=== PATIENT | male | born 1950 | race Caucasian/White ===

== ENCOUNTER → 2016-08-15 | Outpatient (CLI) | payer MEDICARE ==
[~2016-08-15] MED LIST: ALLO300T2 PO; ASPI-730 PO; CITA-49 PO; CLOP75TA19 PO; COLC0.6T69 PO; INSU100C11 SQ; INSU100I6 SQ; LATA2.5D7 BOTH EYES; LISI-1 PO; LOVA40TA70 PO; MAGN500C4 PO; METF-200 PO; METO25TA6 PO; OMEG500C7 PO; OMEP40CA11 PO; ONDA4TAB4 PO; OXYC1TAB8 PO
== END ==
LOC: NSC 08:00 → EDSTATUS 09:45
PROVIDERS: ATTEND Orthopaedic Surgery
DX: Z53.9 Procedure and treatment not carried out, unspecified reason (principal)

== ENCOUNTER 2016-09-10 06:22 | Day surgery (SDC) | payer MEDICARE ==
--- NOTE | 2016-09-07 14:00 | HPF ---
CHIEF COMPLAINT Right shoulder pain - rotator cuff tear. HISTORY OF PRESENT ILLNESS This is a 66-year-old male who was seen by Dr. Bill Andujar for right shoulder pain, rotator cuff tear. This stems from an injury in September of 2015 when he twisted awkwardly on a tractor and caught his arm in a steering wheel. He had sudden onset of pain and it has progressively worsened over time. His pain is described as moderate, it is aching at rest, sharp, moves rapidly with overhead activity. It is also aggravated by throwing, movement, pushing. He notes pain radiates to the upper arm and deltoid. Complains of a sensation of giving way, pain at night and awakening from sleep as well as weakness. He has had an injection which only helped temporarily. He has tried Tylenol, rest, ice, heat , home exercises and activity modification, all without improvement. He has had an MRI which is available for review that shows full-thickness supraspinatus tear in the anterior margin with minimal retraction. No evidence of labral tear. Biceps appears intact. Subscapularis shows some tendinopathy. There is hypertrophy of the AC joint. This patient had been scheduled roughly a month ago. It was canceled due to a family tragedy. Since that time he has his preoperative testing repeated. It is noted that he does have a mild elevation in his white blood cell count. We have made efforts to try and get ahold of the patient to see if he has had a recent URI or anything that could explain these symptoms. We have been unable to get ahold of him. His phone numbers have changed secondary to his family situation. Therefore when he arrives I have ordered a repeat CBC to reevaluate. Will also need to be diligent to see if he is febrile, etc. REVIEW OF SYSTEMS Review of Systems was obtained and reviewed through patient questionnaire completed today. Constitutional: The patient does not have any chills, fever, fatigue, malaise, or weight loss. HEENT: The patient does not have any headache or dizziness. Respiratory: The patient does not have any cough, shortness of air, recent respiratory infection, or wheezing. Cardiovascular: The patient does not have any chest pain, palpitation, leg swelling, or syncope. Gastrointestinal: The patient does not have any abdominal pain, constipation, diarrhea, vomiting, heartburn, or nausea. Skin: The patient does not have any skin infection, rash, or numbness of the extremity. Musculoskeletal: The patient denies other joint pain as well. Neurological: The patient does not have any seizure. Psychiatric: The patient does not have any anxiety or depression. Hematologic/Lymphatic: The patient does not have easy bruising or easy bleeding. PAST MEDICAL HISTORY 1. COPD. 2. Type 2 diabetes. 3. Obstructive sleep apnea. 4. Gout. 5. Depression. MEDICATIONS 1. Levemir. 2. Humalog. 3. Metformin. 4. Plavix. 5. Metoprolol. 6. Citalopram. 7. Allopurinol. ALLERGIES No known drug allergies. SURGICAL HISTORY 1. Appendectomy. 2. Cholecystectomy. SOCIAL HISTORY He is . Semi-retired [employer]. Denies tobacco, alcohol or illicit drug use. FAMILY HISTORY Significant for father with colon cancer, diabetes and AZ. Mother with diabetes and COPD. Sister with breast cancer, thyroid cancer, melanoma. PHYSICAL EXAM 5 ft. 8 in. 228 lbs. Blood pressure is 110/58. General: Well developed. Well nourished. Alert and oriented x 3. No acute distress. Normal mood and affect. Skin: Shows no rash or lesions in the affected extremities. Vascular: 2+ palpable distal pulses and brisk capillary refill in all digits. Neuro: Normal sensation to light touch in bilateral affected extremities. Gait: Normal-appearing gait without antalgia. No assistive device is used. Extremity Exam: Right upper extremity is focused on. It shows no swelling, deformity or mass. There is tenderness present over the anterolateral border of the acromion. Tender over the greater tuberosity. No AC joint tenderness. Bicipital groove is nontender. Posterior joint line and neck are nontender. Normal cervical range. Shoulder range of motion essentially full but painful throughout impingement arc of abduction. He also has pain at the end range of forward flexion. He has weakness with abduction. Normal internal and external rotational strength. Distal strength is normal. Positive impingement signs. Negative Speed's, Yergason's and Ventura's. No instability. Contralateral extremity shows skin is intact. No swelling. No tenderness to palpation. Normal range of motion. Normal strength and stability. X-RAYS Five views of the shoulder were completed at [facility] in July of 2016. They show no evidence of fracture or dislocation, maintained glenohumeral joint space save for mild narrowing. AC joint shows degenerative change with inferior spurring in lateral clavicle and type 2 acromion. No abnormal soft tissue calcification. Moderate primary AC joint arthritis. ASSESSMENT Right shoulder rotator cuff tear. PLAN Dr. Lindsey has recommended a diagnostic arthroscopy, rotator cuff repair, subacromial decompression and treatment as needed. Risks and benefits have been reviewed. They include but are not limited to infection, nerve damage, artery damage, stroke, AZ, pulmonary embolus, deep vein thrombosis, ileus, . There are also medical risks of the anesthesia. There is risk that he may not regain full strength and range of motion. Will plan proceeding in the near future. CHUCKY
[~2016-09-10] VITALS: Ht 179.1 cm; Wt 105.3 kg
[2016-09-10] VITALS (17 sets, daily range): BP systolic 104–163; BP diastolic 56–94; PULSE 68–113; RESP 14–16; TEMP 96.9–97.8; O2SAT 90–98; Ht 179.1 cm; Wt 105.3 kg
[~2016-09-10 06:22] MED LIST changes: -ALLO300T2 PO; -COLC0.6T69 PO; -LATA2.5D7 BOTH EYES; -LISI-1 PO; -LOVA40TA70 PO; -MAGN500C4 PO; -METO25TA6 PO; -OMEG500C7 PO; -OMEP40CA11 PO; -ONDA4TAB4 PO; -OXYC1TAB8 PO
--- OUTSIDE RECORDS SUMMARY | 2016-09-10 06:26 | XMS REPORT | CCD ---
Author Author URSULA MARIN Organization Unknown Address [address], [place] [id number] Phone 0 Care Team Providers Care Food Science Professor Name Role Phone Jose Enrique COELLO Attending Physician 0 Vital Signs Unknown or Not Available. Allergies Unknown or Not Available. Procedures Unknown or Not Available. History of Immunizations Unknown or Not Available. Problems Unknown or Not Available. Results COMP METABOLIC - Collect Date/Time: 08/03/2015 14:04 Test Name Code Test Result Test Units Test Ref Range GLUCOSE 86 mg/dL L=70 H=110 BUN 17 mg/dL L=7 H=18 CREATININE 1.17 mg/ dL L=0.60 H=1.30 AGE 65 YEARS GFR 62.2 SODIUM 141 mmol/L L=136 H=145 POTASSIUM 4.1 mmol/ L L=3.5 H=5.1 CHLORIDE 105 mmol/L L=98 H=107 CO2 27 mmol/L L=21 H=32 CALCIUM 9.1 mg/dL L=8.5 H=10.1 AST 18 U/L L=15 H=37 ALT 76 U/L L=12 H=78 ALKALINE PHOS 79 U/ L L=46 H=116 TOTAL PROTEIN 7.7 g/ dL L=6.4 H=8.2 ALBUMIN 3.8 g/dL L=3.4 H=5.0 TOTAL BILI 0.30 mg/ dL L=0.00 H=1.00 HGB A1C - Collect Date/Time: 08/03/2015 14:04 Test Name Code Test Result Test Units Test Ref Range HGB A1C 10.8 % L=4.5 H=6.2 eAG 263 mg/dL LDL CHOLESTEROL, DIRECT - Collect Date/Time: 08/03/2015 14:04 Test Name Code Test Result Test Units Test Ref Range LDL, DIRECT 170 mg/ dL L=0 H=100 LIPID PANEL - Collect Date/Time: 08/03/2015 14:04 Test Name Code Test Result Test Units Test Ref Range CHOLESTEROL 292 mg/ dL L=0 H=200 TRIGLYCERIDES 545 mg /dL L=30 H=150 HDL 34 mg/dL L=40 H=60 VLDL 109 mg/dL L=0 H=40 CHOL/HDL RISK 8.6 RATIO L=0.0 H=5.0 PT FASTING: ? N/A TRIG >400 NO LDL CALC N/A LDL, CALC N/A N/A URIC ACID - Collect Date/Time: 08/03/2015 14:04 Test Name Code Test Result Test Units Test Ref Range URIC ACID 9.8 mg/dL L=2.6 H=7.2 MICROALBUMIN/CREATININE RATIO - Collect Date/Time: 08/03/2015 14:30 Test Name Code Test Result Test Units Test Ref Range MICROALBUMIN 104.2 mg/dL L=0.1 H=2.0 CREAT, URINE 140.2 mg/dL MICROALB/CREAT 743.2 ug/mg L=0.0 H=29.9 CORRECT BAR N/A UA AUTO W/ MICRO - Collect Date/Time: 08/04/2015 11:00 Test Name Code Test Result Test Units Test Ref Range COLOR Yellow N/A NORMAL: Yellow APPEARANCE Clear N/ A NORMAL: Clear GLUCOSE 250 N/A NORMAL: Negative BILIRUBIN Negative N /A NORMAL: Negative KETONE Negative N/A NORMAL: Negative SPEC GRAVITY >=1.030 N/A NORMAL: 1.005-1.030 BLOOD Negative N/A NORMAL: Negative PROTEIN 100 N/A NORMAL: Negative PH 5.0 N/A NORMAL: 5.0-8.0 UROBILINOGEN 0.2 N/ A NORMAL: Negative NITRITE Negative N/ A NORMAL: Negative LEUKOCYTES Negative N/A NORMAL: Negative MICRO RBC None Seen N/A NORMAL: 0-2 MICRO WBC None Seen N/A NORMAL: 0-2 BACTERIA Trace N/A NORMAL: None-Trace EPI CELLS None Seen N/A NORMAL: 0-15 MUCUS Trace N/A NORMAL: None-Small AMORPHOUS None Seen N/A NORMAL: None Seen YEAST None Seen N/A NORMAL: None Seen CRYSTALS None Seen N /A NORMAL: None Seen CAST Hyaline C N/A NORMAL: None Seen URINE CULTURE? NO N/ A Active Medications Unknown or Not Available. Medications Administered During Visit Unknown or Not Available. 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 Discharge Instructions You were admitted to [facility] on 08/03/2015 13:58 with a principal diagnosis of Type 2 diabetes mellitus with diabetic nephropathy You had the following tests done: COMP METABOLIC HGB A1C LDL CHOLESTEROL, DIRECT LIPID PANEL MICROALBUMIN/ CREATININE RATIO UA AUTO W/ MICRO URIC ACID You were discharged from [facility] Should you have any questions prior to discharge, please contact a member of your healthcare team. If you have left the hospital and have any questions, please contact your primary care physician. Chief Complaint and Reason For Visit Chief Complaint Date of Onset LAB Function Status Unknown or Not Available. Plan of Care Unknown or Not Available. Referral/Transition of Care Unknown or Not Available.
--- OUTSIDE RECORDS SUMMARY | 2016-09-10 06:27 | XMS REPORT | CCD ---
Author Author URSULA MARIN Organization Unknown Address [address], [place] [id number] Phone 0 Care Team Providers Care Learning Coach Name Role Phone Jose Enrique COELLO Attending Physician 0 Vital Signs Unknown or Not Available. Allergies Unknown or Not Available. Procedures Unknown or Not Available. History of Immunizations Unknown or Not Available. Problems Unknown or Not Available. Results BASIC METABOLIC - Collect Date/Time: 10/05/2015 11:25 Test Name Code Test Result Test Units Test Ref Range GLUCOSE 259 mg/dL L=70 H=110 BUN 21 mg/dL L=7 H=18 CREATININE 1.21 mg/ dL L=0.60 H=1.30 AGE 65 YEARS GFR 59.8 SODIUM 135 mmol/L L=136 H=145 POTASSIUM 4.5 mmol/ L L=3.5 H=5.1 CHLORIDE 102 mmol/L L=98 H=107 CO2 22 mmol/L L=21 H=32 CALCIUM 10.3 mg/dL L=8.5 H=10.1 URIC ACID - Collect Date/Time: 10/05/2015 11:25 Test Name Code Test Result Test Units Test Ref Range URIC ACID 11.0 mg/ dL L=2.6 H=7.2 CBC W/ DIFF - Collect Date/Time: 10/05/2015 11:25 Test Name Code Test Result Test Units Test Ref Range WBC 11.8 x10^3 L=4.8 H=10.8 RBC 5.28 x10^6 L=4.70 H=6.10 HEMOGLOBIN 16.1 g/ dL L=14.0 H=18.0 HEMATOCRIT 47.3 % L=42.0 H=52.0 MCV 90 fL L=80 H=100 MCH 30.4 pg L=27.0 H=33.0 MCHC 34.0 g/dL L=33.0 H=37.0 RDW 12.3 % L=11.5 H=14.5 PLATELETS 210 x10^3 L=150 H=450 MPV 9.0 fL L=7.8 H=11.0 NEUTROPHILS 78.9 % L=40.0 H=80.0 LYMPHOCYTES 12.3 % L=20.0 H=45.0 MONOCYTES 7.7 % L=0.0 H=10.0 EOSINOPHILS 1.0 % L=0.0 H=5.0 BASOPHILS 0.1 % L=0.0 H=2.0 REFLEX MAN DIFF NO N /A Active Medications Unknown or Not Available. Medications Administered During Visit Unknown or Not Available. Encounters Encounter Diagnosis Diagnosis Code Start Date Chronic kidney disease, unspecified N189 10/05/2015 Social History Smoking Status Code Start Date End Date Never smoker [id number] Patient Decision Aids Unknown or Not Available. Discharge Instructions You were admitted to [facility] on 10/05/2015 11:17 with a principal diagnosis of Chronic kidney disease, unspecified You had the following tests done: BASIC METABOLIC CBC W/ DIFF URIC ACID You were discharged from [facility] on 10/05/2015 11:17 Should you have any questions prior to [...]
--- OUTSIDE RECORDS SUMMARY | 2016-09-10 06:27 | XMS REPORT | CCD ---
Author Author ELVA VILCHIS Organization Unknown Address [address], [place] [phone] Phone 0 Care Team Providers Care Elevated Work Platform Operator Name Role Phone Jose Enrique COELLO Attending Physician 0 Vital Signs Unknown or Not Available. Allergies Unknown or Not Available. Procedures Unknown or Not Available. History of Immunizations Unknown or Not Available. Problems Unknown or Not Available. Results Unknown or Not Available. Active Medications Unknown or Not Available. Medications Administered During Visit Unknown or Not Available. Encounters Encounter Diagnosis Diagnosis Code Start Date LUMBAGO 7242 05/05/2014 Social History Smoking Status Code Start Date End Date Never smoker [id number] Patient Decision Aids Unknown or Not Available. Discharge Instructions You were admitted to [facility] on 05/05/2014 with a principal diagnosis of LUMBAGO. You were discharged from [facility] on 05/05/2014. Should you have any questions prior to discharge, please contact a member of your healthcare team. If you have left the hospital and have any questions, please contact your primary care physician. Chief Complaint and Reason For Visit Chief Complaint Date of Onset LUMBAR SPINE Function Status Unknown or Not Available. Plan of Care Unknown or Not Available. Referral/Transition of Care Unknown or Not Available.
--- OUTSIDE RECORDS SUMMARY | 2016-09-10 06:27 | XMS REPORT | CCD ---
Author Author DANNY CONWAY Organization Unknown Address [address], [place] [phone] Phone 0 Care Team Providers Care Poultry Husbandry Worker Name Role Phone MATT ARREDONDO W Attending Physician [phone] Vital Signs Unknown. Allergies Unknown. Procedures Unknown. History of Immunizations Unknown. Problems Unknown. Results COMP METABOLIC Test Name Code Test Result Test Units Test Date/Time GLUCOSE 214.0000 mg/ dL 04/17/2013 07:58 BUN 17.0000 mg/dL 04/17/2013 07:58 CREATININE 1.2000 mg /dL 04/17/2013 07:58 [age] YE[age] 04/17/2013 07:58 GFR 64.6000 04/17/2013 07:58 SODIUM 137.0000 mmol /L 04/17/2013 07:58 POTASSIUM 4.0000 mmol/L 04/17/2013 07:58 CHLORIDE 100.0000 mmol/L 04/17/2013 07:58 CO2 27.0000 mmol/L 04/17/2013 07:58 CALCIUM 9.4000 mg/ dL 04/17/2013 07:58 AST 17.0000 U/L 04/17/2013 07:58 ALT 44.0000 U/L 04/17/2013 07:58 ALKALINE PHOS 122.0000 U/L 04/17/2013 07:58 TOTAL PROTEIN 7.7000 g/dL 04/17/2013 07:58 ALBUMIN 3.9000 g/dL 04/17/2013 07:58 TOTAL BILI 0.4000 mg /dL 04/17/2013 07:58 Medications Unknown. Medications Administered Unknown. Encounters Unknown. Social History Smoking Status Code Start Date End Date Never smoker [id number] Patient Decision Aids Unknown. Instructions You were admitted to [facility] on 04/17/2013. You had the following tests done: GLUCOSE BUN CREATININE AGE GFR SODIUM POTASSIUM CHLORIDE CO2 CALCIUM AST ALT ALKALINE PHOS TOTAL PROTEIN ALBUMIN TOTAL BILI You were discharged from [facility] on 04/17/2013. Should you have any questions prior to discharge, please contact a member of your healthcare team. If you have left the hospital and have any questions, please contact your primary care physician. Chief Complaint and Reason For Visit Chief Complaint Date of Onset LAB Function Status Unknown. Plan of Care Unknown.
--- OUTSIDE RECORDS SUMMARY | 2016-09-10 06:27 | XMS REPORT | CCD ---
Author Author URSULA MARIN Organization Unknown Address [address], [place] [id number] Phone 0 Care Team Providers Care Band Edger Name Role Phone DIANA JENNIFER Attending Physician [phone] Vital Signs Unknown or Not Available. Allergies Allergy Code Allergy Type Reaction Status NKDA - NO KNOWN DRUG ALLERGIES 0 Drug allergy Active Procedures Unknown or Not Available. History of Immunizations Unknown or Not Available. Problems Unknown or Not Available. Results Unknown or Not Available. Active Medications Medication Code Dose Units Frequency Route Modification Start Date/Time Allopurinol 300MG Oral Tablet [id number] 300 MILLIGRAMS DAILY ORAL 12/31/2015 09:55 Prescription Detail 300 MILLIGRAMS ORAL DAILY Aspirin 325MG Oral Tablet, Enteric Coated [id number] 325 MILLIGRAMS DAILY ORAL 12/31/2015 09:55 Prescription Detail 325 MILLIGRAMS ORAL DAILY Bactrim DS 800MG-160MG Oral Tablet [id number] 1 EACH TWICE A DAY ORAL 12/31/2015 09:55 Prescription Detail 1 EACH ORAL TWICE A DAY Levemir 100U/1ML Subcutaneous Solution [id number] 60 EACH TWICE A DAY SUBCUTANEOUS 12/31/2015 09:55 Prescription Detail 60 EACH SUBCUTANEOUS TWICE A DAY Levemir 100U/1ML Subcutaneous Solution [id number] 60 UNITS TWICE A DAY SQ 12/31/2015 09:55 Prescription Detail 60 UNITS SQ TWICE A DAY Lisinopril 10MG Oral Tablet [id number] 10 MILLIGRAMS DAILY ORAL 12/31/2015 09:55 Prescription Detail 10 MILLIGRAMS ORAL DAILY metFORMIN HCl 500MG Oral Tablet [id number] 500 MILLIGRAMS DAILY ORAL 12/31/2015 09:55 Prescription Detail 500 MILLIGRAMS ORAL DAILY NovoLOG 100U/1ML Subcutaneous Solution 900404 30 UNIT THREE TIMES DAILY SUBCUTANEOUS 12/31/2015 09:55 Prescription Detail 30 UNIT SUBCUTANEOUS THREE TIMES DAILY Plavix 75MG Oral Tablet [id number] 75 MILLIGRAMS DAILY ORAL 12/31/2015 09:55 Prescription Detail 75 MILLIGRAMS ORAL DAILY traMADol HCl 50MG Oral Tablet [id number] 50 MILLIGRAMS NEEDED ORAL 12/31/2015 09:55 Prescription Detail 50 MILLIGRAMS ORAL NEEDED Xalatan 0.005% Ophthalmic Solution [id number] 1 EACH DAILY OPTHALMIC 12/31/2015 09:55 Prescription Detail 1 EACH OPTHALMIC DAILY Medications Administered During Visit Unknown or Not Available. Encounters Unknown or Not Available. Social History Smoking Status Code Start Date End Date Never smoker [id number] Patient Decision Aids Unknown or Not Available. Discharge Instructions You were admitted to [facility] on 07/10/2016 08:07 You were discharged from [facility] on 07/10/2016 08:08 Should you have any questions prior to discharge, please contact a member of your healthcare team. If you have left the hospital and have any questions, please contact your primary care physician. Chief Complaint and Reason For Visit Chief Complaint Date of Onset MRI UPPER EXT JNT WO CONTR RT 07/06/2016 Function Status Unknown or Not Available. Plan of Care Unknown or Not Available. Referral/Transition of Care Unknown or Not Available.
--- OUTSIDE RECORDS SUMMARY | 2016-09-10 06:27 | XMS REPORT | CCD ---
Author Author URSULA MARIN Organization Unknown Address [address], [place] [phone] Phone 0 Care Team Providers Care Home Health Rn Name Role Phone Duke DAVIS Attending Physician 0 Vital Signs Unknown or Not Available. Allergies Allergy Code Allergy Type Reaction Status NKDA - NO KNOWN DRUG ALLERGIES 0 Drug allergy Active Procedures Unknown or Not Available. History of Immunizations Unknown or Not Available. Problems Unknown or Not Available. Results Unknown or Not Available. Active Medications Medication Code Dose Units Frequency Route Modification Start Date/Time Allopurinol 300MG Oral Tablet [id number] 300 MILLIGRAMS DAILY ORAL 12/31/2015 09:55 Prescription Detail 300 MILLIGRAMS ORAL DAILY Aspirin 325MG Oral Tablet, Enteric Coated [id number] 325 MILLIGRAMS DAILY ORAL 12/31/2015 09:55 Prescription Detail 325 MILLIGRAMS ORAL DAILY Bactrim DS 800MG-160MG Oral Tablet [id number] 1 EACH TWICE A DAY ORAL 12/31/2015 09:55 Prescription Detail 1 EACH ORAL TWICE A DAY Levemir 100U/1ML Subcutaneous Solution [id number] 60 EACH TWICE A DAY SUBCUTANEOUS 12/31/2015 09:55 Prescription Detail 60 EACH SUBCUTANEOUS TWICE A DAY Levemir 100U/1ML Subcutaneous Solution [id number] 60 UNITS TWICE A DAY SQ 12/31/2015 09:55 Prescription Detail 60 UNITS SQ TWICE A DAY Lisinopril 10MG Oral Tablet [id number] 10 MILLIGRAMS DAILY ORAL 12/31/2015 09:55 Prescription Detail 10 MILLIGRAMS ORAL DAILY metFORMIN HCl 500MG Oral Tablet [id number] 500 MILLIGRAMS DAILY ORAL 12/31/2015 09:55 Prescription Detail 500 MILLIGRAMS ORAL DAILY NovoLOG 100U/1ML Subcutaneous Solution [id number] 30 UNIT THREE TIMES DAILY SUBCUTANEOUS 12/31/2015 09:55 Prescription Detail 30 UNIT SUBCUTANEOUS THREE TIMES DAILY Plavix 75MG Oral Tablet [id number] 75 MILLIGRAMS DAILY ORAL 12/31/2015 09:55 Prescription Detail 75 MILLIGRAMS ORAL DAILY traMADol HCl 50MG Oral Tablet [id number] 50 MILLIGRAMS NEEDED ORAL 12/31/2015 09:55 Prescription Detail 50 MILLIGRAMS ORAL NEEDED Xalatan 0.005% Ophthalmic Solution [id number] 1 EACH DAILY OPTHALMIC 12/31/2015 09:55 Prescription Detail 1 EACH OPTHALMIC DAILY Medications Administered During Visit Unknown or Not Available. Encounters Encounter Diagnosis Diagnosis Code Start Date Pain in left foot [id number] 04/04/2016 Social History Smoking Status Code Start Date End Date Never smoker [id number] Patient Decision Aids Unknown or Not Available. Discharge Instructions You were admitted to [facility] on 04/04/2016 16:28 with a principal diagnosis of Pain in left foot You were discharged from [facility] on 04/04/2016 16:28 Should you have any questions prior to discharge, please contact a member of your healthcare team. If you have left the hospital and have any questions, please contact your primary care physician. Chief Complaint and Reason For Visit Chief Complaint Date of Onset XRAY LT FOOT Function Status Unknown or Not Available. Plan of Care Unknown or Not Available. Referral/Transition of Care Unknown or Not Available.
--- OUTSIDE RECORDS SUMMARY | 2016-09-10 06:27 | XMS REPORT | CCD ---
Author Author URSULA MARIN Organization Unknown Address [address], [place] [id number] Phone 0 Care Team Providers Care Proc Tech Name Role Phone PEREZ MCMAHAN Attending Physician 0 Vital Signs Unknown or Not Available. Allergies Unknown or Not Available. Procedures Unknown or Not Available. History of Immunizations Unknown or Not Available. Problems Unknown or Not Available. Results Unknown or Not Available. Active Medications Unknown or Not Available. Medications Administered During Visit Unknown or Not Available. Encounters Encounter Diagnosis Diagnosis Code Start Date Sleep apnea, unspecified G4730 2015 Social History Smoking Status Code Start Date End Date Never smoker [id number] Patient Decision Aids Unknown or Not Available. Discharge Instructions You were admitted to [facility] on 06/05/2015 with a principal diagnosis of Sleep apnea, unspecified. You were discharged from [facility] on 06/06/2015. Should you have any questions prior to discharge, please contact a member of your healthcare team. If you have left the hospital and have any questions, please contact your primary care physician. Chief Complaint and Reason For Visit Unknown or Not Available. Function Status Unknown or Not Available. Plan of Care Unknown or Not Available. Referral/Transition of Care Unknown or Not Available.
--- OUTSIDE RECORDS SUMMARY | 2016-09-10 06:27 | XMS REPORT | CCD ---
Author Author URSULA MARIN Organization Unknown Address [address], [place] [id number] Phone 0 Care Team Providers Care Entry Level Software Engineer Name Role Phone JENNIFER ORTIZ Attending Physician [phone] Vital Signs Unknown or Not Available. Allergies Unknown or Not Available. Procedures Procedure Code Procedure Type Date CHEST [id number] 12/27/2015 History of Immunizations Unknown or Not Available. Problems Unknown or Not Available. Results BASIC METABOLIC - Collect Date/Time: 12/27/2015 10:08 Test Name Code Test Result Test Units Test Ref Range GLUCOSE 255 mg/dL L=70 H=110 BUN 16 mg/dL L=7 H=18 CREATININE 1.06 mg/ dL L=0.60 H=1.30 AGE 65 YEARS GFR 69.7 SODIUM 136 mmol/L L=136 H=145 POTASSIUM 4.2 mmol/ L L=3.5 H=5.1 CHLORIDE 101 mmol/L L=98 H=107 CO2 24 mmol/L L=21 H=32 CALCIUM 9.2 mg/dL L=8.5 H=10.1 CARDIAC PANEL - Collect Date/Time: 12/27/2015 10:08 Test Name Code Test Result Test Units Test Ref Range CKMB 1.0 ng/mL L=0.0 H=3.6 CPK 74 U/L L=26 H=308 CKMB% 1.4 % L=0.0 H=4.0 TROPONIN I <0.02 ng/ mL L=0.00 H=0.05 HGB A1C - Collect Date/Time: 12/27/2015 10:08 Test Name Code Test Result Test Units Test Ref Range HGB A1C 8.4 % L=4.5 H=6.2 eAG 194 mg/dL CBC W/ DIFF - Collect Date/Time: 12/27/2015 10:08 Test Name Code Test Result Test Units Test Ref Range WBC 16.8 x10^3 L=4.8 H=10.8 RBC 5.10 x10^6 L=4.70 H=6.10 HEMOGLOBIN 15.8 g/ dL L=14.0 H=18.0 HEMATOCRIT 46.1 % L=42.0 H=52.0 MCV 90 fL L=80 H=100 MCH 31.0 pg L=27.0 H=33.0 MCHC 34.3 g/dL L=33.0 H=37.0 RDW 13.0 % L=11.5 H=14.5 PLATELETS 236 x10^3 L=150 H=450 MPV 8.6 fL L=7.8 H=11.0 NEUTROPHILS 83.8 % L=40.0 H=80.0 LYMPHOCYTES 9.2 % L=20.0 H=45.0 MONOCYTES 5.6 % L=0.0 H=10.0 EOSINOPHILS 0.8 % L=0.0 H=5.0 BASOPHILS 0.6 % L=0.0 H=2.0 SEG 72 %% L=40 H=80 BAND 10 %% L=0 H=5 LYMPH 12 %% L=20 H=45 MONO 6 %% L=0 H=10 EOS 0 %% L=0 H=5 BASO 0 %% L=0 H=2 ATYP LYMPH 0 %% L=0 H=10 META 0 %% L=0 H=1 REFLEX MAN DIFF YES N/A RBC MORPHOLOGY NORMAL N/A SED RATE AUTO - Collect Date/Time: 12/27/2015 10:08 Test Name Code Test Result Test Units Test Ref Range SED RATE 11 mm/HR L=0 H=10 D-DIMER, QUANTITATIVE - Collect Date/Time: 12/27/2015 10:08 Test Name Code Test Result Test Units Test Ref Range D-DIMER, QUANT 174 ng/mL L=0 H=400 UA AUTO W/ MICRO - Collect Date/Time: 12/27/2015 11:30 Test Name Code Test Result Test Units Test Ref Range COLOR Yellow N/A NORMAL: Yellow APPEARANCE Clear N/ A NORMAL: Clear GLUCOSE 500 N/A NORMAL: Negative BILIRUBIN Negative N /A NORMAL: Negative KETONE Negative N/A NORMAL: Negative SPEC GRAVITY >=1.030 N/A NORMAL: 1.005-1.030 BLOOD Trace-ly N/A NORMAL: Negative PROTEIN 100 N/A NORMAL: Negative PH 5.0 N/A NORMAL: 5.0-8.0 UROBILINOGEN 0.2 N/ A NORMAL: Negative NITRITE Negative N/ A NORMAL: Negative LEUKOCYTES Negative N/A NORMAL: Negative MICRO RBC 2-5 N/A NORMAL: 0-2 MICRO WBC 0-2 N/A NORMAL: 0-2 BACTERIA 1+ N/A NORMAL: None-Trace EPI CELLS None Seen N/A NORMAL: 0-15 MUCUS Small N/A NORMAL: None-Small AMORPHOUS None Seen N/A NORMAL: None Seen YEAST None Seen N/A NORMAL: None Seen CRYSTALS None Seen N /A NORMAL: None Seen CAST Hyaline C N/A NORMAL: None Seen URINE CULTURE? NO N/ A Active Medications Medication Code Dose Units Frequency Route Modification Start Date/Time Allopurinol 300MG Oral Tablet [id number] 300 MILLIGRAMS DAILY ORAL 12/31/2015 09:55 Prescription Detail 300 MILLIGRAMS ORAL DAILY Aspirin 325MG Oral Tablet, Enteric Coated [id number] 325 MILLIGRAMS DAILY ORAL 12/31/2015 09:55 Prescription Detail 325 MILLIGRAMS ORAL DAILY Bactrim DS 800MG-160MG Oral Tablet [id number] 1 EACH TWICE A DAY ORAL 12/31/2015 09:55 Prescription Detail 1 EACH ORAL TWICE A DAY Levemir 100U/1ML Subcutaneous Solution [id number] 60 EACH TWICE A DAY SUBCUTANEOUS 12/31/2015 09:55 Prescription Detail 60 EACH SUBCUTANEOUS TWICE A DAY Levemir 100U/1ML Subcutaneous Solution [id number] 60 UNITS TWICE A DAY SQ 12/31/2015 09:55 Prescription Detail 60 UNITS SQ TWICE A DAY Lisinopril 10MG Oral Tablet [id number] 10 MILLIGRAMS DAILY ORAL 12/31/2015 09:55 Prescription Detail 10 MILLIGRAMS ORAL DAILY metFORMIN HCl 500MG Oral Tablet [id number] 500 MILLIGRAMS DAILY ORAL 12/31/2015 09:55 Prescription Detail 500 MILLIGRAMS ORAL DAILY NovoLOG 100U/1ML Subcutaneous Solution [id number] 30 UNIT THREE TIMES DAILY SUBCUTANEOUS 12/31/2015 09:55 Prescription Detail 30 UNIT SUBCUTANEOUS THREE TIMES DAILY Plavix 75MG Oral Tablet [id number] 75 MILLIGRAMS DAILY ORAL 12/31/2015 09:55 Prescription Detail 75 MILLIGRAMS ORAL DAILY traMADol HCl 50MG Oral Tablet [id number] 50 MILLIGRAMS NEEDED ORAL 12/31/2015 09:55 Prescription Detail 50 MILLIGRAMS ORAL NEEDED Xalatan 0.005% Ophthalmic Solution [id number] 1 EACH DAILY OPTHALMIC 12/31/2015 09:55 Prescription Detail 1 EACH OPTHALMIC DAILY Medications Administered During Visit Unknown or Not Available. Encounters Encounter Diagnosis Diagnosis Code Start Date Type 2 diabetes mellitus without complications E119 12/27/2015 Social History Smoking Status Code Start Date End Date Never smoker [id number] Patient Decision Aids Unknown or Not Available. Discharge Instructions You were admitted to [facility] on 12/27/2015 10:00 with a principal diagnosis of Type 2 diabetes mellitus without complications You had the following tests done: BASIC METABOLIC CARDIAC PANEL CBC W/ DIFF D-DIMER, QUANTITATIVE HGB A1C SED RATE AUTO UA AUTO W/ MICRO You were discharged from [facility] on 12/27/2015 10:01 Should you have any questions prior to discharge, please contact a member of your healthcare team. If you have left the hospital and have any questions, please contact your primary care physician. Chief Complaint and Reason For Visit Chief Complaint Date of Onset LAB XR CHEST Function Status Unknown or Not Available. Plan of Care Unknown or Not Available. Referral/Transition of Care Unknown or Not Available.
--- OUTSIDE RECORDS SUMMARY | 2016-09-10 06:27 | XMS REPORT | CCD ---
Author Author URSULA MARIN Organization Unknown Address [address] [place], [place] [address] Phone 0 Care Team Providers Care Mainspring Reverse Winder Name Role Phone JENNIFER ORTIZ Attending Physician [phone] C., N Nurse Assisstant 0 H., A Nurse Assisstant 0 W., S Nurse Assisstant 0 J., JOHNNY Nurse Assisstant 0 Vital Signs Vital Sign Value Unit Date/Time Recent/Initial? BP Systolic 140 mmHg 12/29/2015 15:15 Initial VS BP Diastolic 92 mmHg 12/29/2015 15:15 Initial VS Respiratory Rate 16 bpm 12/29/2015 15:15 Initial VS Heart Rate 124 bpm 15:15 Initial VS O2 % BldC Oximetry 97 % 12/29/2015 15:15 Initial VS Body Temperature 98 degrees 12/29/2015 15:15 Initial VS Weight Measured 226 lbs 12/29/2015 15:46 Initial VS Height 70 in 2015 15:46 Initial VS BMI (Body Mass Index) 32.43 kg/m^2 12/29/2015 15:46 Initial VS BSA (Body Surface Area) 2.25 m^2 12/29/2015 15:46 Initial VS Body Temperature 98.1 degrees 12/31/2015 08:16 Most Recent VS BP Systolic 173 mmHg 12/31/2015 09:18 Most Recent VS BP Diastolic 81 mmHg 12/31/2015 09:18 Most Recent VS Respiratory Rate 16 bpm 12/31/2015 09:18 Most Recent VS Heart Rate 75 bpm 09:18 Most Recent VS O2 % BldC Oximetry 99 % 12/31/2015 09:18 Most Recent VS Allergies Allergy Code Allergy Type Reaction Status NKDA - NO KNOWN DRUG ALLERGIES 0 Drug allergy Active Procedures Unknown or Not Available. History of Immunizations Unknown or Not Available. Problems Unknown or Not Available. Results COMP METABOLIC - Collect Date/Time: 12/29/2015 16:00 Test Name Code Test Result Test Units Test Ref Range GLUCOSE 280 mg/dL L=70 H=110 BUN 39 mg/dL L=7 H=18 CREATININE 1.66 mg/ dL L=0.60 H=1.30 AGE 65 YEARS GFR 41.5 SODIUM 133 mmol/L L=136 H=145 POTASSIUM 4.3 mmol/ L L=3.5 H=5.1 CHLORIDE 100 mmol/L L=98 H=107 CO2 22 mmol/L L=21 H=32 CALCIUM 9.2 mg/dL L=8.5 H=10.1 AST 21 U/L L=15 H=37 ALT 40 U/L L=12 H=78 ALKALINE PHOS 88 U/ L L=46 H=116 TOTAL PROTEIN 7.1 g/ dL L=6.4 H=8.2 ALBUMIN 3.4 g/dL L=3.4 H=5.0 TOTAL BILI 0.30 mg/ dL L=0.00 H=1.00 VANCOMYCIN, TROUGH - Collect Date/Time: 12/30/2015 15:45 Test Name Code Test Result Test Units Test Ref Range VANC TROUGH 7 ug/mL L=5 H=20 CBC W/ DIFF - Collect Date/Time: 12/30/2015 15:45 Test Name Code Test Result Test Units Test Ref Range WBC 9.6 x10^3 L=4.8 H=10.8 RBC 4.58 x10^6 L=4.70 H=6.10 HEMOGLOBIN 13.8 g/ dL L=14.0 H=18.0 HEMATOCRIT 41.1 % L=42.0 H=52.0 MCV 90 fL L=80 H=100 MCH 30.2 pg L=27.0 H=33.0 MCHC 33.7 g/dL L=33.0 H=37.0 RDW 12.6 % L=11.5 H=14.5 PLATELETS 215 x10^3 L=150 H=450 MPV 8.4 fL L=7.8 H=11.0 NEUTROPHILS 78.7 % L=40.0 H=80.0 LYMPHOCYTES 13.2 % L=20.0 H=45.0 MONOCYTES 7.2 % L=0.0 H=10.0 EOSINOPHILS 0.8 % L=0.0 H=5.0 BASOPHILS 0.1 % L=0.0 H=2.0 REFLEX MAN DIFF NO N /A CBC W/ DIFF - Collect Date/Time: 12/29/2015 16:00 Test Name Code Test Result Test Units Test Ref Range WBC 11.4 x10^3 L=4.8 H=10.8 RBC 4.42 x10^6 L=4.70 H=6.10 HEMOGLOBIN 13.7 g/ dL L=14.0 H=18.0 HEMATOCRIT 40.0 % L=42.0 H=52.0 MCV 91 fL L=80 H=100 MCH 31.0 pg L=27.0 H=33.0 MCHC 34.2 g/dL L=33.0 H=37.0 RDW 13.1 % L=11.5 H=14.5 PLATELETS 172 x10^3 L=150 H=450 MPV 8.6 fL L=7.8 H=11.0 NEUTROPHILS 79.6 % L=40.0 H=80.0 LYMPHOCYTES 10.1 % L=20.0 H=45.0 MONOCYTES 8.6 % L=0.0 H=10.0 EOSINOPHILS 0.7 % L=0.0 H=5.0 BASOPHILS 1.0 % L=0.0 H=2.0 REFLEX MAN DIFF NO N /A CULTURE BLOOD - Collect Date/Time: 12/29/2015 16:56 Test Name Code Test Result Test Units Test Ref Range SOURCE: BLOOD N/A Blood Culture, Routine 600-7 Final report N/A CULTURE BLOOD - Collect Date/Time: 12/29/2015 16:46 Test Name Code Test Result Test Units Test Ref Range SOURCE: BLOOD N/A Blood Culture, Routine 600-7 Final report N/A Active Medications Medication Code Dose Units Frequency Route Modification Start Date/Time Allopurinol 300MG Oral Tablet [id number] 300 MILLIGRAMS DAILY ORAL 12/31/2015 09:55 Prescription Detail 300 MILLIGRAMS ORAL DAILY Aspirin 325MG Oral Tablet, Enteric Coated [id number] 325 MILLIGRAMS DAILY ORAL 12/31/2015 09:55 Prescription Detail 325 MILLIGRAMS ORAL DAILY Bactrim DS 800MG-160MG Oral Tablet [id number] 1 EACH TWICE A DAY ORAL 12/31/2015 09:55 Prescription Detail 1 EACH ORAL TWICE A DAY Levemir 100U/1ML Subcutaneous Solution [id number] 60 EACH TWICE A DAY SUBCUTANEOUS 12/31/2015 09:55 Prescription Detail 60 EACH SUBCUTANEOUS TWICE A DAY Levemir 100U/1ML Subcutaneous Solution [id number] 60 UNITS TWICE A DAY SQ 12/31/2015 09:55 Prescription Detail 60 UNITS SQ TWICE A DAY Lisinopril 10MG Oral Tablet [id number] 10 MILLIGRAMS DAILY ORAL 12/31/2015 09:55 Prescription Detail 10 MILLIGRAMS ORAL DAILY metFORMIN HCl 500MG Oral Tablet [id number] 500 MILLIGRAMS DAILY ORAL 12/31/2015 09:55 Prescription Detail 500 MILLIGRAMS ORAL DAILY NovoLOG 100U/1ML Subcutaneous Solution [id number] 30 UNIT THREE TIMES DAILY SUBCUTANEOUS 12/31/2015 09:55 Prescription Detail 30 UNIT SUBCUTANEOUS THREE TIMES DAILY Plavix 75MG Oral Tablet [id number] 75 MILLIGRAMS DAILY ORAL 12/31/2015 09:55 Prescription Detail 75 MILLIGRAMS ORAL DAILY traMADol HCl 50MG Oral Tablet [id number] 50 MILLIGRAMS NEEDED ORAL 12/31/2015 09:55 Prescription Detail 50 MILLIGRAMS ORAL NEEDED Xalatan 0.005% Ophthalmic Solution [id number] 1 EACH DAILY OPTHALMIC 12/31/2015 09:55 Prescription Detail 1 EACH OPTHALMIC DAILY Medications Administered During Visit Medication Dose Units Frequency Route Date/Time of Last Dose VANCOMYCIN/NS IVPB: 1GM/250ML 1 GM Q12H IVPB 12/31/2015 04:05 NS 0.9% 1000 ML 1000 ML X1 IV 12/29/2015 16:30 CLOPIDOGREL (PLAVIX) TAB : 75MG 75 MG QD PO 12/31/2015 08:00 ASPIRIN TAB : 325MG 325 MG QD PO 12/31/2015 08:00 LISINOPRIL (PRINIVIL) TAB : 10MG 10 MG QD PO 12/31/2015 08:00 XALATAN .005% 2.5 MLS :OPTH KENYATTA 1 GTT DAILY/HS TOPICAL 2015 19:56 ALLOPURINOL (ZYLOPRIM) TAB : 100MG 300 MG DAILY PO 12/31/2015 08:00 METFORMIN (GLUCOPHAGE) TAB : 500MG 500 MG DAILY PO 12/31/2015 08:00 LEVEMIR INSULIN: SQ 1-50 UNITS 60 UNITS BID SUBCUTANEOUS 2015 18:06 INSULIN HUMALOG INJ ;1-50 UNITS 30 Unit(s ) TID SUBCUTANEOUS 08:02 ENOXAPARIN (LOVENOX) INJ : 10MG/.1 ML 40 MG QD SQ 12/30/2015 19: 56 LEVEMIR INSULIN: SQ 1-50 UNITS 60 UNITS BID SQ 12/31/2015 08: 00 SALINE FLUSH 10ML SYRINGE 10 ML PRN IV PUSH 12/31/2015 06:44 Encounters Encounter Diagnosis Diagnosis Code Start Date Cellulitis of left upper limb [id number] Social History Smoking Status Code Start Date End Date Never smoker [id number] Patient Decision Aids Patient Decision Aid Patient Portal Access Discharge Instructions You were admitted to [facility] on 12/29/2015 15:15 with a principal diagnosis of Cellulitis of left upper limb You had the following tests done: CBC W / DIFF CBC W/ DIFF COMP METABOLIC CULTURE BLOOD CULTURE BLOOD VANCOMYCIN, TROUGH You were discharged from [facility] on 12/31/2015 11:10 Should you have any questions prior to discharge, please contact a member of your healthcare team. If you have left the hospital and have any questions, please contact your primary care physician. DIET: DIABETIC DIET Discharge To: HOME Medication Instruction:Pt/Family Member: CONTINUE WITH BACTRIM-DS PREVIOUSLY PRESCRIBED, TAKE UNTIL GONE Activities: RESUME REGULAR ACTIVITY LEVEL ABLE Follow up Appointment: FOLLOW UP WITH DR. ORTIZ THE MIDDLE OF NEXT WEEK, YOU WILL NEED TO MAKE AN APPOINTMENT WITH HIM AT [phone] Chief Complaint and Reason For Visit Chief Complaint Date of Onset LT HAND ARM CELLULITIS DM2 Function Status Unknown or Not Available. Plan of Care Unknown or Not Available. Referral/Transition of Care Unknown or Not Available.
--- OUTSIDE RECORDS SUMMARY | 2016-09-10 06:27 | XMS REPORT | Continuity of Care Document ---
Demographics Preferred Language Unknown Marital Status Unknown Rastafari Affiliation Unknown Race Unknown Ethnic Group Unknown Author Author [facility] Organization [facility] Address Unknown Phone Unavailable Allergies Medications Problems Procedures Results Encounters ACCT No. Visit Date/Time Discharge Status Pt. Type Provider Facility Loc./Unit Complaint [id number] 07/20/2016 10:45:00 ACT Unknown [id number] 07/06/2016 07:43:00 ACT Unknown [id number] 05/11/2016 12:28:00 ACT Unknown [id number] 03/19/2016 14:16:00 ACT Unknown [id number] 03/19/2016 13:54:00 ACT Unknown [id number] 03/19/2016 13:54:00 ACT Unknown [id number] 11/07/2015 12:53:00 ACT Unknown [id number] 10/19/2015 08:35:00 ACT Unknown [id number] 08/17/2015 11:35:00 ACT Unknown [id number] 07/01/2015 09:49:00 ACT Unknown [id number] 06/03/2015 12:39:00 ACT Unknown [id number] 06/08/2014 08:24:00 ACT Unknown [id number] 06/08/2014 07:56:00 ACT Unknown [id number] 01/15/2014 12:58:00 ACT Unknown [id number] 05/29/2013 09:26:00 ACT Unknown [id number] 04/20/2013 10:08:00 ACT Unknown
--- OUTSIDE RECORDS SUMMARY | 2016-09-10 06:27 | XMS REPORT | CCD ---
Author Author ELVA VILCHIS Organization Unknown Address [address] [place], [place] [address] Phone 0 Care Team Providers Care Developer Programmer Name Role Phone Jose Enrique COELLO Attending [...] Code Start Date End Date Never smoker [id number] Patient Decision Aids Unknown or Not Available. Discharge Instructions You were admitted to [facility] on 05/25/2014. Should you have any questions prior to discharge, please contact a member of your healthcare team. If you have left the hospital and have any questions, please contact your primary care physician. Chief Complaint and Reason For Visit Chief Complaint Date of Onset PTH RECURRING Function Status Unknown or Not Available. Plan of Care Unknown or Not Available. Referral/Transition of Care Unknown or Not Available.
--- OUTSIDE RECORDS SUMMARY | 2016-09-10 06:27 | XMS REPORT | CCD ---
Author Author URSULA MARIN Organization Unknown Address [address] [place], [place] [address] Phone 0 Care Team Providers Care Bus Driver Supervisor Name Role Phone PEREZ MCMAHAN Attending Physician 0 Vital Signs Unknown or Not Available. Allergies Unknown or Not Available. Procedures Unknown or Not Available. History of Immunizations Unknown or Not Available. Problems Unknown or Not Available. Results UA AUTO W/ MICRO - Collect Date/Time: 05/04/2015 15:15 Test Name Code Test Result Test Units Test Ref Range COLOR Yellow N/A NORMAL: Yellow APPEARANCE Clear N/ A NORMAL: Clear GLUCOSE 500 N/A NORMAL: Negative BILIRUBIN Negative N /A NORMAL: Negative KETONE Negative N/A NORMAL: Negative SPEC GRAVITY 1.020 N /A NORMAL: 1.005-1.030 BLOOD Negative N/A NORMAL: Negative PROTEIN 100 N/A NORMAL: Negative PH 5.0 N/A NORMAL: 5.0-8.0 UROBILINOGEN 0.2 N/ A NORMAL: Negative NITRITE Negative N/ A NORMAL: Negative LEUKOCYTES Negative N/A NORMAL: Negative MICRO RBC None Seen N/A NORMAL: 0-2 MICRO WBC 0-2 N/A NORMAL: 0-2 BACTERIA None Seen N /A NORMAL: None-Trace EPI CELLS 0-5 N/A NORMAL: 0-15 MUCUS None Seen N/A NORMAL: None-Small AMORPHOUS None Seen N/A NORMAL: None Seen YEAST None Seen N/A NORMAL: None Seen CRYSTALS None Seen N /A NORMAL: None Seen CAST Hyaline C N/A NORMAL: None Seen URINE CULTURE? NO N/ A Active Medications Unknown or Not Available. Medications Administered During Visit Unknown or Not Available. Encounters Encounter Diagnosis Diagnosis Code Start Date Urge incontinence N3941 05/04/2015 Social History Smoking Status Code Start Date End Date Never smoker [id number] Patient Decision Aids Unknown or Not Available. Discharge Instructions You were admitted to [facility] on 05/04/2015 with a principal diagnosis of Urge incontinence. You were discharged from [facility] on 05/04/2015. Should you have any questions prior to [...]
--- OUTSIDE RECORDS SUMMARY | 2016-09-10 06:27 | XMS REPORT | CCD ---
Author Author DANNY CONWAY NORMA Organization Unknown Address [address] [place], [place] [address] Phone 0 Care Team Providers Care Drafting Technician Name Role Phone MATT ARREDONDO, W Attending Physician [phone] Vital Signs Unknown. Allergies Unknown. Procedures Unknown. History of Immunizations Unknown. Problems Unknown. Results MICROALBUMIN/CREATININE RATIO Test Name Code Test Result Test Units Test Date/Time MICROALBUMIN 9.6000 mg/dL 05/25/2013 14:00 CREAT, URINE 169.8000 mg/dL 05/25/2013 14:00 MICROALB/CREAT 56.5000 ug/mg 05/25/2013 14:00 Medications Unknown. Medications Administered Unknown. Encounters Unknown. Social History Smoking Status Code Start Date End Date Never smoker [id number] Patient Decision Aids Unknown. Instructions You were admitted to [facility] on 05/25/2013. You had the following tests done: MICROALBUMIN CREAT, URINE MICROALB/ CREAT You were discharged from [facility] on 05/25/2013. Should you have any questions prior to discharge, please contact a member of your healthcare team. If you have left the hospital and have any questions, please contact your primary care physician. Chief Complaint and Reason For Visit Chief Complaint Date of Onset LAB Function Status Unknown. Plan of Care Unknown. Referral/Transition of Care Unknown.
--- OUTSIDE RECORDS SUMMARY | 2016-09-10 06:27 | XMS REPORT | CCD ---
Author Author URSULA MARIN Organization Unknown Address [address] [place], [place] [address] Phone 0 Care Team Providers Care Training And Development Manager Name Role Phone JENNIFER ORTIZ Attending Physician [phone] Vital Signs Unknown or Not Available. Allergies Allergy Code Allergy Type Reaction Status NKDA - NO KNOWN DRUG ALLERGIES 0 Drug allergy Active Procedures Unknown or Not Available. History of Immunizations Unknown or Not Available. Problems Unknown or Not Available. Results COMP METABOLIC - Collect Date/Time: 06/28/2016 09:15 Test Name Code Test Result Test Units Test Ref Range GLUCOSE 214 mg/dL L=70 H=110 BUN 14 mg/dL L=7 H=18 CREATININE 0.94 mg/ dL L=0.60 H=1.30 AGE 66 YEARS GFR 79.8 L=60.0 H=120 SODIUM 140 mmol/L L=136 H=145 POTASSIUM 4.3 mmol/ L L=3.5 H=5.1 CHLORIDE 103 mmol/L L=98 H=107 CO2 27 mmol/L L=21 H=32 CALCIUM 9.5 mg/dL L=8.5 H=10.1 AST 22 U/L L=15 H=37 ALT 39 U/L L=12 H=78 ALKALINE PHOS 89 U/ L L=46 H=116 TOTAL PROTEIN 7.9 g/ dL L=6.4 H=8.2 ALBUMIN 3.8 g/dL L=3.4 H=5.0 TOTAL BILI 0.50 mg/ dL L=0.00 H=1.00 HGB A1C - Collect Date/Time: 06/28/2016 09:15 Test Name Code Test Result Test Units Test Ref Range HGB A1C 8.9 % L=4.5 H=6.2 eAG 209 mg/dL LIPID PANEL - Collect Date/Time: 06/28/2016 09:15 Test Name Code Test Result Test Units Test Ref Range CHOLESTEROL 251 mg/ dL L=0 H=200 TRIGLYCERIDES 329 mg /dL L=30 H=150 HDL 43 mg/dL L=40 H=60 LDL, CALC 142 mg/dL L=0 H=100 VLDL 66 mg/dL L=0 H=40 CHOL/HDL RISK 5.8 RATIO L=0.0 H=5.0 PT FASTING: YES N/A URIC ACID - Collect Date/Time: 06/28/2016 09:15 Test Name Code Test Result Test Units Test Ref Range URIC ACID 5.4 mg/dL L=2.6 H=7.2 MICROALBUMIN/CREATININE RATIO - Collect Date/Time: 06/28/2016 09:20 Test Name Code Test Result Test Units Test Ref Range MICROALBUMIN 50.0 mg /dL L=0.1 H=2.0 CREAT, URINE 51.1 mg /dL MICROALB/CREAT 978.5 ug/mg L=0.0 H=29.9 CBC W/ DIFF - Collect Date/Time: 06/28/2016 09:15 Test Name Code Test Result Test Units Test Ref Range WBC 7.4 x10^3 L=4.8 H=10.8 RBC 5.06 x10^6 L=4.70 H=6.10 HEMOGLOBIN 15.5 g/ dL L=14.0 H=18.0 HEMATOCRIT 46.7 % L=42.0 H=52.0 MCV 92 fL L=80 H=100 MCH 30.5 pg L=27.0 H=33.0 MCHC 33.1 g/dL L=33.0 H=37.0 RDW 13.2 % L=11.5 H=14.5 PLATELETS 212 x10^3 L=150 H=450 MPV 7.8 fL L=7.8 H=11.0 NEUTROPHILS 71.4 % L=40.0 H=80.0 LYMPHOCYTES 17.3 % L=20.0 H=45.0 MONOCYTES 8.5 % L=0.0 H=10.0 EOSINOPHILS 2.3 % L=0.0 H=5.0 BASOPHILS 0.5 % L=0.0 H=2.0 REFLEX MAN DIFF NO N /A Active Medications Medication Code Dose Units Frequency Route Modification Start Date/Time Allopurinol 300MG Oral Tablet 300 MILLIGRAMS DAILY ORAL 12/31/2015 09:55 Prescription Detail 300 MILLIGRAMS ORAL DAILY Aspirin 325MG Oral Tablet, Enteric Coated [id number] 325 MILLIGRAMS DAILY ORAL 12/31/2015 09:55 Prescription Detail 325 MILLIGRAMS ORAL DAILY Bactrim DS 800MG-160MG Oral Tablet [id number] 1 EACH TWICE A DAY ORAL 12/31/2015 09:55 Prescription Detail 1 EACH ORAL TWICE A DAY Levemir 100U/1ML Subcutaneous Solution [id number] 60 EACH TWICE A DAY SUBCUTANEOUS 12/31/2015 09:55 Prescription Detail 60 EACH SUBCUTANEOUS TWICE A DAY Levemir 100U/1ML Subcutaneous Solution [id number] 60 UNITS TWICE A DAY SQ 12/31/2015 09:55 Prescription Detail 60 UNITS SQ TWICE A DAY Lisinopril 10MG Oral Tablet [id number] 10 MILLIGRAMS DAILY ORAL 12/31/2015 09:55 Prescription Detail 10 MILLIGRAMS ORAL DAILY metFORMIN HCl 500MG Oral Tablet [id number] 500 MILLIGRAMS DAILY ORAL 12/31/2015 09:55 Prescription Detail 500 MILLIGRAMS ORAL DAILY NovoLOG 100U/1ML Subcutaneous Solution [id number] 30 UNIT THREE TIMES DAILY SUBCUTANEOUS 12/31/2015 09:55 Prescription Detail 30 UNIT SUBCUTANEOUS THREE TIMES DAILY Plavix 75MG Oral Tablet [id number] 75 MILLIGRAMS DAILY ORAL 12/31/2015 09:55 Prescription Detail 75 MILLIGRAMS ORAL DAILY traMADol HCl 50MG Oral Tablet [id number] 50 MILLIGRAMS NEEDED ORAL 12/31/2015 09:55 Prescription Detail 50 MILLIGRAMS ORAL NEEDED Xalatan 0.005% Ophthalmic Solution [id number] 1 EACH DAILY OPTHALMIC 12/31/2015 09:55 Prescription Detail 1 EACH OPTHALMIC DAILY Medications Administered During Visit Unknown or Not Available. Encounters Unknown or Not Available. Social History Smoking Status Code Start Date End Date Never smoker [id number] Patient Decision Aids Unknown or Not Available. Discharge Instructions You were admitted to [facility] on 06/28/2016 09:08 You had the following tests done: CBC W / DIFF COMP METABOLIC HGB A1C LIPID PANEL MICROALBUMIN/CREATININE RATIO URIC ACID You were discharged from [facility] on 06/28/2016 09:09 Should you have any questions prior to [...]
--- OUTSIDE RECORDS SUMMARY | 2016-09-10 06:27 | XMS REPORT | CCD ---
Author Author URSULA MARIN Organization Unknown Address [address], [place] [id number] Phone 0 Care Team Providers Care Storage Facility Rental Clerk Name Role Phone JENNIFER ORTIZ Attending Physician [phone] Vital Signs Unknown or Not Available. Allergies Allergy Code Allergy Type Reaction Status NKDA - NO KNOWN DRUG ALLERGIES 0 Drug allergy Active Procedures Unknown or Not Available. History of Immunizations Unknown or Not Available. Problems Unknown or Not Available. Results BASIC METABOLIC - Collect Date/Time: 01/17/2016 11:45 Test Name Code Test Result Test Units Test Ref Range GLUCOSE 57 mg/dL L=70 H=110 BUN 18 mg/dL L=7 H=18 CREATININE 1.03 mg/ dL L=0.60 H=1.30 AGE 65 YEARS GFR 72.0 SODIUM 139 mmol/L L=136 H=145 POTASSIUM 4.1 mmol/ L L=3.5 H=5.1 CHLORIDE 101 mmol/L L=98 H=107 CO2 27 mmol/L L=21 H=32 CALCIUM 9.5 mg/dL L=8.5 H=10.1 URIC ACID - Collect Date/Time: 01/17/2016 11:45 Test Name Code Test Result Test Units Test Ref Range URIC ACID 6.3 mg/dL L=2.6 H=7.2 Active Medications Medication Code Dose Units Frequency Route Modification Start Date/Time Allopurinol 300MG Oral Tablet [id number] 300 MILLIGRAMS DAILY ORAL 12/31/2015 09:55 Prescription Detail 300 MILLIGRAMS ORAL DAILY Aspirin 325MG Oral Tablet, Enteric Coated [id number] 325 MILLIGRAMS DAILY ORAL 12/31/2015 09:55 Prescription Detail 325 MILLIGRAMS ORAL DAILY Bactrim DS 800MG-160MG Oral Tablet [id number] 1 EACH TWICE A DAY ORAL 12/31/2015 09:55 Prescription Detail 1 EACH ORAL TWICE A DAY Levemir 100U/1ML Subcutaneous Solution [id number] 60 EACH TWICE A DAY SUBCUTANEOUS 12/31/2015 09:55 Prescription Detail 60 EACH SUBCUTANEOUS TWICE A DAY Levemir 100U/1ML Subcutaneous Solution [id number] 60 UNITS TWICE A DAY SQ 12/31/2015 09:55 Prescription Detail 60 UNITS SQ TWICE A DAY Lisinopril 10MG Oral Tablet [id number] 10 MILLIGRAMS DAILY ORAL 12/31/2015 09:55 Prescription Detail 10 MILLIGRAMS ORAL DAILY metFORMIN HCl 500MG Oral Tablet [id number] 500 MILLIGRAMS DAILY ORAL 12/31/2015 09:55 Prescription Detail 500 MILLIGRAMS ORAL DAILY NovoLOG 100U/1ML Subcutaneous Solution [id number] 30 UNIT THREE TIMES DAILY SUBCUTANEOUS 12/31/2015 09:55 Prescription Detail 30 UNIT SUBCUTANEOUS THREE TIMES DAILY Plavix 75MG Oral Tablet [id number] 75 MILLIGRAMS DAILY ORAL 12/31/2015 09:55 Prescription Detail 75 MILLIGRAMS ORAL DAILY traMADol HCl 50MG Oral Tablet [id number] 50 MILLIGRAMS NEEDED ORAL 12/31/2015 09:55 Prescription Detail 50 MILLIGRAMS ORAL NEEDED Xalatan 0.005% Ophthalmic Solution [id number] 1 EACH DAILY OPTHALMIC 12/31/2015 09:55 Prescription Detail 1 EACH OPTHALMIC DAILY Medications Administered During Visit Unknown or Not Available. Encounters Encounter Diagnosis Diagnosis Code Start Date Gout, unspecified M109 01/17/2016 Social History Smoking Status Code Start Date End Date Never smoker [id number] Patient Decision Aids Unknown or Not Available. Discharge Instructions You were admitted to [facility] on 01/17/2016 11:54 with a principal diagnosis of Gout, unspecified You had the following tests done: BASIC METABOLIC URIC ACID You were discharged from [facility] on 01/17/2016 11:54 Should you have any questions prior to [...]
--- OUTSIDE RECORDS SUMMARY | 2016-09-10 06:27 | XMS REPORT | CCD ---
Author Author URSULA MARIN Organization Unknown Address [address], [place] [id number] Phone 0 Care Team Providers Care Enamel Sprayer Name Role Phone KVNG VALE Attending Physician 0 Vital Signs Unknown or [...] Code Start Date End Date Never smoker [id number] Patient Decision Aids Unknown or Not Available. Discharge Instructions You were admitted to [facility] on 10/20/2015 16:37 You were discharged from [facility] on 10/20/2015 16:37 Should you have any questions prior to discharge, please contact a member of your healthcare team. If you have left the hospital and have any questions, please contact your primary care physician. Chief Complaint and Reason For Visit Chief Complaint Date of Onset XRAY RT SHOULDER Function Status Unknown or Not Available. Plan of Care Unknown or Not Available. Referral/Transition of Care Unknown or Not Available.
[2016-09-10 06:59] LABS: ANION GAP 13 MEQ/L (5-15); BUN/CREATININE RATIO 19 RATIO (6-26); CALCIUM 10.2 MG/DL (8.4-10.2); CHLORIDE 105 MEQ/L (98-107); CO2 - CARBON DIOXIDE 27 MEQ/L (22-30); GLOMERULAR FILTRATION RATE 74; GLUCOSE 90 MG/DL (75-110); POTASSIUM 4.6 MEQ/L (3.6-5); SODIUM 145 MEQ/L (134-144)
[2016-09-10] MEDS ORDERED: LR 1,000 ML IV SCH (07:00)
[2016-09-10] MEDS ORDERED: LIDOCAINE 1% (10mg/ml) 2ml SDV INJ ONE (07:00)
[2016-09-10] MEDS ORDERED: LATA2.5D7 BOTH EYES (07:05)
[2016-09-10] MEDS ORDERED: COLC0.6T69 PO (07:05)
[2016-09-10] MEDS ORDERED: ALLO300T2 PO (07:05)
[2016-09-10] MEDS ORDERED: METO25TA6 PO (07:05)
[2016-09-10] MEDS ORDERED: PROPOFOL 200mg 20 ML IV ONE ×2 (07:55→10:10)
[2016-09-10] MEDS ORDERED: LIDOCAINE 2% (20mg/ml) 5ml PF SDV ONE (07:55)
[2016-09-10] MEDS ORDERED: ROCURONIUM 50mg/5ml INJECTION IV ONE (07:55)
[2016-09-10] MEDS ORDERED: ROPIVACAINE 0.5% (5mg/ml) 30ml INJ ONE (08:06)
[2016-09-10] MEDS ORDERED: DEXAMETHASONE 4mg/ml - 1ml INJECTION ONE (08:06)
[2016-09-10] MEDS ORDERED: GLYCOPYRROLATE 0.4mg/2ml INJECTION ONE (08:08)
[2016-09-10] MEDS ORDERED: NEOSTIGMINE 10mg/10ml INJECTION ONE (08:08)
[2016-09-10] MEDS ORDERED: MIDAZOLAM 2mg/2ml INJECTION IV ONE (08:45)
[2016-09-10] MEDS ORDERED: METOPROLOL 5mg/5ml INJECTION IV ONE (09:09)
[2016-09-10] MEDS ORDERED: PHENYLEPHRINE 10mg/ml INJECTION ONE (09:17)
[2016-09-10] MEDS ORDERED: ONDANSETRON 4mg/2ml INJECTION ONE (09:19)
--- NOTE | 2016-09-10 09:29 | ANESPREOP ---
Anesthesia Record Date and Time DATE: 09/10/16 TIME: 07:49 Pre-Op Diagnosis Right shoulder rotator cuff tear Proposed Surgical Procedure RT SHOULDER SCOPE NPO since: Midnight Allergies: Coded Allergies: No Known Allergies (Unverified , 09/10/16) Ht/Wt/BMI Height: 5 ' 10.50 " Weight: 105.300 kg BMI: 32.8 kg/m2 Vital Signs Date Time Temp Pulse Resp B/P Pulse Ox O2 Delivery O2 Flow Rate FiO2 09/10/16 06:40 97.6 113 16 153/94 98 Room Air Medications Inpatient Medications Current Medications Medications (Trade) Dose Ordered Sig/Mingo Start Time Stop Time Status Last Admin Dose Admin Lactated Ringer's (Lactated Ringers) 1,000 ml @ 50 mls/hr Q20H 09/10/16 07:00 09/10/16 07:34 50 MLS/HR Allopurinol (Allopurinol) 300 Mg Tablet, 1 TAB PO DAILY, (Reported) Last Taken: on 09/03/16 Aspirin (Aspirin) 325 Mg Tablet, 325 MG PO DAILY, ( Reported) Last Taken: on 09/02/16 Citalopram (Celexa) 20 Mg Tablet, 20 MG PO DAILY, ( Reported) Last Taken: on 09/03/16 Clopidogrel Bisulfate (Plavix) 75 Mg Tablet, 75 MG PO DAILY, (Reported) Last Taken: on 09/02/16 Colchicine (Colcrys) 0.6 Mg Tablet, 2 TAB PO O, ( Reported) TAKE TWO TABLETS AT THE FIRST SIGN OF FLARE FOLLOWED BY 1 TABLET ONE HOURS LATER. MAX 1.8 MG OVER 1 HOUR. Last Taken: on Unknown Date & Time Insulin Glargine (Lantus) 100 U/Ml Cartridge, 60 U SQ BID, (Reported) Last Taken: on 09/09/161829 Insulin Lispro (Humalog) 100 U/Ml Insuln.pen, 30 U SQ TID, (Reported) Last Taken: on 09/09/161829 Latanoprost (Latanoprost) 2.5 Ml Drops, 1 DROP BOTH EYES HS, (Reported) Last Taken: on 09/06/16 Metformin Hcl (Metformin Hcl) 500 Mg Tablet, 500 MG PO DAILY, (Reported) Last Taken: on 09/09/16 07 Metoprolol Tartrate (Metoprolol Tartrate) 25 Mg Tablet, 12.5 MG PO DAILY, (Reported) Take 1 tab, by mouth, two time a day with meals. Last Taken: on 09/03/16 Currently on Beta Husam: Yes Beta Husam Last Taken: stopped one week prior to surgery/ Betablocker will be given intra op Medical/Surgical History Anesthesia PMH: Reports: *Diabetes, *Dyspnea, *Hypertension, Arthritis (GOUT), Asthma (CHILDHOOD), COPD, CVA/Stroke/TIA (UNKNOWN DATE 2015), Clotting Problems (ON PLAVIX), Glaucoma (TAKES EYE DROPS), Reflux, Sleep Apnea ( CPAP), Denies: * Angina, *AZ, Anesthesia Reactions (NO AIRWAY ISSUES), CHF, Cancer, Deep Vein Thrombosis, Hepatitis, Hiatal Hernia, Malignant Hyperthermia, Pneumonia, Renal Disease, Rheumatic Fever, Seizures, Thyroid Disease, Tuberculosis Smoking Status: Never smoker Has pt. smoked today?: No Use Chewing Tobacco?: No Second Hand Exposure: No Substance Use Type: does not use Alcohol Intake: none Past Surgical History Orthopedic Surgeries: Abdominal Surgeries: Yes - APPY,LORENA Genitourinary Surgeries: Yes - appendix Cardiac Surgeries: Endocrine Surgeries: Reproductive Surgeries: Neurological Surgeries: Ear Surgeries: Nose Surgeries: Throat Surgeries: Other Surgeries: Yes - COLONOSCOPY Anesthesia Adverse Reactions: FOUND none Family Hx of Anesthesia Advers: none Hx of Motion Sickness: No Pertinent Findings Laboratory Tests 09/10/16 06:43 EKG Rhythm: Sinus Rhythm (Tachy) Physical Exam Respiratory: Decreased breath sounds L, Decreased breath sounds R, Lungs clear Cardiovascular: FOUND Regular rate, rhythm Airway Assessment Mallampati Score: II TMD: 3 Fingerbreadths Neck Extension: Fair Overall Assessment: May Be Diff Intubation ASA: 3 Plan Anesthesia Plan: GETA Discussion Discussed risks/options/alternatives of anesthesia and questions answered. Patient consents. Nursing pain assessment noted. Present: Family Member Attestation Statement Prior to the delivery of any anesthetic medication, I examined the patient, developed the plan, obtained the patient's consent and discussed the risk and benefits of the procedure with the patient/guardian. LUCÍA WILSON CRNA September 10, 2016 07:52
--- NOTE | 2016-09-10 09:32 | ANESPD ---
Peripheral Nerve Blockade Physician: Payam Lindsey MD Date: 09/10/16 Surgical Procedure: Right Shoulder scope Discussion Discussed risks/options/alternatives of anesthesia and questions answered. Patient consents. Nursing pain assessment noted. Block Start: 08:40 Block Stop: 08:45 Block Employed: Intrascalene, Single Injection Approach: right side confirmed Position: semi-calabrese Patient: Consent, risks/benefits discussed, Informed, post block act. discussed Monitors: EKG, SpO2, NIBP IV Sedation: Yes Sedation: sedate w/meaningful contact Midazolam (mg): 2 Initial Vital Signs First Documented Vital Signs Date Time Temp Pulse Resp B/P Pulse Ox O2 Delivery O2 Flow Rate FiO2 09/10/16 06:40 97.6 113 16 153/94 98 Room Air Post Vital Signs Vital Signs Date Time Temp Pulse Resp B/P Pulse Ox O2 Delivery O2 Flow Rate FiO2 09/10/16 08:55 103 14 142/72 91 Room Air 09/10/16 06:40 97.6 Initial Pain Score: 0 Post Block Score: 0 Ultrasound Used?: Yes (see ultrasound image in EMR) Nerve Simulator Twitch at: 2 Hz Needle Depth: 1 Muscle Response Bicep Muscle Response: Yes Injectate Ropivacaine (%): 0.5 Ropivacaine (mL): 20 Was Epi 1:200,000 Used?: No Injection Injection made incrementally with constant monitoring and aspiration every 5ml. Decadron 4mg given with block LUCÍA WILSON CRNA September 10, 2016 09:32
[2016-09-10] MEDS ORDERED: CEFAZOLIN 1 GRAM INJECTION IV ONE (10:00)
--- NOTE | 2016-09-10 10:34 | PDPROCED ---
Immediate Operative Note DATE: 09/10/16 TIME: 10:31 Preop Diagnosis: RIGHT SHOULDER TRAUMATIC RCT Postop Diagnosis: Right shoulder traumatic rotator cuff tear, impingement, loose body, degenerative long head biceps. Surgical Procedures: R Arthroscopic RCR (SAD, biceps tenotomy, loose body removal) Surgeon: [employer] Servicer: ZENY Cramer Anesthesia: General (plus regional block) Complications: none Estimated Blood Loss see anesthesia ANTONIO KERR September 10, 2016 10:34
[2016-09-10] MEDS ORDERED: OXYC1TAB8 PO (10:35)
[2016-09-10] MEDS ORDERED: ONDA4TAB4 PO (10:35)
--- NOTE | 2016-09-10 12:53 | ANESPO ---
Post-Op Note Date 09/10/16 Time: 11:50 Status Pt Participated in Evaluation: Pt participated in person Vital Signs Date Time Temp Pulse Resp B/P Pulse Ox O2 Delivery O2 Flow Rate FiO2 09/10/16 11:50 68 16 120/59 92 Room Air 09/10/16 11:35 2.00 09/10/16 11:05 97.8 Respiratory Function: Airway patent Cardiovascular Function: Regular pulse Telemetry Pattern: SR Mental Status: Alert/oriented Pain Level Intensity: 0 Hydration: Taking po fluids Complications during Recovery None apparent Follow-Up Instructions Instructions Per Surgeon LUCÍA WILSON CRNA September 10, 2016 12:53
--- NOTE | 2016-09-10 13:05 | OPNOTEF ---
DATE OF PROCEDURE 09/10/2016 PREOPERATIVE DIAGNOSES 1. Right shoulder rotator cuff tear. 2. Right shoulder long head biceps tendon tear. 3. Right shoulder rotator cuff impingement. POSTOPERATIVE DIAGNOSES 1. Right shoulder full-thickness supraspinatus rotator cuff tear. 2. Right shoulder high-grade partial-thickness long head biceps tearing with tendinopathy. 3. Right shoulder degenerative posterior-inferior labral tear. 4. Right shoulder subacromial bursitis with impingement. PROCEDURE 1. Right shoulder arthroscopic rotator cuff repair. 2. Right shoulder arthroscopic limited debridement, posterior labrum. 3. Right shoulder arthroscopic long head biceps tenotomy. 4. Right shoulder arthroscopic subacromial decompression. SURGEON Payam Lindsey MD [employer] [employer] Hima Gusman PA-C ANESTHESIA General with regional block. FLUIDS Please refer to Anesthesia chart. EBL Minimal. TOURNIQUET None used. COMPLICATIONS None. CONDITION Stable to Recovery Room. IMPLANTS [employer] 5.0 TWINFIX anchor x 2 as well as 5.5 mm MULTIFIX S anchor x 2. DESCRIPTION OF PROCEDURE The patient was identified in the preoperative holding area. The operative extremity was identified and appropriately marked. Risks, benefits, alternatives and potential complications were discussed and informed consent was obtained. Regional block was placed by Anesthesia in preop holding. The patient was then taken to the operating theatre, placed in the supine position. Appropriate cardiorespiratory monitors were applied and general anesthesia was induced. The patient was positioned in a seated beach chair position with all bony prominences well padded. The head and neck were secured in a safe position. Right upper extremity was sterilely prepped and draped in the usual fashion. Surgical time-out was performed, confirmed with myself, the web operations lead and circulating nurse. Preoperative antibiotics were given. Examination under anesthesia revealed full passive range of motion of the right shoulder. No evidence of instability. A standard posterior arthroscopic portal was established, the arthroscope was inserted and the glenohumeral joint was insufflated with saline. Needle localization was utilized to establish an anterior portal in the rotator interval and diagnostic examination ensued. Glenohumeral articular joint showed some mild degenerative change, primarily in the central portion of the glenoid. Anterior and anterior-inferior labrum were intact. There was fraying of the posterior-inferior labrum. This area was debrided with a shaver. Probing of this revealed no full labral tear. Posterior-superior and superior labrum were found to be intact. The long head biceps tendon was markedly flattened and with high-grade tearing through the intraarticular portion. Pulling this small segment back into the joint revealed diffuse tearing throughout the extraarticular portion as well. It was elected to release this. This was released with a radiofrequency ablation device. The biceps stump was then debrided with a shaver and electrocautery. The subscapularis tendon was found to be intact. Inferior axillary recess was free of loose bodies or debris. Posterior aspect of the rotator cuff was found to be intact. There was full-thickness tear of the supraspinatus. The medial border of the footprint was debrided with a suction shaver via the anterior portal. The arthroscope was then withdrawn and placed into the subacromial space. Moderate bursitis was encountered. A lateral portal was established and a thorough bursectomy was performed to include the anterolateral and posterior gutters. There was marked fraying of the CA ligament which was released with the radiofrequency ablation device. A bur was then inserted and an acromioplasty was performed, converting this to a type 1 flat acromion. The rotator cuff tear was then identified. This was a crescentic-type tear of the supraspinatus. The edge of the tendon was debrided as was the undersurface with a shaver. The footprint was debrided to a bleeding cortical surface. Cannulas were placed anteriorly and laterally. A percutaneous portal was created and two anchors were placed along the medial margin of the footprint just lateral to the articular cartilage margin. Sutures were then passed from anterior to posterior in a horizontal mattress configuration for both sutures and both anchors. Sutures were then tied arthroscopically. A single limb from each suture knot was then pulled laterally and placed through a MULTIFIX S anchor. Soft tissue was cleared from the lateral margin of the greater tuberosity. Sutures were tensioned and the first anchor was then employed at the anterior margin of the tear on the lateral aspect of the greater tuberosity while tensioning the sutures. Suture tails were then cut. This was then repeated for a second posterior anchor with the remaining sutures. This provided good compression of the lateral margin of the tendon in this transosseous-equivalent type repair. Probing of the repair noted a stable repair. Visualizing arthroscopically while taking the shoulder through range of motion noted no gapping in the repair. The shoulder was then copiously lavaged, irrigated and drained. All arthroscopic instruments were removed and the portals were closed with nylon sutures. Sterile dressings were applied followed by an abduction sling. The patient was awakened from anesthesia and taken to the recovery room in stable and satisfactory condition. CHUCKY
== END 2016-09-10 11:58 ==
LOC: NSC 06:22
PROVIDERS: ATTEND Orthopaedic Surgery
DX: S46.011A Strain of muscle(s) and tendon(s) of the rotator cuff of right shoulder, initial encounter (principal); S46.111A Strain of muscle, fascia and tendon of long head of biceps, right arm, initial encounter; M75.51 Bursitis of right shoulder; M75.41 Impingement syndrome of right shoulder; S43.401A Unspecified sprain of right shoulder joint, initial encounter; W23.0XXA Caught, crushed, jammed, or pinched between moving objects, initial encounter; I10 Essential (primary) hypertension; E11.319 Type 2 diabetes mellitus with unspecified diabetic retinopathy without macular edema; F32.9 Major depressive disorder, single episode, unspecified; E78.2 Mixed hyperlipidemia; M10.9 Gout, unspecified; K21.9 Gastro-esophageal reflux disease without esophagitis; R00.0 Tachycardia, unspecified; G47.30 Sleep apnea, unspecified; Z79.02 Long term (current) use of antithrombotics/antiplatelets; Z79.4 Long term (current) use of insulin; Z79.84 Long term (current) use of oral hypoglycemic drugs; Z79.899 Other long term (current) drug therapy; Z79.82 Long term (current) use of aspirin; Z88.8 Allergy status to other drugs, medicaments and biological substances; Z90.49 Acquired absence of other specified parts of digestive tract
CPT/HCPCS: 29826; 29827; 36415; 80048; C1713; J1100; J2250; J2370; J2405; J2704; J2710; J2795; J7120

== ENCOUNTER 2017-07-24 11:49 | Inpatient (IN) ==
[2017-07-24 12:15] VITALS: BMI 35.1
[2017-07-24] MEDS ORDERED: ONDANSETRON 4 MG/2 ML INJECTION IVP PRN (12:29)
[2017-07-24] MEDS ORDERED: ACETAMINOPHEN 325 MG TABLET PO PRN (12:30)
[2017-07-24] MEDS ORDERED: BISACODYL 10 MG SUPPOSITORY RECTALLY PRN (12:30)
--- NOTE | 2017-07-24 12:50 | Orthopedic Consult Note ---
Orthopedic Consultation HPI - Consultation Info Consult Date: 07/24/17 Attending Physician: Barrington Hernandez MD - History of Present Illness Patient seen in wound clinic today for s/p left fourth and james toe amputation with wound dehiscence. Wound bed has increased slough tissue and widening wound bed margins. Patient does have home health who has been performing dressing changes q3days. Has been on Levaquin per wound culture and sensitivity. Admitted for wound debridement and planned wound vac placement tomorrow. Patient is concerned about follow up appt today in [place] with Dr. Stubbs concerning his life vest, under the impression it was to be removed today. 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 Review of Systems - Constitutional Constitutional: Absent: chills, fever(s) - Cardiovascular Cardiovascular: Absent: chest pain - Respiratory Respiratory: Absent: cough - Gastrointestinal Gastrointestinal: Absent: vomiting - Musculoskeletal Musculoskeletal: Present: as per HPI - Integumentary/Breasts Integumentary: Present: as per HPI PFS Patient Stated Medical History Transient Ischemic Attacks ( Yes TIA) Cataracts Yes: start of cataracts Glaucoma Yes Hearing Loss Yes Cardiac Arrhythmia Yes Congestive Heart Failure No Coronary Artery Disease Yes Hypertension Yes Other Cardiology Yes: External defibrillator, never been shocked , EF 20% echo 3 months ago Asthma Yes Sleep Apnea Yes Diabetes Mellitus Type 2 Yes Gastroesophageal Reflux Yes: infrequent, none recently Disease Hx Renal Disease Yes: chronic per h&p Osteoarthritis Yes Cellulitis Yes: L foot Other Infectious Yes: HEALING INFECTION LEFT 4TH AND 5TH TOE Anesthesia Reactions No Depression Yes Clinic Medical History (Last Reviewed 07/05/17 @ 08:05 by Nuno Slade MD) Obstructive sleep apnea (Chronic Medical) COPD (chronic obstructive pulmonary disease) (Chronic Medical) Kidney disease (Chronic Medical) Depression (Acute Medical) Glaucoma (Acute Medical) Diabetes (Chronic Medical) Myocardial infarction (Acute Medical) High blood cholesterol (Acute Medical) High blood pressure (Acute Medical) Cataracts, bilateral (Chronic Medical) Surgical History: APPENDIX. GALLBLADDER. RT SHOULDER 5--17 RCR, SAD, biceps tenotomy, loose body removal Family History: Family History (Last Reviewed 07/05/17 @ 08:05 by Nuno Slade MD) Mother Diabetes COPD (chronic obstructive pulmonary disease) Father Heart attack Colon cancer Diabetes Sister Cancer - Social History Smoking status: Never smoker Substance use type: does not use Alcohol intake: never Alcohol intake frequency: does not drink Current occupational status: employed Medications Home Medications Medication Instructions Recorded Confirmed Type Citalopram Hydrobromide 20 mg PO DAILY #0 01/05/11 07/24/17 History [Citalopram HBr] Metformin HCl 500 mg PO DAILY #0 01/08/11 07/24/17 History Colchicine [Colcrys] 1 tab PO PRN PRN #0 tab 09/10/16 07/24/17 History Latanoprost 1 drop BOTH EYES HS #0 bottle 09/10/16 07/24/17 History Allopurinol [Zyloprim] 100 mg PO DAILY 03/15/17 07/24/17 History Aspirin Chewable [ASA] 81 mg PO DAILY 03/15/17 07/24/17 History Nitroglycerin [Nitrostat] 0.4 mg SL Q5MIN3 PRN #25 tab 03/16/17 07/24/17 Rx Ticagrelor [Brilinta] 90 mg PO BID #60 tab 03/16/17 07/24/17 Rx Allopurinol [Zyloprim] 300 mg PO DAILY 07/12/17 07/24/17 History Ascorbic Acid [Vitamin C] 1,000 mg PO DAILY 07/12/17 07/24/17 History Carvedilol 6.25 mg PO BIDWM 07/12/17 07/24/17 History Hydrocodone/APAP 5/325 [[place] 1 - 2 tab PO Q6H PRN 07/12/17 07/24/17 History 5/325] Insulin Aspart [NovoLOG] 20 units SQ TIDWM 07/12/17 07/24/17 History Insulin Detemir [Levemir] 40 units SQ BID 07/12/17 07/24/17 History Lactobacillus Acidophilus 1 each PO DAILY 07/12/17 07/24/17 History [Probiotic] SACUBITRIL/VALSARTAN 49/51mg 1 tab PO BID 07/12/17 07/24/17 History [ENTRESTO 49/51mg] Levofloxacin [Levaquin] 500 mg PO DAILY 07/16/17 07/24/17 History Magnesium Oxide [Magnesium] 400 mg PO DAILY 07/24/17 07/24/17 History Multivitamin [One Daily] 1 tab PO DAILY 07/24/17 07/24/17 History Allergies Allergy/AdvReac Type Severity Reaction Status Date / Time Bvmpupj-Iub-Hmk Reductase AdvReac Severe Muscle Pain Verified 07/24/17 12:28 Inhibitor Exam - Constitutional Vital Signs: Temperature 96.6 F L 07/24/17 12:27 Pulse Rate 91 07/24/17 12:27 Blood Pressure 111/65 07/24/17 12:27 Pulse Oximetry 95 07/24/17 12:27 General: cooperative, no acute distress, well developed Nutritional Appearance: well nourished Orientation: oriented x3, alert - LLE Skin: amputation site (s/p 4th and 5th toe amputation, wound dehiscence with moderate yellow slough. See wound clinic note for measurements. ) Vascular: dorsalis pedis pulse within normal limits, capillary refill <2 seconds - Respiratory Respiratory Exam: non-labored - Cardiac Cardiovascular exam: pedal pulses intact Impression and Recommendation (1) Surgical wound dehiscence Current visit: Yes Status: Acute NPO after midnight, with wound debridement and wound vac placement tomorrow. Will hold antibiotics till after wound cultures are obtained in OR. Hospitalist to manage medically. Dr. Stubbs consulted for patient's concerns of his lifevest. Hospital Course Summary Disclaimer: The visit summary below is not to be considered part of the above Progress Note.
--- NOTE | 2017-07-24 13:16 | History & Physical Report ---
History of Present Illness Date: 07/24/17 Chief complaint: Left lower foot wound HPI: Patient is a pleasant 67-year-old male who has been undergoing outpatient wound care following amputation of left 4th and 5th toes on June [address] Slade. Since that time he has had difficulty with wound healing since June. He does have known coronary artery disease and did have 2 stents placed in left lower extremity in July by Dr. Stubbs. He feels that since that time, his wound has been healing better. Today he was seen in the outpatient setting by Dr. Slade, He recommended admission for further debridement and potentially placement of a wound VAC. The hospitalist services accepted patient for direct admission under the care of Dr. Hernandez for further workup and management of his medical comorbidities. Patient has been wearing a LifeVest due to his significant cardiomyopathy. He did have an echocardiogram last week on 07/18 in [place], however, no Radiology report has been received. Patient is eager and hopeful to be able to remove the LifeVest. He is under the cardiac care of Dr. Stubbs. He has been receiving outpatient IV Levaquin for treatment of Left toe culture and sensitivity from 07/03 reveling Stenotrophomonas Maltophilia. Review of Systems All systems PM: 10-point ROS was reviewed, no additional remarkable complaints except - Constitutional Comments: Hard of hearing - EENMT Ears: Present: other ([place]) - Integumentary/Breasts Integumentary: Present: as per HPI Past Medical History Patient Stated Medical History Type 2 diabetes Coronary artery disease Congestive heart failure- Last reported EF in the 20s HTN Asthma. Sleep apnea. GERD Hypercholesterolemia Reported chronic kidney disease History of TIA Glaucoma Depression Osteoarthritis Surgical History: Left lower extremity stenting- 07/16/17- Dr Stubbs. Left 4th, 5th toe partial amputation-06/20/17-Dr. Slade. Cardiac catheterization with RCA stent placed- 03/15/17-Dr. Stubbs. Appendectomy. Cholecystectomy-2013. RT Shoulder- 09-10-16 RCR. Biceps tenotomy Family History Updates: Mother- [place], COPD. Father- [place], [place]. Sister- Breast cancer - Social History Smoking status: Never smoker Substance use type: does not use Alcohol intake frequency: does not drink Housing: house Household members: children Current occupation: [employer] Current residence: Apartment/Private Home Social history: Patient is active and continues to farm part-time. Lost his 1 year ago secondary to a brain mass Primary care provider Luis E Martinez in [place] [facility] [address]. Stubbs Medications Home Medications Medication Instructions Recorded Confirmed Type Citalopram Hydrobromide 20 mg PO DAILY #0 01/05/11 07/24/17 History [Citalopram HBr] Metformin HCl 500 mg PO DAILY #0 01/08/11 07/24/17 History Colchicine [Colcrys] 1 tab PO PRN PRN #0 tab 09/10/16 07/24/17 History Latanoprost 1 drop BOTH EYES HS #0 bottle 09/10/16 07/24/17 History Allopurinol [Zyloprim] 100 mg PO DAILY 03/15/17 07/24/17 History Aspirin Chewable [ASA] 81 mg PO DAILY 03/15/17 07/24/17 History Nitroglycerin [Nitrostat] 0.4 mg SL Q5MIN3 PRN #25 tab 03/16/17 07/24/17 Rx Ticagrelor [Brilinta] 90 mg PO BID #60 tab 03/16/17 07/24/17 Rx Allopurinol [Zyloprim] 300 mg PO DAILY 07/12/17 07/24/17 History Ascorbic Acid [Vitamin C] 1,000 mg PO DAILY 07/12/17 07/24/17 History Carvedilol 6.25 mg PO BIDWM 07/12/17 07/24/17 History Hydrocodone/APAP 5/325 [Sears 1 - 2 tab PO Q6H PRN 07/12/17 07/24/17 History 5/325] Insulin Aspart [NovoLOG] 20 units SQ TIDWM 07/12/17 07/24/17 History Insulin Detemir [Levemir] 40 units SQ BID 07/12/17 07/24/17 History Lactobacillus Acidophilus 1 each PO DAILY 07/12/17 07/24/17 History [Probiotic] SACUBITRIL/VALSARTAN 49/51mg 1 tab PO BID 07/12/17 07/24/17 History [ENTRESTO 49/51mg] Levofloxacin [Levaquin] 500 mg PO DAILY 07/16/17 07/24/17 History Magnesium Oxide [Magnesium] 400 mg PO DAILY 07/24/17 07/24/17 History Multivitamin [One Daily] 1 tab PO DAILY 07/24/17 07/24/17 History Allergies Allergy/AdvReac Type Severity Reaction Status Date / Time [id number] Reductase AdvReac Severe Muscle Pain Verified 07/24/17 12:28 Inhibitor Exam Vital Signs: Temperature 96.6 F L 07/24/17 12:27 Pulse Rate 91 07/24/17 12:27 Blood Pressure 111/65 07/24/17 12:27 Pulse Oximetry 95 07/24/17 12:27 Height/Weight/BMI: Height 1.73 m Weight 104.8 kg Body Mass Index 35.1 - Constitutional Present: no acute distress, well nourished, well developed - Routine HEENT Exam Eye: Present: EOMI ENT: Present: mucous membranes moist, dentition normal - Routine Respiratory Exam Present: CTA bilaterally. Absent: wheezes - Routine Cardiovascular Exam Present: RRR, S1, S2. Absent: murmur - Routine Abdominal Exam Present: soft, normoactive bowel sounds, non distended. Absent: tenderness - Routine Extremities Exam Present: pulses intact Comments: LLE foot wound dehiscence - Routine Skin Exam Present: intact, dry, warm - Routine Neurological Exam Present: alert, oriented X3, CN II-XII intact - Routine Psychiatric Exam Present: normal affect, cooperative Results - Labs CBC & Chem 7: 07/24/17 12:48 07/24/17 12:48 Microbiology Results: Microbiology 07/24/17 12:48 Peripheral/Iv Start Blood Culture - Preliminary Culture Initiated - Results Pending 07/24/17 12:55 Peripheral/Iv Start Blood Culture - Preliminary Culture Initiated - Results Pending Assessment and Plan Assessment and Plan: Impression Left surgical wound dehiscence Cardiomyopathy-currently wearing LifeVest Type II diabetes - Insulin requiring Coronary artery disease Peripheral vascular disease Hypertension Chronic Kidney Disease Stage II Depression Hearing deficit Obesity with BMI 35.i Plan Admit patient to inpatient status under the care of Dr. Hernandez Consult with Dr. Slade for further wound management. Planning for debridement and possible placement of wound VAC tomorrow. PICC line study reveals that line placement is within the Azygos vein. Spoke with PICC line team. We will replace PICC line for better placement Obtain the following laboratory studies on admission. CBC, CMP, blood culture, venous lactate, magnesium, urinalysis analysis, uric acid & CRP. Monitor Accu-Cheks Given patient's history of diabetes. Will continue on home regimen of Levemir 40 units twice a day and NovoLog 20 units with meals. Patient to be nothing by mouth after midnight for scheduled procedure. Consult with Dr. Stubbs for further cardiac evaluation and recommendations. We are awaiting the echocardiogram report that was done outpatient last week as this will direct ongoing guidance regarding LifeVest. SCDs to bilateral lower extremity for DVT prophylaxis. We did discuss advanced directives and at this time. Patient does wish to be a do not resuscitate Will discuss further orders and plan of care with attending, Dr. Hernandez At time of discharge medical care will return to primary care provider, Dr Luis E Martinez in [place], [place] David Will start vancomycin for antimicrobial coverage of his wound, and continue levofloxacin-changing to 750mg IV daily. DVT Prophylaxis: SCD's Resuscitation Status: Do Not Resuscitate - Time spent with patient Time with patient PN: 50 minutes - Physician Narrative Physician: Barrington Hernandez MD Narrative: Date: 07/24/17 Time: 1620 Have independently interviewed and examined pt. Chart reviewed. Case discussed with Dr Slade and my [employer]IOR [employer]GER. Care plan developed with my supervision; agree with above. See in wound clinic today by Dr Slade, wound with dehisence. Dr Slade recommending debridement and wound vac placement. Has neuropathy-no increasing pain to leg. No swelling or red ness to foot or leg. No f/c. Breathing stable- not having increased SOA, cough, or congestion. No chest pressure or pain. Appetite stable. Lungs: clear bilaterally. No crackles or wheezes. CV: regular AB: soft nt/nd EXT: wound covered and dry MSE: awake alert appropriate Plan: Inpatient admission. Vanco for wound coverage, continue levofloxacin increasing to 750mg daily. Consult Dr Slade for wound evaluation. Continue home medications, holding Brilenta preop. Overall, lab not horrible. Monitor blood sugars-continue home insulin. Monitor lab. SCD for DVT prevention. Hospital Course Summary Disclaimer: The visit summary below is not to be considered part of the above Progress Note. Hospital Course: 07/24/17 Admission Admit patient to inpatient status under the care of Dr. Hernandez. Consult with Dr. Slade for further wound management. Planning for debridement and possible placement of wound VAC tomorrow. Start Vancomycin per protocol for wound coverage. Continue levofloxacin, changing to 750mg IV daily. PICC line study reveals that line placement is within the Azygos vein. Spoke with PICC line team. We will replace PICC line for better placement. Obtain CBC, CMP, blood culture, venous lactate, magnesium, urinalysis analysis, uric acid & CRP on admit. Monitor Accu-Cheks Given patient's history of diabetes. Will continue on home regimen of Levemir 40 units twice a day and NovoLog 20 units with meals. Patient to be nothing by mouth after midnight for scheduled procedure. Consult with Dr. Stubbs for further cardiac evaluation and recommendations. We are awaiting the echocardiogram report that was done outpatient last week as this will direct ongoing guidance regarding LifeVest. SCDs to bilateral lower extremity for DVT prophylaxis. We did discuss advanced directives and at this time. Patient does wish to be a do not resuscitate. Will discuss further orders and plan of care with attending, Dr. Hernandez. At time of discharge medical care will return to primary care provider, Dr Luis E Martinez in [place], [place].
--- NOTE | 2017-07-24 13:28 | XRay Report ---
Indication: CAD PROCEDURE: XR chest 1V: Encounter: Initial Comparison: None Findings: The left PICC line tip now projects over the azygos vein. The lungs are clear. No pleural effusion or pneumothorax. Cardiac silhouette is at the upper limits of normal in size to mildly enlarged. Mediastinal contours and pulmonary vascularity appear normal. Suture anchors in the right humeral head. Impression: 1. The left PICC line tip appears to be within the azygos vein. Recommend repositioning. This finding was called to the ordering physician at 1320 on July 24, 2017. 2. No acute cardiopulmonary disease. .
--- NOTE | 2017-07-24 13:31 | Cardiology Consult Note ---
<Maria Del Carmen De Guzman - Last Filed: 07/25/17 12:51> History of Present Illness Consult date: 07/24/17 Requesting physician: Barrington Hernandez Consult reason: pre-op evaluation History of present illness: Americo is a 67-year-old male who is known to Dr. Stubbs with a history of CAD , ischemic cardiomyopathy, atherosclerosis of arteries of bilateral legs, HTN, HLD, DM II and LEEANNA who has been undergoing outpatient wound care following amputation of left 4th and 5th toes on June [address] Slade. He has had difficulty with wound healing since June. He and did have successful distal left anterior tibial artery CHAR CONVEYOR TENDER CELLAR and successful recanalization and CHAR CONVEYOR TENDER CELLAR and stent of the proximal and mid left anterior tibial artery using 3.0 x 38, 3.0 by 38, 3.5 x 38, and 3.5 x 22 drug-eluting Resolute [place] stents on 07/16/[address] Stubbs. He feels that since that time, his wound has been healing better. Today he was seen in the outpatient setting by Dr. Slade, He recommended admission for further debridement and potentially placement of a wound VAC. The hospitalist services accepted patient for direct admission under the care of Dr. Hernandez for further workup and management of his medical comorbidities. He has been wearing a LifeVest due to his significant cardiomyopathy. He had an echocardiogram last week on 07/18 in [place], however, no Radiology report has been received. He is eager and hopeful to be able to remove the LifeVest. Dr. Stubbs is consulted and we appreciate the consult. Last [facility] 03/15/17: Severe global hypokinesia with ejection fraction no more than 20%. Coronary artery disease as described above with high-grade RCA stenosis and also diffuse small vessel disease. Successful primary stent of RCA using 3.0 by 34 and 3.0 by 22 drug-eluting Resolute [place] stents. Review of Systems - Constitutional Constitutional: Absent: chills, fatigue, fever(s) - EENMT Eyes: Absent: change in vision Balance: Absent: vertigo Mouth/Throat: Absent: sore throat - Cardiovascular Cardiovascular: Absent: chest pain, palpitations, syncope, dyspnea on exertion Vascular: Present: pedal edema - Respiratory Respiratory: Absent: cough, dyspnea on exertion - Gastrointestinal Gastrointestinal: Absent: abdominal pain, diarrhea, nausea, vomiting - Genitourinary Genitourinary: Absent: dysuria - Integumentary/Breasts Integumentary: Absent: rash - Neurological Neurological: Absent: dizziness - Endocrine Endocrine: Absent: palpitations PFSH Patient Stated Medical History Transient Ischemic Attacks ( Yes TIA) Cataracts Yes: start of cataracts Glaucoma Yes Hearing Loss Yes Cardiac Arrhythmia Yes Congestive Heart Failure No Coronary Artery Disease Yes Hypertension Yes Other Cardiology Yes: External defibrillator, never been shocked , EF 20% echo 3 months ago Asthma Yes Sleep Apnea Yes Diabetes Mellitus Type 2 Yes Gastroesophageal Reflux Yes: infrequent, none recently Disease Hx Renal Disease Yes: chronic per h&p Osteoarthritis Yes Cellulitis Yes: L foot Other Infectious Yes: HEALING INFECTION LEFT 4TH AND 5TH TOE Anesthesia Reactions No Depression Yes Clinic Medical History (Last Reviewed 07/05/17 @ 08:05 by Nuno Slade MD) Obstructive sleep apnea (Chronic Medical) COPD (chronic obstructive pulmonary disease) (Chronic Medical) Kidney disease (Chronic Medical) Depression (Acute Medical) Glaucoma (Acute Medical) Diabetes (Chronic Medical) Myocardial infarction (Acute Medical) High blood cholesterol (Acute Medical) High blood pressure (Acute Medical) Cataracts, bilateral (Chronic Medical) Surgical History: Appendectomy. Cholecystectomy-2013. RT Shoulder- 5-05-29 RCR. Biceps tenotomy Family History: Family History (Last Reviewed 07/05/17 @ 08:05 by Nuno Slade MD) Mother Diabetes COPD (chronic obstructive pulmonary disease) Father Heart attack Colon cancer Diabetes Sister Cancer - Social History Smoking status: Never smoker Substance use type: does not use Alcohol intake: never Alcohol intake frequency: does not drink Current occupational status: employed Medications Home Medications Medication Instructions Recorded Confirmed Type Citalopram Hydrobromide 20 mg PO DAILY #0 01/05/11 07/24/17 History [Citalopram HBr] Metformin HCl 500 mg PO DAILY #0 01/08/11 07/24/17 History Colchicine [Colcrys] 1 tab PO PRN PRN #0 tab 09/10/16 07/24/17 History Latanoprost 1 drop BOTH EYES HS #0 bottle 09/10/16 07/24/17 History Allopurinol [Zyloprim] 100 mg PO DAILY 03/15/17 07/24/17 History Aspirin Chewable [ASA] 81 mg PO DAILY 03/15/17 07/24/17 History Nitroglycerin [Nitrostat] 0.4 mg SL Q5MIN3 PRN #25 tab 03/16/17 07/24/17 Rx Ticagrelor [Brilinta] 90 mg PO BID #60 tab 03/16/17 07/24/17 Rx Allopurinol [Zyloprim] 300 mg PO DAILY 07/12/17 07/24/17 History Ascorbic Acid [Vitamin C] 1,000 mg PO DAILY 07/12/17 07/24/17 History Carvedilol 6.25 mg PO BIDWM 07/12/17 07/24/17 History Hydrocodone/APAP 5/325 [[place] 1 - 2 tab PO Q6H PRN 07/12/17 07/24/17 History 5/325] Insulin Aspart [NovoLOG] 20 units SQ TIDWM 07/12/17 07/24/17 History Insulin Detemir [Levemir] 40 units SQ BID 07/12/17 07/24/17 History Lactobacillus Acidophilus 1 each PO DAILY 07/12/17 07/24/17 History [Probiotic] SACUBITRIL/VALSARTAN 49/51mg 1 tab PO BID 07/12/17 07/24/17 History [ENTRESTO 49/51mg] Levofloxacin [Levaquin] 500 mg PO DAILY 07/16/17 07/24/17 History Magnesium Oxide [Magnesium] 400 mg PO DAILY 07/24/17 07/24/17 History Multivitamin [One Daily] 1 tab PO DAILY 07/24/17 07/24/17 History Allergies Allergy/AdvReac Type Severity Reaction Status Date / Time Ntrvzau-Rxs-Dtl Reductase AdvReac Severe Muscle Pain Verified 07/24/17 12:28 Inhibitor Exam Vital signs: Temperature 96.6 F L 07/24/17 12:27 Pulse Rate 91 07/24/17 12:27 Blood Pressure 111/65 07/24/17 12:27 Pulse Oximetry 95 07/24/17 12:27 - Constitutional no acute distress, well nourished, cooperative - Routine HEENT Exam Head: Present: normocephalic ENT: Present: mucous membranes moist - Routine Neck Exam Absent: JVD, carotid bruit - Routine Chest/Breast/Axilla Exam Chest wall: Present: tenderness - Routine Respiratory Exam Present: CTA bilaterally. Absent: rales, wheezes - Routine Cardiovascular Exam Present: RRR, no murmur - Routine Abdominal Exam Present: soft, normoactive bowel sounds - Routine Extremities Exam Present: no edema - Routine Skin Exam Present: intact, dry, warm - Routine Neurological Exam Present: alert, oriented X3 - Routine Psychiatric Exam Present: normal affect, normal thought process Results 07/25/17 04:15 07/25/17 04:15 Cardiac Enzymes 07/24/17 Range/Units 12:48 AST 18 (17-59) U/L Comprehensive Metabolic Panel 07/24/17 Range/Units 12:48 Sodium 143 (134-144) MEQ/L Potassium 4.8 (3.6-5) MEQ/L Chloride 105 (98-107) MEQ/L Carbon Dioxide 26 (22-30) MEQ/L BUN 29.0 H (9-20) MG/DL Creatinine 1.1 (0.8-1.5) mg/dL Glucose 134 H (75-110) MG/DL Calcium 9.9 (8.4-10.2) MG/DL AST 18 (17-59) U/L ALT 26 (21-72) U/L Alkaline Phosphatase 65 (38-126) U/L Total Protein 7.2 (6.3-8.2) g/dL Albumin 3.9 (3.5-5.0) g/dL Intake and Output 07/23/17 07/24/17 07/24/17 22:59 06:59 14:59 Intake Total 0 / 0 Balance 0 / 0 Intake: Oral 0 / 0 Other: Weight 231 lb 0.711 oz Patient Weight 07/25/17 06:59 Weight 231 lb 0.711 oz - Imaging and Cardiology Echo: pending Imaging & Cardiology Narrative: Date of Exam: 07/16/17 Type of Exam(s): CA cardiovascular procedures DATE OF PROCEDURE July 16, 2017 The patient is a pleasant 67-year-old gentleman with amputation of the left toes and nonhealing ulcer post amputation. Recent angiography showed total occlusion of the left posterior tibial, anterior tibial and peroneal arteries with reconstitution of the blood flow in the [id number] left anterior tibial artery. He was referred for percutaneous intervention for limb salvage. Informed consent was obtained after explaining the procedure and the potential risks to the patient who agreed to proceed with the procedure. PROCEDURE 1. Left anterior tibial artery distal CHAR CONVEYOR TENDER CELLAR and mid and proximal CHAR CONVEYOR TENDER CELLAR and stent using a 3.0 by 38, 3.0 by 38, a 3.5 x 38, and a 3.5 x 22 drug-eluting Resolute Huy stents. 2. Left femoral angiography to visualize the vessel for closure device. 3. Successful Mynx deployment for hemostasis. TECHNIQUE He was prepped and draped in the usual sterile techniques. Conscious sedation was performed using Versed and fentanyl. 1% lidocaine was used for local anesthesia. Using modified Seldinger technique, arterial access was obtained into the left femoral artery with placement of a 6-Turkish arterial sheath. 7500 units of heparin were administered for anticoagulation. A short sheath was exchanged for a 6-Turkish 45-cm Destination sheath which was delivered to the left popliteal artery. The lesion was recanalized using a Whisper wire and a backup 2.0 x 120 balloon. The Whisper wire was advanced into the distal anterior tibial artery. The balloon was delivered to the lesion site and inflation was performed up to 10 atmospheres. The next angiogram showed excellent results. However, there were some residual dissections and therefore we decided to proceed with stent deployment. A 3.0 by 38 drug-eluting Resolute [place] stent was delivered to the most distal part of the lesion and deployed by inflating the balloon to 16 atmospheres. Next, we used another 3.0 by 38 Resolute [place] drug-eluting stent which was delivered proximal to the previous stent and deployed by inflating the balloon to 16 atmospheres. Next, we used a 3.5 x 38 drug-eluting Resolute [place] stent which was delivered proximal to the previous stent with minimal overlap and deployed by inflating the balloon to 16 atmospheres. Finally, we used a 3.5 x 22 drug- eluting Resolute [place] stent which was elevated to the most proximal part of the lesion and deployed by inflating the balloon to 16 atmospheres. The next angiogram showed excellent results with no residual stenosis at the site. Very distal anterior tibial artery dorsalis pedis site was subtotally occluded and therefore we advanced a new Whisper wire distal to the lesion and a 2.0 x 80 balloon was delivered to the lesion site and inflated up to 10 atmospheres. The next angiogram showed excellent results with less than or equal to 10% residual stenosis. The patient tolerated the procedure well with no complications. Left femoral angiography showed patent common femoral, proximal SFA and profunda and therefore Mynx was used for hemostasis. IMPRESSION 1. Successful distal left anterior tibial artery CHAR CONVEYOR TENDER CELLAR. 2. Successful recanalization and CHAR CONVEYOR TENDER CELLAR and stent of the proximal and mid left anterior tibial artery using 3.0 x 38, 3.0 by 38, 3.5 x 38, and 3.5 x 22 drug- eluting Resolute [place] stents. 3. Successful Mynx deployment for hemostasis. PLAN Will keep him on dual antiplatelet therapy at least for one year and continue risk modification. 07/24/17 13:31 Assessment and Plan - Assessment and Plan (1) Surgical wound dehiscence Current visit: Yes Status: Acute Wound debridement carries low cardiac risk. - Patient has been stable from cardiac standpoint. PAD recently improved due to LE stents placed 07/16/17. Continue Aspirin and Brilinta. - Echo report from [email or web address] pending - Continue LifeVest for unknown EF. - Continue Liorsto Coreg (2) Atherosclerosis of [place] artery of both lower extremities Current visit: Yes Status: Acute (3) CAD (coronary artery disease) Current visit: No Status: Chronic (4) Ischemic cardiomyopathy Current visit: No Status: Chronic (5) Obstructive sleep apnea Current visit: No Status: Chronic (6) Diabetes Current visit: No Status: Chronic (7) Mixed hyperlipidemia Current visit: Yes Status: Acute - Assessment and Plan Wound debridement carries low cardiac risk. Okay to proceed with plan per ortho. - Patient has been stable from cardiac standpoint. PAD recently improved due to LE stents placed 07/16/17. Continue Aspirin and Brilinta. - Echo report from [facility] echo pending - Continue LifeVest for unknown EF. - Continue Entresto, Coreg Thank you for allowing us to participate in the care of this patient. Hospital Course Summary Disclaimer: The visit summary below is not to be considered part of the above Progress Note. <Caden Stubbs - Last Filed: 07/31/17 12:38> [facility] Patient Stated Medical History Cerebrovascular Accident Yes: possible small stroke in past Transient Ischemic Attacks ( Yes TIA) Cataracts Yes: start of cataracts Glaucoma Yes Hearing Loss Yes Cardiac Arrhythmia Yes Congestive Heart Failure No Coronary Artery Disease Yes Hypertension Yes Other Cardiology Yes: External defibrillator, never been shocked , EF 20% echo 3 months ago Asthma Yes: as child Sleep Apnea Yes Diabetes Mellitus Type 2 Yes Gastroesophageal Reflux Yes: infrequent, none recently Disease Hx Renal Disease Yes: chronic per h&p Osteoarthritis Yes Cellulitis Yes: L foot Other Infectious Yes: HEALING INFECTION LEFT 4TH AND 5TH TOE Anesthesia Reactions No Depression Yes Clinic Medical History (Last Reviewed 07/05/17 @ 08:05 by Nuno Slade MD) Obstructive sleep apnea (Chronic Medical) COPD (chronic obstructive pulmonary disease) (Chronic Medical) Kidney disease (Chronic Medical) Depression (Acute Medical) Glaucoma (Acute Medical) Diabetes (Chronic Medical) Myocardial infarction (Acute Medical) High blood cholesterol (Acute Medical) High blood pressure (Acute Medical) Cataracts, bilateral (Chronic Medical) Family History: Family History (Last Reviewed 07/05/17 @ 08:05 by Nuno Slade MD) Mother Diabetes COPD (chronic obstructive pulmonary disease) Father Heart attack Colon cancer Diabetes Sister Cancer Exam Vital signs: Temperature 97.8 F 07/31/17 08:39 Pulse Rate 101 H 07/31/17 09:00 Respiratory Rate 16 07/31/17 08:39 Blood Pressure 133/69 07/31/17 08:39 Pulse Oximetry 95 07/31/17 08:39 Results 07/31/17 05:27 07/31/17 05:27 CBC 07/31/17 Range/Units 05:27 WBC 13.1 H (4.5-11.0) T/MM3 RBC 2.82 L (4.50-5.90) M/MM3 Hgb 9.2 L (13.5-17.5) GM/DL Hct 28.2 L (41-53) % Plt Count 193 (130-400) T/MM3 Neut # (Auto) 11.1 H (1.8-7.7) T/MM3 Lymph # (Auto) 1.0 (1-4.8) T/MM3 [place] # (Auto) 0.7 (0-0.8) T/MM3 Eos # (Auto) 0.3 (0-0.5) T/MM3 Baso # (Auto) 0.0 (0-0.2) T/MM3 Comprehensive Metabolic Panel 07/30/17 07/31/17 Range/Units 19:34 05:27 Sodium 139 141 (134-144) MEQ/L Potassium 4.4 4.2 (3.6-5) MEQ/L Chloride 106 108 H (98-107) MEQ/L Carbon Dioxide 22 23 (22-30) MEQ/L BUN 38.0 H 37.0 H (9-20) MG/DL Creatinine 2.0 H 2.1 H (0.8-1.5) mg/dL Glucose 204 H 57 L (75-110) MG/DL Calcium 8.5 8.5 (8.4-10.2) MG/DL Albumin 3.0 L (3.5-5.0) g/dL Intake and Output 07/30/17 07/31/17 07/31/17 22:59 06:59 14:59 Intake Total 1100 / 1100 1750 / 1750 170 / 170 Output Total 200 / 200 600 / 600 Balance 900 / 900 1150 / 1150 170 / 170 Intake: IV 1000 / 1000 830 / 830 170 / 170 Ns 1,000 ml @ 100 mls/hr IV . 1000 / 1000 830 / 830 170 / 170 Q10H AREL[facility] Rx#:[id number] Oral 100 / 100 920 / 920 Output: Urine 200 / 200 600 / 600 Other: Urine Appearance Clear Clear Urine Color Dark Yellow Yellow Stool Color Brown Brown Stool Consistency Soft Soft Size of Bowel Movement Small Large # Voids 2 # Incontinent Voids 1 # Bowel Movements 1 Weight 107.9 kg Patient Weight 08/01/17 06:59 Weight 107.9 kg Assessment and Plan - Attestation Attestation Narrative: 07/31/17 12:38 Recommendation After examining the patient I agree with the above assessment. I am involved in the formulation of the patient's plan of care. - Assessment and Plan (1) Diabetes Current visit: No Status: Chronic (2) Obstructive sleep apnea Current visit: No Status: Chronic (3) CAD (coronary artery disease) Current visit: No Status: Chronic (4) Ischemic cardiomyopathy Current visit: No Status: Chronic (5) Surgical wound dehiscence Current visit: Yes Status: Acute (6) Atherosclerosis of [place] artery of both lower extremities Current visit: Yes Status: Acute (7) Mixed hyperlipidemia Current visit: Yes Status: Acute Hospital Course Summary Disclaimer: The visit summary below is not to be considered part of the above Progress Note.
[2017-07-24] MEDS ORDERED: VANCOMYCIN - PHARMACY CONSULT MC ONE (14:44)
[2017-07-24] MEDS ORDERED: NITROGLYCERIN 0.4 MG SUBLINGUAL TABLET SL PRN (14:45)
[2017-07-24] MEDS ORDERED: IOHEXOL 300mg/ml 50ml INJECTION ONE (15:06)
[2017-07-24] MEDS ORDERED: SALINE FLUSH 10ml SYRINGE ONE (15:13)
--- NOTE | 2017-07-24 15:28 | Pharmacy Consult-Antibiotics ---
Pharmacy Consult-Vancomycin - Laboratory Information WBC 11.1 T/MM3 (4.5-11.0) H 07/24/17 12:48 BUN 29.0 MG/DL (9-20) H 07/24/17 12:48 Creatinine 1.1 mg/dL (0.8-1.5) 07/24/17 12:48 Procalcitonin < 0.05 NG/ML 07/24/17 12:48 - Consult Information Vancomycin consult ordered by Dr Hernandez for Mr Dobson, who is 67 years old and has an infected wound. Will give a vancomycin loading dose of 2000mg followed by vancomycin 1500mg IV q12h. Will continue to monitor and adjust doses accordingly. Thank you.
--- NOTE | 2017-07-24 15:42 | Fluoroscopy Report ---
Indication:current PICC in azygos vein. Procedure:FL central line chk w con PICC LINE POSITIONING CHECK: Technique: The patient arrived with a left-sided PICC line in place. Auto Wrecker imaging of the patient's PICC line were obtained. Approximately 6 cc of Omnipaque 300 were administered through the catheter while fluoroscopic imaging was obtained. Findings: The examination is negative. A chest x-ray that was performed earlier today showing that the tip of the PICC line had retracted into the azygos vein, however, the tip of the catheter is now located near the cavoatrial junction. Contrast flows freely through the catheter. I was able to aspirate blood. The catheter was then flushed with normal saline. Impression: The PICC line is in proper position and acceptable for use. Fluoroscopy dose: 4.98 mGy (Cumulative air kerma) Payam Adan RPA/SERJIO performed this under my personal supervision. .
[2017-07-24] MEDS: LEVOFLOXACIN PB 750 MG/150 ML BAG IV SCH (16:22)
[2017-07-24] MEDS: NS FLUSH BAG 500ml IV PRN (16:31)
[2017-07-24] MEDS: INSULIN ASPART 100unit/ml INJECTION SQ SCH (17:50)
[2017-07-24] MEDS: CARVEDILOL 6.25 MG TABLET PO SCH (17:50)
[2017-07-24] MEDS: INSULIN DETEMIR 100unit/ml INJECTION SQ SCH (20:45)
[2017-07-24] MEDS: LATANOPROST 0.005% EYE DROPS 2.5ml RIGHT EYE SCH (20:45)
[2017-07-24] MEDS: SACUBITRIL/VALSARTAN 49/51mg TABLET PO SCH (20:45)
[2017-07-25] MEDS: INSULIN ASPART 100unit/ml INJECTION SQ SCH ×3 (08:16→18:52)
[2017-07-25] MEDS: ASCORBIC ACID 500 MG TABLET PO SCH (08:16)
[2017-07-25] MEDS: METFORMIN 500 MG TABLET PO SCH (08:16)
[2017-07-25] MEDS: MAGNESIUM OXIDE 400 MG TABLET PO SCH (08:17)
[2017-07-25] MEDS: CITALOPRAM 20 MG TABLET PO SCH (08:17)
[2017-07-25] MEDS: MULTI-VITAMIN + MINERAL TABLET PO SCH (08:17)
[2017-07-25] MEDS: LACTOBACILLUS (15B cfu) CAPSULE PO SCH (08:17)
[2017-07-25] MEDS: INSULIN DETEMIR 100unit/ml INJECTION SQ SCH ×2 (08:22→21:03)
[2017-07-25] MEDS: SACUBITRIL/VALSARTAN 49/51mg TABLET PO SCH ×2 (08:30→21:03)
[2017-07-25] MEDS: CARVEDILOL 6.25 MG TABLET PO SCH ×2 (08:30→18:52)
[2017-07-25] MEDS: TICAGRELOR 90 MG TABLET PO SCH ×2 (08:38→21:04)
[2017-07-25] MEDS: ASPIRIN 81 MG CHEWABLE TABLET PO SCH (08:38)
--- NOTE | 2017-07-25 09:21 | Progress Note ---
- Date 07/25/17 Subjective: Ethan is seen today in follow up. He is up in the chair and reports he had a rough night with little sleep. Overall he is feeling fine today and is without complaints of pain or shortness of breath. States that he is hungry and wishes he could eat. Used home C-pap at night however on room air as normal. Objective Vital signs: Temperature 96.5 F L 07/25/17 07:52 Pulse Rate 103 H 07/25/17 07:52 Respiratory Rate 18 07/25/17 07:52 Blood Pressure 126/69 07/25/17 07:52 Pulse Oximetry 95 07/25/17 07:52 Height/Weight/BMI: Height 1.73 m Weight 103.873 kg Body Mass Index 35.1 - Constitutional Present: no acute distress, well nourished, well developed - Routine HEENT Exam Eye: Present: EOMI ENT: Present: mucous membranes moist, dentition normal - Routine Respiratory Exam Present: CTA bilaterally. Absent: wheezes - Routine Cardiovascular Exam Present: RRR, S1, S2. Absent: murmur - Routine Abdominal Exam Present: soft, normoactive bowel sounds, non distended. Absent: tenderness - Routine Extremities Exam Present: normal capillary refill - Routine Skin Exam Present: intact, dry, warm - Routine Neurological Exam Present: alert, oriented X3, CN II-XII intact - Routine Lymphatic Exam Lymphatic: Absent: adenopathy - Routine Psychiatric Exam Present: normal affect, cooperative Results - Labs CBC & Chem 7: 07/25/17 04:15 07/25/17 04:15 Microbiology Results: Microbiology 07/24/17 12:48 Peripheral/Iv Start Blood Culture - Preliminary Culture Initiated - Results Pending 07/24/17 12:55 Peripheral/Iv Start Blood Culture - Preliminary Culture Initiated - Results Pending Assessment and Plan Assessment and Plan: Impression Left surgical wound dehiscence Cardiomyopathy-currently wearing LifeVest Type II diabetes - Insulin requiring Coronary artery disease Peripheral vascular disease Hypertension Chronic Kidney Disease Stage II Depression Hearing deficit Obesity with BMI 35.1 Plan Planning for surgical debridement of Left foot wound today by Dr Slade Patient did receive Entresto today given recent vascular stenting of the left leg on 07/16 On vancomycin and IV Levaquin for antimicrobial coverage Will continue to monitor Accu-Cheks Will continue on home regimen of Levemir 40 units twice a day and NovoLog 20 units with meals. Spoke with [facility] radiology dept. They received report last night and will fax it today to [facility] as requested. Patient currently wearing left vest. SCDs to bilateral lower extremity for DVT prophylaxis. Case discussed with attending, Dr David Hernandez Cardiology reports EF 61%. Able to remove life vest DVT Prophylaxis: SCD's Resuscitation Status: Do Not Resuscitate - Physician Narrative Physician: Barrington Hernandez MD Narrative: Date: 07/25/17 Time: 1400 Have independently interviewed and examined pt. Chart reviewed. Case discussed with my [employer]. Care plan developed with my supervision; agree with above. Doing well today. No f/c. Not having pain in foot or leg. Breathing well. No ab pain or nausea. Hungry-NPO for surgery this afternoon. Lungs: Decrease, no distress CV: regular AB: soft nt MSE: awake alert Plan: Continue with antibiotics. Anticipate surgical debridement this afternoon- likely wound vac. ECHO result showing EF improved to 61%; cardiology able to remove life vest--pt very happy about this. Continue with supportive care. Hospital Course Summary Disclaimer: The visit summary below is not to be considered part of the above Progress Note. Hospital Course: 07/24/17 Admission Admit patient to inpatient status under the care of Dr. Hernandez. Consult with Dr. Slade for further wound management. Planning for debridement and possible placement of wound VAC tomorrow. Start Vancomycin per protocol for wound coverage. Continue levofloxacin, changing to 750mg IV daily. PICC line study reveals that line placement is within the Azygos vein. Spoke with PICC line team. We will replace PICC line for better placement. Obtain CBC, CMP, blood culture, venous lactate, magnesium, urinalysis analysis, uric acid & CRP on admit. Monitor Accu-Cheks Given patient's history of diabetes. Will continue on home regimen of Levemir 40 units twice a day and NovoLog 20 units with meals. Patient to be nothing by mouth after midnight for scheduled procedure. Consult with Dr. Stubbs for further cardiac evaluation and recommendations. We are awaiting the echocardiogram report that was done outpatient last week as this will direct ongoing guidance regarding LifeVest. SCDs to bilateral lower extremity for DVT prophylaxis. We did discuss advanced directives and at this time. Patient does wish to be a do not resuscitate. Will discuss further orders and plan of care with attending, Dr. Hernandez. At time of discharge medical care will return to primary care provider, Dr Luis E Martinez in [place], [place]. 07/25 Planning for surgical debridement of Left foot wound today by Dr Slade Patient did receive Entresto today given recent vascular stenting of the left leg onn 07/16 On vancomycin and IV Levaquin for antimicrobial coverage Will continue to monitor Accu-Cheks Will continue on home regimen of Levemir 40 units twice a day and NovoLog 20 units with meals. Spoke with [facility] radiology dept. They received report last night and will fax it today to [facility] as requested. Patient currently wearing left vest. SCDs to bilateral lower extremity for DVT prophylaxis. Case discussed with attending, Dr Hernandez
--- NOTE | 2017-07-25 12:55 | Cardiology Progress Note ---
<Maria Del Carmen De Guzman - Last Filed: 07/26/17 16:00> Subjective Principal diagnosis: ischemic CM, CAD Interval history: Ethan is seen in follow up for ischemic CM. Echo report received from Doreen shows EF is now 61%. Results shared with patient and assisted him to remove LifeVest. Treva with Life Vest notified, He denies any cardiac complaints. Exam Vital signs: Temperature 96.5 F L 07/25/17 07:52 Pulse Rate 103 H 07/25/17 07:52 Respiratory Rate 18 07/25/17 07:52 Blood Pressure 126/69 07/25/17 07:52 Pulse Oximetry 95 07/25/17 07:52 Inpatient Medications: Generic Name Dose Route Start Last Admin Trade Name Freq PRN Reason Stop Dose Admin Acetaminophen 650 mg 07/24/17 12:30 Tylenol PO Q5H PRN Discomfort Hydrocodone Bitart/Acetaminophen 1 - 2 tab 07/24/17 14:45 [place] 5/325 PO Q6H PRN Pain Ascorbic Acid 1,000 mg 07/25/17 09:00 07/25/17 08:16 Vitamin C PO Not Given DAILY [facility] Aspirin 81 mg 07/25/17 09:00 07/25/17 08:38 Asa PO 81 mg DAILY [facility] Administration Bisacodyl 10 mg 07/24/17 12:30 Dulcolax RECTALLY DAILY PRN Constipation Carvedilol 6.25 mg 07/24/17 17:30 07/25/17 08:30 Coreg PO Not Given BIDWM [facility] Citalopram Hydrobromide 20 mg 07/25/17 09:00 07/25/17 08:17 Celexa PO Not Given DAILY [facility] Levofloxacin/Dextrose 750 mg in 150 mls @ 100 mls/hr 07/24/17 14:45 07/24/17 18:53 Levaquin Premix IV Infused Q24H [facility] Infusion Vancomycin HCl 1,500 mg/ 500 mls @ 250 mls/hr 07/25/17 06:00 07/25/17 07:40 Sodium Chloride IV Infused Q12H [facility] Infusion Insulin Aspart 20 unit 07/24/17 17:30 07/25/17 08:16 Novolog SQ Not Given TIDWM [facility] Insulin Detemir 40 unit 07/24/17 21:00 07/25/17 08:22 Levemir SQ Not Given BID [facility] Lactobacillus Acidophilus 1 cap 07/25/17 09:00 07/25/17 08:17 Culturelle PO Not Given DAILY [facility] Latanoprost 1 drops 07/24/17 21:00 07/24/17 20:45 Xalatan RIGHT EYE 1 drops HS [facility] Administration Magnesium Hydroxide 30 ml 07/24/17 12:30 Mom PO DAILY PRN Constipation Magnesium Oxide 400 mg 07/25/17 09:00 07/25/17 08:17 Magox PO Not Given DAILY [facility] Metformin HCl 500 mg 07/25/17 08:00 07/25/17 08:16 Glucophage PO Not Given WB [facility] Multivitamins/Minerals 1 tab 07/25/17 09:00 07/25/17 08:17 Therapeutic - M PO Not Given DAILY [facility] Nitroglycerin 0.4 mg 07/24/17 14:45 Nitrostat SL Q5MIN3 PRN Angina Ondansetron HCl 4 mg 07/24/17 12:29 Zofran IVP Q6H PRN Nausea Sacubitril/Valsartan 1 tab 07/24/17 21:00 07/25/17 08:30 Entresto 49/51mg PO Not Given BID [facility] Sodium Chloride 500 ml 07/24/17 16:30 07/24/17 16:31 Normal Saline IV 500 ml PRN PRN Administration Ticagrelor 90 mg 07/25/17 09:00 07/25/17 08:38 Brilinta PO 90 mg BID [facility] Administration Discontinued Medications Generic Name Dose Route Start Last Admin Trade Name Freq PRN Reason Stop Dose Admin Vancomycin HCl 2,000 mg/ 500 mls @ 250 mls/hr 07/24/17 18:00 07/24/17 21:00 Sodium Chloride IV 07/24/17 19:59 Infused O ONE Infusion Vancomycin HCl 1 each 07/24/17 14:44 07/24/17 16:15 Pharmacy Consult - Vancomycin MC 07/24/17 14:45 Not Given O ONE - Constitutional no acute distress, well nourished, cooperative - Routine HEENT Exam Head: Present: normocephalic ENT: Present: mucous membranes moist - Routine Neck Exam Absent: JVD, carotid bruit - Routine Chest/Breast/Axilla Exam Chest wall: Absent: tenderness - Routine Respiratory Exam Present: CTA bilaterally. Absent: rales, wheezes - Routine Cardiovascular Exam Present: RRR, no murmur - Routine Abdominal Exam Present: soft, normoactive bowel sounds - Routine Extremities Exam Present: no edema - Routine Skin Exam Present: intact, dry, warm - Routine Neurological Exam Present: alert, oriented X3 - Routine Psychiatric Exam Present: normal affect, normal thought process - Additional findings Additional findings: Acetaminophen (Tylenol) 650 mg PO Q5H PRN PRN Reason: Discomfort Hydrocodone Bitart/Acetaminophen ([place] 5/325) 1 - 2 tab PO Q6H PRN PRN Reason: Pain Ascorbic Acid (Vitamin C) 1,000 mg PO DAILY [facility] Last Admin: 07/25/17 08:16 Dose: Not Given Aspirin (Asa) 81 mg PO DAILY [facility] Last Admin: 07/25/17 08:38 Dose: 81 mg Bisacodyl (Dulcolax) 10 mg RECTALLY DAILY PRN PRN Reason: Constipation Carvedilol (Coreg) 6.25 mg PO BIDWM [facility] Last Admin: 07/25/17 08:30 Dose: Not Given Citalopram Hydrobromide (Celexa) 20 mg PO DAILY [facility] Last Admin: 07/25/17 08:17 Dose: Not Given Levofloxacin/Dextrose (Levaquin Premix) 750 mg in 150 mls @ 100 mls/hr IV Q24H [facility] Last Infusion: 07/24/17 18:53 Dose: Infused Vancomycin HCl 1,500 mg/ (Sodium Chloride) 500 mls @ 250 mls/hr IV Q12H [facility] Last Infusion: 07/25/17 07:40 Dose: Infused Insulin Aspart (Novolog) 20 unit SQ TIDWM [facility] Last Admin: 07/25/17 08:16 Dose: Not Given Insulin Detemir (Levemir) 40 unit SQ BID [facility] Last Admin: 07/25/17 08:22 Dose: Not Given Lactobacillus Acidophilus (Culturelle) 1 cap PO DAILY [facility] Last Admin: 07/25/17 08:17 Dose: Not Given Latanoprost (Xalatan) 1 drops RIGHT EYE [facility] Last Admin: 07/24/17 20:45 Dose: 1 drops Magnesium Hydroxide (Mom) 30 ml PO DAILY PRN PRN Reason: Constipation Magnesium Oxide (Magox) 400 mg PO DAILY [facility] Last Admin: 07/25/17 08:17 Dose: Not Given Metformin HCl (Glucophage) 500 mg PO WB [facility] Last Admin: 07/25/17 08:16 Dose: Not Given Multivitamins/Minerals (Therapeutic - M) 1 tab PO DAILY [facility] Last Admin: 07/25/17 08:17 Dose: Not Given Nitroglycerin (Nitrostat) 0.4 mg SL Q5MIN3 PRN PRN Reason: Angina Ondansetron HCl (Zofran) 4 mg IVP Q6H PRN PRN Reason: Nausea Sacubitril/Valsartan (Entresto 49/51mg) 1 tab PO BID [facility] Last Admin: 07/25/17 08:30 Dose: Not Given Sodium Chloride (Normal Saline) 500 ml IV PRN PRN Last Admin: 07/24/17 16:31 Dose: 500 ml Ticagrelor (Brilinta) 90 mg PO BID [facility] Last Admin: 07/25/17 08:38 Dose: 90 mg Results 07/25/17 04:15 07/25/17 04:15 Cardiac Enzymes 07/24/17 Range/Units 12:48 AST 18 (17-59) U/L CBC 07/24/17 07/25/17 Range/Units 12:48 04:15 WBC 11.1 H 11.0 (4.5-11.0) T/MM3 RBC 3.44 L 3.40 L (4.50-5.90) M/MM3 Hgb 11.0 L 11.0 L (13.5-17.5) GM/DL Hct 34.3 L 33.8 L (41-53) % Plt Count 253 235 (130-400) T/MM3 Neut # (Auto) 8.6 H 8.4 H (1.8-7.7) T/MM3 Lymph # (Auto) 1.4 1.5 (1-4.8) T/MM3 [place] # (Auto) 0.7 0.7 (0-0.8) T/MM3 Eos # (Auto) 0.3 0.4 (0-0.5) T/MM3 Baso # (Auto) 0.0 0.0 (0-0.2) T/MM3 Comprehensive Metabolic Panel 07/24/17 07/25/17 Range/Units 12:48 04:15 Sodium 143 142 (134-144) MEQ/L Potassium 4.8 4.5 (3.6-5) MEQ/L Chloride 105 105 (98-107) MEQ/L Carbon Dioxide 26 26 (22-30) MEQ/L BUN 29.0 H 25.0 H (9-20) MG/DL Creatinine 1.1 1.0 (0.8-1.5) mg/dL Glucose 134 H 104 (75-110) MG/DL Calcium 9.9 9.7 (8.4-10.2) MG/DL AST 18 (17-59) U/L ALT 26 (21-72) U/L Alkaline Phosphatase 65 (38-126) U/L Total Protein 7.2 (6.3-8.2) g/dL Albumin 3.9 (3.5-5.0) g/dL Intake and Output 07/24/17 07/25/17 07/25/17 22:59 06:59 14:59 Intake Total 1300 / 1300 500 / 500 Output Total 500 / 500 525 / 525 600 / 600 Balance 800 / 800 -525 / -525 -100 / -100 Intake: IV 650 / 650 500 / 500 Levofloxacin Pb 750 mg In 150 150 / 150 ml @ 100 mls/hr IV Q24H [facility] Rx# :[id number] Vancomycin 1,500 mg In NS 500ml 500 / 500 500 / 500 500 ml @ 250 mls/hr IV Q12H [facility] Rx#:[id number] Oral 650 / 650 Output: Urine 500 / 500 525 / 525 600 / 600 Other: Urine Appearance Clear Clear Clear Urine Color Bright Yellow Yellow Pale Yellow Urine Odor Normal Normal Normal # Voids 1 Weight 229 lb Patient Weight 07/26/17 06:59 Weight 229 lb - Imaging and Cardiology Echo: report reviewed EKG results: image reviewed Assessment and Plan - Assessment and Plan (1) Surgical wound dehiscence Current visit: Yes Status: Acute (2) Atherosclerosis of [place] artery of both lower extremities Current visit: Yes Status: Acute (3) CAD (coronary artery disease) Current visit: No Status: Chronic (4) Ischemic cardiomyopathy Current visit: No Status: Chronic (5) Obstructive sleep apnea Current visit: No Status: Chronic (6) Diabetes Current visit: No Status: Chronic (7) Mixed hyperlipidemia Current visit: Yes Status: Acute - Assessment and Plan 07/24/17 Surgical wound dehiscence Atherosclerosis of [place] artery of both lower extremities CAD (coronary artery disease) Ischemic cardiomyopathy Obstructive sleep apnea Diabetes Mixed hyperlipidemia Assessment and Plan Wound debridement carries low cardiac risk. Okay to proceed with plan per ortho. - Patient has been stable from cardiac standpoint. PAD recently improved due to LE stents placed 07/16/17. Continue Aspirin and Brilinta. - Echo report from [facility] lemus pending - Continue LifeVest for unknown EF. - Continue Entresto, Coreg Thank you for allowing us to participate in the care of this patient. 07/25/17 Echo report shows EF 61%, Life Vest removed - NPO for surgical debridement today - Patient assessed independent of Dr. Stubbs, findings discussed with him and together we agreed upon plan of care Hospital Course Summary Disclaimer: The visit summary below is not to be considered part of the above Progress Note. Hospital Course: 07/24/17 Admission Admit patient to inpatient status under the care of Dr. Hernandez. Consult with Dr. Slade for further wound management. Planning for debridement and possible placement of wound VAC tomorrow. Start Vancomycin per protocol for wound coverage. Continue levofloxacin, changing to 750mg IV daily. PICC line study reveals that line placement is within the [place] vein. Spoke with PICC line team. We will replace PICC line for better placement. Obtain CBC, CMP, blood culture, venous lactate, magnesium, urinalysis analysis, uric acid & CRP on admit. Monitor Accu-Cheks Given patient's history of diabetes. Will continue on home regimen of Levemir 40 units twice a day and NovoLog 20 units with meals. Patient to be nothing by mouth after midnight for scheduled procedure. Consult with Dr. Stubbs for further cardiac evaluation and recommendations. We are awaiting the echocardiogram report that was done outpatient last week as this will direct ongoing guidance regarding LifeVest. SCDs to bilateral lower extremity for DVT prophylaxis. We did discuss advanced directives and at this time. Patient does wish to be a do not resuscitate. Will discuss further orders and plan of care with attending, Dr. Hernandez. At time of discharge medical care will return to primary care provider, Dr Luis E Martinez in [place], [place]. 07/25 Planning for surgical debridement of Left foot wound today by Dr Slade Patient did receive Entresto today given recent vascular stenting of the left leg onn 07/16 On vancomycin and IV Levaquin for antimicrobial coverage Will continue to monitor Accu-Cheks Will continue on home regimen of Levemir 40 units twice a day and NovoLog 20 units with meals. Spoke with [facility] radiology dept. They received report last night and will [place] today [place] [facility] [place] Patient currently wearing left vest. SCDs to bilateral lower extremity for DVT prophylaxis. Case discussed with attending, Dr Hernandez <Caden Stubbs - Last Filed: 07/31/17 12:43> Exam Vital signs: Temperature 97.8 F 07/31/17 08:39 Pulse Rate 101 H 07/31/17 09:00 Respiratory Rate 16 07/31/17 08:39 Blood Pressure 133/69 07/31/17 08:39 Pulse Oximetry 95 07/31/17 08:39 Inpatient Medications: Generic Name Dose Route Start Last Admin Trade Name Freq PRN Reason Stop Dose Admin Acetaminophen 650 mg 07/24/17 12:30 Tylenol PO Q5H PRN Discomfort Hydrocodone Bitart/Acetaminophen 1 - 2 tab 07/24/17 14:45 07/30/17 11:17 [place] 5/325 PO 1 tab Q6H PRN Administration Pain Ascorbic Acid 1,000 mg 07/25/17 09:00 07/31/17 09:24 Vitamin C PO 1,000 mg DAILY [facility] Administration Aspirin 81 mg 07/25/17 09:00 07/31/17 09:24 Asa PO 81 mg DAILY [facility] Administration Bisacodyl 10 mg 07/24/17 12:30 Dulcolax RECTALLY DAILY PRN Constipation Carvedilol 12.5 mg 07/28/17 17:30 07/31/17 09:23 Coreg PO 12.5 mg BIDWM [facility] Administration Citalopram Hydrobromide 20 mg 07/25/17 09:00 07/31/17 09:23 Celexa PO 20 mg DAILY [facility] Administration Clindamycin HCl 300 mg 07/30/17 13:00 07/31/17 09:23 Cleocin PO 300 mg QID [facility] Administration Colchicine 0.6 mg 07/30/17 11:15 07/31/17 09:23 Colcrys PO 0.6 mg BID [facility] Administration Enoxaparin Sodium 30 mg 07/31/17 09:00 07/31/17 09:35 Lovenox SQ 30 mg DAILY [facility] Administration Sodium Chloride 1,000 mls @ 100 mls/hr 07/30/17 20:45 07/31/17 08:50 Normal Saline IV 100 mls/hr .Q10H [facility] Administration Vancomycin HCl 1,250 mg/ 250 mls @ 250 mls/hr 07/31/17 21:00 Sodium Chloride IV Q24H [facility] Insulin Aspart 16 unit 07/27/17 17:30 07/31/17 09:29 Novolog SQ Not Given TIDWM [facility] Insulin Aspart 1 - 5 unit 07/30/17 15:08 07/30/17 20:53 Novolog SQ 2 unit SS PRN Administration Hyperglycemia Protocol Insulin Detemir 36 unit 07/27/17 21:00 07/31/17 09:29 Levemir SQ 36 unit BID [facility] Administration Lactobacillus Acidophilus 1 cap 07/25/17 09:00 07/31/17 09:23 Culturelle PO 1 cap DAILY [facility] Administration Latanoprost 1 drops 07/24/17 21:00 07/30/17 20:56 Xalatan RIGHT EYE 1 drops HS [facility] Administration Magnesium Hydroxide 30 ml 07/24/17 12:30 Mom PO DAILY PRN Constipation Magnesium Oxide 400 mg 07/25/17 09:00 07/31/17 09:23 Magox PO 400 mg DAILY [facility] Administration Multivitamins/Minerals 1 tab 07/25/17 09:00 07/31/17 09:34 Therapeutic - M PO 1 tab DAILY [facility] Administration Nitroglycerin 0.4 mg 07/24/17 14:45 Nitrostat SL Q5MIN3 PRN Angina Nystatin 1 applic 07/30/17 15:00 07/31/17 09:35 Mycostatin TP 1 applic TID [facility] Administration Ondansetron HCl 4 mg 07/24/17 12:29 07/26/17 08:19 Zofran IVP 4 mg Q6H PRN Administration Nausea Sodium Chloride 500 ml 07/24/17 16:30 07/30/17 06:24 Normal Saline IV 500 ml PRN PRN Administration Sodium Chloride 10 ml 07/30/17 13:31 07/30/17 12:39 Iv Flush IV 10 ml PRN PRN Administration Flushing Tamsulosin HCl 0.4 mg 07/27/17 21:00 07/30/17 20:46 Flomax PO 0.4 mg HS [facility] Administration Ticagrelor 90 mg 07/25/17 09:00 07/31/17 09:24 Brilinta PO 90 mg BID [facility] Administration Discontinued Medications Generic Name Dose Route Start Last Admin Trade Name Madeleine FORTE Reason Stop Dose Admin Alteplase, Recombinant 2 mg 07/29/17 13:05 07/29/17 13:26 Cathflo Activase IV 07/29/17 13:06 2 mg O ONE Administration Carvedilol 6.25 mg 07/24/17 17:30 07/28/17 09:16 Coreg PO 6.25 mg BIDWM [facility] Administration Carvedilol 6.25 mg 07/28/17 11:11 07/28/17 12:46 Coreg PO 07/28/17 11:12 6.25 mg NOW ONE Administration Carvedilol 12.5 mg 07/28/17 11:11 Coreg PO BIDWM [facility] Enoxaparin Sodium 40 mg 07/26/17 12:30 07/30/17 08:52 Lovenox SQ 40 mg DAILY [facility] Administration Levofloxacin/Dextrose 750 mg in 150 mls @ 100 mls/hr 07/24/17 14:45 07/28/17 17:36 Levaquin Premix IV Infused Q24H [facility] Infusion Vancomycin HCl 2,000 mg/ 500 mls @ 250 mls/hr 07/24/17 18:00 07/24/17 21:00 Sodium Chloride IV 07/24/17 19:59 Infused O ONE Infusion Vancomycin HCl 1,500 mg/ 500 mls @ 250 mls/hr 07/25/17 06:00 07/29/17 10:27 Sodium Chloride IV Infused Q12H [facility] Infusion Lactated Ringer's 1,000 mls @ 50 mls/hr 07/25/17 14:15 07/26/17 11:05 Lactated Ringers IV Infused .Q20H [facility] Infusion Vancomycin HCl 2,000 mg/ 500 mls @ 250 mls/hr 07/30/17 06:00 07/31/17 06:30 Sodium Chloride IV Not Given Q24H [facility] Levofloxacin/Dextrose 750 mg in 150 mls @ 100 mls/hr 07/30/17 14:00 Levaquin Premix IV Q48H [facility] Sodium Chloride 1,000 mls @ 150 mls/hr 07/30/17 11:30 07/30/17 20:45 Normal Saline IV 07/30/17 18:09 Infused .Q6H40M [facility] Infusion Insulin Aspart 20 unit 07/24/17 17:30 07/27/17 12:33 Novolog SQ 20 unit TIDWM [facility] Administration Insulin Aspart 8 unit 07/31/17 09:22 07/31/17 09:29 Novolog SQ 07/31/17 09:23 8 unit O ONE Administration Insulin Detemir 40 unit 07/24/17 21:00 07/27/17 09:15 Levemir SQ 40 unit BID [facility] Administration Insulin Detemir 10 unit 07/27/17 21:00 Levemir SQ 07/27/17 21:01 HS ONE Insulin Detemir 10 unit 07/26/17 21:00 07/26/17 22:07 Levemir SQ 07/26/17 21:01 10 unit HS ONE Administration Insulin Detemir 20 unit 07/28/17 20:21 07/28/17 20:54 Levemir SQ 07/28/17 20:22 20 unit ONE TIME ONE Administration Metformin HCl 500 mg 07/25/17 08:00 07/29/17 08:18 Glucophage PO 500 mg WB [facility] Administration Miscellaneous Medication 6 ml 07/25/17 16:00 07/25/17 16:00 Bupiv 0.25% 30ml/Lido 1% 30ml Mix ID 07/25/17 16:01 6 ml O ONE Administration Morphine Sulfate 0 mg 07/25/17 16:19 07/25/17 16:22 Morphine Sulfate Vial IVP 5 mg Q10M PRN Administration Sacubitril/Valsartan 1 tab 07/24/17 21:00 07/29/17 20:56 Entresto 49/51mg PO 1 tab BID [facility] Administration Vancomycin HCl 1 each 07/24/17 14:44 07/24/17 16:15 Pharmacy Consult - Vancomycin 07/24/17 14:45 Not Given O ONE Results 07/31/17 05:27 07/31/17 05:27 CBC 07/31/17 Range/Units 05:27 WBC 13.1 H (4.5-11.0) T/MM3 RBC 2.82 L (4.50-5.90) M/MM3 Hgb 9.2 L (13.5-17.5) GM/DL Hct 28.2 L (41-53) % Plt Count 193 (130-400) T/MM3 Neut # (Auto) 11.1 H (1.8-7.7) T/MM3 Lymph # (Auto) 1.0 (1-4.8) T/MM3 [place] # (Auto) 0.7 (0-0.8) T/MM3 Eos # (Auto) 0.3 (0-0.5) T/MM3 Baso # (Auto) 0.0 (0-0.2) T/MM3 Comprehensive Metabolic Panel 07/30/17 07/31/17 Range/Units 19:34 05:27 Sodium 139 141 (134-144) MEQ/L Potassium 4.4 4.2 (3.6-5) MEQ/L Chloride 106 108 H (98-107) MEQ/L Carbon Dioxide 22 23 (22-30) MEQ/L BUN 38.0 H 37.0 H (9-20) MG/DL Creatinine 2.0 H 2.1 H (0.8-1.5) mg/dL Glucose 204 H 57 L (75-110) MG/DL Calcium 8.5 8.5 (8.4-10.2) MG/DL Albumin 3.0 L (3.5-5.0) g/dL Intake and Output 07/30/17 07/31/17 07/31/17 22:59 06:59 14:59 Intake Total 1100 / 1100 1750 / 1750 170 / 170 Output Total 200 / 200 600 / 600 Balance 900 / 900 1150 / 1150 170 / 170 Intake: IV 1000 / 1000 830 / 830 170 / 170 Ns 1,000 ml @ 100 mls/hr IV . 1000 / 1000 830 / 830 170 / 170 Q10H [facility] Rx#:[id number] Oral 100 / 100 920 / 920 Output: Urine 200 / 200 600 / 600 Other: Urine Appearance Clear Clear Urine Color Dark Yellow Yellow Stool Color Brown Brown Stool Consistency Soft Soft Size of Bowel Movement Small Large # Voids 2 # Incontinent Voids 1 # Bowel Movements 1 Weight 107.9 kg Patient Weight 08/01/17 06:59 Weight 107.9 kg Assessment and Plan - Assessment and Plan (1) Diabetes Current visit: No Status: Chronic (2) Obstructive sleep apnea Current visit: No Status: Chronic (3) CAD (coronary artery disease) Current visit: No Status: Chronic (4) Ischemic cardiomyopathy Current visit: No Status: Chronic (5) Surgical wound dehiscence Current visit: Yes Status: Acute (6) Atherosclerosis of [place] artery of both lower extremities Current visit: Yes Status: Acute (7) Mixed hyperlipidemia Current visit: Yes Status: Acute - Attestation Attestation Narrative: 07/31/17 12:43 Recommendation After examining the patient I agree with the above assessment. I am involved in the formulation of the patient's plan of care. Hospital Course Summary Disclaimer: The visit summary below is not to be considered part of the above Progress Note.
[2017-07-25] MEDS ORDERED: LR 1,000 ML IV SCH (14:15)
--- NOTE | 2017-07-25 15:19 | Anesthesia Preoperative Report ---
Anesthesia Preoperative Record - Date and Time Date: 07/25/17 Preoperative Diagnosis: L foot Surgical Wound Proposed Procedure: left foot wound debridement with wound vac placement NPO Since Date: 07/24/17 NPO Since Time: 23:00 Allergies/Adverse Reactions: Allergies Allergy/AdvReac Type Severity Reaction Status Date / Time Wvurbna-Fur-Hjn Reductase AdvReac Severe Muscle Pain Verified 07/24/17 12:28 Inhibitor - Vital Signs Vital Signs: Temperature 97.6 F 07/25/17 14:14 Pulse Rate 106 H 07/25/17 14:14 Respiratory Rate 18 07/25/17 14:14 Blood Pressure 119/65 07/25/17 14:14 Pulse Oximetry 98 07/25/17 14:14 Height and Weight: Height 1.73 m Weight 103.873 kg Body Mass Index 35.1 - Medications Inpatient Medications: Current Medications Acetaminophen (Tylenol) 650 mg PO Q5H PRN PRN Reason: Discomfort Hydrocodone Bitart/Acetaminophen (Glouster 5/325) 1 - 2 tab PO Q6H PRN PRN Reason: Pain Ascorbic Acid (Vitamin C) 1,000 mg PO DAILY [facility] Last Admin: 07/25/17 08:16 Dose: Not Given Aspirin (Asa) 81 mg PO DAILY [facility] Last Admin: 07/25/17 08:38 Dose: 81 mg Bisacodyl (Dulcolax) 10 mg RECTALLY DAILY PRN PRN Reason: Constipation Carvedilol (Coreg) 6.25 mg PO BIDWM [facility] Last Admin: 07/25/17 08:30 Dose: Not Given Citalopram Hydrobromide (Celexa) 20 mg PO DAILY [facility] Last Admin: 07/25/17 08:17 Dose: Not Given Levofloxacin/Dextrose (Levaquin Premix) 750 mg in 150 mls @ 100 mls/hr IV Q24H [facility] Last Infusion: 07/24/17 18:53 Dose: Infused Vancomycin HCl 1,500 mg/ (Sodium Chloride) 500 mls @ 250 mls/hr IV Q12H [facility] Last Infusion: 07/25/17 07:40 Dose: Infused Lactated Ringer's (Lactated Ringers) 1,000 mls @ 50 mls/hr IV .Q20H [facility] Last Admin: 07/25/17 14:28 Dose: 50 mls/hr Insulin Aspart (Novolog) 20 unit SQ TIDWM [facility] Last Admin: 07/25/17 08:16 Dose: Not Given Insulin Detemir (Levemir) 40 unit SQ BID [facility] Last Admin: 07/25/17 08:22 Dose: Not Given Lactobacillus Acidophilus (Culturelle) 1 cap PO DAILY [facility] Last Admin: 07/25/17 08:17 Dose: Not Given Latanoprost (Xalatan) 1 drops RIGHT EYE HS [facility] Last Admin: 07/24/17 20:45 Dose: 1 drops Magnesium Hydroxide (Mom) 30 ml PO DAILY PRN PRN Reason: Constipation Magnesium Oxide (Magox) 400 mg PO DAILY [facility] Last Admin: 07/25/17 08:17 Dose: Not Given Metformin HCl (Glucophage) 500 mg PO WB [facility] Last Admin: 07/25/17 08:16 Dose: Not Given Multivitamins/Minerals (Therapeutic - M) 1 tab PO DAILY [facility] Last Admin: 07/25/17 08:17 Dose: Not Given Nitroglycerin (Nitrostat) 0.4 mg SL Q5MIN3 PRN PRN Reason: Angina Ondansetron HCl (Zofran) 4 mg IVP Q6H PRN PRN Reason: Nausea Sacubitril/Valsartan (Entresto 49/51mg) 1 tab PO BID [facility] Last Admin: 07/25/17 08:30 Dose: Not Given Sodium Chloride (Normal Saline) 500 ml IV PRN PRN Last Admin: 07/24/17 16:31 Dose: 500 ml Ticagrelor (Brilinta) 90 mg PO BID [facility] Last Admin: 07/25/17 08:38 Dose: 90 mg Home Medications: Home Medications Medication Instructions Recorded Confirmed Type Citalopram Hydrobromide 20 mg PO DAILY #0 01/05/11 07/24/17 History [Citalopram HBr] Metformin HCl 500 mg PO DAILY #0 01/08/11 07/24/17 History Colchicine [Colcrys] 1 tab PO PRN PRN #0 tab 09/10/16 07/24/17 History Latanoprost 1 drop BOTH EYES HS #0 bottle 09/10/16 07/24/17 History Allopurinol [Zyloprim] 100 mg PO DAILY 03/15/17 07/24/17 History Aspirin Chewable [ASA] 81 mg PO DAILY 03/15/17 07/24/17 History Nitroglycerin [Nitrostat] 0.4 mg SL Q5MIN3 PRN #25 tab 03/16/17 07/24/17 Rx Ticagrelor [Brilinta] 90 mg PO BID #60 tab 03/16/17 07/24/17 Rx Allopurinol [Zyloprim] 300 mg PO DAILY 07/12/17 07/24/17 History Ascorbic Acid [Vitamin C] 1,000 mg PO DAILY 07/12/17 07/24/17 History Carvedilol 6.25 mg PO BIDWM 07/12/17 07/24/17 History Hydrocodone/APAP 5/325 [Glouster 1 - 2 tab PO Q6H PRN 07/12/17 07/24/17 History 5/325] Insulin Aspart [NovoLOG] 20 units SQ TIDWM 07/12/17 07/24/17 History Insulin Detemir [Levemir] 40 units SQ BID 07/12/17 07/24/17 History Lactobacillus Acidophilus 1 each PO DAILY 07/12/17 07/24/17 History [Probiotic] SACUBITRIL/VALSARTAN 49/51mg 1 tab PO BID 07/12/17 07/24/17 History [ENTRESTO 49/51mg] Levofloxacin [Levaquin] 500 mg PO DAILY 07/16/17 07/24/17 History Magnesium Oxide [Magnesium] 400 mg PO DAILY 07/24/17 07/24/17 History Multivitamin [One Daily] 1 tab PO DAILY 07/24/17 07/24/17 History - Medical History Respiratory: Reports: Asthma (as child ), Sleep Apnea Cardiovascular: Reports: Abnormal EKG, Arrhythmia, Coronary Artery Disease, Hypertension, High Cholesterol, Other (External defibrillator, never been shocked, EF 20% echo 3 months ago) DENIES: Congestive Heart Failure Gastrointestional: Reports: Gastroesophageal Reflux Disease (infrequent, none recently) Neuro/Musculoskeletal: Reports: Cerebrovascular Accident (possible small stroke in past ), Depression, Muscle Weakness Renal/Endocrine: Reports: Diabetes Mellitus Type 2 Other History: DENIES: Anesthesia Reactions - Surgical History Cardiac Surgeries/Treatments: Reports: Angiogram (left leg), Cardiac Catheterization (2 STENTS MAR 2017, ) DENIES: Pacemaker Respiratory Surgery/Treatments: Reports: CPAP Use GI Surgery/Treatments: Reports: Appendectomy, Cholecystectomy Musculoskeletal Surgery/Tx: Reports: Orthopedic Surgery (right rotator cuff) Reproductive Surgery/Treatment: DENIES: Mastectomy Anesthesia Reactions: None Hx Family Anesthesia Reaction: No - Social History Smoking Status: Never smoker Substance Use Type: does not use Alcohol Intake: never Alcohol Intake Frequency: does not drink - Pertinent Findings Laboratory: CBC and BMP 07/25/17 04:15 07/25/17 04:15 BMP 07/25/17 04:15 Sodium 142 Potassium 4.5 Chloride 105 Carbon Dioxide 26 BUN 25.0 H Creatinine 1.0 Glucose 104 Calcium 9.7 EKG: Sinus Tachycardia - Physical Exam Respiratory Exam: Present: wheezing Cardiovascular Exam: Present: regular rate and rhythm, no murmur - Airway Assessment Mallampati Score: III TMD: 2 Fingerbreadths Neck Extension: poor Teeth: other (full mejia ) - ASA ASA Score: 3 - Plan Anesthesia: General TIVA, MAC - Discussion Discussion: Discussed risks/options/alternatives of anesthesia and questions answered. Patient consents. Nursing pain assessment noted. Attestation Statement: Prior to the delivery of any anesthetic medication, I examined the patient, developed the plan, obtained the patient's consent and discussed the risk and benefits of the procedure with the patient/guardian. - Additional Information Seen by Anesthesia: Yes
[2017-07-25] MEDS ORDERED: BUPIVACAINE 0.25% (2.5mg/ml) PF 30ml INJECTION ONE (15:35)
[2017-07-25] MEDS ORDERED: LIDOCAINE 1% (10mg/ml) 30ml SDV INJ ONE (15:35)
[2017-07-25] MEDS ORDERED: KETAMINE 500 MG/10 ML INJECTION ONE (15:36)
[2017-07-25] MEDS ORDERED: MIDAZOLAM 2mg/2ml INJECTION ONE (15:36)
[2017-07-25] MEDS ORDERED: BUPIV 0.25% 30ml/LIDO 1% 30ml MIXTURE ID ONE (16:00)
[2017-07-25] MEDS ORDERED: MORPHINE SULFATE 10 MG/ML VIAL IVP PRN (16:19)
--- NOTE | 2017-07-25 16:39 | Anesthesia Postoperative Note ---
- Date and Time Date: 07/25/17 Time: 16:39 - Status Patient Participated in Evaluation: Patient Participated in Person Vital Signs: Temperature 97.5 F 07/25/17 16:10 Pulse Rate 103 H 07/25/17 16:30 Respiratory Rate 14 07/25/17 16:30 Blood Pressure 120/69 07/25/17 16:30 Pulse Oximetry 96 07/25/17 16:30 Respiratory Function: Airway Patent Cardiovascular Function: Regular Pulse EKG: Sinus Rhythm, Sinus Tachycardia Mental Status: Alert and Oriented Pain Intensity: 4 Hydration: IV Infusing Complications During Recover: None Apparent - Follow-Up Instructions Instructions: Per Surgeon
[2017-07-25] MEDS: LEVOFLOXACIN PB 750 MG/150 ML BAG IV SCH (18:10)
[2017-07-25] MEDS: HYDROCODONE/APAP 5mg/325mg TABLET PO PRN ×2 (19:19→23:32)
[2017-07-25] MEDS: LATANOPROST 0.005% EYE DROPS 2.5ml RIGHT EYE SCH (21:03)
--- NOTE | 2017-07-26 08:26 | Operative Note ---
DATE OF PROCEDURE 07/25/2017 PREOPERATIVE DIAGNOSIS 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 POSTOPERATIVE DIAGNOSIS 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 PROCEDURE Surgical debridement with bone biopsy, left foot surgical wound. SURGEON Nuno Slade MD ASSIST Anuel Zazueta PA-C COMPLICATIONS None. ANESTHESIA Monitored anesthesia care with local anesthetic. FLUIDS AND EBL Please see Anesthetic Record. DESCRIPTION OF PROCEDURE Mr. Dobson and his left foot were identified and marked in the preoperative holding area. He was brought back to the operating suite and placed supine on the operating table. Ketamine was provided by the nurse boat hop. His left lower extremity was prepped and draped in my normal sterile fashion and Betadine scrub was used. I then injected local anesthetic around the base of the fourth and fifth toes. His wound from his previous amputation had opened measuring 22 mm x 20 mm. There was necrotic subcutaneous tissue exposed as well as the fourth and fifth metatarsal heads. I began with surgical debridement using a sharp curette to remove all necrotic tissue down to healthy- appearing subcutaneous tissue. There was good bleeding present. I then removed the fourth and fifth metatarsal heads with a bone cutter and sent these for pathology and culture. The wound was then thoroughly irrigated with normal saline. I then placed a wound vac over the wound to 125 mm of continuous suction and had a good seal. The drapes were then removed and he was taken to Recovery Room under the care of Anesthesia. He tolerated the procedure well. There were no complications. CHUCKY
--- NOTE | 2017-07-26 08:40 | Progress Note ---
- Date 07/26/17 Subjective: Follow-up: 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 Amputation left fourth and fifth toes 06/20/[address] Slade. Surgical debridement of necrotic tissue and removal of fourth and fifth metatarsal heads 07/25/[address] Slade. Culture and sensitivity from 07/03 revealing Stenotrophomonas Maltophilia. Currently on Levaquin and vancomycin. Patient seen this morning in bed. He's had some nausea this morning and is currently receiving Zofran. His last pain medicine was at 11:30 last night. States he had some chicken noodle soup last night for supper and did well with that. He reports he has no pain at this time, but if he gets up and walks his pain is significant. He complains of "being hooked up to so much stuff, I can't move." It's been a couple of days since his last bowel movement. Objective Vital signs: Temperature 96.2 F L 07/26/17 07:57 Pulse Rate 99 07/26/17 07:57 Respiratory Rate 17 07/26/17 07:57 Blood Pressure 134/82 07/26/17 07:57 Pulse Oximetry 97 07/26/17 07:57 Height/Weight/BMI: Height 1.73 m Weight 102.4 kg Body Mass Index 35.1 - Constitutional Present: no acute distress, well nourished, well developed - Routine HEENT Exam Head: Present: normocephalic, atraumatic - Routine Respiratory Exam Present: CTA bilaterally. Absent: wheezes - Routine Cardiovascular Exam Present: RRR, no murmur - Routine Abdominal Exam Present: soft, normoactive bowel sounds, non distended, non tender - Routine Extremities Exam Present: no edema, normal capillary refill Comments: Wound VAC intact to left foot. OpSite looks good. - Routine Skin Exam Present: dry, warm - Routine Neurological Exam Present: alert, oriented X3 - Routine Lymphatic Exam Lymphatic: Absent: adenopathy - Routine Psychiatric Exam Present: normal affect, cooperative Results - Labs CBC & Chem 7: 07/26/17 05:35 07/26/17 05:35 Microbiology Results: Microbiology 07/25/17 15:57 Foot, Left Surgical Culture - Preliminary Culture Initiated - Results Pending 07/24/17 12:48 Peripheral/Iv Start Blood Culture - Preliminary No Growth After 1 Day 07/24/17 12:55 Peripheral/Iv Start Blood Culture - Preliminary No Growth After 1 Day Assessment and Plan Assessment and Plan: Impression Left surgical wound dehiscence -- 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 Cardiomyopathy - improved, no longer requiring LifeVest Type II diabetes - Insulin requiring Coronary artery disease Peripheral vascular disease Hypertension Chronic Kidney Disease Stage II Depression Hearing deficit Obesity with BMI 35.1 Plan Continue vancomycin and IV Levaquin for antimicrobial coverage. Status post surgical debridement of necrotic tissue and removal of fourth and fifth metatarsal heads yesterday by Dr. Slade. Awaiting path. Vitals and labs, including blood sugars, are stable. DC IVF's which were started in surgery. Pain is controlled. David Will consult PT/OT to help functional status. Add Lovenox 40mg daily for DVT prevention. DVT Prophylaxis: SCD's Resuscitation Status: Do Not Resuscitate - Time spent with patient Time with patient PN: 25 minutes - Physician Narrative Physician: Barrington Hernandez MD Narrative: Date: 07/26/17 Time: 1204 Have independently interviewed and examined pt. Chart reviewed. Case discussed with my PA. Care plan developed with my supervision; agree with above. Doing well today, but had nausea yesterday evening and some overnight. Passing flatus, but not had stool. Minor discomfort to foot. Breathing well. No chest pain. No f/c. Lungs: clear bilaterally CV: regular AB: soft nt/nd MSE: awake alert appropriate Plan: Continue antibiotics and wound vac-check on pending cultures (possible ab to stop Vancomycin). Consult PT/OT to help functional status. Work on bowel function. Add Lovenox for DVT prevention. Possible discharge on Saturday if wound vac arrangements can be made and pt continues to do well. Hospital Course Summary Disclaimer: The visit summary below is not to be considered part of the above Progress Note. Hospital Course: 07/24/17 Admission Admit patient to inpatient status under the care of Dr. Hernandez. Consult with Dr. Slade for further wound management. Planning for debridement and possible placement of wound VAC tomorrow. Start Vancomycin per protocol for wound coverage. Continue levofloxacin, changing to 750mg IV daily. PICC line study reveals that line placement is within the Azygos vein. Spoke with PICC line team. We will replace PICC line for better placement. Obtain CBC, CMP, blood culture, venous lactate, magnesium, urinalysis analysis, uric acid & CRP on admit. Monitor Accu-Cheks Given patient's history of diabetes. Will continue on home regimen of Levemir 40 units twice a day and NovoLog 20 units with meals. Patient to be nothing by mouth after midnight for scheduled procedure. Consult with Dr. Stubbs for further cardiac evaluation and recommendations. We are awaiting the echocardiogram report that was done outpatient last week as this will direct ongoing guidance regarding LifeVest. SCDs to bilateral lower extremity for DVT prophylaxis. We did discuss advanced directives and at this time. Patient does wish to be a do not resuscitate. Will discuss further orders and plan of care with attending, Dr. Hernandez. At time of discharge medical care will return to primary care provider, Dr Luis E Martinez in [place], [place]. 07/25 OP DAY: Surgical debridement with bone biopsy, left foot surgical wound. Planning for surgical debridement of Left foot wound today by Dr Slade. Patient did receive Entresto today given recent vascular stenting of the left leg onn 07/16. On vancomycin and IV Levaquin for antimicrobial coverage. Will continue to monitor Accu-Cheks Will continue on home regimen of Levemir 40 units twice a day and NovoLog 20 units with meals. Spoke with [facility] radiology dept. They received report last night and will fax it today to [facility] as requested. Patient currently wearing left vest. EF improved to 61% - Cardiology discontinued life vest. SCDs to bilateral lower extremity for DVT prophylaxis. 07/26 Status post surgical debridement of necrotic tissue and removal of fourth and fifth metatarsal heads yesterday by Dr. Slade. Awaiting path and culture. Wound vac placed yesterday. CM making arrangements for outpatient wound vac. Continue vancomycin and IV Levaquin for antimicrobial coverage. DC IVF's which were started in surgery. Pain is controlled. Will consult PT/OT to help functional status. Add Lovenox 40mg daily for DVT prevention.
[2017-07-26] MEDS: INSULIN ASPART 100unit/ml INJECTION SQ SCH ×3 (10:37→18:40)
[2017-07-26] MEDS: LACTOBACILLUS (15B cfu) CAPSULE PO SCH (10:49)
[2017-07-26] MEDS: METFORMIN 500 MG TABLET PO SCH (10:49)
[2017-07-26] MEDS: MULTI-VITAMIN + MINERAL TABLET PO SCH (10:50)
[2017-07-26] MEDS: ASPIRIN 81 MG CHEWABLE TABLET PO SCH (10:50)
[2017-07-26] MEDS: CITALOPRAM 20 MG TABLET PO SCH (10:50)
[2017-07-26] MEDS: CARVEDILOL 6.25 MG TABLET PO SCH ×2 (10:50→16:49)
[2017-07-26] MEDS: MAGNESIUM OXIDE 400 MG TABLET PO SCH (10:50)
[2017-07-26] MEDS: ASCORBIC ACID 500 MG TABLET PO SCH (10:50)
[2017-07-26] MEDS: TICAGRELOR 90 MG TABLET PO SCH ×2 (10:51→22:05)
[2017-07-26] MEDS: SACUBITRIL/VALSARTAN 49/51mg TABLET PO SCH ×2 (11:04→22:04)
[2017-07-26] MEDS: INSULIN DETEMIR 100unit/ml INJECTION SQ SCH ×2 (11:04→22:03)
--- NOTE | 2017-07-26 13:29 | Pharmacy Consult-Antibiotics ---
Pharmacy Consult-Vancomycin - Laboratory Information WBC 11.8 T/MM3 (4.5-11.0) H 07/26/17 05:35 BUN 20.0 MG/DL (9-20) 07/26/17 05:35 Creatinine 1.0 mg/dL (0.8-1.5) 07/26/17 05:35 Procalcitonin < 0.05 NG/ML 07/24/17 12:48 Vancomycin Trough 17.69 ug/mL (15-20) 07/26/17 05:35 - Consult Information VANCOMYCIN CONSULT: MCis a pleasant 67-year-old male who has been undergoing outpatient wound care following amputation of left 4th and 5th toes on June [address] Slade. Since that time he has had difficulty with wound healing since June. Renal Function: S Cr = 1.0 mg/dl. Cr Cl = 81 mL/min. WBC's = 11.8 T/mm3 Vancomycin trough = 17.69 (07/26 @ 0530) [place] = 0.0236 I continued the Vancomycin at 1,500 mg IV q12hrs. The pharmacy will continue to monitor and adjust regimen to maintain therapeutic levels. Thank you for the Vancomycin Protocol, Rodger Urrutia, Pharmacist.
[2017-07-26] MEDS: ENOXAPARIN 40 MG/0.4 ML INJECTION SQ SCH (13:43)
--- NOTE | 2017-07-26 14:29 | Wound Care Progress Note ---
Wound Center Progress Note: Pt seen for wound consultation r/t NPWT. Pt was last seen at [facility] 07/24/17 and was directly admitted to [facility] per Dr. Slade. Pt has had L 4th and 5th toe partial ray amputation. Pt is sleeping in bed, FLACC-0. Wound vac dressing collapsed without leaks, bridged to L dorsal foot, pressure set at 125mm Hg continuous pressure. Vac canister has around 50 mL serosanguineous drainage. Wound not visualized at this time.
--- NOTE | 2017-07-26 16:03 | Cardiology Progress Note ---
<Maria Del Carmen De Guzman M - Last Filed: 07/26/17 18:51> Subjective Principal diagnosis: ischemic CM, CAD Interval history: Ethan is seen in follow up for ischemic CM. Still is pleased to be free of Life Vest. He denies any cardiac complaints. Exam Vital signs: Temperature 97.2 F 07/26/17 12:00 Pulse Rate 70 07/26/17 15:30 Respiratory Rate 14 07/26/17 15:30 Blood Pressure 111/61 07/26/17 15:30 Pulse Oximetry 95 07/26/17 15:30 Inpatient Medications: Generic Name Dose Route Start Last Admin Trade Name Freq PRN Reason Stop Dose Admin Acetaminophen 650 mg 07/24/17 12:30 Tylenol PO Q5H PRN Discomfort Hydrocodone Bitart/Acetaminophen 1 - 2 tab 07/24/17 14:45 07/25/17 23:32 Nebo 5/325 PO 1 tab Q6H PRN Administration Pain Ascorbic Acid 1,000 mg 07/25/17 09:00 07/26/17 10:50 Vitamin C PO 1,000 mg DAILY [facility] Administration Aspirin 81 mg 07/25/17 09:00 07/26/17 10:50 Asa PO 81 mg DAILY [facility] Administration Bisacodyl 10 mg 07/24/17 12:30 Dulcolax RECTALLY DAILY PRN Constipation Carvedilol 6.25 mg 07/24/17 17:30 07/26/17 10:50 Coreg PO 6.25 mg BIDWM [facility] Administration Citalopram Hydrobromide 20 mg 07/25/17 09:00 07/26/17 10:50 Celexa PO 20 mg DAILY [facility] Administration Enoxaparin Sodium 40 mg 07/26/17 12:30 07/26/17 13:43 Lovenox SQ 40 mg DAILY [facility] Administration Levofloxacin/Dextrose 750 mg in 150 mls @ 100 mls/hr 07/24/17 14:45 07/25/17 19:40 Levaquin Premix IV Infused Q24H [facility] Infusion Vancomycin HCl 1,500 mg/ 500 mls @ 250 mls/hr 07/25/17 06:00 07/26/17 09:40 Sodium Chloride IV Infused Q12H [facility] Infusion Insulin Aspart 20 unit 07/24/17 17:30 07/26/17 13:42 Novolog SQ 20 unit TIDWM [facility] Administration Insulin Detemir 40 unit 07/24/17 21:00 07/26/17 11:04 Levemir SQ 40 unit BID [facility] Administration Lactobacillus Acidophilus 1 cap 07/25/17 09:00 07/26/17 10:49 Culturelle PO 1 cap DAILY [facility] Administration Latanoprost 1 drops 07/24/17 21:00 07/25/17 21:03 Xalatan RIGHT EYE 1 drops HS [facility] Administration Magnesium Hydroxide 30 ml 07/24/17 12:30 Mom PO DAILY PRN Constipation Magnesium Oxide 400 mg 07/25/17 09:00 07/26/17 10:50 Magox PO 400 mg DAILY [facility] Administration Metformin HCl 500 mg 07/25/17 08:00 07/26/17 10:49 Glucophage PO 500 mg WB [facility] Administration Morphine Sulfate 0 mg 07/25/17 16:19 07/25/17 16:22 Morphine Sulfate Vial IVP 5 mg Q10M PRN Administration Multivitamins/Minerals 1 tab 07/25/17 09:00 07/26/17 10:50 Therapeutic - M PO 1 tab DAILY [facility] Administration Nitroglycerin 0.4 mg 07/24/17 14:45 Nitrostat SL Q5MIN3 PRN Angina Ondansetron HCl 4 mg 07/24/17 12:29 07/26/17 08:19 Zofran IVP 4 mg Q6H PRN Administration Nausea Sacubitril/Valsartan 1 tab 07/24/17 21:00 07/26/17 11:04 Entresto 49/51mg PO 1 tab BID [facility] Administration Sodium Chloride 500 ml 07/24/17 16:30 07/24/17 16:31 Normal Saline IV 500 ml PRN PRN Administration Ticagrelor 90 mg 07/25/17 09:00 07/26/17 10:51 Brilinta PO 90 mg BID [facility] Administration Discontinued Medications Generic Name Dose Route Start Last Admin Trade Name Freq PRN Reason Stop Dose Admin Vancomycin HCl 2,000 mg/ 500 mls @ 250 mls/hr 07/24/17 18:00 07/24/17 21:00 Sodium Chloride IV 07/24/17 19:59 Infused O ONE Infusion Lactated Ringer's 1,000 mls @ 50 mls/hr 07/25/17 14:15 07/26/17 11:05 Lactated Ringers IV Infused .Q20H [facility] Infusion Miscellaneous Medication 6 ml 07/25/17 16:00 07/25/17 16:00 Bupiv 0.25% 30ml/Lido 1% 30ml Mix ID 07/25/17 16:01 6 ml O ONE Administration Vancomycin HCl 1 each 07/24/17 14:44 07/24/17 16:15 Pharmacy Consult - Vancomycin 07/24/17 14:45 Not Given O ONE - Constitutional no acute distress, well nourished, cooperative - Routine HEENT Exam Head: Present: normocephalic ENT: Present: mucous membranes moist - Routine Neck Exam Absent: JVD, carotid bruit - Routine Chest/Breast/Axilla Exam Chest wall: Absent: tenderness - Routine Respiratory Exam Present: CTA bilaterally. Absent: dyspnea, rales, wheezes - Routine Cardiovascular Exam Present: RRR, no murmur - Routine Abdominal Exam Present: soft, normoactive bowel sounds - Routine Extremities Exam Present: edema - Routine Skin Exam Present: intact, dry, warm - Routine Neurological Exam Present: alert, oriented X3 - Routine Psychiatric Exam Present: normal affect, normal thought process - Additional findings Additional findings: Acetaminophen (Tylenol) 650 mg PO Q5H PRN PRN Reason: Discomfort Hydrocodone Bitart/Acetaminophen (Nebo 5/325) 1 - 2 tab PO Q6H PRN PRN Reason: Pain Last Admin: 07/25/17 23:32 Dose: 1 tab Ascorbic Acid (Vitamin C) 1,000 mg PO DAILY [facility] Last Admin: 07/26/17 10:50 Dose: 1,000 mg Aspirin (Asa) 81 mg PO DAILY [facility] Last Admin: 07/26/17 10:50 Dose: 81 mg Bisacodyl (Dulcolax) 10 mg RECTALLY DAILY PRN PRN Reason: Constipation Carvedilol (Coreg) 6.25 mg PO BIDWM [facility] Last Admin: 07/26/17 10:50 Dose: 6.25 mg Citalopram Hydrobromide (Celexa) 20 mg PO DAILY [facility] Last Admin: 07/26/17 10:50 Dose: 20 mg Enoxaparin Sodium (Lovenox) 40 mg SQ DAILY [facility] Last Admin: 07/26/17 13:43 Dose: 40 mg Levofloxacin/Dextrose (Levaquin Premix) 750 mg in 150 mls @ 100 mls/hr IV Q24H [facility] Last Infusion: 07/25/17 19:40 Dose: Infused Vancomycin HCl 1,500 mg/ (Sodium Chloride) 500 mls @ 250 mls/hr IV Q12H [facility] Last Infusion: 07/26/17 09:40 Dose: Infused Insulin Aspart (Novolog) 20 unit SQ TIDWM [facility] Last Admin: 07/26/17 13:42 Dose: 20 unit Insulin Detemir (Levemir) 40 unit SQ BID [facility] Last Admin: 07/26/17 11:04 Dose: 40 unit Lactobacillus Acidophilus (Culturelle) 1 cap PO DAILY [facility] Last Admin: 07/26/17 10:49 Dose: 1 cap Latanoprost (Xalatan) 1 drops RIGHT EYE HS [facility] Last Admin: 07/25/17 21:03 Dose: 1 drops Magnesium Hydroxide (Mom) 30 ml PO DAILY PRN PRN Reason: Constipation Magnesium Oxide (Magox) 400 mg PO DAILY [facility] Last Admin: 07/26/17 10:50 Dose: 400 mg Metformin HCl (Glucophage) 500 mg PO WB [facility] Last Admin: 07/26/17 10:49 Dose: 500 mg Morphine Sulfate (Morphine Sulfate Vial) 0 mg IVP Q10M PRN Last Admin: 07/25/17 16:22 Dose: 5 mg Multivitamins/Minerals (Therapeutic - M) 1 tab PO DAILY [facility] Last Admin: 07/26/17 10:50 Dose: 1 tab Nitroglycerin (Nitrostat) 0.4 mg SL Q5MIN3 PRN PRN Reason: Angina Ondansetron HCl (Zofran) 4 mg IVP Q6H PRN PRN Reason: Nausea Last Admin: 07/26/17 08:19 Dose: 4 mg Sacubitril/Valsartan (Entresto 49/51mg) 1 tab PO BID [facility] Last Admin: 07/26/17 11:04 Dose: 1 tab Sodium Chloride (Normal Saline) 500 ml IV PRN PRN Last Admin: 07/24/17 16:31 Dose: 500 ml Ticagrelor (Brilinta) 90 mg PO BID [facility] Last Admin: 07/26/17 10:51 Dose: 90 mg Results 07/26/17 05:35 07/26/17 05:35 CBC 07/26/17 Range/Units 05:35 WBC 11.8 H (4.5-11.0) T/MM3 RBC 3.55 L (4.50-5.90) M/MM3 Hgb 11.3 L (13.5-17.5) GM/DL Hct 35.3 L (41-53) % Plt Count 259 (130-400) T/MM3 Neut # (Auto) 9.3 H (1.8-7.7) T/MM3 Lymph # (Auto) 1.4 (1-4.8) T/MM3 [place] # (Auto) 0.7 (0-0.8) T/MM3 Eos # (Auto) 0.3 (0-0.5) T/MM3 Baso # (Auto) 0.0 (0-0.2) T/MM3 Comprehensive Metabolic Panel 07/26/17 Range/Units 05:35 Sodium 141 (134-144) MEQ/L Potassium 4.2 (3.6-5) MEQ/L Chloride 105 (98-107) MEQ/L Carbon Dioxide 26 (22-30) MEQ/L BUN 20.0 (9-20) MG/DL Creatinine 1.0 (0.8-1.5) mg/dL Glucose 98 (75-110) MG/DL Calcium 9.6 (8.4-10.2) MG/DL Intake and Output 07/26/17 07/26/17 07/26/17 06:59 14:59 22:59 Intake Total 525 / 525 1066.333 / 1066.333 Output Total 700 / 700 Balance -175 / -175 1066.333 / 1066.333 Intake: IV 325 / 325 708.333 / 708.333 Lr 1,000 ml @ 50 mls/hr IV . 325 / 325 208.333 / 208.333 Q20H [facility] Rx#:[id number] Vancomycin 1,500 mg In NS 500ml 500 / 500 500 ml @ 250 mls/hr IV Q12H [facility] Rx#:[id number] Oral 200 / 200 358 / 358 Output: Urine 600 / 600 Emesis 100 / 100 Other: Urine Appearance Clear Urine Color Yellow Yellow Emesis Description Undigested Food # Voids 1 Weight 225 lb 12.054 oz Patient Weight 07/27/17 06:59 Weight 225 lb 12.054 oz Assessment and Plan - Assessment and Plan (1) Surgical wound dehiscence Current visit: Yes Status: Acute (2) Atherosclerosis of [place] artery of both lower extremities Current visit: Yes Status: Acute (3) CAD (coronary artery disease) Current visit: No Status: Chronic (4) Ischemic cardiomyopathy Current visit: No Status: Chronic (5) Obstructive sleep apnea Current visit: No Status: Chronic (6) Diabetes Current visit: No Status: Chronic (7) Mixed hyperlipidemia Current visit: Yes Status: Acute - Assessment and Plan 07/24/17 Surgical wound dehiscence Atherosclerosis of [place] artery of both lower extremities CAD (coronary artery disease) Ischemic cardiomyopathy Obstructive sleep apnea Diabetes Mixed hyperlipidemia Assessment and Plan Wound debridement carries low cardiac risk. Okay to proceed with plan per ortho. - Patient has been stable from cardiac standpoint. PAD recently improved due to LE stents placed 07/16/17. Continue Aspirin and Brilinta. - Echo report from Doreen lemus pending - Continue LifeVest for unknown EF. - Continue Entresto, Coreg Thank you for allowing us to participate in the care of this patient. 07/25/17 Echo report shows EF 61%, Life Vest removed - NPO for surgical debridement today - Patient assessed independent of Dr. Stubbs, findings discussed with him and together we agreed upon plan of care 07/26/17 EKG: SR with 1st degree AV block Hospital Course Summary Disclaimer: The visit summary below is not to be considered part of the above Progress Note. Hospital Course: 07/24/17 Admission Admit patient to inpatient status under the care of Dr. Hernandez. Consult with Dr. Slade for further wound management. Planning for debridement and possible placement of wound VAC tomorrow. Start Vancomycin per protocol for wound coverage. Continue levofloxacin, changing to 750mg IV daily. PICC line study reveals that line placement is within the Azygos vein. Spoke with PICC line team. We will replace PICC line for better placement. Obtain CBC, CMP, blood culture, venous lactate, magnesium, urinalysis analysis, uric acid & CRP on admit. Monitor Accu-Cheks Given patient's history of diabetes. Will continue on home regimen of Levemir 40 units twice a day and NovoLog 20 units with meals. Patient to be nothing by mouth after midnight for scheduled procedure. Consult with Dr. Stubbs for further cardiac evaluation and recommendations. We are awaiting the echocardiogram report that was done outpatient last week as this will direct ongoing guidance regarding LifeVest. SCDs to bilateral lower extremity for DVT prophylaxis. We did discuss advanced directives and at this time. Patient does wish to be a do not resuscitate. Will discuss further orders and plan of care with attending, Dr. Hernandez. At time of discharge medical care will return to primary care provider, Dr Luis E Martinez in [place], [place]. 07/25 Planning for surgical debridement of Left foot wound today by Dr Slade Patient did receive Entresto today given recent vascular stenting of the left leg onn 07/16 On vancomycin and IV Levaquin for antimicrobial coverage Will continue to monitor Accu-Cheks Will continue on home regimen of Levemir 40 units twice a day and NovoLog 20 units with meals. Spoke with [facility] radiology dept. They received report last night and will fax it today to [facility] as requested. Patient currently wearing left vest. SCDs to bilateral lower extremity for DVT prophylaxis. Case discussed with attending, Dr Hernandez <Caden Stubbs - Last Filed: 07/31/17 12:58> Exam Vital signs: Temperature 97.3 F 07/31/17 12:55 Pulse Rate 99 07/31/17 12:55 Respiratory Rate 16 07/31/17 12:55 Blood Pressure 94/57 07/31/17 12:55 Pulse Oximetry 97 07/31/17 12:55 Inpatient Medications: Generic Name Dose Route Start Last Admin Trade Name Freq PRN Reason Stop Dose Admin Acetaminophen 650 mg 07/24/17 12:30 Tylenol PO Q5H PRN Discomfort Hydrocodone Bitart/Acetaminophen 1 - 2 tab 07/24/17 14:45 07/30/17 11:17 Nebo 5/325 PO 1 tab Q6H PRN Administration Pain Ascorbic Acid 1,000 mg 07/25/17 09:00 07/31/17 09:24 Vitamin C PO 1,000 mg DAILY [facility] Administration Aspirin 81 mg 07/25/17 09:00 07/31/17 09:24 Asa PO 81 mg DAILY [facility] Administration Bisacodyl 10 mg 07/24/17 12:30 Dulcolax RECTALLY DAILY PRN Constipation Carvedilol 12.5 mg 07/28/17 17:30 07/31/17 09:23 Coreg PO 12.5 mg BIDWM [facility] Administration Citalopram Hydrobromide 20 mg 07/25/17 09:00 07/31/17 09:23 Celexa PO 20 mg DAILY [facility] Administration Clindamycin HCl 300 mg 07/30/17 13:00 07/31/17 12:53 Cleocin PO 300 mg QID [facility] Administration Colchicine 0.6 mg 07/30/17 11:15 07/31/17 09:23 Colcrys PO 0.6 mg BID [facility] Administration Enoxaparin Sodium 30 mg 07/31/17 09:00 07/31/17 09:35 Lovenox SQ 30 mg DAILY [facility] Administration Sodium Chloride 1,000 mls @ 100 mls/hr 07/30/17 20:45 07/31/17 08:50 Normal Saline IV 100 mls/hr .Q10H [facility] Administration Vancomycin HCl 1,250 mg/ 250 mls @ 250 mls/hr 07/31/17 21:00 Sodium Chloride IV Q24H [facility] Insulin Aspart 16 unit 07/27/17 17:30 07/31/17 12:48 Novolog SQ Not Given TIDWM [facility] Insulin Aspart 1 - 5 unit 07/30/17 15:08 07/30/17 20:53 Novolog SQ 2 unit SS PRN Administration Hyperglycemia Protocol Insulin Aspart 8 unit 07/31/17 12:47 07/31/17 12:51 Novolog SQ 07/31/17 12:48 8 unit O ONE Administration Insulin Detemir 36 unit 07/27/17 21:00 07/31/17 09:29 Levemir SQ 36 unit BID [facility] Administration Lactobacillus Acidophilus 1 cap 07/25/17 09:00 07/31/17 09:23 Culturelle PO 1 cap DAILY [facility] Administration Latanoprost 1 drops 07/24/17 21:00 07/30/17 20:56 Xalatan RIGHT EYE 1 drops HS [facility] Administration Magnesium Hydroxide 30 ml 07/24/17 12:30 Mom PO DAILY PRN Constipation Magnesium Oxide 400 mg 07/25/17 09:00 07/31/17 09:23 Magox PO 400 mg DAILY [facility] Administration Multivitamins/Minerals 1 tab 07/25/17 09:00 07/31/17 09:34 Therapeutic - M PO 1 tab DAILY [facility] Administration Nitroglycerin 0.4 mg 07/24/17 14:45 Nitrostat SL Q5MIN3 PRN Angina Nystatin 1 applic 07/30/17 15:00 07/31/17 09:35 Mycostatin TP 1 applic TID [facility] Administration Ondansetron HCl 4 mg 07/24/17 12:29 07/26/17 08:19 Zofran IVP 4 mg Q6H PRN Administration Nausea Sodium Chloride 500 ml 07/24/17 16:30 07/30/17 06:24 Normal Saline IV 500 ml PRN PRN Administration Sodium Chloride 10 ml 07/30/17 13:31 07/30/17 12:39 Iv Flush IV 10 ml PRN PRN Administration Flushing Tamsulosin HCl 0.4 mg 07/27/17 21:00 07/30/17 20:46 Flomax PO 0.4 mg HS [facility] Administration Ticagrelor 90 mg 07/25/17 09:00 07/31/17 09:24 Brilinta PO 90 mg BID [facility] Administration Discontinued Medications Generic Name Dose Route Start Last Admin Trade Name Freq PRN Reason Stop Dose Admin Alteplase, Recombinant 2 mg 07/29/17 13:05 07/29/17 13:26 Cathflo Activase IV 07/29/17 13:06 2 mg O ONE Administration Carvedilol 6.25 mg 07/24/17 17:30 07/28/17 09:16 Coreg PO 6.25 mg BIDWM [facility] Administration Carvedilol 6.25 mg 07/28/17 11:11 07/28/17 12:46 Coreg PO 07/28/17 11:12 6.25 mg NOW ONE Administration Carvedilol 12.5 mg 07/28/17 11:11 Coreg PO BIDWM [facility] Enoxaparin Sodium 40 mg 07/26/17 12:30 07/30/17 08:52 Lovenox SQ 40 mg DAILY [facility] Administration Levofloxacin/Dextrose 750 mg in 150 mls @ 100 mls/hr 07/24/17 14:45 07/28/17 17:36 Levaquin Premix IV Infused Q24H [facility] Infusion Vancomycin HCl 2,000 mg/ 500 mls @ 250 mls/hr 07/24/17 18:00 07/24/17 21:00 Sodium Chloride IV 07/24/17 19:59 Infused O ONE Infusion Vancomycin HCl 1,500 mg/ 500 mls @ 250 mls/hr 07/25/17 06:00 07/29/17 10:27 Sodium Chloride IV Infused Q12H [facility] Infusion Lactated Ringer's 1,000 mls @ 50 mls/hr 07/25/17 14:15 07/26/17 11:05 Lactated Ringers IV Infused .Q20H [facility] Infusion Vancomycin HCl 2,000 mg/ 500 mls @ 250 mls/hr 07/30/17 06:00 07/31/17 06:30 Sodium Chloride IV Not Given Q24H [facility] Levofloxacin/Dextrose 750 mg in 150 mls @ 100 mls/hr 07/30/17 14:00 Levaquin Premix IV Q48H [facility] Sodium Chloride 1,000 mls @ 150 mls/hr 07/30/17 11:30 07/30/17 20:45 Normal Saline IV 07/30/17 18:09 Infused .Q6H40M [facility] Infusion Insulin Aspart 20 unit 07/24/17 17:30 07/27/17 12:33 Novolog SQ 20 unit TIDWM [facility] Administration Insulin Aspart 8 unit 07/31/17 09:22 07/31/17 09:29 Novolog SQ 07/31/17 09:23 8 unit O ONE Administration Insulin Detemir 40 unit 07/24/17 21:00 07/27/17 09:15 Levemir SQ 40 unit BID [facility] Administration Insulin Detemir 10 unit 07/27/17 21:00 Levemir SQ 07/27/17 21:01 HS ONE Insulin Detemir 10 unit 07/26/17 21:00 07/26/17 22:07 Levemir SQ 07/26/17 21:01 10 unit HS ONE Administration Insulin Detemir 20 unit 07/28/17 20:21 07/28/17 20:54 Levemir SQ 07/28/17 20:22 20 unit ONE TIME ONE Administration Metformin HCl 500 mg 07/25/17 08:00 07/29/17 08:18 Glucophage PO 500 mg WB [facility] Administration Miscellaneous Medication 6 ml 07/25/17 16:00 07/25/17 16:00 Bupiv 0.25% 30ml/Lido 1% 30ml Mix ID 07/25/17 16:01 6 ml O ONE Administration Morphine Sulfate 0 mg 07/25/17 16:19 07/25/17 16:22 Morphine Sulfate Vial IVP 5 mg Q10M PRN Administration Sacubitril/Valsartan 1 tab 07/24/17 21:00 07/29/17 20:56 Entresto 49/51mg PO 1 tab BID [facility] Administration Vancomycin HCl 1 each 07/24/17 14:44 07/24/17 16:15 Pharmacy Consult - Vancomycin 07/24/17 14:45 Not Given O ONE Results 07/31/17 05:27 07/31/17 05:27 CBC 07/31/17 Range/Units 05:27 WBC 13.1 H (4.5-11.0) T/MM3 RBC 2.82 L (4.50-5.90) M/MM3 Hgb 9.2 L (13.5-17.5) GM/DL Hct 28.2 L (41-53) % Plt Count 193 (130-400) T/MM3 Neut # (Auto) 11.1 H (1.8-7.7) T/MM3 Lymph # (Auto) 1.0 (1-4.8) T/MM3 [place]ancock # (Auto) 0.7 (0-0.8) T/MM3 Eos # (Auto) 0.3 (0-0.5) T/MM3 Baso # (Auto) 0.0 (0-0.2) T/MM3 Comprehensive Metabolic Panel 07/30/17 07/31/17 Range/Units 19:34 05:27 Sodium 139 141 (134-144) MEQ/L Potassium 4.4 4.2 (3.6-5) MEQ/L Chloride 106 108 H (98-107) MEQ/L Carbon Dioxide 22 23 (22-30) MEQ/L BUN 38.0 H 37.0 H (9-20) MG/DL Creatinine 2.0 H 2.1 H (0.8-1.5) mg/dL Glucose 204 H 57 L (75-110) MG/DL Calcium 8.5 8.5 (8.4-10.2) MG/DL Albumin 3.0 L (3.5-5.0) g/dL Intake and Output 07/30/17 07/31/17 07/31/17 22:59 06:59 14:59 Intake Total 1100 / 1100 1750 / 1750 830 / 830 Output Total 200 / 200 600 / 600 125 / 125 Balance 900 / 900 1150 / 1150 705 / 705 Intake: IV 1000 / 1000 830 / 830 170 / 170 Ns 1,000 ml @ 100 mls/hr IV . 1000 / 1000 830 / 830 170 / 170 Q10H [facility] Rx#:[id number] Oral 100 / 100 920 / 920 660 / 660 Output: Urine 200 / 200 600 / 600 125 / 125 Other: Urine Appearance Clear Clear Clear Urine Color Dark Yellow Yellow Dark Yellow Urine Odor Normal Stool Color Brown Brown Stool Consistency Soft Soft Size of Bowel Movement Small Large # Voids 2 1 # Incontinent Voids 1 # Bowel Movements 1 Weight 107.9 kg Patient Weight 08/01/17 06:59 Weight 107.9 kg Assessment and Plan - Assessment and Plan (1) Diabetes Current visit: No Status: Chronic (2) Obstructive sleep apnea Current visit: No Status: Chronic (3) CAD (coronary artery disease) Current visit: No Status: Chronic (4) Ischemic cardiomyopathy Current visit: No Status: Chronic (5) Surgical wound dehiscence Current visit: Yes Status: Acute (6) Atherosclerosis of [place] artery of both lower extremities Current visit: Yes Status: Acute (7) Mixed hyperlipidemia Current visit: Yes Status: Acute - Attestation Attestation Narrative: 07/31/17 12:58 Recommendation After examining the patient I agree with the above assessment. I am involved in the formulation of the patient's plan of care. Hospital Course Summary Disclaimer: The visit summary below is not to be considered part of the above Progress Note.
[2017-07-26] MEDS: LEVOFLOXACIN PB 750 MG/150 ML BAG IV SCH (16:50)
[2017-07-26] MEDS: NS FLUSH BAG 500ml IV PRN (16:50)
[2017-07-26] MEDS ORDERED: INSULIN DETEMIR 100unit/ml INJECTION SQ ONE (21:00)
[2017-07-26] MEDS: LATANOPROST 0.005% EYE DROPS 2.5ml RIGHT EYE SCH (22:04)
[2017-07-27] MEDS: INSULIN ASPART 100unit/ml INJECTION SQ SCH ×3 (09:14→17:43)
[2017-07-27] MEDS: INSULIN DETEMIR 100unit/ml INJECTION SQ SCH ×2 (09:15→22:03)
[2017-07-27] MEDS: ENOXAPARIN 40 MG/0.4 ML INJECTION SQ SCH (09:16)
[2017-07-27] MEDS: TICAGRELOR 90 MG TABLET PO SCH ×2 (09:17→21:06)
[2017-07-27] MEDS: CITALOPRAM 20 MG TABLET PO SCH (09:17)
[2017-07-27] MEDS: LACTOBACILLUS (15B cfu) CAPSULE PO SCH (09:18)
[2017-07-27] MEDS: MULTI-VITAMIN + MINERAL TABLET PO SCH (09:18)
[2017-07-27] MEDS: ASCORBIC ACID 500 MG TABLET PO SCH (09:18)
[2017-07-27] MEDS: SACUBITRIL/VALSARTAN 49/51mg TABLET PO SCH ×2 (09:18→21:06)
[2017-07-27] MEDS: MAGNESIUM OXIDE 400 MG TABLET PO SCH (09:18)
[2017-07-27] MEDS: METFORMIN 500 MG TABLET PO SCH (09:19)
[2017-07-27] MEDS: ASPIRIN 81 MG CHEWABLE TABLET PO SCH (09:19)
--- NOTE | 2017-07-27 09:49 | Orthopedic Progress Note ---
Date: Date: 07/27/17 Time: 945 Subjective/Severity of Illness: Postop day 2 left foot debridement. No new concerns or complaints. He denies any pain. He had nausea the first night but this is resolved. Wound VAC is working well. Exam - Constitutional Vital Signs: Temperature 96.5 F L 07/27/17 07:29 Pulse Rate 102 H 07/27/17 07:29 Respiratory Rate 16 07/27/17 07:29 Blood Pressure 132/69 07/27/17 07:29 Pulse Oximetry 97 07/27/17 07:29 General: cooperative, no acute distress, well developed Nutritional Appearance: well nourished Orientation: oriented x3, alert - Psych Mood: normal - Respiratory Respiratory Exam: non-labored - Cardiac Cardiovascular exam: pedal pulses intact - Wound Left Foot Type of Wound/Ulcer: Amputation Wound Dressing: Negative Pressure Dressing Wound Drainage Amount: Small Wound Drainage Description: Sanguineous Wound Drainage Odor: No Odor Wound Size: > than 1 squre cm Wound Bed Appearance: [place] Periwound area: Macerated Wound Comments: No necrotic material - Labs Result Diagrams: 07/27/17 04:39 07/27/17 04:39 Abnormal lab results 07/27/17 07/27/17 Range/Units 04:39 04:39 RBC 3.42 L (4.50-5.90) M/MM3 Hgb 10.9 L (13.5-17.5) GM/DL Hct 33.8 L (41-53) % Neut % (Auto) 79.2 H (33-66) % Lymph % (Auto) 11.3 L (23-45) % Neut # (Auto) 8.6 H (1.8-7.7) T/MM3 Abs Immat Gran (auto) 0.04 H (0.00-0.03) T/MM3 BUN 23.0 H (9-20) MG/DL Glucose 139 H (75-110) MG/DL C-Reactive Protein 16.3 H (0-9) MG/L H & H 07/24/17 07/25/17 07/26/17 Range/Units 12:48 04:15 05:35 Hgb 11.0 L 11.0 L 11.3 L (13.5-17.5) GM/DL Hct 34.3 L 33.8 L 35.3 L (41-53) % 07/27/17 Range/Units 04:39 Hgb 10.9 L (13.5-17.5) GM/DL Hct 33.8 L (41-53) % Orthopedic Assessment and Plan (1) Surgical wound dehiscence Status: Acute Assessment and Plan: Continue wound VAC and IV antibiotics. Await pathology report before determining final antibiotic. Wound VAC change today. Hospital Course Summary Disclaimer: The visit summary below is not to be considered part of the above Progress Note. Hospital Course: 07/24/17 Admission Admit patient to inpatient status under the care of Dr. Hernandez. Consult with Dr. Slade for further wound management. Planning for debridement and possible placement of wound VAC tomorrow. Start Vancomycin per protocol for wound coverage. Continue levofloxacin, changing to 750mg IV daily. PICC line study reveals that line placement is within the Azygos vein. Spoke with PICC line team. We will replace PICC line for better placement. Obtain CBC, CMP, blood culture, venous lactate, magnesium, urinalysis analysis, uric acid & CRP on admit. Monitor Accu-Cheks Given patient's history of diabetes. Will continue on home regimen of Levemir 40 units twice a day and NovoLog 20 units with meals. Patient to be nothing by mouth after midnight for scheduled procedure. Consult with Dr. Stubbs for further cardiac evaluation and recommendations. We are awaiting the echocardiogram report that was done outpatient last week as this will direct ongoing guidance regarding LifeVest. SCDs to bilateral lower extremity for DVT prophylaxis. We did discuss advanced directives and at this time. Patient does wish to be a do not resuscitate. Will discuss further orders and plan of care with attending, Dr. Hernandez. At time of discharge medical care will return to primary care provider, Dr Luis E Martinez in [place], [place]. 07/25 Planning for surgical debridement of Left foot wound today by Dr Slade Patient did receive Entresto today given recent vascular stenting of the left leg onn 07/16 On vancomycin and IV Levaquin for antimicrobial coverage Will continue to monitor Accu-Cheks Will continue on home regimen of Levemir 40 units twice a day and NovoLog 20 units with meals. Spoke with [facility] radiology dept. They received report last night and will fax it today to [facility] as requested. Patient currently wearing left vest. SCDs to bilateral lower extremity for DVT prophylaxis. Case discussed with attending, Dr Hernandez
[2017-07-27] MEDS: CARVEDILOL 6.25 MG TABLET PO SCH ×2 (11:28→16:45)
--- NOTE | 2017-07-27 12:26 | Progress Note ---
- Date 07/27/17 Subjective: Mr. Dobson reports that he feels fine with good pain control, no dyspnea, and his appetite is excellent. He denied chest pain, palpitations, or nausea. He has had slowly progressive urinary frequency over the past year such that he is now urinating about every 30 minutes and has frequent nocturia. He asked if he might be a candidate for some of the medications they advertised on television to help with urinary frequency. Otherwise he hopes to be able to go home soon. Objective Vital signs: Temperature 96.5 F L 07/27/17 07:29 Pulse Rate 94 07/27/17 10:04 Respiratory Rate 16 07/27/17 07:29 Blood Pressure 129/65 07/27/17 10:04 Pulse Oximetry 97 07/27/17 07:29 NAD, alert EOMI, conjunctiva clear, sclera anicteric, oropharynx clear-no evidence of thrush Respirations nonlabored, good airflow, breath sounds clear Regular rhythm, S1-S2 Abdomen soft, nontender, bowel sounds present; bladder does not palpably distended Extremities without edema; wound VAC present lateral aspect of the left forefoot , surrounding tissues pain PICC line left upper extremity, insertion site clean and dry Calm, cooperative, euthymic Rhythm: Normal Sinus Rhythm Height/Weight/BMI: Height 1.73 m Weight 104.9 kg Body Mass Index 35.1 Results - Labs CBC & Chem 7: 07/27/17 04:39 07/27/17 04:39 Labs: CRP 16.3 Accu-Chek 48 at 0031 this morning; fasting 152. 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 Cardiomyopathy - improved, no longer requiring LifeVest Type II diabetes - Insulin requiring, A1C 7.3 Coronary artery disease Peripheral vascular disease Hypertension Chronic Kidney Disease Stage II Depression Hearing deficit Obesity with BMI 35.1 Probable BPH - Plan Continue vancomycin and IV Levaquin for antimicrobial coverage. Status post surgical debridement of necrotic tissue and removal of fourth and fifth metatarsal heads 07/[address] Slade. Awaiting path. Surgical culture positive for group B strep. Nocturnal hypoglycemia-decrease Levemir dose while hospitalized, continue current NovoLog and metformin dosages. Patient describes urinary frequency without dysuria, probable BPH-post void residual obese checked by bladder scan. If unremarkable we will initiate Flomax on trial basis. Systolic pressure borderline low this morning-asymptomatic; continue carvedilol. Adequate pain control. DVT Prophylaxis: Lovenox Resuscitation Status: Do Not Resuscitate - Physician Narrative Narrative: Date: 07/27/17 Time: 1221 Hospital Course Summary Disclaimer: The visit summary below is not to be considered part of the above Progress Note. Hospital Course: 07/24/17 Admission Admit patient to inpatient status under the care of Dr. Hernandez. Consult with Dr. Slade for further wound management. Planning for debridement and possible placement of wound VAC tomorrow. Start Vancomycin per protocol for wound coverage. Continue levofloxacin, changing to 750mg IV daily. PICC line study reveals that line placement is within the Azygos vein. Spoke with PICC line team. We will replace PICC line for better placement. Obtain CBC, CMP, blood culture, venous lactate, magnesium, urinalysis analysis, uric acid & CRP on admit. Monitor Accu-Cheks Given patient's history of diabetes. Will continue on home regimen of Levemir 40 units twice a day and NovoLog 20 units with meals. Patient to be nothing by mouth after midnight for scheduled procedure. Consult with Dr. Stubbs for further cardiac evaluation and recommendations. We are awaiting the echocardiogram report that was done outpatient last week as this will direct ongoing guidance regarding LifeVest. SCDs to bilateral lower extremity for DVT prophylaxis. We did discuss advanced directives and at this time. Patient does wish to be a do not resuscitate. Will discuss further orders and plan of care with attending, Dr. Hernandez. At time of discharge medical care will return to primary care provider, Dr Luis E Martinez in [place], [place]. 07/25 Planning for surgical debridement of Left foot wound today by Dr Slade Patient did receive Entresto today given recent vascular stenting of the left leg on 07/16 On vancomycin and IV Levaquin for antimicrobial coverage Will continue to monitor Accu-Cheks Will continue on home regimen of Levemir 40 units twice a day and NovoLog 20 units with meals. Spoke with [facility] radiology dept. They received report last night and will fax it today to [facility] as requested. Patient currently wearing left vest. SCDs to bilateral lower extremity for DVT prophylaxis. 07/26/17 Status post surgical debridement of necrotic tissue and removal of fourth and fifth metatarsal heads yesterday by Dr. Slade. Awaiting path and culture. Wound vac placed yesterday. CM making arrangements for outpatient wound vac. Continue vancomycin and IV Levaquin for antimicrobial coverage. DC IVF's which were started in surgery. Pain is controlled. Will consult PT/OT to help functional status. 07/27/[address] Surgical culture positive for group B strep. Nocturnal hypoglycemia-decrease Levemir dose while hospitalized, continue current NovoLog and metformin dosages. Patient describes urinary frequency without dysuria, probable BPH-post void residual obese checked by bladder scan. If unremarkable we will initiate Flomax on trial basis. Adequate pain control.
[2017-07-27] MEDS: LEVOFLOXACIN PB 750 MG/150 ML BAG IV SCH (16:44)
[2017-07-27] MEDS ORDERED: INSULIN DETEMIR 100unit/ml INJECTION SQ ONE (21:00)
[2017-07-27] MEDS: TAMSULOSIN 0.4 MG CAPSULE PO SCH (21:05)
[2017-07-27] MEDS: LATANOPROST 0.005% EYE DROPS 2.5ml RIGHT EYE SCH (21:05)
[2017-07-28] MEDS: INSULIN DETEMIR 100unit/ml INJECTION SQ SCH ×3 (09:05→20:21)
[2017-07-28] MEDS: ENOXAPARIN 40 MG/0.4 ML INJECTION SQ SCH (09:15)
[2017-07-28] MEDS: INSULIN ASPART 100unit/ml INJECTION SQ SCH ×3 (09:15→17:40)
[2017-07-28] MEDS: METFORMIN 500 MG TABLET PO SCH (09:16)
[2017-07-28] MEDS: CARVEDILOL 6.25 MG TABLET PO SCH (09:16)
[2017-07-28] MEDS: SACUBITRIL/VALSARTAN 49/51mg TABLET PO SCH ×2 (09:17→20:56)
[2017-07-28] MEDS: TICAGRELOR 90 MG TABLET PO SCH ×2 (09:17→20:57)
[2017-07-28] MEDS: MAGNESIUM OXIDE 400 MG TABLET PO SCH (09:17)
[2017-07-28] MEDS: CITALOPRAM 20 MG TABLET PO SCH (09:17)
[2017-07-28] MEDS: MULTI-VITAMIN + MINERAL TABLET PO SCH (09:17)
[2017-07-28] MEDS: LACTOBACILLUS (15B cfu) CAPSULE PO SCH (09:17)
[2017-07-28] MEDS: ASCORBIC ACID 500 MG TABLET PO SCH (09:17)
[2017-07-28] MEDS: ASPIRIN 81 MG CHEWABLE TABLET PO SCH (09:17)
--- NOTE | 2017-07-28 11:03 | Progress Note ---
- Date 07/28/17 Subjective: Americo is seen today in follow up. Reports that he has not been sleeping well- no pain or other concerns, just difficulty sleeping. Reports that he continues to have difficulty voiding. Voiding frequent, small amounts. Wants to be sure medication was started for that. His BG has been variable- he reports it has been more difficult to manage lately- we discussed role of infection in regards to BG. Objective Vital signs: Temperature 96.8 F 07/28/17 08:00 Pulse Rate 109 H 07/28/17 08:00 Respiratory Rate 18 07/28/17 08:00 Blood Pressure 150/76 H 07/28/17 08:00 Pulse Oximetry 94 07/28/17 08:00 Rhythm: Normal Sinus Rhythm, Sinus Tachycardia Height/Weight/BMI: Height 1.73 m Weight 104.5 kg Body Mass Index 35.1 - Constitutional Present: mild distress, obese, cooperative - Routine HEENT Exam Head: Present: normocephalic, atraumatic Eye: Present: EOMI, PERRL ENT: Present: mucous membranes moist - Routine Respiratory Exam Present: CTA bilaterally. Absent: dyspnea, rales, rhonchi, wheezes, crackles - Routine Cardiovascular Exam Present: RRR, S1, S2, tachycardia - Routine Abdominal Exam Present: soft, normoactive bowel sounds, non tender, distended - Routine Exam Comments: + bladder distended. - Routine Extremities Exam Present: edema (Left pedal edema. ), pulses intact, normal capillary refill. Absent: extremity cold to touch - Routine Musculoskeletal Exam Musculoskeletal: Present: no clubbing or cyanosis - Routine Skin Exam Present: intact, dry, warm, wounds (Left foot with intact wound vac. ) - Routine Neurological Exam Present: alert, oriented X3, moving all extremities - Routine Psychiatric Exam Present: normal affect, normal thought process, cooperative Results - Labs CBC & Chem 7: 07/27/17 04:39 07/28/17 04:51 Microbiology Results: Microbiology 07/25/17 15:57 Foot, Left Gram Stain - Final 07/25/17 15:57 Foot, Left Surgical Culture - Preliminary Strep agalactiae - (Group B) Staphylococcus aureus 07/24/17 12:55 Peripheral/Iv Start Blood Culture - Preliminary No Growth After 3 Days 07/24/17 12:48 Peripheral/Iv Start Blood Culture - Preliminary No Growth After 3 Days Assessment and Plan (1) Surgical wound dehiscence Current visit: Yes Status: Acute Assessment and Plan: Impression Left surgical wound dehiscence -- 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 Cardiomyopathy - improved, no longer requiring LifeVest (HFrEF, 20%) Type II diabetes - Insulin requiring, A1C 7.3 Coronary artery disease Peripheral vascular disease Hypertension Chronic Kidney Disease Stage II Depression Hearing deficit Obesity with BMI 35.1 Probable BPH -07/27/17 Plan 07/28/17 Continue vancomycin and IV Levaquin for antimicrobial coverage. Status post surgical debridement of necrotic tissue and removal of fourth and fifth metatarsal heads 07/[address] Slade. Wound vac. Awaiting path. Surgical culture positive for group B strep/Staph aureus. Will continue current abx until cx are final given hx of past culture results. Needs to reassess CXR given malposition of PICC on prior films. Recurrent hypoglycemia- both long and short-acting insulin adjusted yesterday. Suspect lowering due to infection more controlled. Patient describes urinary frequency without dysuria, probable BPH. Order additional bladder scan, straight cath. We may need to place delgado. Flomax started yesterday. D/W pt that it will take a few days for effect. HF- pt has been consistently tachycardic. BP is has been adequate. Will up Coreg dosing to help control HR. Continue Entresto, Brilinta. Cardiology following. May need to add diuretics, but hesitant to do so until he is voiding better. Adequate pain control. Continue frequent labs for monitoring. DVT Prophylaxis: Lovenox Resuscitation Status: Do Not Resuscitate - Physician Narrative Physician: Renee Real MD Narrative: Date: 07/28/17 Time: 1650 I have independently evaluated and examined this patient. I reviewed the chart, the patient's history, and the [employer]PL[employer]ATOR/PA's documented findings as above. We discussed and formulated the assessment and plan as above with additions as below: Mr. Dobson reported his appetite was better at lunch when I saw midafternoon. He denied pain and again asked about starting a "urine pill". Flomax was started yesterday for urinary frequency/small volumes. NAD, alert Respirations nonlabored, good airflow, breath sounds clear; regular cardiac rhythm Left foot with wound VAC as yesterday, no surrounding inflammation Low-grade tachycardia noted-beta ron increased as above. Scant staph being reported in wound culture today, previously only group B strep described. Unclear that Levaquin will be needed on an ongoing basis as no gram-negative's reported-we'll defer further changes in antibiotics pending pathology. Blood sugars elevated after nursing/patient did not utilize insulin yesterday evening. Hospital Course Summary Disclaimer: The visit summary below is not to be considered part of the above Progress Note. Hospital Course: 07/24/17 Admission Admit patient to inpatient status under the care of Dr. Hernandez. Consult with Dr. Slade for further wound management. Planning for debridement and possible placement of wound VAC tomorrow. Start Vancomycin per protocol for wound coverage. Continue levofloxacin, changing to 750mg IV daily. PICC line study reveals that line placement is within the Azygos vein. Spoke with PICC line team. We will replace PICC line for better placement. Obtain CBC, CMP, blood culture, venous lactate, magnesium, urinalysis analysis, uric acid & CRP on admit. Monitor Accu-Cheks Given patient's history of diabetes. Will continue on home regimen of Levemir 40 units twice a day and NovoLog 20 units with meals. Patient to be nothing by mouth after midnight for scheduled procedure. Consult with Dr. Stubbs for further cardiac evaluation and recommendations. We are awaiting the echocardiogram report that was done outpatient last week as this will direct ongoing guidance regarding LifeVest. SCDs to bilateral lower extremity for DVT prophylaxis. We did discuss advanced directives and at this time. Patient does wish to be a do not resuscitate. Will discuss further orders and plan of care with attending, Dr. Hernandez. At time of discharge medical care will return to primary care provider, Dr Luis E Martinez in [place], [place]. 07/25 Planning for surgical debridement of Left foot wound today by Dr Slade Patient did receive Entresto today given recent vascular stenting of the left leg on 07/16 On vancomycin and IV Levaquin for antimicrobial coverage Will continue to monitor Accu-Cheks Will continue on home regimen of Levemir 40 units twice a day and NovoLog 20 units with meals. Spoke with [facility] radiology dept. They received report last night and will fax it today to [facility] as requested. Patient currently wearing left vest. SCDs to bilateral lower extremity for DVT prophylaxis. 07/26/17 Status post surgical debridement of necrotic tissue and removal of fourth and fifth metatarsal heads yesterday by Dr. Slade. Awaiting path and culture. Wound vac placed yesterday. CM making arrangements for outpatient wound vac. Continue vancomycin and IV Levaquin for antimicrobial coverage. DC IVF's which were started in surgery. Pain is controlled. Will consult PT/OT to help functional status. 07/27/[address] Surgical culture positive for group B strep. Nocturnal hypoglycemia-decrease Levemir dose while hospitalized, continue current NovoLog and metformin dosages. Patient describes urinary frequency without dysuria, probable BPH-post void residual obese checked by bladder scan. If unremarkable we will initiate Flomax on trial basis. Adequate pain control. Plan 07/28/17 Continue vancomycin and IV Levaquin for antimicrobial coverage. Status post surgical debridement of necrotic tissue and removal of fourth and fifth metatarsal heads 07/[address] Slade. Wound vac. Awaiting path. Surgical culture positive for group B strep/Staph aureus. Will continue current abx until cx are final given hx of past culture results. Needs to reassess CXR given malposition of PICC on prior films. Recurrent hypoglycemia- both long and short-acting insulin adjusted yesterday. Suspect lowering due to infection more controlled. Patient describes urinary frequency without dysuria, probable BPH. Order additional bladder scan, straight cath. We may need to place delgado. Flomax started yesterday. D/W pt that it will take a few days for effect. HF- pt has been consistently tachycardic. BP is has been adequate. Will up Coreg dosing to help control HR. Continue Entresto Brilinta. Cardiology following. May need to add diuretics, but hesitant to do so until he is voiding better. Adequate pain control. Continue frequent labs for monitoring.
[2017-07-28] MEDS ORDERED: CARVEDILOL 6.25 MG TABLET PO SCH (11:11)
[2017-07-28] MEDS ORDERED: CARVEDILOL 6.25 MG TABLET PO ONE (11:11)
--- NOTE | 2017-07-28 13:00 | XRay Report ---
Indication: PICC positioning PROCEDURE: XR chest 1V: Encounter: Initial Comparison: July 24, 2017 Findings: Left PICC line in place with the tip projecting over the lower SVC at the cavoatrial junction. Lung martinez are clear. No pleural effusion or pneumothorax. Heart size and mediastinal contours are within normal limits. Impression: Left PICC line appears appropriately positioned. .
[2017-07-28] MEDS: NS FLUSH BAG 500ml IV PRN (15:40)
[2017-07-28] MEDS: LEVOFLOXACIN PB 750 MG/150 ML BAG IV SCH (15:40)
[2017-07-28] MEDS: CARVEDILOL 12.5 MG TABLET PO SCH (17:40)
[2017-07-28] MEDS ORDERED: INSULIN DETEMIR 100unit/ml INJECTION SQ ONE (20:21)
[2017-07-28] MEDS: LATANOPROST 0.005% EYE DROPS 2.5ml RIGHT EYE SCH (20:55)
[2017-07-28] MEDS: TAMSULOSIN 0.4 MG CAPSULE PO SCH (20:56)
[2017-07-29] MEDS: NS FLUSH BAG 500ml IV PRN (06:08)
--- NOTE | 2017-07-29 08:00 | Orthopedic Progress Note ---
Date: Date: 07/29/17 Time: 755 Subjective/Severity of Illness: Americo is lying in bed when I visit. States his pain has been well controlled. Nauseated this morning without vomiting. Has been up ambulating. Tolerating wound vac. Has left PICC line, continues to be on IV Vanco and Levaquin. Denies any chest pain, shortness or breathe, body aches, fevers, chills. Orthopedic Exam Vital signs: Temperature 96.5 F L 07/29/17 07:36 Pulse Rate 108 H 07/29/17 07:36 Respiratory Rate 16 07/29/17 07:36 Blood Pressure 170/78 H 07/29/17 07:36 Pulse Oximetry 93 07/29/17 07:36 - Constitutional General Appearance: Present: alert, orientated x3, cooperative - Respiratory Exam Present: non-labored - Cardiovascular Exam Present: pedal pulses intact - Extremities Exam Present: edema (+1 left pedal edema), pulses intact, normal capillary refill - Integumentary Exam Present: pink, warm, dry Comments: wound vac over left 4th and 5th amputation sites, no leaks noted. - Lymphatic Lymphatic: Present: adenopathy - Neurological Exam Present: intact to light touch, no deficits - Labs Result Diagrams: 07/29/17 04:18 07/29/17 04:18 Abnormal lab results 07/29/17 07/29/17 Range/Units 04:18 04:18 WBC 12.1 H (4.5-11.0) T/MM3 RBC 3.15 L (4.50-5.90) M/MM3 Hgb 10.2 L (13.5-17.5) GM/DL Hct 31.2 L (41-53) % Neut % (Auto) 81.2 H (33-66) % Lymph % (Auto) 9.9 L (23-45) % Neut # (Auto) 9.8 H (1.8-7.7) T/MM3 BUN 29.0 H (9-20) MG/DL Creatinine 1.7 H D (0.8-1.5) mg/dL H & H 07/24/17 07/25/17 07/26/17 Range/Units 12:48 04:15 05:35 Hgb 11.0 L 11.0 L 11.3 L (13.5-17.5) GM/DL Hct 34.3 L 33.8 L 35.3 L (41-53) % 07/27/17 07/29/17 Range/Units 04:39 04:18 Hgb 10.9 L 10.2 L (13.5-17.5) GM/DL Hct 33.8 L 31.2 L (41-53) % Orthopedic Assessment and Plan (1) Surgical wound dehiscence Status: Acute Assessment and Plan: Continue wound VAC and IV antibiotics. Awaiting pathology results. Wound VAC change today. Hospital Course Summary Disclaimer: The visit summary below is not to be considered part of the above Progress Note. Hospital Course: 07/24/17 Admission Admit patient to inpatient status under the care of Dr. Hernandez. Consult with Dr. Slade for further wound management. Planning for debridement and possible placement of wound VAC tomorrow. Start Vancomycin per protocol for wound coverage. Continue levofloxacin, changing to 750mg IV daily. PICC line study reveals that line placement is within the Azygos vein. Spoke with PICC line team. We will replace PICC line for better placement. Obtain CBC, CMP, blood culture, venous lactate, magnesium, urinalysis analysis, uric acid & CRP on admit. Monitor Accu-Cheks Given patient's history of diabetes. Will continue on home regimen of Levemir 40 units twice a day and NovoLog 20 units with meals. Patient to be nothing by mouth after midnight for scheduled procedure. Consult with Dr. Stubbs for further cardiac evaluation and recommendations. We are awaiting the echocardiogram report that was done outpatient last week as this will direct ongoing guidance regarding LifeVest. SCDs to bilateral lower extremity for DVT prophylaxis. We did discuss advanced directives and at this time. Patient does wish to be a do not resuscitate. Will discuss further orders and plan of care with attending, Dr. Hernandez. At time of discharge medical care will return to primary care provider, Dr Luis E Martinez in [place], [place]. 07/25 Planning for surgical debridement of Left foot wound today by Dr Slade Patient did receive Entresto today given recent vascular stenting of the left leg on 07/16 On vancomycin and IV Levaquin for antimicrobial coverage Will continue to monitor Accu-Cheks Will continue on home regimen of Levemir 40 units twice a day and NovoLog 20 units with meals. Spoke with [facility] radiology dept. They received report last night and will fax it today to [facility] as requested. Patient currently wearing left vest. SCDs to bilateral lower extremity for DVT prophylaxis. 07/26/17 Status post surgical debridement of necrotic tissue and removal of fourth and fifth metatarsal heads yesterday by Dr. Slade. Awaiting path and culture. Wound vac placed yesterday. CM making arrangements for outpatient wound vac. Continue vancomycin and IV Levaquin for antimicrobial coverage. DC IVF's which were started in surgery. Pain is controlled. Will consult PT/OT to help functional status. 07/27/[address] Surgical culture positive for group B strep. Nocturnal hypoglycemia-decrease Levemir dose while hospitalized, continue current NovoLog and metformin dosages. Patient describes urinary frequency without dysuria, probable BPH-post void residual obese checked by bladder scan. If unremarkable we will initiate Flomax on trial basis. Adequate pain control. Plan 07/28/17 Continue vancomycin and IV Levaquin for antimicrobial coverage. Status post surgical debridement of necrotic tissue and removal of fourth and fifth metatarsal heads 07/[address] Slade. Wound vac. Awaiting path. Surgical culture positive for group B strep/Staph aureus. Will continue current abx until cx are final given hx of past culture results. Needs to reassess CXR given malposition of PICC on prior films. Recurrent hypoglycemia- both long and short-acting insulin adjusted yesterday. Suspect lowering due to infection more controlled. Patient describes urinary frequency without dysuria, probable BPH. Order additional bladder scan, straight cath. We may need to place delgado. Flomax started yesterday. D/W pt that it will take a few days for effect. HF- pt has been consistently tachycardic. BP is has been adequate. Will up Coreg dosing to help control HR. Continue Entresto, Brilinta. Cardiology following. May need to add diuretics, but hesitant to do so until he is voiding better. Adequate pain control. Continue frequent labs for monitoring.
[2017-07-29] MEDS: METFORMIN 500 MG TABLET PO SCH (08:18)
[2017-07-29] MEDS: MULTI-VITAMIN + MINERAL TABLET PO SCH (08:18)
[2017-07-29] MEDS: LACTOBACILLUS (15B cfu) CAPSULE PO SCH (08:18)
[2017-07-29] MEDS: TICAGRELOR 90 MG TABLET PO SCH ×2 (08:18→20:59)
[2017-07-29] MEDS: ASPIRIN 81 MG CHEWABLE TABLET PO SCH (08:18)
[2017-07-29] MEDS: SACUBITRIL/VALSARTAN 49/51mg TABLET PO SCH ×2 (08:18→20:56)
[2017-07-29] MEDS: CITALOPRAM 20 MG TABLET PO SCH (08:18)
[2017-07-29] MEDS: ASCORBIC ACID 500 MG TABLET PO SCH (08:18)
[2017-07-29] MEDS: CARVEDILOL 12.5 MG TABLET PO SCH ×2 (08:18→17:46)
[2017-07-29] MEDS: MAGNESIUM OXIDE 400 MG TABLET PO SCH (08:18)
[2017-07-29] MEDS: INSULIN ASPART 100unit/ml INJECTION SQ SCH ×3 (08:19→17:46)
[2017-07-29] MEDS: ENOXAPARIN 40 MG/0.4 ML INJECTION SQ SCH (08:19)
[2017-07-29] MEDS: INSULIN DETEMIR 100unit/ml INJECTION SQ SCH ×2 (08:21→20:55)
--- NOTE | 2017-07-29 11:02 | Progress Note ---
- Date 07/29/17 Subjective: Patient seen lying in bed this morning. Has no complaints. Pain is controlled. Appetite is good. Bowels are moving. Has trouble getting to sleep at night, but thinks it is b/c he dozes during the day. Objective Vital signs: Temperature 96.5 F L 07/29/17 07:36 Pulse Rate 105 H 07/29/17 08:00 Respiratory Rate 16 07/29/17 07:36 Blood Pressure 170/78 H 07/29/17 07:36 Pulse Oximetry 93 07/29/17 07:36 Rhythm: Normal Sinus Rhythm, Sinus Tachycardia Height/Weight/BMI: Height 1.73 m Weight 104 kg Body Mass Index 35.1 - Constitutional Present: no acute distress, well nourished, well developed - Routine HEENT Exam Head: Present: normocephalic, atraumatic - Routine Respiratory Exam Present: CTA bilaterally. Absent: wheezes - Routine Cardiovascular Exam Present: RRR, no murmur - Routine Abdominal Exam Present: soft, non distended, non tender - Routine Extremities Exam Present: edema (1+ L - wound vac intact.), no edema (R LE), normal capillary refill - Routine Skin Exam Present: dry, warm - Routine Neurological Exam Present: alert, oriented X3 - Routine Lymphatic Exam Lymphatic: Absent: adenopathy - Routine Psychiatric Exam Present: normal affect, cooperative Results - Labs CBC & Chem 7: 07/29/17 04:18 07/29/17 04:18 Microbiology Results: Microbiology 07/25/17 15:57 Foot, Left Gram Stain - Final 07/25/17 15:57 Foot, Left Surgical Culture - Final Strep agalactiae - (Group B) Staphylococcus aureus, MRSA Coag negative Staphylococcus 07/24/17 12:48 Peripheral/Iv Start Blood Culture - Preliminary No Growth After 4 Days 07/24/17 12:55 Peripheral/Iv Start Blood Culture - Preliminary No Growth After 4 Days Assessment and Plan (1) Surgical wound dehiscence Current visit: Yes Status: Acute Assessment and Plan: Impression Left surgical wound dehiscence -- 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 Osteomyelitis - L foot Cardiomyopathy - improved, no longer requiring LifeVest (HFrEF, 20%) Type II diabetes - Insulin requiring, A1C 7.3 Coronary artery disease Peripheral vascular disease Hypertension Chronic Kidney Disease Stage II Depression Hearing deficit Obesity with BMI 35.1 Probable BPH -07/27/17 Plan Currently on vancomycin and IV Levaquin for antimicrobial coverage. Wound vac change today. Path shows osteomyelitis. Surgical culture positive for group B strep/Staph aureus. Dr Real (or ID) to determine ongoing antibiotic tx plan. Coreg was increased yesterday d/t tachycardia. Pulse still lower 100's. Cardiology following. White count (12.1) and creatinine (1.7) both up today Resuscitation Status: Do Not Resuscitate - Physician Narrative Physician: Renee Real MD Narrative: Date: 07/29/17 Time: 1814 I have independently evaluated and examined this patient. I reviewed the chart, the patient's history, and the [facility]/PA's documented findings as above. We discussed and formulated the assessment and plan as above with additions as below: Mr. Dobson reports feeling good today. He continues to have urinary frequency but denied pain or dyspnea. There is minor erythema at the distal aspect of the surgical margin on the left foot, wound VAC remains in place. Respirations nonlabored, patient alert Creatinine up to 1.7-vancomycin dose adjusted to daily Surgical pathology reviewed, final culture with MRSA and group B strep. Levaquin discontinued, metformin on hold. Blood sugar stable with modified doses. EKG reviewed by myself-sinus tachycardia with rate 101, probable old posterior [place], first-degree AV block. Chest x-ray yesterday NAD. Plans reviewed with Dr. Slade, multiple conversations with case management regarding coordination of IV outpatient antibiotics and outpatient wound VAC ( later delivered this afternoon) Anticipate discharge tomorrow with home health for IV outpatient antibiotics per patient/family request. Hospital Course Summary Disclaimer: The visit summary below is not to be considered part of the above Progress Note. Hospital Course: 07/24/17 Admission Admit patient to inpatient status under the care of Dr. Hernandez. Consult with Dr. Slade for further wound management. Planning for debridement and possible placement of wound VAC tomorrow. Start Vancomycin per protocol for wound coverage. Continue levofloxacin, changing to 750mg IV daily. PICC line study reveals that line placement is within the Azygos vein. Spoke with PICC line team. We will replace PICC line for better placement. Obtain CBC, CMP, blood culture, venous lactate, magnesium, urinalysis analysis, uric acid & CRP on admit. Monitor Accu-Cheks Given patient's history of diabetes. Will continue on home regimen of Levemir 40 units twice a day and NovoLog 20 units with meals. Patient to be nothing by mouth after midnight for scheduled procedure. Consult with Dr. Stubbs for further cardiac evaluation and recommendations. We are awaiting the echocardiogram report that was done outpatient last week as this will direct ongoing guidance regarding LifeVest. SCDs to bilateral lower extremity for DVT prophylaxis. We did discuss advanced directives and at this time. Patient does wish to be a do not resuscitate. Will discuss further orders and plan of care with attending, Dr. Hernandez. At time of discharge medical care will return to primary care provider, Dr Luis E Martinez in [place], [place]. 07/25 Planning for surgical debridement of Left foot wound today by Dr Slade Patient did receive Entresto today given recent vascular stenting of the left leg on 07/16 On vancomycin and IV Levaquin for antimicrobial coverage Will continue to monitor Accu-Cheks Will continue on home regimen of Levemir 40 units twice a day and NovoLog 20 units with meals. Spoke with [facility] radiology dept. They received report last night and will fax it today [place] [facility] [place]. Patient currently wearing left vest. SCDs to bilateral lower extremity for DVT prophylaxis. 07/26/17 Status post surgical debridement of necrotic tissue and removal of fourth and fifth metatarsal heads yesterday by Dr. Slade. Awaiting path and culture. Wound vac placed yesterday. CM making arrangements for outpatient wound vac. Continue vancomycin and IV Levaquin for antimicrobial coverage. DC IVF's which were started in surgery. Pain is controlled. Will consult PT/OT to help functional status. 07/27/[address] Surgical culture positive for group B strep. Nocturnal hypoglycemia-decrease Levemir dose while hospitalized, continue current NovoLog and metformin dosages. Patient describes urinary frequency without dysuria, probable BPH-post void residual obese checked by bladder scan. If unremarkable we will initiate Flomax on trial basis. Adequate pain control. 07/28/17 Continue vancomycin and IV Levaquin for antimicrobial coverage. Status post surgical debridement of necrotic tissue and removal of fourth and fifth metatarsal heads 07/[address] Slade. Wound vac. Awaiting path. Surgical culture positive for group B strep/Staph aureus. Will continue current abx until cx are final given hx of past culture results. Needs to reassess CXR given malposition of PICC on prior films. Recurrent hypoglycemia- both long and short-acting insulin adjusted yesterday. Suspect lowering due to infection more controlled. Patient describes urinary frequency without dysuria, probable BPH. Order additional bladder scan, straight cath. We may need to place delgado. Flomax started yesterday. D/W pt that it will take a few days for effect. HF- pt has been consistently tachycardic. BP is has been adequate. Will up Coreg dosing to help control HR. Continue Entresto, Brilinta. Cardiology following. May need to add diuretics, but hesitant to do so until he is voiding better. Adequate pain control. Continue frequent labs for monitoring. 07/29 Currently on vancomycin and IV Levaquin for antimicrobial coverage. Wound vac change today. Path shows osteomyelitis. Surgical culture positive for group B strep/Staph aureus. Dr Real (or ID) to determine ongoing antibiotic tx plan. Coreg was increased yesterday d/t tachycardia. Pulse still lower 100's. Cardiology following. White count (12.1) and creatinine (1.7) both up today
--- NOTE | 2017-07-29 11:54 | Cardiology Progress Note ---
<Maria Del Carmen De Guzman M - Last Filed: 07/29/17 15:05> Subjective Principal diagnosis: ischemic CM, CAD Interval history: Ethan is seen in follow up for ischemic CM. He is in bed with family at the bedside. HR has been elevated but denies palpitations or chest pressure. Exam Vital signs: Temperature 97 F 07/29/17 11:47 Pulse Rate 99 07/29/17 11:47 Respiratory Rate 16 07/29/17 07:36 Blood Pressure 120/64 07/29/17 11:47 Pulse Oximetry 99 07/29/17 11:47 Inpatient Medications: Generic Name Dose Route Start Last Admin Trade Name Freq PRN Reason Stop Dose Admin Acetaminophen 650 mg 07/24/17 12:30 Tylenol PO Q5H PRN Discomfort Hydrocodone Bitart/Acetaminophen 1 - 2 tab 07/24/17 14:45 07/25/17 23:32 [place] 5/325 PO 1 tab Q6H PRN Administration Pain Ascorbic Acid 1,000 mg 07/25/17 09:00 07/29/17 08:18 Vitamin C PO 1,000 mg DAILY [facility] Administration Aspirin 81 mg 07/25/17 09:00 07/29/17 08:18 Asa PO 81 mg DAILY [facility] Administration Bisacodyl 10 mg 07/24/17 12:30 Dulcolax RECTALLY DAILY PRN Constipation Carvedilol 12.5 mg 07/28/17 17:30 07/29/17 08:18 Coreg PO 12.5 mg BIDWM [facility] Administration Citalopram Hydrobromide 20 mg 07/25/17 09:00 07/29/17 08:18 Celexa PO 20 mg DAILY [facility] Administration Enoxaparin Sodium 40 mg 07/26/17 12:30 07/29/17 08:19 Lovenox SQ 40 mg DAILY [facility] Administration Levofloxacin/Dextrose 750 mg in 150 mls @ 100 mls/hr 07/24/17 14:45 07/28/17 17:36 Levaquin Premix IV Infused Q24H [facility] Infusion Vancomycin HCl 2,000 mg/ 500 mls @ 250 mls/hr 07/30/17 06:00 Sodium Chloride IV Q24H [facility] Insulin Aspart 16 unit 07/27/17 17:30 07/29/17 08:19 Novolog SQ 16 unit TIDWM [facility] Administration Insulin Detemir 36 unit 07/27/17 21:00 07/29/17 08:21 Levemir SQ 36 unit BID [facility] Administration Lactobacillus Acidophilus 1 cap 07/25/17 09:00 07/29/17 08:18 Culturelle PO 1 cap DAILY [facility] Administration Latanoprost 1 drops 07/24/17 21:00 07/28/17 20:55 Xalatan RIGHT EYE 1 drops HS [facility] Administration Magnesium Hydroxide 30 ml 07/24/17 12:30 Mom PO DAILY PRN Constipation Magnesium Oxide 400 mg 07/25/17 09:00 07/29/17 08:18 Magox PO 400 mg DAILY [facility] Administration Metformin HCl 500 mg 07/25/17 08:00 07/29/17 08:18 Glucophage PO 500 mg WB [facility] Administration Morphine Sulfate 0 mg 07/25/17 16:19 07/25/17 16:22 Morphine Sulfate Vial IVP 5 mg Q10M PRN Administration Multivitamins/Minerals 1 tab 07/25/17 09:00 07/29/17 08:18 Therapeutic - M PO 1 tab DAILY [facility] Administration Nitroglycerin 0.4 mg 07/24/17 14:45 Nitrostat SL Q5MIN3 PRN Angina Ondansetron HCl 4 mg 07/24/17 12:29 07/26/17 08:19 Zofran IVP 4 mg Q6H PRN Administration Nausea Sacubitril/Valsartan 1 tab 07/24/17 21:00 07/29/17 08:18 Entresto 49/51mg PO 1 tab BID [facility] Administration Sodium Chloride 500 ml 07/24/17 16:30 07/29/17 06:08 Normal Saline IV 500 ml PRN PRN Administration Tamsulosin HCl 0.4 mg 07/27/17 21:00 07/28/17 20:56 Flomax PO 0.4 mg HS [facility] Administration Ticagrelor 90 mg 07/25/17 09:00 07/29/17 08:18 Brilinta PO 90 mg BID [facility] Administration Discontinued Medications Generic Name Dose Route Start Last Admin Trade Name Freq PRN Reason Stop Dose Admin Carvedilol 6.25 mg 07/24/17 17:30 07/28/17 09:16 Coreg PO 6.25 mg BIDWM [facility] Administration Carvedilol 6.25 mg 07/28/17 11:11 07/28/17 12:46 Coreg PO 07/28/17 11:12 6.25 mg NOW ONE Administration Carvedilol 12.5 mg 07/28/17 11:11 Coreg PO BIDWM [facility] Vancomycin HCl 2,000 mg/ 500 mls @ 250 mls/hr 07/24/17 18:00 07/24/17 21:00 Sodium Chloride IV 07/24/17 19:59 Infused O ONE Infusion Vancomycin HCl 1,500 mg/ 500 mls @ 250 mls/hr 07/25/17 06:00 07/29/17 10:27 Sodium Chloride IV Infused Q12H [facility] Infusion Lactated Ringer's 1,000 mls @ 50 mls/hr 07/25/17 14:15 07/26/17 11:05 Lactated Ringers IV Infused .Q20H [facility] Infusion Insulin Aspart 20 unit 07/24/17 17:30 07/27/17 12:33 Novolog SQ 20 unit TIDWM [facility] Administration Insulin Detemir 40 unit 07/24/17 21:00 07/27/17 09:15 Levemir SQ 40 unit BID [facility] Administration Insulin Detemir 10 unit 07/27/17 21:00 Levemir SQ 07/27/17 21:01 HS ONE Insulin Detemir 10 unit 07/26/17 21:00 07/26/17 22:07 Levemir SQ 07/26/17 21:01 10 unit HS ONE Administration Insulin Detemir 20 unit 07/28/17 20:21 07/28/17 20:54 Levemir SQ 07/28/17 20:22 20 unit ONE TIME ONE Administration Miscellaneous Medication 6 ml 07/25/17 16:00 07/25/17 16:00 Bupiv 0.25% 30ml/Lido 1% 30ml Mix ID 07/25/17 16:01 6 ml O ONE Administration Vancomycin HCl 1 each 07/24/17 14:44 07/24/17 16:15 Pharmacy Consult - Vancomycin MC 07/24/17 14:45 Not Given O ONE - Constitutional no acute distress, well nourished, cooperative - Routine HEENT Exam Head: Present: normocephalic ENT: Present: mucous membranes moist - Routine Neck Exam Absent: JVD, carotid bruit - Routine Chest/Breast/Axilla Exam Chest wall: Absent: tenderness - Routine Respiratory Exam Present: decreased breath sounds, CTA bilaterally - Routine Cardiovascular Exam Present: no murmur, tachycardia - Routine Abdominal Exam Present: soft, normoactive bowel sounds - Routine Extremities Exam Present: edema - Routine Skin Exam Present: intact, dry, warm, wounds (left foot) - Routine Neurological Exam Present: alert, oriented X3 - Routine Psychiatric Exam Present: normal affect, normal thought process Results 07/29/17 04:18 07/29/17 04:18 CBC 07/29/17 Range/Units 04:18 WBC 12.1 H (4.5-11.0) T/MM3 RBC 3.15 L (4.50-5.90) M/MM3 Hgb 10.2 L (13.5-17.5) GM/DL Hct 31.2 L (41-53) % Plt Count 201 (130-400) T/MM3 Neut # (Auto) 9.8 H (1.8-7.7) T/MM3 Lymph # (Auto) 1.2 (1-4.8) T/MM3 [place] # (Auto) 0.8 (0-0.8) T/MM3 Eos # (Auto) 0.2 (0-0.5) T/MM3 Baso # (Auto) 0.0 (0-0.2) T/MM3 Comprehensive Metabolic Panel 07/29/17 Range/Units 04:18 Sodium 141 (134-144) MEQ/L Potassium 4.1 (3.6-5) MEQ/L Chloride 106 (98-107) MEQ/L Carbon Dioxide 24 (22-30) MEQ/L BUN 29.0 H (9-20) MG/DL Creatinine 1.7 H D (0.8-1.5) mg/dL Glucose 96 (75-110) MG/DL Calcium 9.1 (8.4-10.2) MG/DL Intake and Output 07/28/17 07/29/17 07/29/17 22:59 06:59 14:59 Intake Total 700 / 700 50 / 50 500 / 500 Output Total 100 / 100 250 / 250 Balance 700 / 700 -50 / -50 250 / 250 Intake: IV 650 / 650 500 / 500 Levofloxacin Pb 750 mg In 150 150 / 150 ml @ 100 mls/hr IV Q24H [facility] Rx# :[id number] Vancomycin 1,500 mg In NS 500ml 500 / 500 500 / 500 500 ml @ 250 mls/hr IV Q12H [facility] Rx#:[id number] Oral 50 / 50 50 / 50 Output: Urine 100 / 100 250 / 250 Other: Urine Appearance Clear Clear Urine Color Yellow Yellow Urine Odor Normal Stool Color Brown Stool Consistency Soft Formed Size of Bowel Movement Small # Voids 1 1 # Incontinent Voids 1 # Bowel Movements 1 Weight 229 lb 4.492 oz Patient Weight 07/30/17 06:59 Weight 229 lb 4.492 oz - Imaging and Cardiology EKG results: image reviewed Imaging & Cardiology Narrative: Date of Exam: 07/28/17 Ordering Provider: Mihaela Dias APRN Type of Exam(s): XR chest 1V Reason for Exam(s): PICC positioning Indication: PICC positioning PROCEDURE: XR chest 1V: Encounter: Initial Comparison: July 24, 2017 Findings: Left PICC line in place with the tip projecting over the lower SVC at the cavoatrial junction. Lung martinez are clear. No pleural effusion or pneumothorax. Heart size and mediastinal contours are within normal limits. Impression: Left PICC line appears appropriately positioned. 07/29/17 13:40 - EKG Interpretation EKG: sinus rhythm (first degree AV block) EKG shows: tachycardia (HR 101) Assessment and Plan - Assessment and Plan (1) Surgical wound dehiscence Current visit: Yes Status: Acute (2) Atherosclerosis of [place] artery of both lower extremities Current visit: Yes Status: Acute (3) CAD (coronary artery disease) Current visit: No Status: Chronic (4) Ischemic cardiomyopathy Current visit: No Status: Chronic (5) Obstructive sleep apnea Current visit: No Status: Chronic (6) Diabetes Current visit: No Status: Chronic (7) Mixed hyperlipidemia Current visit: Yes Status: Acute - Assessment and Plan 07/24/17 Surgical wound dehiscence Atherosclerosis of [place] artery of both lower extremities CAD (coronary artery disease) Ischemic cardiomyopathy Obstructive sleep apnea Diabetes Mixed hyperlipidemia Assessment and Plan Wound debridement carries low cardiac risk. Okay to proceed with plan per ortho. - Patient has been stable from cardiac standpoint. PAD recently improved due to LE stents placed 07/16/17. Continue Aspirin and Brilinta. - Echo report from Doreen lemus pending - Continue LifeVest for unknown EF. - Continue Donavan Malhotra Thank you for allowing us to participate in the care of this patient. 07/25/17 Echo report shows EF 61%, Life Vest removed - NPO for surgical debridement today - Patient assessed independent of Dr. Stubbs, findings discussed with him and together we agreed upon plan of care 07/26/17 EKG: SR with 1st degree AV block 07/29/17 Stable from cardiac standpoint Hospital Course Summary Disclaimer: The visit summary below is not to be considered part of the above Progress Note. Hospital Course: 07/24/17 Admission Admit patient to inpatient status under the care of Dr. Hernandez. Consult with Dr. Slade for further wound management. Planning for debridement and possible placement of wound VAC tomorrow. Start Vancomycin per protocol for wound coverage. Continue levofloxacin, changing to 750mg IV daily. PICC line study reveals that line placement is within the [place] vein. Spoke with PICC line team. We will replace PICC line for better placement. Obtain CBC, CMP, blood culture, venous lactate, magnesium, urinalysis analysis, uric acid & CRP on admit. Monitor Accu-Cheks Given patient's history of diabetes. Will continue on home regimen of Levemir 40 units twice a day and NovoLog 20 units with meals. Patient to be nothing by mouth after midnight for scheduled procedure. Consult with Dr. Stubbs for further cardiac evaluation and recommendations. We are awaiting the echocardiogram report that was done outpatient last week as this will direct ongoing guidance regarding LifeVest. SCDs to bilateral lower extremity for DVT prophylaxis. We did discuss advanced directives and at this time. Patient does wish to be a do not resuscitate. Will discuss further orders and plan of care with attending, Dr. Hernandez. At time of discharge medical care will return to primary care provider, Dr Luis E Martinez in [place], [place]. 07/25 Planning for surgical debridement of Left foot wound today by Dr Slade Patient did receive Entresto today given recent vascular stenting of the left leg on 07/16 On vancomycin and IV Levaquin for antimicrobial coverage Will continue to monitor Accu-Cheks Will continue on home regimen of Levemir 40 units twice a day and NovoLog 20 units with meals. Spoke with [facility] radiology dept. They received report last night and will fax it today to [facility] as requested. Patient currently wearing left vest. SCDs to bilateral lower extremity for DVT prophylaxis. 07/26/17 Status post surgical debridement of necrotic tissue and removal of fourth and fifth metatarsal heads yesterday by Dr. Slade. Awaiting path and culture. Wound vac placed yesterday. CM making arrangements for outpatient wound vac. Continue vancomycin and IV Levaquin for antimicrobial coverage. DC IVF's which were started in surgery. Pain is controlled. Will consult PT/OT to help functional status. 07/27/[address] Surgical culture positive for group B strep. Nocturnal hypoglycemia-decrease Levemir dose while hospitalized, continue current NovoLog and metformin dosages. Patient describes urinary frequency without dysuria, probable BPH-post void residual obese checked by bladder scan. If unremarkable we will initiate Flomax on trial basis. Adequate pain control. 07/28/17 Continue vancomycin and IV Levaquin for antimicrobial coverage. Status post surgical debridement of necrotic tissue and removal of fourth and fifth metatarsal heads 07/[address] Slade. Wound vac. Awaiting path. Surgical culture positive for group B strep/Staph aureus. Will continue current abx until cx are final given hx of past culture results. Needs to reassess CXR given malposition of PICC on prior films. Recurrent hypoglycemia- both long and short-acting insulin adjusted yesterday. Suspect lowering due to infection more controlled. Patient describes urinary frequency without dysuria, probable BPH. Order additional bladder scan, straight cath. We may need to place delgado. Flomax started yesterday. D/W pt that it will take a few days for effect. HF- pt has been consistently tachycardic. BP is has been adequate. Will up Coreg dosing to help control HR. Continue Entresto, Brilinta. Cardiology following. May need to add diuretics, but hesitant to do so until he is voiding better. Adequate pain control. Continue frequent labs for monitoring. 07/29 Currently on vancomycin and IV Levaquin for antimicrobial coverage. Wound vac change today. Path shows osteomyelitis. Surgical culture positive for group B strep/Staph aureus. Dr Real (or ID) to determine ongoing antibiotic tx plan. Coreg was increased yesterday d/t tachycardia. Pulse still lower 100's. Cardiology following. White count (12.1) and creatinine (1.7) both up today <Caden Stubbs - Last Filed: 07/31/17 13:04> Exam Vital signs: Temperature 97.3 F 07/31/17 12:55 Pulse Rate 99 07/31/17 12:55 Respiratory Rate 16 07/31/17 12:55 Blood Pressure 94/57 07/31/17 12:55 Pulse Oximetry 97 07/31/17 12:55 Inpatient Medications: Generic Name Dose Route Start Last Admin Trade Name Freq PRN Reason Stop Dose Admin Acetaminophen 650 mg 07/24/17 12:30 Tylenol PO Q5H PRN Discomfort Hydrocodone Bitart/Acetaminophen 1 - 2 tab 07/24/17 14:45 07/30/17 11:17 [place] 5/325 PO 1 tab Q6H PRN Administration Pain Ascorbic Acid 1,000 mg 07/25/17 09:00 07/31/17 09:24 Vitamin C PO 1,000 mg DAILY ARELIS Administration Aspirin 81 mg 07/25/17 09:00 07/31/17 09:24 Asa PO 81 mg DAILY [facility] Administration Bisacodyl 10 mg 07/24/17 12:30 Dulcolax RECTALLY DAILY PRN Constipation Carvedilol 12.5 mg 07/28/17 17:30 07/31/17 09:23 Coreg PO 12.5 mg BIDWM [facility] Administration Citalopram Hydrobromide 20 mg 07/25/17 09:00 07/31/17 09:23 Celexa PO 20 mg DAILY [facility] Administration Clindamycin HCl 300 mg 07/30/17 13:00 07/31/17 12:53 Cleocin PO 300 mg QID [facility] Administration Colchicine 0.6 mg 07/30/17 11:15 07/31/17 09:23 Colcrys PO 0.6 mg BID ARELIS Administration Enoxaparin Sodium 30 mg 07/31/17 09:00 07/31/17 09:35 Lovenox SQ 30 mg DAILY [facility] Administration Sodium Chloride 1,000 mls @ 100 mls/hr 07/30/17 20:45 07/31/17 08:50 Normal Saline IV 100 mls/hr .Q10H [facility] Administration Vancomycin HCl 1,250 mg/ 250 mls @ 250 mls/hr 07/31/17 21:00 Sodium Chloride IV Q24H [facility] Insulin Aspart 16 unit 07/27/17 17:30 07/31/17 12:48 Novolog SQ Not Given TIDWM [facility] Insulin Aspart 1 - 5 unit 07/30/17 15:08 07/30/17 20:53 Novolog SQ 2 unit SS PRN Administration Hyperglycemia Protocol Insulin Detemir 36 unit 07/27/17 21:00 07/31/17 09:29 Levemir SQ 36 unit BID [facility] Administration Lactobacillus Acidophilus 1 cap 07/25/17 09:00 07/31/17 09:23 Culturelle PO 1 cap DAILY [facility] Administration Latanoprost 1 drops 07/24/17 21:00 07/30/17 20:56 Xalatan RIGHT EYE 1 drops HS [facility] Administration Magnesium Hydroxide 30 ml 07/24/17 12:30 Mom PO DAILY PRN Constipation Magnesium Oxide 400 mg 07/25/17 09:00 07/31/17 09:23 Magox PO 400 mg DAILY [facility] Administration Multivitamins/Minerals 1 tab 07/25/17 09:00 07/31/17 09:34 Therapeutic - M PO 1 tab DAILY [facility] Administration Nitroglycerin 0.4 mg 07/24/17 14:45 Nitrostat SL Q5MIN3 PRN Angina Nystatin 1 applic 07/30/17 15:00 07/31/17 09:35 Mycostatin TP 1 applic TID [facility] Administration Ondansetron HCl 4 mg 07/24/17 12:29 07/26/17 08:19 Zofran IVP 4 mg Q6H PRN Administration Nausea Sodium Chloride 500 ml 07/24/17 16:30 07/30/17 06:24 Normal Saline IV 500 ml PRN PRN Administration Sodium Chloride 10 ml 07/30/17 13:31 07/30/17 12:39 Iv Flush IV 10 ml PRN PRN Administration Flushing Tamsulosin HCl 0.4 mg 07/27/17 21:00 07/30/17 20:46 Flomax PO 0.4 mg HS [facility] Administration Ticagrelor 90 mg 07/25/17 09:00 07/31/17 09:24 Brilinta PO 90 mg BID [facility] Administration Discontinued Medications Generic Name Dose Route Start Last Admin Trade Name Freq PRN Reason Stop Dose Admin Alteplase, Recombinant 2 mg 07/29/17 13:05 07/29/17 13:26 Cathflo Activase IV 07/29/17 13:06 2 mg O ONE Administration Carvedilol 6.25 mg 07/24/17 17:30 07/28/17 09:16 Coreg PO 6.25 mg BIDWM [facility] Administration Carvedilol 6.25 mg 07/28/17 11:11 07/28/17 12:46 Coreg PO 07/28/17 11:12 6.25 mg NOW ONE Administration Carvedilol 12.5 mg 07/28/17 11:11 Coreg PO BIDWM [facility] Enoxaparin Sodium 40 mg 07/26/17 12:30 07/30/17 08:52 Lovenox SQ 40 mg DAILY [facility] Administration Levofloxacin/Dextrose 750 mg in 150 mls @ 100 mls/hr 07/24/17 14:45 07/28/17 17:36 Levaquin Premix IV Infused Q24H [facility] Infusion Vancomycin HCl 2,000 mg/ 500 mls @ 250 mls/hr 07/24/17 18:00 07/24/17 21:00 Sodium Chloride IV 07/24/17 19:59 Infused O ONE Infusion Vancomycin HCl 1,500 mg/ 500 mls @ 250 mls/hr 07/25/17 06:00 07/29/17 10:27 Sodium Chloride IV Infused Q12H [facility] Infusion Lactated Ringer's 1,000 mls @ 50 mls/hr 07/25/17 14:15 07/26/17 11:05 Lactated Ringers IV Infused .Q20H [facility] Infusion Vancomycin HCl 2,000 mg/ 500 mls @ 250 mls/hr 07/30/17 06:00 07/31/17 06:30 Sodium Chloride IV Not Given Q24H [facility] Levofloxacin/Dextrose 750 mg in 150 mls @ 100 mls/hr 07/30/17 14:00 Levaquin Premix IV Q48H [facility] Sodium Chloride 1,000 mls @ 150 mls/hr 07/30/17 11:30 07/30/17 20:45 Normal Saline IV 07/30/17 18:09 Infused .Q6H40M [facility] Infusion Insulin Aspart 20 unit 07/24/17 17:30 07/27/17 12:33 Novolog SQ 20 unit TIDWM [facility] Administration Insulin Aspart 8 unit 07/31/17 09:22 07/31/17 09:29 Novolog SQ 07/31/17 09:23 8 unit O ONE Administration Insulin Aspart 8 unit 07/31/17 12:47 07/31/17 12:51 Novolog SQ 07/31/17 12:48 8 unit O ONE Administration Insulin Detemir 40 unit 07/24/17 21:00 07/27/17 09:15 Levemir SQ 40 unit BID [facility] Administration Insulin Detemir 10 unit 07/27/17 21:00 Levemir SQ 07/27/17 21:01 HS ONE Insulin Detemir 10 unit 07/26/17 21:00 07/26/17 22:07 Levemir SQ 07/26/17 21:01 10 unit HS ONE Administration Insulin Detemir 20 unit 07/28/17 20:21 07/28/17 20:54 Levemir SQ 07/28/17 20:22 20 unit ONE TIME ONE Administration Metformin HCl 500 mg 07/25/17 08:00 07/29/17 08:18 Glucophage PO 500 mg WB [facility] Administration Miscellaneous Medication 6 ml 07/25/17 16:00 07/25/17 16:00 Bupiv 0.25% 30ml/Lido 1% 30ml Mix ID 07/25/17 16:01 6 ml O ONE Administration Morphine Sulfate 0 mg 07/25/17 16:19 07/25/17 16:22 Morphine Sulfate Vial IVP 5 mg Q10M PRN Administration Sacubitril/Valsartan 1 tab 07/24/17 21:00 07/29/17 20:56 Entresto 49/51mg PO 1 tab BID [facility] Administration Vancomycin HCl 1 each 07/24/17 14:44 07/24/17 16:15 Pharmacy Consult - Vancomycin 07/24/17 14:45 Not Given O ONE Results 07/31/17 05:27 07/31/17 05:27 CBC 07/31/17 Range/Units 05:27 WBC 13.1 H (4.5-11.0) T/MM3 RBC 2.82 L (4.50-5.90) M/MM3 Hgb 9.2 L (13.5-17.5) GM/DL Hct 28.2 L (41-53) % Plt Count 193 (130-400) T/MM3 Neut # (Auto) 11.1 H (1.8-7.7) T/MM3 Lymph # (Auto) 1.0 (1-4.8) T/MM3 [place] # (Auto) 0.7 (0-0.8) T/MM3 Eos # (Auto) 0.3 (0-0.5) T/MM3 Baso # (Auto) 0.0 (0-0.2) T/MM3 Comprehensive Metabolic Panel 07/30/17 07/31/17 Range/Units 19:34 05:27 Sodium 139 141 (134-144) MEQ/L Potassium 4.4 4.2 (3.6-5) MEQ/L Chloride 106 108 H (98-107) MEQ/L Carbon Dioxide 22 23 (22-30) MEQ/L BUN 38.0 H 37.0 H (9-20) MG/DL Creatinine 2.0 H 2.1 H (0.8-1.5) mg/dL Glucose 204 H 57 L (75-110) MG/DL Calcium 8.5 8.5 (8.4-10.2) MG/DL Albumin 3.0 L (3.5-5.0) g/dL Intake and Output 07/30/17 07/31/17 07/31/17 22:59 06:59 14:59 Intake Total 1100 / 1100 1750 / 1750 830 / 830 Output Total 200 / 200 600 / 600 125 / 125 Balance 900 / 900 1150 / 1150 705 / 705 Intake: IV 1000 / 1000 830 / 830 170 / 170 Ns 1,000 ml @ 100 mls/hr IV . 1000 / 1000 830 / 830 170 / 170 Q10H [facility] Rx#:[id number] Oral 100 / 100 920 / 920 660 / 660 Output: Urine 200 / 200 600 / 600 125 / 125 Other: Urine Appearance Clear Clear Clear Urine Color Dark Yellow Yellow Dark Yellow Urine Odor Normal Stool Color Brown Brown Stool Consistency Soft Soft Size of Bowel Movement Small Large # Voids 2 1 # Incontinent Voids 1 # Bowel Movements 1 Weight 107.9 kg Patient Weight 08/01/17 06:59 Weight 107.9 kg Assessment and Plan - Assessment and Plan (1) Diabetes Current visit: No Status: Chronic (2) Obstructive sleep apnea Current visit: No Status: Chronic (3) CAD (coronary artery disease) Current visit: No Status: Chronic (4) Ischemic cardiomyopathy Current visit: No Status: Chronic (5) Surgical wound dehiscence Current visit: Yes Status: Acute (6) Atherosclerosis of [place] artery of both lower extremities Current visit: Yes Status: Acute (7) Mixed hyperlipidemia Current visit: Yes Status: Acute - Attestation Attestation Narrative: 07/31/17 13:04 Recommendation After examining the patient I agree with the above assessment. I am involved in the formulation of the patient's plan of care. Hospital Course Summary Disclaimer: The visit summary below is not to be considered part of the above Progress Note.
--- NOTE | 2017-07-29 11:59 | Pharmacy Consult-Antibiotics ---
Pharmacy Consult-Vancomycin - Laboratory Information WBC 12.1 T/MM3 (4.5-11.0) H 07/29/17 04:18 BUN 29.0 MG/DL (9-20) H 07/29/17 04:18 Creatinine 1.7 mg/dL (0.8-1.5) H D 07/29/17 04:18 Procalcitonin < 0.05 NG/ML 07/24/17 12:48 Vancomycin Trough 17.69 ug/mL (15-20) 07/26/17 05:35 - Consult Information VANCOMYCIN CONSULT: Vancomycin Trough = 17.69 mcg/ml on 07/26/17 on Vancomycin 1500 mg IV q12hrs. Previous SCr was 1.3 Today's SCr = 1.7 mg/dl. Will change Vancomycin dose to 2000 mg IV q24hrs due to the increase in SCr to 1.7. Will continue to monitor and make adjustments accordingly. Thank you. Maddie Graff, PharmD
[2017-07-29] MEDS ORDERED: ALTEPLASE (Cathflo*) 2mg INJECTION IV ONE (13:05)
--- NOTE | 2017-07-29 14:21 | Pharmacy Consult- Renal Dosing ---
Pharamcy Consul-Renal Dosing - Laboratory Information 07/24/17 07/25/17 07/26/17 12:48 04:15 05:35 BUN 29.0 H 25.0 H 20.0 Creatinine 1.1 1.0 1.0 07/27/17 07/28/17 07/29/17 04:39 04:51 04:18 BUN 23.0 H 21.0 H 29.0 H Creatinine 1.3 D 1.3 1.7 H D - Consult Information RENAL DOSING: Today's SCr =1.7 mg/dl. Calculated CrCl = 47 ml/min. GFR = 40 LEVAQUIN 750 MG IV Q24HRS changed to Q48HRS. Patient's renal function has decreased from a GFR = 74 and SrCr = 1.0 on to a GFR = 40 and a SrCr = 1.7 on 07/29/17 Pharmacy will continue to monitor patient's renal function and adjust the dose accordingly. Thank you. Oscar Graff, PharmD
--- NOTE | 2017-07-29 17:07 | Wound Care Progress Note ---
Wound Management - Patient Status Premedicated Prior to Dressing Change: No - Wound Left Lateral Foot Wound Type: Diabetic Foot Ulcer Wound Present on Admission?: Yes Length: 2.4 Width: 3.5 Depth: 1.3 Tunneling Location (o'clock): 2 (0.6) Wound Bed Appearance: Beefy Red, [place] Wound Appearance: [place] Tunneling: Yes (2 oclock 0.6 mm) Undermining: No Drainage Description: Serosanguineous Drainage Amount: Moderate Drainage Odor: Slight Odor Dressing Status: Changed Irrigant Solution: Saline Irrigant Packing Type: Woundvac Sponge Number of Packing Pieces Placed?: 1 Primary Dressing: Transparent Drape Secondary Dressing: Trac Pad Dressing Change Date: 07/29/17 Dressing Change Time: 17:06 Dressing Change Patient Tolerance: Tolerated Well (Veraflow vac placed with NS instilling 6cc to dwell for 10mins) Microbiology: Microbiology 07/24/17 12:48 Peripheral/Iv Start Blood Culture - Final No Growth After 5 Days 07/24/17 12:55 Peripheral/Iv Start Blood Culture - Final No Growth After 5 Days 07/25/17 15:57 Foot, Left Gram Stain - Final 07/25/17 15:57 Foot, Left Surgical Culture - Final Strep agalactiae - (Group B) Staphylococcus aureus, MRSA Coag negative Staphylococcus
[2017-07-29] MEDS: TAMSULOSIN 0.4 MG CAPSULE PO SCH (20:56)
[2017-07-29] MEDS: LATANOPROST 0.005% EYE DROPS 2.5ml RIGHT EYE SCH (20:57)
[2017-07-30] MEDS: NS IV SCH (05:53)
[2017-07-30] MEDS: VANCOMYCIN IV SCH (05:53)
[2017-07-30] MEDS: HYDROCODONE/APAP 5mg/325mg TABLET PO PRN ×2 (06:23→11:17)
[2017-07-30] MEDS: NS FLUSH BAG 500ml IV PRN (06:24)
[2017-07-30] MEDS: ASCORBIC ACID 500 MG TABLET PO SCH (08:50)
[2017-07-30] MEDS: CITALOPRAM 20 MG TABLET PO SCH (08:50)
[2017-07-30] MEDS: ASPIRIN 81 MG CHEWABLE TABLET PO SCH (08:50)
[2017-07-30] MEDS: INSULIN ASPART 100unit/ml INJECTION SQ SCH ×3 (08:51→18:14)
[2017-07-30] MEDS: MULTI-VITAMIN + MINERAL TABLET PO SCH (08:51)
[2017-07-30] MEDS: MAGNESIUM OXIDE 400 MG TABLET PO SCH (08:51)
[2017-07-30] MEDS: LACTOBACILLUS (15B cfu) CAPSULE PO SCH (08:51)
[2017-07-30] MEDS: TICAGRELOR 90 MG TABLET PO SCH ×2 (08:51→20:46)
[2017-07-30] MEDS: INSULIN DETEMIR 100unit/ml INJECTION SQ SCH ×2 (08:52→20:46)
[2017-07-30] MEDS: ENOXAPARIN 40 MG/0.4 ML INJECTION SQ SCH (08:52)
[2017-07-30] MEDS: CARVEDILOL 12.5 MG TABLET PO SCH ×2 (08:52→18:15)
--- NOTE | 2017-07-30 09:42 | Cardiology Progress Note ---
<Maria Del Cramen De Guzman - Last Filed: 07/31/17 12:15> Subjective Principal diagnosis: ischemic CM, CAD Interval history: Ethan is seen in follow up for ischemic CM. He is in bed, he reports gout pain in right knee and ankle, states he has been eating too much meat. He denies palpitations or chest pressure. Exam Vital signs: Temperature 97.1 F 07/30/17 08:51 Pulse Rate 108 H 07/30/17 08:51 Respiratory Rate 18 07/30/17 08:51 Blood Pressure 118/67 07/30/17 08:51 Pulse Oximetry 96 07/30/17 08:51 Inpatient Medications: Generic Name Dose Route Start Last Admin Trade Name Freq PRN Reason Stop Dose Admin Acetaminophen 650 mg 07/24/17 12:30 Tylenol PO Q5H PRN Discomfort Hydrocodone Bitart/Acetaminophen 1 - 2 tab 07/24/17 14:45 07/30/17 06:23 [place] 5/325 PO 1 tab Q6H PRN Administration Pain Ascorbic Acid 1,000 mg 07/25/17 09:00 07/30/17 08:50 Vitamin C PO 1,000 mg DAILY [facility] Administration Aspirin 81 mg 07/25/17 09:00 07/30/17 08:50 Asa PO 81 mg DAILY [facility] Administration Bisacodyl 10 mg 07/24/17 12:30 Dulcolax RECTALLY DAILY PRN Constipation Carvedilol 12.5 mg 07/28/17 17:30 07/30/17 08:52 Coreg PO 12.5 mg BIDWM [facility] Administration Citalopram Hydrobromide 20 mg 07/25/17 09:00 07/30/17 08:50 Celexa PO 20 mg DAILY [facility] Administration Enoxaparin Sodium 40 mg 07/26/17 12:30 07/30/17 08:52 Lovenox SQ 40 mg DAILY [facility] Administration Vancomycin HCl 2,000 mg/ 500 mls @ 250 mls/hr 07/30/17 06:00 07/30/17 08:54 Sodium Chloride IV Infused Q24H [facility] Infusion Insulin Aspart 16 unit 07/27/17 17:30 07/30/17 08:51 Novolog SQ 16 unit TIDWM [facility] Administration Insulin Detemir 36 unit 07/27/17 21:00 07/30/17 08:52 Levemir SQ 36 unit BID [facility] Administration Lactobacillus Acidophilus 1 cap 07/25/17 09:00 07/30/17 08:51 Culturelle PO 1 cap DAILY [facility] Administration Latanoprost 1 drops 07/24/17 21:00 07/29/17 20:57 Xalatan RIGHT EYE 1 drops HS [facility] Administration Magnesium Hydroxide 30 ml 07/24/17 12:30 Mom PO DAILY PRN Constipation Magnesium Oxide 400 mg 07/25/17 09:00 07/30/17 08:51 Magox PO 400 mg DAILY [facility] Administration Morphine Sulfate 0 mg 07/25/17 16:19 07/25/17 16:22 Morphine Sulfate Vial IVP 5 mg Q10M PRN Administration Multivitamins/Minerals 1 tab 07/25/17 09:00 07/30/17 08:51 Therapeutic - M PO 1 tab DAILY [facility] Administration Nitroglycerin 0.4 mg 07/24/17 14:45 Nitrostat SL Q5MIN3 PRN Angina Ondansetron HCl 4 mg 07/24/17 12:29 07/26/17 08:19 Zofran IVP 4 mg Q6H PRN Administration Nausea Sodium Chloride 500 ml 07/24/17 16:30 07/30/17 06:24 Normal Saline IV 500 ml PRN PRN Administration Tamsulosin HCl 0.4 mg 07/27/17 21:00 07/29/17 20:56 Flomax PO 0.4 mg HS [facility] Administration Ticagrelor 90 mg 07/25/17 09:00 07/30/17 08:51 Brilinta PO 90 mg BID [facility] Administration Discontinued Medications Generic Name Dose Route Start Last Admin Trade Name [place] PRN Reason Stop Dose Admin Alteplase, Recombinant 2 mg 07/29/17 13:05 07/29/17 13:26 Cathflo Activase IV 07/29/17 13:06 2 mg O ONE Administration Carvedilol 6.25 mg 07/24/17 17:30 07/28/17 09:16 Coreg PO 6.25 mg BIDWM [facility] Administration Carvedilol 6.25 mg 07/28/17 11:11 07/28/17 12:46 Coreg PO 07/28/17 11:12 6.25 mg NOW ONE Administration Carvedilol 12.5 mg 07/28/17 11:11 Coreg PO BIDWM [facility] Levofloxacin/Dextrose 750 mg in 150 mls @ 100 mls/hr 07/24/17 14:45 07/28/17 17:36 Levaquin Premix IV Infused Q24H [facility] Infusion Vancomycin HCl 2,000 mg/ 500 mls @ 250 mls/hr 07/24/17 18:00 07/24/17 21:00 Sodium Chloride IV 07/24/17 19:59 Infused O ONE Infusion Vancomycin HCl 1,500 mg/ 500 mls @ 250 mls/hr 07/25/17 06:00 07/29/17 10:27 Sodium Chloride IV Infused Q12H [facility] Infusion Lactated Ringer's 1,000 mls @ 50 mls/hr 07/25/17 14:15 07/26/17 11:05 Lactated Ringers IV Infused .Q20H [facility] Infusion Levofloxacin/Dextrose 750 mg in 150 mls @ 100 mls/hr 07/30/17 14:00 Levaquin Premix IV Q48H [facility] Insulin Aspart 20 unit 07/24/17 17:30 07/27/17 12:33 Novolog SQ 20 unit TIDWM [facility] Administration Insulin Detemir 40 unit 07/24/17 21:00 07/27/17 09:15 Levemir SQ 40 unit BID [facility] Administration Insulin Detemir 10 unit 07/27/17 21:00 Levemir SQ 07/27/17 21:01 HS ONE Insulin Detemir 10 unit 07/26/17 21:00 07/26/17 22:07 Levemir SQ 07/26/17 21:01 10 unit HS ONE Administration Insulin Detemir 20 unit 07/28/17 20:21 07/28/17 20:54 Levemir SQ 07/28/17 20:22 20 unit ONE TIME ONE Administration Metformin HCl 500 mg 07/25/17 08:00 07/29/17 08:18 Glucophage PO 500 mg WB [facility] Administration Miscellaneous Medication 6 ml 07/25/17 16:00 07/25/17 16:00 Bupiv 0.25% 30ml/Lido 1% 30ml Mix ID 07/25/17 16:01 6 ml O ONE Administration Sacubitril/Valsartan 1 tab 07/24/17 21:00 07/29/17 20:56 Entresto 49/51mg PO 1 tab BID [facility] Administration Vancomycin HCl 1 each 07/24/17 14:44 07/24/17 16:15 Pharmacy Consult - Vancomycin 07/24/17 14:45 Not Given O ONE - Constitutional no acute distress, well nourished, cooperative - Routine HEENT Exam Head: Present: normocephalic ENT: Present: mucous membranes moist - Routine Neck Exam Absent: JVD, carotid bruit - Routine Chest/Breast/Axilla Exam Chest wall: Absent: tenderness - Routine Respiratory Exam Present: CTA bilaterally. Absent: rales, wheezes - Routine Cardiovascular Exam Present: no murmur, tachycardia - Routine Abdominal Exam Present: soft, normoactive bowel sounds - Routine Extremities Exam Present: no edema, pulses intact - Routine Skin Exam Present: intact, dry, warm - Routine Neurological Exam Present: alert, oriented X3 - Routine Psychiatric Exam Present: normal affect, normal thought process Results 07/31/17 05:27 07/31/17 05:27 CBC 07/30/17 Range/Units 03:40 WBC 17.1 H D (4.5-11.0) T/MM3 RBC 3.19 L (4.50-5.90) M/MM3 Hgb 10.2 L (13.5-17.5) GM/DL Hct 31.6 L (41-53) % Plt Count 201 (130-400) T/MM3 Neut # (Auto) Not performed Lymph # (Auto) Not performed [place] # (Auto) Not performed Eos # (Auto) Not performed Baso # (Auto) Not performed Comprehensive Metabolic Panel 07/30/17 Range/Units 03:40 Sodium 139 (134-144) MEQ/L Potassium 4.3 (3.6-5) MEQ/L Chloride 104 (98-107) MEQ/L Carbon Dioxide 24 (22-30) MEQ/L BUN 32.0 H (9-20) MG/DL Creatinine 1.9 H D (0.8-1.5) mg/dL Glucose 168 H (75-110) MG/DL Calcium 9.2 (8.4-10.2) MG/DL Intake and Output 07/29/17 07/30/17 07/30/17 22:59 06:59 14:59 Intake Total 760 / 760 300 / 300 500 / 500 Output Total 50 / 50 200 / 200 50 / 50 Balance 710 / 710 100 / 100 450 / 450 Intake: IV 500 / 500 Vancomycin 2,000 mg In NS 500ml 500 / 500 500 ml @ 250 mls/hr IV Q24H [facility] Rx#:[id number] Oral 760 / 760 300 / 300 Output: Urine 50 / 50 200 / 200 50 / 50 Other: Urine Appearance Clear Clear Clear Urine Color Bright Yellow Yellow Light Julia Urine Odor Normal Stool Characteristics Normal for Patient Stool Color Brown Stool Consistency Formed Size of Bowel Movement Small # Incontinent Voids 1 Weight 229 lb 11.547 oz Patient Weight 07/31/17 06:59 Weight 229 lb 11.547 oz Assessment and Plan - Assessment and Plan (1) Surgical wound dehiscence Current visit: Yes Status: Acute (2) Atherosclerosis of [place] artery of both lower extremities Current visit: Yes Status: Acute (3) CAD (coronary artery disease) Current visit: No Status: Chronic (4) Ischemic cardiomyopathy Current visit: No Status: Chronic (5) Obstructive sleep apnea Current visit: No Status: Chronic (6) Diabetes Current visit: No Status: Chronic (7) Mixed hyperlipidemia Current visit: Yes Status: Acute - Assessment and Plan 07/24/17 Surgical wound dehiscence Atherosclerosis of [place] artery of both lower extremities CAD (coronary artery disease) Ischemic cardiomyopathy Obstructive sleep apnea Diabetes Mixed hyperlipidemia Assessment and Plan Wound debridement carries low cardiac risk. Okay to proceed with plan per ortho. - Patient has been stable from cardiac standpoint. PAD recently improved due to LE stents placed 07/16/17. Continue Aspirin and Brilinta. - Echo report from Doreen lemus pending - Continue LifeVest for unknown EF. - Continue Entresto, Coreg Thank you for allowing us to participate in the care of this patient. 07/25/17 Echo report shows EF 61%, Life Vest removed - NPO for surgical debridement today - Patient assessed independent of Dr. Stubbs, findings discussed with him and together we agreed upon plan of care 07/26/17 EKG: SR with 1st degree AV block 07/29/17 Stable from cardiac standpoint 07/30/17 SCr/ BUN up, Stop Entresto, hold Metformin Hospital Course Summary Disclaimer: The visit summary below is not to be considered part of the above Progress Note. Hospital Course: 07/24/17 Admission Admit patient to inpatient status under the care of Dr. Hernandez. Consult with Dr. Slade for further wound management. Planning for debridement and possible placement of wound VAC tomorrow. Start Vancomycin per protocol for wound coverage. Continue levofloxacin, changing to 750mg IV daily. PICC line study reveals that line placement is within the [place] vein. Spoke with PICC line team. We will replace PICC line for better placement. Obtain CBC, CMP, blood culture, venous lactate, magnesium, urinalysis analysis, uric acid & CRP on admit. Monitor Accu-Cheks Given patient's history of diabetes. Will continue on home regimen of Levemir 40 units twice a day and NovoLog 20 units with meals. Patient to be nothing by mouth after midnight for scheduled procedure. Consult with Dr. Stubbs for further cardiac evaluation and recommendations. We are awaiting the echocardiogram report that was done outpatient last week as this will direct ongoing guidance regarding LifeVest. SCDs to bilateral lower extremity for DVT prophylaxis. We did discuss advanced directives and at this time. Patient does wish to be a do not resuscitate. Will discuss further orders and plan of care with attending, Dr. Hernandez. At time of discharge medical care will return to primary care provider, Dr Luis E Martinez in [place], [place]. 07/25 Planning for surgical debridement of Left foot wound today by Dr Slade Patient did receive Entresto today given recent vascular stenting of the left leg on 07/16 On vancomycin and IV Levaquin for antimicrobial coverage Will continue to monitor Accu-Cheks Will continue on home regimen of Levemir 40 units twice a day and NovoLog 20 units with meals. Spoke with [facility] radiology dept. They received report last night and will fax it today to [facility] as requested. Patient currently wearing left vest. SCDs to bilateral lower extremity for DVT prophylaxis. 07/26/17 Status post surgical debridement of necrotic tissue and removal of fourth and fifth metatarsal heads yesterday by Dr. Slade. Awaiting path and culture. Wound vac placed yesterday. CM making arrangements for outpatient wound vac. Continue vancomycin and IV Levaquin for antimicrobial coverage. DC IVF's which were started in surgery. Pain is controlled. Will consult PT/OT to help functional status. 07/27/[address] Surgical culture positive for group B strep. Nocturnal hypoglycemia-decrease Levemir dose while hospitalized, continue current NovoLog and metformin dosages. Patient describes urinary frequency without dysuria, probable BPH-post void residual obese checked by bladder scan. If unremarkable we will initiate Flomax on trial basis. Adequate pain control. 07/28/17 Continue vancomycin and IV Levaquin for antimicrobial coverage. Status post surgical debridement of necrotic tissue and removal of fourth and fifth metatarsal heads 07/[address] Slade. Wound vac. Awaiting path. Surgical culture positive for group B strep/Staph aureus. Will continue current abx until cx are final given hx of past culture results. Needs to reassess CXR given malposition of PICC on prior films. Recurrent hypoglycemia- both long and short-acting insulin adjusted yesterday. Suspect lowering due to infection more controlled. Patient describes urinary frequency without dysuria, probable BPH. Order additional bladder scan, straight cath. We may need to place delgado. Flomax started yesterday. D/W pt that it will take a few days for effect. HF- pt has been consistently tachycardic. BP is has been adequate. Will up Coreg dosing to help control HR. Continue Entresto, Brilinta. Cardiology following. May need to add diuretics, but hesitant to do so until he is voiding better. Adequate pain control. Continue frequent labs for monitoring. 07/29 Currently on vancomycin and IV Levaquin for antimicrobial coverage. Wound vac change today. Path shows osteomyelitis. Surgical culture positive for group B strep/Staph aureus. Dr Real (or ID) to determine ongoing antibiotic tx plan. Coreg was increased yesterday d/t tachycardia. Pulse still lower 100's. Cardiology following. White count (12.1) and creatinine (1.7) both up today <Caden Stubbs - Last Filed: 08/02/17 14:21> Exam Vital signs: Temperature 97.6 F 08/02/17 12:00 Pulse Rate 96 08/02/17 12:00 Respiratory Rate 16 08/02/17 12:00 Blood Pressure 118/65 08/02/17 12:00 Pulse Oximetry 96 08/02/17 12:00 Inpatient Medications: Generic Name Dose Route Start Last Admin Trade Name Freq PRN Reason Stop Dose Admin Acetaminophen 650 mg 07/24/17 12:30 Tylenol PO Q5H PRN Discomfort Hydrocodone Bitart/Acetaminophen 1 - 2 tab 07/24/17 14:45 07/30/17 11:17 [place] 5/325 PO 1 tab Q6H PRN Administration Pain Ascorbic Acid 1,000 mg 07/25/17 09:00 08/02/17 08:45 Vitamin C PO 1,000 mg DAILY [facility] Administration Aspirin 81 mg 07/25/17 09:00 08/02/17 08:45 Asa PO 81 mg DAILY [facility] Administration Bisacodyl 10 mg 07/24/17 12:30 Dulcolax RECTALLY DAILY PRN Constipation Carvedilol 12.5 mg 07/28/17 17:30 08/02/17 08:45 Coreg PO 12.5 mg BIDWM [facility] Administration Citalopram Hydrobromide 20 mg 07/25/17 09:00 08/02/17 08:45 Celexa PO 20 mg DAILY [facility] Administration Clindamycin HCl 300 mg 07/30/17 13:00 08/02/17 12:21 Cleocin PO 300 mg QID [facility] Administration Enoxaparin Sodium 30 mg 07/31/17 09:00 08/02/17 08:44 Lovenox SQ 30 mg DAILY [facility] Administration Glucose 37.5 gm 08/01/17 16:20 08/01/17 16:35 Glutose 15 PO 37.5 gm PRN PRN Administration Hypoglycemia Sodium Chloride 1,000 mls @ 100 mls/hr 07/30/17 20:45 08/02/17 14:06 Normal Saline IV 100 mls/hr .Q10H [facility] Administration Vancomycin HCl 1,250 mg/ 250 mls @ 250 mls/hr 07/31/17 21:00 08/01/17 21:15 Sodium Chloride IV Infused Q24H [facility] Infusion Insulin Aspart 1 - 5 unit 07/30/17 15:08 07/30/17 20:53 Novolog SQ 2 unit SS PRN Administration Hyperglycemia Protocol Insulin Aspart 10 unit 08/01/17 17:30 08/02/17 12:19 Novolog SQ 10 unit TIDWM [facility] Administration Insulin Detemir 20 unit 08/01/17 21:00 08/02/17 08:44 Levemir SQ 20 unit BID [facility] Administration Lactobacillus Acidophilus 1 cap 07/25/17 09:00 08/02/17 08:45 Culturelle PO 1 cap DAILY [facility] Administration Latanoprost 1 drops 07/24/17 21:00 08/01/17 20:15 Xalatan RIGHT EYE 1 drops HS [facility] Administration Magnesium Hydroxide 30 ml 07/24/17 12:30 Mom PO DAILY PRN Constipation Magnesium Oxide 400 mg 07/25/17 09:00 08/02/17 08:45 Magox PO 400 mg DAILY [facility] Administration Multivitamins/Minerals 1 tab 07/25/17 09:00 08/02/17 08:45 Therapeutic - M PO 1 tab DAILY [facility] Administration Nitroglycerin 0.4 mg 07/24/17 14:45 Nitrostat SL Q5MIN3 PRN Angina Nystatin 1 applic 07/30/17 15:00 08/02/17 08:44 Mycostatin TP 1 applic TID [facility] Administration Ondansetron HCl 4 mg 07/24/17 12:29 07/26/17 08:19 Zofran IVP 4 mg Q6H PRN Administration Nausea Sodium Chloride 500 ml 07/24/17 16:30 07/30/17 06:24 Normal Saline IV 500 ml PRN PRN Administration Sodium Chloride 10 ml 07/30/17 13:31 07/30/17 12:39 Iv Flush IV 10 ml PRN PRN Administration Flushing Tamsulosin HCl 0.4 mg 07/27/17 21:00 08/01/17 20:15 Flomax PO 0.4 mg HS [facility] Administration Ticagrelor 90 mg 07/25/17 09:00 08/02/17 08:45 Brilinta PO 90 mg BID [facility] Administration Discontinued Medications Generic Name Dose Route Start Last Admin Trade Name Freq PRN Reason Stop Dose Admin Alteplase, Recombinant 2 mg 07/29/17 13:05 07/29/17 13:26 Cathflo Activase IV 07/29/17 13:06 2 mg O ONE Administration Carvedilol 6.25 mg 07/24/17 17:30 07/28/17 09:16 Coreg PO 6.25 mg BIDWM [facility] Administration Carvedilol 6.25 mg 07/28/17 11:11 07/28/17 12:46 Coreg PO 07/28/17 11:12 6.25 mg NOW ONE Administration Carvedilol 12.5 mg 07/28/17 11:11 Coreg PO BIDWM [facility] Colchicine 0.6 mg 07/30/17 11:15 07/31/17 09:23 Colcrys PO 0.6 mg BID [facility] Administration Enoxaparin Sodium 40 mg 07/26/17 12:30 07/30/17 08:52 Lovenox SQ 40 mg DAILY [facility] Administration Furosemide 40 mg 08/02/17 11:23 08/02/17 12:19 Lasix 40 Mg/4 Ml IVP 08/02/17 11:24 40 mg O ONE Administration Levofloxacin/Dextrose 750 mg in 150 mls @ 100 mls/hr 07/24/17 14:45 07/28/17 17:36 Levaquin Premix IV Infused Q24H [facility] Infusion Vancomycin HCl 2,000 mg/ 500 mls @ 250 mls/hr 07/24/17 18:00 07/24/17 21:00 Sodium Chloride IV 07/24/17 19:59 Infused O ONE Infusion Vancomycin HCl 1,500 mg/ 500 mls @ 250 mls/hr 07/25/17 06:00 07/29/17 10:27 Sodium Chloride IV Infused Q12H [facility] Infusion Lactated Ringer's 1,000 mls @ 50 mls/hr 07/25/17 14:15 07/26/17 11:05 Lactated Ringers IV Infused .Q20H [facility] Infusion Vancomycin HCl 2,000 mg/ 500 mls @ 250 mls/hr 07/30/17 06:00 07/31/17 06:30 Sodium Chloride IV Not Given Q24H [facility] Levofloxacin/Dextrose 750 mg in 150 mls @ 100 mls/hr 07/30/17 14:00 Levaquin Premix IV Q48H [facility] Sodium Chloride 1,000 mls @ 150 mls/hr 07/30/17 11:30 07/30/17 20:45 Normal Saline IV 07/30/17 18:09 Infused .Q6H40M [facility] Infusion Insulin Aspart 20 unit 07/24/17 17:30 07/27/17 12:33 Novolog SQ 20 unit TIDWM [facility] Administration Insulin Aspart 16 unit 07/27/17 17:30 08/01/17 12:29 Novolog SQ 16 unit TIDWM [facility] Administration Insulin Aspart 8 unit 07/31/17 09:22 07/31/17 09:29 Novolog SQ 07/31/17 09:23 8 unit O ONE Administration Insulin Aspart 8 unit 07/31/17 12:47 07/31/17 12:51 Novolog SQ 07/31/17 12:48 8 unit O ONE Administration Insulin Aspart 4 unit 07/31/17 18:23 07/31/17 18:34 Novolog SQ 07/31/17 18:24 4 unit O ONE Administration Insulin Detemir 40 unit 07/24/17 21:00 07/27/17 09:15 Levemir SQ 40 unit BID [facility] Administration Insulin Detemir 10 unit 07/27/17 21:00 Levemir SQ 07/27/17 21:01 HS ONE Insulin Detemir 10 unit 07/26/17 21:00 07/26/17 22:07 Levemir SQ 07/26/17 21:01 10 unit HS ONE Administration Insulin Detemir 36 unit 07/27/17 21:00 07/31/17 09:29 Levemir SQ 36 unit BID [facility] Administration Insulin Detemir 20 unit 07/28/17 20:21 07/28/17 20:54 Levemir SQ 07/28/17 20:22 20 unit ONE TIME ONE Administration Insulin Detemir 32 unit 07/31/17 15:12 Levemir SQ BID [facility] Insulin Detemir 25 unit 07/31/17 21:00 08/01/17 09:27 Levemir SQ 25 unit BID [facility] Administration Metformin HCl 500 mg 07/25/17 08:00 07/29/17 08:18 Glucophage PO 500 mg WB [facility] Administration Miscellaneous Medication 6 ml 07/25/17 16:00 07/25/17 16:00 Bupiv 0.25% 30ml/Lido 1% 30ml Mix ID 07/25/17 16:01 6 ml O ONE Administration Morphine Sulfate 0 mg 07/25/17 16:19 07/25/17 16:22 Morphine Sulfate Vial IVP 5 mg Q10M PRN Administration Pharmacy Consult 1 each 08/02/17 12:24 Pharmacy Consult - Fall Risk XX 08/02/17 12:25 ONE TIME ONE Sacubitril/Valsartan 1 tab 07/24/17 21:00 07/29/17 20:56 Entresto 49/51mg PO 1 tab BID [facility] Administration Vancomycin HCl 1 each 07/24/17 14:44 07/24/17 16:15 Pharmacy Consult - Vancomycin MC 07/24/17 14:45 Not Given O ONE Results 08/02/17 04:11 08/02/17 04:11 CBC 08/02/17 Range/Units 04:11 WBC 11.4 H (4.5-11.0) T/MM3 RBC 2.84 L (4.50-5.90) M/MM3 Hgb 9.0 L (13.5-17.5) GM/DL Hct 28.2 L (41-53) % Plt Count 219 (130-400) T/MM3 Neut # (Auto) 9.2 H (1.8-7.7) T/MM3 Lymph # (Auto) 0.7 L (1-4.8) T/MM3 [place] # (Auto) 0.8 (0-0.8) T/MM3 Eos # (Auto) 0.7 H (0-0.5) T/MM3 Baso # (Auto) 0.0 (0-0.2) T/MM3 Comprehensive Metabolic Panel 08/02/17 Range/Units 04:11 Sodium 141 (134-144) MEQ/L Potassium 4.4 (3.6-5) MEQ/L Chloride 110 H (98-107) MEQ/L Carbon Dioxide 22 (22-30) MEQ/L BUN 31.0 H (9-20) MG/DL Creatinine 2.2 H (0.8-1.5) mg/dL Glucose 144 H (75-110) MG/DL Calcium 8.4 (8.4-10.2) MG/DL Albumin 2.8 L (3.5-5.0) g/dL Intake and Output 08/01/17 08/02/17 08/02/17 22:59 06:59 14:59 Intake Total 1985 901.667 / 901.667 803.333 / 803.333 Output Total 250 / 250 425 / 425 450 / 450 Balance 1736 / 1736 476.667 / 476.667 353.333 / 353.333 Intake: IV 1660 / 1660 901.667 / 901.667 683.333 / 683.333 Ns 1,000 ml @ 100 mls/hr IV . 1410 / 1410 901.667 / 901.667 683.333 / 683.333 Q10H [facility] Rx#:[id number] Vancomycin 1,250 mg In NS 250ml 250 / 250 250 ml @ 250 mls/hr IV Q24H [facility] Rx#:[id number] Oral 326 / 326 120 / 120 Output: Urine 250 / 250 425 / 425 450 / 450 Wound Drainage 0 / 0 Left Lateral Foot 0 / 0 Other: Urine Appearance Clear Clear Clear Urine Color Yellow Yellow Yellow Urine Odor Normal Stool Color Brown Brown Brown Stool Consistency Formed Soft Size of Bowel Movement Smear Large Moderate # Voids 1 1 # Incontinent Voids 1 1 # Bowel Movements 1 # Incontinent Bowel Movements 1 1 Weight 112.1 kg Patient Weight 08/03/17 06:59 Weight 112.1 kg Assessment and Plan - Assessment and Plan (1) Diabetes Current visit: No Status: Chronic (2) Obstructive sleep apnea Current visit: No Status: Chronic (3) CAD (coronary artery disease) Current visit: No Status: Chronic (4) Ischemic cardiomyopathy Current visit: No Status: Chronic (5) Surgical wound dehiscence Current visit: Yes Status: Acute (6) Atherosclerosis of [place] artery of both lower extremities Current visit: Yes Status: Acute (7) Mixed hyperlipidemia Current visit: Yes Status: Acute - Attestation Attestation Narrative: 08/02/17 14:21 Recommendation After examining the patient I agree with the above assessment. I am involved in the formulation of the patient's plan of care. Hospital Course Summary Disclaimer: The visit summary below is not to be considered part of the above Progress Note.
[2017-07-30] MEDS ORDERED: NS 1,000 ML IV SCH (11:30)
--- NOTE | 2017-07-30 12:23 | Orthopedic Progress Note ---
Date: Date: 07/30/17 Time: 8 Subjective/Severity of Illness: Patient is resting in bed when visiting. He denies any pain with his left foot. However, states his right ankle starting hurting with ambulation last night. He has not gotten out of bed today due to pain with bearing weight. States he has a history of gout, and this pain is similar to gout attacks in the past. Wound vac with veraflow presently, tolerating well. Denies fever, chills, nausea, chest pain, shortness of breathe. Exam - Constitutional Vital Signs: Temperature 97.1 F 07/30/17 08:51 Pulse Rate 108 H 07/30/17 08:51 Respiratory Rate 18 07/30/17 08:51 Blood Pressure 118/67 07/30/17 08:51 Pulse Oximetry 96 07/30/17 08:51 General: cooperative, no acute distress, well developed Nutritional Appearance: well nourished Orientation: oriented x3, alert - RLE General: edema Postoperative Appearance: neurovascullary intact to extremities Knee Range of Motion: within normal limits Neurological: no deficits, normal to light touch Vascular: dorsalis pedis pulse within normal limits Right Lower Extremity comments: significant tenderness to palpation over medial malleolus. - LLE Neurological: no deficits, normal to light touch Vascular: dorsalis pedis pulse within normal limits Left Lower Extremity Comments: wound vac to left 4th and 5th toe amputation wound site - Respiratory Respiratory Exam: non-labored - Cardiac Cardiovascular exam: pedal pulses intact - Wound Left Foot Type of Wound/Ulcer: Amputation - Labs Result Diagrams: 07/30/17 03:40 07/30/17 03:40 Abnormal lab results 07/30/17 07/30/17 Range/Units 03:40 03:40 WBC 17.1 H D (4.5-11.0) T/MM3 RBC 3.19 L (4.50-5.90) M/MM3 Hgb 10.2 L (13.5-17.5) GM/DL Hct 31.6 L (41-53) % Neutrophils % (Manual) 83.0 H (33-66) % Lymphocytes % (Manual) 10.0 L (23-45) % Neutrophils # (Manual) 14.2 H (1.8-7.7) T/MM3 Monocytes # (Manual) 0.9 H (0-0.8) T/MM3 BUN 32.0 H (9-20) MG/DL Creatinine 1.9 H D (0.8-1.5) mg/dL Glucose 168 H (75-110) MG/DL H & H 07/24/17 07/25/17 07/26/17 Range/Units 12:48 04:15 05:35 Hgb 11.0 L 11.0 L 11.3 L (13.5-17.5) GM/DL Hct 34.3 L 33.8 L 35.3 L (41-53) % 07/27/17 07/29/17 07/30/17 Range/Units 04:39 04:18 03:40 Hgb 10.9 L 10.2 L 10.2 L (13.5-17.5) GM/DL Hct 33.8 L 31.2 L 31.6 L (41-53) % Orthopedic Assessment and Plan (1) Surgical wound dehiscence Status: Acute Assessment and Plan: Was planning discharge today to [facility] for IV antibiotics and therapy, however, WBC elevated to 17.2 and creatine 1.9 this morning. Cultures positive strep group B, light growth MRSA. Discussed with hospitalist, will treat right ankle pain for gout. If not improved tomorrow will consider aspiration of right ankle for possible septic joint due to above. Continue wound VAC with veraflow while here, and antibiotics per hospitalist. Hospital Course Summary Disclaimer: The visit summary below is not to be considered part of the above Progress Note. Hospital Course: 07/24/17 Admission Admit patient to inpatient status under the care of Dr. Hernandez. Consult with Dr. Slade for further wound management. Planning for debridement and possible placement of wound VAC tomorrow. Start Vancomycin per protocol for wound coverage. Continue levofloxacin, changing to 750mg IV daily. PICC line study reveals that line placement is within the Azygos vein. Spoke with PICC line team. We will replace PICC line for better placement. Obtain CBC, CMP, blood culture, venous lactate, magnesium, urinalysis analysis, uric acid & CRP on admit. Monitor Accu-Cheks Given patient's history of diabetes. Will continue on home regimen of Levemir 40 units twice a day and NovoLog 20 units with meals. Patient to be nothing by mouth after midnight for scheduled procedure. Consult with Dr. Stubbs for further cardiac evaluation and recommendations. We are awaiting the echocardiogram report that was done outpatient last week as this will direct ongoing guidance regarding LifeVest. SCDs to bilateral lower extremity for DVT prophylaxis. We did discuss advanced directives and at this time. Patient does wish to be a do not resuscitate. Will discuss further orders and plan of care with attending, Dr. Hernandez. At time of discharge medical care will return to primary care provider, Dr Luis E Martinez in [place], [place]. 07/25 Planning for surgical debridement of Left foot wound today by Dr Slade Patient did receive Entresto today given recent vascular stenting of the left leg on 07/16 On vancomycin and IV Levaquin for antimicrobial coverage Will continue to monitor Accu-Cheks Will continue on home regimen of Levemir 40 units twice a day and NovoLog 20 units with meals. Spoke with [facility] radiology dept. They received report last night and will fax it today to [facility] as requested. Patient currently wearing left vest. SCDs to bilateral lower extremity for DVT prophylaxis. 07/26/17 Status post surgical debridement of necrotic tissue and removal of fourth and fifth metatarsal heads yesterday by Dr. Slade. Awaiting path and culture. Wound vac placed yesterday. CM making arrangements for outpatient wound vac. Continue vancomycin and IV Levaquin for antimicrobial coverage. DC IVF's which were started in surgery. Pain is controlled. Will consult PT/OT to help functional status. 07/27/[address] Surgical culture positive for group B strep. Nocturnal hypoglycemia-decrease Levemir dose while hospitalized, continue current NovoLog and metformin dosages. Patient describes urinary frequency without dysuria, probable BPH-post void residual obese checked by bladder scan. If unremarkable we will initiate Flomax on trial basis. Adequate pain control. 07/28/17 Continue vancomycin and IV Levaquin for antimicrobial coverage. Status post surgical debridement of necrotic tissue and removal of fourth and fifth metatarsal heads 07/[address] Slade. Wound vac. Awaiting path. Surgical culture positive for group B strep/Staph aureus. Will continue current abx until cx are final given hx of past culture results. Needs to reassess CXR given malposition of PICC on prior films. Recurrent hypoglycemia- both long and short-acting insulin adjusted yesterday. Suspect lowering due to infection more controlled. Patient describes urinary frequency without dysuria, probable BPH. Order additional bladder scan, straight cath. We may need to place delgado. Flomax started yesterday. D/W pt that it will take a few days for effect. HF- pt has been consistently tachycardic. BP is has been adequate. Will up Coreg dosing to help control HR. Continue Entresto, Brilinta. Cardiology following. May need to add diuretics, but hesitant to do so until he is voiding better. Adequate pain control. Continue frequent labs for monitoring. 07/29 Currently on vancomycin and IV Levaquin for antimicrobial coverage. Wound vac change today. Path shows osteomyelitis. Surgical culture positive for group B strep/Staph aureus. Dr Real (or ID) to determine ongoing antibiotic tx plan. Coreg was increased yesterday d/t tachycardia. Pulse still lower 100's. Cardiology following. White count (12.1) and creatinine (1.7) both up today
[2017-07-30] MEDS: SALINE FLUSH 10ml SYRINGE IV PRN (12:39)
[2017-07-30] MEDS: COLCHICINE 0.6 MG TABLET PO SCH ×2 (12:40→20:46)
[2017-07-30] MEDS: CLINDAMYCIN 300 MG CAPSULE PO SCH ×3 (12:40→20:46)
[2017-07-30] MEDS ORDERED: LEVOFLOXACIN PB 750 MG/150 ML BAG IV SCH (14:00)
--- NOTE | 2017-07-30 14:45 | Progress Note ---
- Date 07/30/17 Subjective: Patient seen sitting in his bed this am. He reports he started having pain in the R ankle yesterday and it is worse today. States he gets gout flares in the R ankle and knee. The knee is not currently bothering him. No fever or chills. Pain only in L foot if weight bearing. Bowels are moving. NO CP or SOA. Objective Vital signs: Temperature 97.8 F 07/30/17 12:00 Pulse Rate 98 07/30/17 12:00 Respiratory Rate 16 07/30/17 12:00 Blood Pressure 105/65 07/30/17 12:00 Pulse Oximetry 95 07/30/17 12:00 Rhythm: Normal Sinus Rhythm, Sinus Tachycardia Height/Weight/BMI: Height 1.73 m Weight 104.2 kg Body Mass Index 35.1 - Constitutional Present: no acute distress, well nourished, well developed - Routine HEENT Exam Head: Present: normocephalic, atraumatic - Routine Respiratory Exam Present: CTA bilaterally. Absent: wheezes - Routine Cardiovascular Exam Present: RRR, no murmur - Routine Abdominal Exam Present: soft, non distended, non tender - Routine Extremities Exam Present: edema (L foot, wound vac intact), normal capillary refill Comments: R ankle with minimal - Routine Skin Exam Present: dry, warm - Routine Neurological Exam Present: alert, oriented X3 - Routine Lymphatic Exam Lymphatic: Absent: adenopathy - Routine Psychiatric Exam Present: normal affect, cooperative Results - Labs CBC & Chem 7: 07/30/17 03:40 07/30/17 03:40 Microbiology Results: Microbiology 07/24/17 12:48 Peripheral/Iv Start Blood Culture - Final No Growth After 5 Days 07/24/17 12:55 Peripheral/Iv Start Blood Culture - Final No Growth After 5 Days 07/25/17 15:57 Foot, Left Gram Stain - Final 07/25/17 15:57 Foot, Left Surgical Culture - Final Strep agalactiae - (Group B) Staphylococcus aureus, MRSA Coag negative Staphylococcus Assessment and Plan (1) Surgical wound dehiscence Current visit: Yes Status: Acute Assessment and Plan: Impression Left surgical wound dehiscence -- 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 Osteomyelitis - L foot Cardiomyopathy - improved, no longer requiring LifeVest (HFrEF, 20%) Type II diabetes - Insulin requiring, A1C 7.3 Possible gout flare - 07/30/17 Coronary artery disease Peripheral vascular disease Hypertension Chronic Kidney Disease Stage II Acute kidney injury-07/30/17-RLL Depression Hearing deficit Obesity with BMI 35.1 Probable BPH -07/27/17 Plan Currently on vancomycin for antimicrobial coverage. Add clinda for increased strep coverage. Surgical culture positive for group B strep/Staph aureus. White count increased today 12.1-->17.1. Repeat CBC tomorrow. Creatinine 1.3-->1.7-->1.9. Repeat BMP in am. IVF's added to improve renal function. Add colchicine for R ankle pain possibly r/t gout. Discussed w/ Dr. Slade. If pain isn't improved over the next 1-2 days, ortho will do joint aspiration to r/ o septic joint vs gout vs other. (Dr Slade will be out of town, but ZENY Cramer can do aspiration.) Uric acid is WNL. Will hold off on DC to SNU at this time give the increase in his WBC and creatinine and new c/o ankle pain. DVT Prophylaxis: SCD's, Lovenox Resuscitation Status: Do Not Resuscitate - Physician Narrative Physician: Renee Real MD Narrative: Date: 07/30/17 Time: 1919 I have independently evaluated and examined this patient. I reviewed the chart, the patient's history, and the LEAD [employer]ODUCER/PA's documented findings as above. We discussed and formulated the assessment and plan as above with additions as below: Mr. Blakely described increased pain in his right ankle but otherwise had no concerns. Nursing reported dark urine and occasional incontinence. Elevated white count and progressive climbing creatinine both noted. No fevers recorded; NAD, alert, hard of hearing Right angle with minimal erythema at the medial malleolus where he is quite tender but there is no soft tissue swelling. Left foot with minor erythema at the distal aspect of the wound VAC and prior surgical site. Does not appear acutely inflamed. BUN/creatinine climbing progressively-1 L normal saline to be given, reassess renal function later this evening; suspect patient is somewhat dry but medications likely impacting renal function as well. Uric acid 7.6, borderline high. Patient reports good response with colchicine previously-indomethacin contraindicated due to renal function, prednisone not optimal given diabetes. Colchicine initiated we will reassess symptoms tomorrow. Discussed with Dr. Slade. Cultures reviewed with ID-clindamycin added for improved coverage of GBS, have requested sensitivities on the organism as well. Discussed with microbiology and case management. Discussed with nursing several times, nursing provide supplemental history. Hospital Course Summary Disclaimer: The visit summary below is not to be considered part of the above Progress Note. Hospital Course: 07/24/17 Admission Admit patient to inpatient status under the care of Dr. Hernandez. Consult with Dr. Slade for further wound management. Planning for debridement and possible placement of wound VAC tomorrow. Start Vancomycin per protocol for wound coverage. Continue levofloxacin, changing to 750mg IV daily. PICC line study reveals that line placement is within the Azygos vein. Spoke with PICC line team. We will replace PICC line for better placement. Obtain CBC, CMP, blood culture, venous lactate, magnesium, urinalysis analysis, uric acid & CRP on admit. Monitor Accu-Cheks Given patient's history of diabetes. Will continue on home regimen of Levemir 40 units twice a day and NovoLog 20 units with meals. Patient to be nothing by mouth after midnight for scheduled procedure. Consult with Dr. Stubbs for further cardiac evaluation and recommendations. We are awaiting the echocardiogram report that was done outpatient last week as this will direct ongoing guidance regarding LifeVest. SCDs to bilateral lower extremity for DVT prophylaxis. We did discuss advanced directives and at this time. Patient does wish to be a do not resuscitate. Will discuss further orders and plan of care with attending, Dr. Hernandez. At time of discharge medical care will return to primary care provider, Dr Luis E Martinez in [place], [place]. 07/25 Planning for surgical debridement of Left foot wound today by Dr Slade Patient did receive Entresto today given recent vascular stenting of the left leg on 07/16 On vancomycin and IV Levaquin for antimicrobial coverage Will continue to monitor Accu-Cheks Will continue on home regimen of Levemir 40 units twice a day and NovoLog 20 units with meals. Spoke with [facility] radiology dept. They received report last night and will fax it today to [facility] as requested. Patient currently wearing left vest. SCDs to bilateral lower extremity for DVT prophylaxis. 07/26/17 Status post surgical debridement of necrotic tissue and removal of fourth and fifth metatarsal heads yesterday by Dr. Slade. Awaiting path and culture. Wound vac placed yesterday. CM making arrangements for outpatient wound vac. Continue vancomycin and IV Levaquin for antimicrobial coverage. DC IVF's which were started in surgery. Pain is controlled. Will consult PT/OT to help functional status. 07/[address] Surgical culture positive for group B strep. Nocturnal hypoglycemia-decrease Levemir dose while hospitalized, continue current NovoLog and metformin dosages. Patient describes urinary frequency without dysuria, probable BPH-post void residual obese checked by bladder scan. If unremarkable we will initiate Flomax on trial basis. Adequate pain control. 07/28 Continue vancomycin and IV Levaquin for antimicrobial coverage. Status post surgical debridement of necrotic tissue and removal of fourth and fifth metatarsal heads 07/[address] Slade. Wound vac. Awaiting path. Surgical culture positive for group B strep/Staph aureus. Will continue current abx until cx are final given hx of past culture results. Needs to reassess CXR given malposition of PICC on prior films. Recurrent hypoglycemia- both long and short-acting insulin adjusted yesterday. Suspect lowering due to infection more controlled. Patient describes urinary frequency without dysuria, probable BPH. Order additional bladder scan, straight cath. We may need to place delgado. Flomax started yesterday. D/W pt that it will take a few days for effect. HF- pt has been consistently tachycardic. BP is has been adequate. Will up Coreg dosing to help control HR. Continue Entresto, Brilinta. Cardiology following. May need to add diuretics, but hesitant to do so until he is voiding better. Adequate pain control. Continue frequent labs for monitoring. 07/29 Currently on vancomycin and IV Levaquin for antimicrobial coverage. Wound vac change today. Path shows osteomyelitis. Surgical culture positive for group B strep/Staph aureus. Dr Real (or ID) to determine ongoing antibiotic tx plan. Coreg was increased yesterday d/t tachycardia. Pulse still lower 100's. Cardiology following. White count (12.1) and creatinine (1.7) both up today 07/30 Currently on vancomycin for antimicrobial coverage. Add clinda for increased strep coverage. Surgical culture positive for group B strep/Staph aureus. White count increased today 12.1-->17.1. Repeat CBC tomorrow. Creatinine 1.3-->1.7-->1.9. Repeat BMP in am. IVF's added to improve renal function. Add colchicine for R ankle pain possibly r/t gout. Discussed w/ Dr. Slade. If pain isn't improved over the next 1-2 days, ortho will do joint aspiration to r/ o septic joint vs gout vs other. (Dr Slade will be out of town, but ZENY Cramer can do aspiration.) Uric acid is WNL. Will hold off on DC to SNU at this time give the increase in his WBC and creatinine and new c/o ankle pain.
[2017-07-30] MEDS: NYSTATIN OINTMENT 15gm TP SCH ×2 (18:15→20:46)
[2017-07-30] MEDS: TAMSULOSIN 0.4 MG CAPSULE PO SCH (20:46)
[2017-07-30] MEDS: INSULIN ASPART 100unit/ml INJECTION SQ PRN (20:53)
[2017-07-30] MEDS: LATANOPROST 0.005% EYE DROPS 2.5ml RIGHT EYE SCH (20:56)
[2017-07-30] MEDS: NS 1,000 ML IV SCH (21:11)
[2017-07-31] MEDS: NS IV SCH ×2 (05:29→06:30)
[2017-07-31] MEDS: VANCOMYCIN IV SCH ×2 (05:29→06:30)
[2017-07-31] MEDS: NS 1,000 ML IV SCH ×4 (06:02→20:29)
--- NOTE | 2017-07-31 07:55 | Pharmacy Consult-Antibiotics ---
Pharmacy Consult-Vancomycin - Laboratory Information WBC 13.1 T/MM3 (4.5-11.0) H 07/31/17 05:27 BUN 37.0 MG/DL (9-20) H 07/31/17 05:27 Creatinine 2.1 mg/dL (0.8-1.5) H 07/31/17 05:27 Procalcitonin < 0.05 NG/ML 07/24/17 12:48 Vancomycin Trough 25.81 ug/mL (15-20) H* 07/31/17 05:27 - Consult Information VANCOMYCIN CONSULT: Vancomycin Trough = 25.81 mcg/ml. Today's SCr = 2.1 mg/dl. Patient's SrCr increased from 1.9 yesterday to 2.1 today. Dose of Vanco had already been decreased from 1500 mg IV q12hrs (3 gm/day) to 2000 mg IV q24hrs. Patient's half life clearance now calculated to be 22 hrs. New lower dose will be started 15 hours after the last held dose allowing time for the trough to drop. Will give Vancomycin 1250 mg IV q24hrs. Will continue to monitor and make adjustments accordingly. Thank you. Maddie Graff, PharmD
[2017-07-31] MEDS ORDERED: INSULIN ASPART 100unit/ml INJECTION SQ ONE ×3 (09:22→18:23)
[2017-07-31] MEDS: CARVEDILOL 12.5 MG TABLET PO SCH ×2 (09:23→18:30)
[2017-07-31] MEDS: CITALOPRAM 20 MG TABLET PO SCH (09:23)
[2017-07-31] MEDS: MAGNESIUM OXIDE 400 MG TABLET PO SCH (09:23)
[2017-07-31] MEDS: COLCHICINE 0.6 MG TABLET PO SCH (09:23)
[2017-07-31] MEDS: LACTOBACILLUS (15B cfu) CAPSULE PO SCH (09:23)
[2017-07-31] MEDS: CLINDAMYCIN 300 MG CAPSULE PO SCH ×4 (09:23→20:28)
[2017-07-31] MEDS: ASCORBIC ACID 500 MG TABLET PO SCH (09:24)
[2017-07-31] MEDS: ASPIRIN 81 MG CHEWABLE TABLET PO SCH (09:24)
[2017-07-31] MEDS: TICAGRELOR 90 MG TABLET PO SCH ×2 (09:24→20:29)
[2017-07-31] MEDS: INSULIN DETEMIR 100unit/ml INJECTION SQ SCH ×2 (09:29→20:28)
[2017-07-31] MEDS: INSULIN ASPART 100unit/ml INJECTION SQ SCH ×3 (09:29→18:33)
[2017-07-31] MEDS: MULTI-VITAMIN + MINERAL TABLET PO SCH (09:34)
[2017-07-31] MEDS: ENOXAPARIN 30 MG/0.3 ML INJECTION SQ SCH (09:35)
[2017-07-31] MEDS: NYSTATIN OINTMENT 15gm TP SCH ×3 (09:35→20:28)
--- NOTE | 2017-07-31 10:20 | Progress Note ---
- Date 07/31/17 Subjective: Patient seen resting in bed this morning. States the pain in the R ankle is better. Currently doesn't have pain in either ankle/foot. He hasn't been out of bed yet this am to see if it will hurt with wt bearing. States yesterday he wasn't able to bear much wt due to pain. Objective Vital signs: Temperature 97.8 F 07/31/17 08:39 Pulse Rate 101 H 07/31/17 08:39 Respiratory Rate 16 07/31/17 08:39 Blood Pressure 133/69 07/31/17 08:39 Pulse Oximetry 95 07/31/17 08:39 Rhythm: Normal Sinus Rhythm, Sinus Tachycardia Height/Weight/BMI: Height 1.73 m Weight 107.9 kg Body Mass Index 35.1 - Constitutional Present: no acute distress, well nourished, well developed - Routine HEENT Exam Head: Present: normocephalic, atraumatic - Routine Respiratory Exam Present: CTA bilaterally. Absent: wheezes - Routine Cardiovascular Exam Present: RRR, no murmur - Routine Abdominal Exam Present: soft, non distended, non tender - Routine Extremities Exam Present: edema, no edema (R foot or ankle. No redness. Mild tenderness with palpation over the ankle laterally and medially. No warmth.), normal capillary refill Comments: L foot. wound vac intact. - Routine Skin Exam Present: dry, warm - Routine Neurological Exam Present: alert, oriented X3 - Routine Lymphatic Exam Lymphatic: Absent: adenopathy - Routine Psychiatric Exam Present: normal affect, cooperative Results - Labs CBC & Chem 7: 07/31/17 05:27 07/31/17 05:27 Microbiology Results: Microbiology 07/25/17 15:57 Foot, Left Gram Stain - Final 07/25/17 15:57 Foot, Left Surgical Culture - Final Strep agalactiae - (Group B) Staphylococcus aureus, MRSA Coag negative Staphylococcus 07/24/17 12:48 Peripheral/Iv Start Blood Culture - Final No Growth After 5 Days 07/24/17 12:55 Peripheral/Iv Start Blood Culture - Final No Growth After 5 Days Assessment and Plan (1) Surgical wound dehiscence Current visit: Yes Status: Acute Assessment and Plan: Impression Left surgical wound dehiscence -- 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 Osteomyelitis - L foot Cardiomyopathy - improved, no longer requiring LifeVest (HFrEF, 20%) Type II diabetes - Insulin requiring, A1C 7.3 Possible gout flare - 07/30/17 Coronary artery disease Peripheral vascular disease Hypertension Chronic Kidney Disease Stage II Acute kidney injury-07/30/17-RLL Depression Hearing deficit Obesity with BMI 35.1 Probable BPH -07/27/17 Plan Currently on vancomycin for antimicrobial coverage. Dosing adjusted by pharm based on renal fx. Day # 2 of Clindamycin. White count improved today 17.1-->13.1. Creatinine continues to climb 1.9-->2.1. IVF's added yesterday. Hgb dropped a point from yesterday - likely dilutional. Colchicine added yesterday for gout w/ improvement in pain. AC insulin halved this am d/t low BS this am. Long acting insulin continued as ordered. Patient still hoping to go to Swing Bed at [facility] upon dismissal if this is an option. DVT Prophylaxis: Lovenox Resuscitation Status: Do Not Resuscitate - Physician Narrative Physician: Renee Real MD Narrative: Date: 07/31/17 Time: 1500 I have independently evaluated and examined this patient. I reviewed the chart, the patient's history, and the MULE DRIVER/PA's documented findings as above. We discussed and formulated the assessment and plan as above with additions as below: Able to bear weight on his right ankle, pain significantly improved. No other concerns today and remains afebrile. Minimal erythema medial right malleolus, tender to palpation but no soft tissue swelling. Respirations nonlabored; low-grade tachycardia on examination Creatinine has climbed slightly, vancomycin high again-dose adjusted/held this morning. With climbing creatinine colchicine contraindicated in conjunction with carvedilol use. If ankle pain flares would recommend tapping joint before further therapy initiated. Clinically joint not suspicious for gout. Blood sugars less than 100 all day-decrease Levemir slightly. Hospital Course Summary Disclaimer: The visit summary below is not to be considered part of the above Progress Note. Hospital Course: 07/24/17 Admission Admit patient to inpatient status under the care of Dr. Hernandez. Consult with Dr. Slade for further wound management. Planning for debridement and possible placement of wound VAC tomorrow. Start Vancomycin per protocol for wound coverage. Continue levofloxacin, changing to 750mg IV daily. PICC line study reveals that line placement is within the Azygos vein. Spoke with PICC line team. We will replace PICC line for better placement. Obtain CBC, CMP, blood culture, venous lactate, magnesium, urinalysis analysis, uric acid & CRP on admit. Monitor Accu-Cheks Given patient's history of diabetes. Will continue on home regimen of Levemir 40 units twice a day and NovoLog 20 units with meals. Patient to be nothing by mouth after midnight for scheduled procedure. Consult with Dr. Stubbs for further cardiac evaluation and recommendations. We are awaiting the echocardiogram report that was done outpatient last week as this will direct ongoing guidance regarding LifeVest. SCDs to bilateral lower extremity for DVT prophylaxis. We did discuss advanced directives and at this time. Patient does wish to be a do not resuscitate. Will discuss further orders and plan of care with attending, Dr. Hernandez. At time of discharge medical care will return to primary care provider, Dr Luis E Martinez in [place], [place]. 07/25 Planning for surgical debridement of Left foot wound today by Dr Slade Patient did receive Entresto today given recent vascular stenting of the left leg on 07/16 On vancomycin and IV Levaquin for antimicrobial coverage Will continue to monitor Accu-Cheks Will continue on home regimen of Levemir 40 units twice a day and NovoLog 20 units with meals. Spoke with [facility] radiology dept. They received report last night and will fax it today to [facility] as requested. Patient currently wearing left vest. SCDs to bilateral lower extremity for DVT prophylaxis. 07/26/17 Status post surgical debridement of necrotic tissue and removal of fourth and fifth metatarsal heads yesterday by Dr. Slade. Awaiting path and culture. Wound vac placed yesterday. CM making arrangements for outpatient wound vac. Continue vancomycin and IV Levaquin for antimicrobial coverage. DC IVF's which were started in surgery. Pain is controlled. Will consult PT/OT to help functional status. 07/[address]. Surgical culture positive for group B strep. Nocturnal hypoglycemia-decrease Levemir dose while hospitalized, continue current NovoLog and metformin dosages. Patient describes urinary frequency without dysuria, probable BPH-post void residual obese checked by bladder scan. If unremarkable we will initiate Flomax on trial basis. Adequate pain control. 07/28 Continue vancomycin and IV Levaquin for antimicrobial coverage. Status post surgical debridement of necrotic tissue and removal of fourth and fifth metatarsal heads 07/[address] Slade. Wound vac. Awaiting path. Surgical culture positive for group B strep/Staph aureus. Will continue current abx until cx are final given hx of past culture results. Needs to reassess CXR given malposition of PICC on prior films. Recurrent hypoglycemia- both long and short-acting insulin adjusted yesterday. Suspect lowering due to infection more controlled. Patient describes urinary frequency without dysuria, probable BPH. Order additional bladder scan, straight cath. We may need to place delgado. Flomax started yesterday. D/W pt that it will take a few days for effect. HF- pt has been consistently tachycardic. BP is has been adequate. Will up Coreg dosing to help control HR. Continue Entresto, Brilinta. Cardiology following. May need to add diuretics, but hesitant to do so until he is voiding better. Adequate pain control. Continue frequent labs for monitoring. 07/29 Currently on vancomycin and IV Levaquin for antimicrobial coverage. Wound vac change today. Path shows osteomyelitis. Surgical culture positive for group B strep/Staph aureus. Coreg was increased yesterday d/t tachycardia. Pulse still lower 100's. Cardiology following. White count (12.1) and creatinine (1.7) both up today 07/30 Currently on vancomycin for antimicrobial coverage. Add clinda for increased strep coverage. Sensitivities requested on strep. White count increased today 12.1-->17.1. Creatinine 1.3-->1.7-->1.9. IVF's added to improve renal function. Add colchicine for R ankle pain possibly r/t gout. Discussed w/ Dr. Slade. If pain isn't improved over the next 1-2 days, ortho will do joint aspiration to r/ o septic joint vs gout vs other. (Dr Slade will be out of town, but ZENY Cramer can do aspiration.) Uric acid is WNL. Will hold off on DC to SNU at this time give the increase in his WBC and creatinine and new c/o ankle pain. 07/31 Currently on vancomycin for antimicrobial coverage. Dosing adjusted by pharm based on renal fx. Day # 2 of Clindamycin. White count improved today 17.1-->13.1. Creatinine continues to climb 1.9-->2.1. IVF's added yesterday. Hgb dropped a point from yesterday - likely dilutional. Colchicine added yesterday for gout w/ improvement in pain. AC insulin halved this am d/t low BS this am. Long acting insulin decreased due to low-normal fasting glucose. Patient still hoping to go to Swing Bed at [facility] upon dismissal if this is an option.
--- NOTE | 2017-07-31 11:34 | Orthopedic Progress Note ---
Date: Date: 07/31/17 Time: 1127 Subjective/Severity of Illness: Americo is resting in bed when I visit. States his right ankle pain has improved from yesterday after starting gout treatment by hospitalist. He has not been up ambulating today however, and was encouraged to do so. Denies any pain in left foot. Wound vac with veriflow in place. Denies any fever, chills, chest pain, soa, nausea. Exam - Constitutional Vital Signs: Temperature 97.8 F 07/31/17 08:39 Pulse Rate 101 H 07/31/17 09:00 Respiratory Rate 16 07/31/17 08:39 Blood Pressure 133/69 07/31/17 08:39 Pulse Oximetry 95 07/31/17 08:39 General: cooperative, no acute distress, well developed Nutritional Appearance: well nourished Orientation: oriented x3, alert - RLE General: edema (+1) Postoperative Appearance: extremity compartments are soft and nontender, neurovascullary intact to extremities Skin: no rashes or lesions noted Neurological: no deficits Vascular: dorsalis pedis pulse within normal limits - LLE General: edema (+1) Postoperative Appearance: extremity compartments are soft and nontender, neurovascullary intact to extremities Neurological: no deficits Vascular: dorsalis pedis pulse within normal limits - Respiratory Respiratory Exam: non-labored - Cardiac Cardiovascular exam: pedal pulses intact - Wound Left Foot Type of Wound/Ulcer: Amputation Wound Dressing: Negative Pressure Dressing - Labs Result Diagrams: 07/31/17 05:27 07/31/17 05:27 Abnormal lab results 07/30/17 07/31/17 07/31/17 Range/Units 19:34 05:27 05:27 WBC 13.1 H (4.5-11.0) T/MM3 RBC 2.82 L (4.50-5.90) M/MM3 Hgb 9.2 L (13.5-17.5) GM/DL Hct 28.2 L (41-53) % Neut % (Auto) 84.3 H (33-66) % Lymph % (Auto) 7.6 L (23-45) % Neut # (Auto) 11.1 H (1.8-7.7) T/MM3 Abs Immat Gran (auto) 0.04 H (0.00-0.03) T/MM3 Chloride 108 H (98-107) MEQ/L BUN 38.0 H 37.0 H (9-20) MG/DL Creatinine 2.0 H 2.1 H (0.8-1.5) mg/dL Glucose 204 H 57 L (75-110) MG/DL Calculated Osmolality 283 H (261-280) MOSM/KG Albumin 3.0 L (3.5-5.0) g/dL Vancomycin Trough (15-20) ug/mL 07/31/17 Range/Units 05:27 WBC (4.5-11.0) T/MM3 RBC (4.50-5.90) M/MM3 Hgb (13.5-17.5) GM/DL Hct (41-53) % Neut % (Auto) (33-66) % Lymph % (Auto) (23-45) % Neut # (Auto) (1.8-7.7) T/MM3 Abs Immat Gran (auto) (0.00-0.03) T/MM3 Chloride (98-107) MEQ/L BUN (9-20) MG/DL Creatinine (0.8-1.5) mg/dL Glucose (75-110) MG/DL Calculated Osmolality (261-280) MOSM/KG Albumin (3.5-5.0) g/dL Vancomycin Trough 25.81 H* (15-20) ug/mL H & H 07/24/17 07/25/17 07/26/17 Range/Units 12:48 04:15 05:35 Hgb 11.0 L 11.0 L 11.3 L (13.5-17.5) GM/DL Hct 34.3 L 33.8 L 35.3 L (41-53) % 07/27/17 07/29/17 07/30/17 Range/Units 04:39 04:18 03:40 Hgb 10.9 L 10.2 L 10.2 L (13.5-17.5) GM/DL Hct 33.8 L 31.2 L 31.6 L (41-53) % 07/31/17 Range/Units 05:27 Hgb 9.2 L (13.5-17.5) GM/DL Hct 28.2 L (41-53) % Orthopedic Assessment and Plan (1) Surgical wound dehiscence Status: Acute Assessment and Plan: Encouraged patient to ambulate. Right ankle pain improved, and WBC improved today. Chief Creative Officer elevated. Will hold aspiration of right ankle, pain appears consistent with gout. Medically managed by hospitalist. Continue wound VAC with veraflow while here, and antibiotics per hospitalist. Case Management still working on placement for swing bed at [facility]. Hospital Course Summary Disclaimer: The visit summary below is not to be considered part of the above Progress Note. Hospital Course: 07/24/17 Admission Admit patient to inpatient status under the care of Dr. Hernandez. Consult with Dr. Slade for further wound management. Planning for debridement and possible placement of wound VAC tomorrow. Start Vancomycin per protocol for wound coverage. Continue levofloxacin, changing to 750mg IV daily. PICC line study reveals that line placement is within the Azygos vein. Spoke with PICC line team. We will replace PICC line for better placement. Obtain CBC, CMP, blood culture, venous lactate, magnesium, urinalysis analysis, uric acid & CRP on admit. Monitor Accu-Cheks Given patient's history of diabetes. Will continue on home regimen of Levemir 40 units twice a day and NovoLog 20 units with meals. Patient to be nothing by mouth after midnight for scheduled procedure. Consult with Dr. Stubbs for further cardiac evaluation and recommendations. We are awaiting the echocardiogram report that was done outpatient last week as this will direct ongoing guidance regarding LifeVest. SCDs to bilateral lower extremity for DVT prophylaxis. We did discuss advanced directives and at this time. Patient does wish to be a do not resuscitate. Will discuss further orders and plan of care with attending, Dr. Hernandez. At time of discharge medical care will return to primary care provider, Dr Luis E Martinez in [place], [place]. 07/25 Planning for surgical debridement of Left foot wound today by Dr Slade Patient did receive Entresto today given recent vascular stenting of the left leg on 07/16 On vancomycin and IV Levaquin for antimicrobial coverage Will continue to monitor Accu-Cheks Will continue on home regimen of Levemir 40 units twice a day and NovoLog 20 units with meals. Spoke with [facility] radiology dept. They received report last night and will fax it today to [facility] as requested. Patient currently wearing left vest. SCDs to bilateral lower extremity for DVT prophylaxis. 07/26/17 Status post surgical debridement of necrotic tissue and removal of fourth and fifth metatarsal heads yesterday by Dr. Slade. Awaiting path and culture. Wound vac placed yesterday. CM making arrangements for outpatient wound vac. Continue vancomycin and IV Levaquin for antimicrobial coverage. DC IVF's which were started in surgery. Pain is controlled. Will consult PT/OT to help functional status. 07/[address] Surgical culture positive for group B strep. Nocturnal hypoglycemia-decrease Levemir dose while hospitalized, continue current NovoLog and metformin dosages. Patient describes urinary frequency without dysuria, probable BPH-post void residual obese checked by bladder scan. If unremarkable we will initiate Flomax on trial basis. Adequate pain control. 07/28 Continue vancomycin and IV Levaquin for antimicrobial coverage. Status post surgical debridement of necrotic tissue and removal of fourth and fifth metatarsal heads 07/[address] Slade. Wound vac. Awaiting path. Surgical culture positive for group B strep/Staph aureus. Will continue current abx until cx are final given hx of past culture results. Needs to reassess CXR given malposition of PICC on prior films. Recurrent hypoglycemia- both long and short-acting insulin adjusted yesterday. Suspect lowering due to infection more controlled. Patient describes urinary frequency without dysuria, probable BPH. Order additional bladder scan, straight cath. We may need to place delgado. Flomax started yesterday. D/W pt that it will take a few days for effect. HF- pt has been consistently tachycardic. BP is has been adequate. Will up Coreg dosing to help control HR. Continue Entresto, Brilinta. Cardiology following. May need to add diuretics, but hesitant to do so until he is voiding better. Adequate pain control. Continue frequent labs for monitoring. 07/29 Currently on vancomycin and IV Levaquin for antimicrobial coverage. Wound vac change today. Path shows osteomyelitis. Surgical culture positive for group B strep/Staph aureus. Coreg was increased yesterday d/t tachycardia. Pulse still lower 100's. Cardiology following. White count (12.1) and creatinine (1.7) both up today 07/30 Currently on vancomycin for antimicrobial coverage. Add clinda for increased strep coverage. Sensitivities requested on strep. White count increased today 12.1-->17.1. Creatinine 1.3-->1.7-->1.9. IVF's added to improve renal function. Add colchicine for R ankle pain possibly r/t gout. Discussed w/ Dr. Slade. If pain isn't improved over the next 1-2 days, ortho will do joint aspiration to r/ o septic joint vs gout vs other. (Dr Slade will be out of town, but ZENY Cramer can do aspiration.) Uric acid is WNL. Will hold off on DC to SNU at this time give the increase in his WBC and creatinine and new c/o ankle pain. 07/31 Currently on vancomycin for antimicrobial coverage. Dosing adjusted by pharm based on renal fx. Day # 2 of Clindamycin. White count improved today 17.1-->13.1. Creatinine continues to climb 1.9-->2.1. IVF's added yesterday. Hgb dropped a point from yesterday - likely dilutional. Colchicine added yesterday for gout w/ improvement in pain. AC insulin halved this am d/t low BS this am. Long acting insulin continued as ordered. Patient still hoping to go to Swing Bed at [facility] upon dismissal if this is an option.
--- NOTE | 2017-07-31 12:13 | Cardiology Progress Note ---
<Maria Del Carmen De Guzman - Last Filed: 07/31/17 12:10> Subjective Principal diagnosis: ischemic CM, CAD Interval history: Ethan is seen in follow up for ischemic CM. He is in bed, he reports gout pain in right knee improved, ankle is still painful. He is hopeful to go back to [place] soon. He denies palpitations or chest pressure. Exam Vital signs: Temperature 97.8 F 07/31/17 08:39 Pulse Rate 101 H 07/31/17 09:00 Respiratory Rate 16 07/31/17 08:39 Blood Pressure 133/69 07/31/17 08:39 Pulse Oximetry 95 07/31/17 08:39 Inpatient Medications: Generic Name Dose Route Start Last Admin Trade Name Freq PRN Reason Stop Dose Admin Acetaminophen 650 mg 07/24/17 12:30 Tylenol PO Q5H PRN Discomfort Hydrocodone Bitart/Acetaminophen 1 - 2 tab 07/24/17 14:45 07/30/17 11:17 Bombay 5/325 PO 1 tab Q6H PRN Administration Pain Ascorbic Acid 1,000 mg 07/25/17 09:00 07/31/17 09:24 Vitamin C PO 1,000 mg DAILY [facility] Administration Aspirin 81 mg 07/25/17 09:00 07/31/17 09:24 Asa PO 81 mg DAILY [facility] Administration Bisacodyl 10 mg 07/24/17 12:30 Dulcolax RECTALLY DAILY PRN Constipation Carvedilol 12.5 mg 07/28/17 17:30 07/31/17 09:23 Coreg PO 12.5 mg BIDWM [facility] Administration Citalopram Hydrobromide 20 mg 07/25/17 09:00 07/31/17 09:23 Celexa PO 20 mg DAILY [facility] Administration Clindamycin HCl 300 mg 07/30/17 13:00 07/31/17 09:23 Cleocin PO 300 mg QID [facility] Administration Colchicine 0.6 mg 07/30/17 11:15 07/31/17 09:23 Colcrys PO 0.6 mg BID [facility] Administration Enoxaparin Sodium 30 mg 07/31/17 09:00 07/31/17 09:35 Lovenox SQ 30 mg DAILY [facility] Administration Sodium Chloride 1,000 mls @ 100 mls/hr 07/30/17 20:45 07/31/17 08:50 Normal Saline IV 100 mls/hr .Q10H [facility] Administration Vancomycin HCl 1,250 mg/ 250 mls @ 250 mls/hr 07/31/17 21:00 Sodium Chloride IV Q24H [facility] Insulin Aspart 16 unit 07/27/17 17:30 07/31/17 09:29 Novolog SQ Not Given TIDWM [facility] Insulin Aspart 1 - 5 unit 07/30/17 15:08 07/30/17 20:53 Novolog SQ 2 unit SS PRN Administration Hyperglycemia Protocol Insulin Detemir 36 unit 07/27/17 21:00 07/31/17 09:29 Levemir SQ 36 unit BID [facility] Administration Lactobacillus Acidophilus 1 cap 07/25/17 09:00 07/31/17 09:23 Culturelle PO 1 cap DAILY [facility] Administration Latanoprost 1 drops 07/24/17 21:00 07/30/17 20:56 Xalatan RIGHT EYE 1 drops HS [facility] Administration Magnesium Hydroxide 30 ml 07/24/17 12:30 Mom PO DAILY PRN Constipation Magnesium Oxide 400 mg 07/25/17 09:00 07/31/17 09:23 Magox PO 400 mg DAILY [facility] Administration Multivitamins/Minerals 1 tab 07/25/17 09:00 07/31/17 09:34 Therapeutic - M PO 1 tab DAILY [facility] Administration Nitroglycerin 0.4 mg 07/24/17 14:45 Nitrostat SL Q5MIN3 PRN Angina Nystatin 1 applic 07/30/17 15:00 07/31/17 09:35 Mycostatin TP 1 applic TID [facility] Administration Ondansetron HCl 4 mg 07/24/17 12:29 07/26/17 08:19 Zofran IVP 4 mg Q6H PRN Administration Nausea Sodium Chloride 500 ml 07/24/17 16:30 07/30/17 06:24 Normal Saline IV 500 ml PRN PRN Administration Sodium Chloride 10 ml 07/30/17 13:31 07/30/17 12:39 Iv Flush IV 10 ml PRN PRN Administration Flushing Tamsulosin HCl 0.4 mg 07/27/17 21:00 07/30/17 20:46 Flomax PO 0.4 mg HS [facility] Administration Ticagrelor 90 mg 07/25/17 09:00 07/31/17 09:24 Brilinta PO 90 mg BID [facility] Administration Discontinued Medications Generic Name Dose Route Start Last Admin Trade Name Madeleine PRN Reason Stop Dose Admin Alteplase, Recombinant 2 mg 07/29/17 13:05 07/29/17 13:26 Cathflo Activase IV 07/29/17 13:06 2 mg O ONE Administration Carvedilol 6.25 mg 07/24/17 17:30 07/28/17 09:16 Coreg PO 6.25 mg BIDWM [facility] Administration Carvedilol 6.25 mg 07/28/17 11:11 07/28/17 12:46 Coreg PO 07/28/17 11:12 6.25 mg NOW ONE Administration Carvedilol 12.5 mg 07/28/17 11:11 Coreg PO BIDWM [facility] Enoxaparin Sodium 40 mg 07/26/17 12:30 07/30/17 08:52 Lovenox SQ 40 mg DAILY [facility] Administration Levofloxacin/Dextrose 750 mg in 150 mls @ 100 mls/hr 07/24/17 14:45 07/28/17 17:36 Levaquin Premix IV Infused Q24H [facility] Infusion Vancomycin HCl 2,000 mg/ 500 mls @ 250 mls/hr 07/24/17 18:00 07/24/17 21:00 Sodium Chloride IV 07/24/17 19:59 Infused O ONE Infusion Vancomycin HCl 1,500 mg/ 500 mls @ 250 mls/hr 07/25/17 06:00 07/29/17 10:27 Sodium Chloride IV Infused Q12H [facility] Infusion Lactated Ringer's 1,000 mls @ 50 mls/hr 07/25/17 14:15 07/26/17 11:05 Lactated Ringers IV Infused .Q20H [facility] Infusion Vancomycin HCl 2,000 mg/ 500 mls @ 250 mls/hr 07/30/17 06:00 07/31/17 06:30 Sodium Chloride IV Not Given Q24H [facility] Levofloxacin/Dextrose 750 mg in 150 mls @ 100 mls/hr 07/30/17 14:00 Levaquin Premix IV Q48H [facility] Sodium Chloride 1,000 mls @ 150 mls/hr 07/30/17 11:30 07/30/17 20:45 Normal Saline IV 07/30/17 18:09 Infused .Q6H40M [facility] Infusion Insulin Aspart 20 unit 07/24/17 17:30 03/17/18 12:33 Novolog SQ 20 unit TIDWM [facility] Administration Insulin Aspart 8 unit 07/31/17 09:22 07/31/17 09:29 Novolog SQ 07/31/17 09:23 8 unit O ONE Administration Insulin Detemir 40 unit 07/24/17 21:00 07/27/17 09:15 Levemir SQ 40 unit BID [facility] Administration Insulin Detemir 10 unit 07/27/17 21:00 Levemir SQ 07/27/17 21:01 HS ONE Insulin Detemir 10 unit 07/26/17 21:00 07/26/17 22:07 Levemir SQ 07/26/17 21:01 10 unit HS ONE Administration Insulin Detemir 20 unit 07/28/17 20:21 07/28/17 20:54 Levemir SQ 07/28/17 20:22 20 unit ONE TIME ONE Administration Metformin HCl 500 mg 07/25/17 08:00 07/29/17 08:18 Glucophage PO 500 mg WB ARELIS Administration Miscellaneous Medication 6 ml 07/25/17 16:00 07/25/17 16:00 Bupiv 0.25% 30ml/Lido 1% 30ml Mix ID 07/25/17 16:01 6 ml O ONE Administration Morphine Sulfate 0 mg 07/25/17 16:19 07/25/17 16:22 Morphine Sulfate Vial IVP 5 mg Q10M PRN Administration Sacubitril/Valsartan 1 tab 07/24/17 21:00 07/29/17 20:56 Entresto 49/51mg PO 1 tab BID ARELIS Administration Vancomycin HCl 1 each 07/24/17 14:44 07/24/17 16:15 Pharmacy Consult - Vancomycin 07/24/17 14:45 Not Given O ONE - Constitutional no acute distress, well nourished, cooperative - Routine HEENT Exam Head: Present: normocephalic ENT: Present: mucous membranes moist - Routine Neck Exam Absent: JVD, carotid bruit - Routine Chest/Breast/Axilla Exam Chest wall: Absent: tenderness - Routine Respiratory Exam Present: CTA bilaterally. Absent: rales, wheezes - Routine Cardiovascular Exam Present: RRR, no murmur, tachycardia - Routine Abdominal Exam Present: soft, normoactive bowel sounds - Routine Extremities Exam Present: edema, pulses intact - Routine Skin Exam Present: intact, dry, warm, wounds (left foot) - Routine Neurological Exam Present: alert, oriented X3 - Routine Psychiatric Exam Present: normal affect, normal thought process Results 07/31/17 05:27 07/31/17 05:27 CBC 07/31/17 Range/Units 05:27 WBC 13.1 H (4.5-11.0) T/MM3 RBC 2.82 L (4.50-5.90) M/MM3 Hgb 9.2 L (13.5-17.5) GM/DL Hct 28.2 L (41-53) % Plt Count 193 (130-400) T/MM3 Neut # (Auto) 11.1 H (1.8-7.7) T/MM3 Lymph # (Auto) 1.0 (1-4.8) T/MM3 [place] # (Auto) 0.7 (0-0.8) T/MM3 Eos # (Auto) 0.3 (0-0.5) T/MM3 Baso # (Auto) 0.0 (0-0.2) T/MM3 Comprehensive Metabolic Panel 07/30/17 07/31/17 Range/Units 19:34 05:27 Sodium 139 141 (134-144) MEQ/L Potassium 4.4 4.2 (3.6-5) MEQ/L Chloride 106 108 H (98-107) MEQ/L Carbon Dioxide 22 23 (22-30) MEQ/L BUN 38.0 H 37.0 H (9-20) MG/DL Creatinine 2.0 H 2.1 H (0.8-1.5) mg/dL Glucose 204 H 57 L (75-110) MG/DL Calcium 8.5 8.5 (8.4-10.2) MG/DL Albumin 3.0 L (3.5-5.0) g/dL Intake and Output 07/30/17 07/31/17 07/31/17 22:59 06:59 14:59 Intake Total 1100 / 1100 1750 / 1750 170 / 170 Output Total 200 / 200 600 / 600 Balance 900 / 900 1150 / 1150 170 / 170 Intake: IV 1000 / 1000 830 / 830 170 / 170 Ns 1,000 ml @ 100 mls/hr IV . 1000 / 1000 830 / 830 170 / 170 Q10H [facility] Rx#:[id number] Oral 100 / 100 920 / 920 Output: Urine 200 / 200 600 / 600 Other: Urine Appearance Clear Clear Urine Color Dark Yellow Yellow Stool Color Brown Brown Stool Consistency Soft Soft Size of Bowel Movement Small Large # Voids 2 # Incontinent Voids 1 # Bowel Movements 1 Weight 237 lb 14.06 oz Patient Weight 08/01/17 06:59 Weight 237 lb 14.06 oz Assessment and Plan - Assessment and Plan (1) Surgical wound dehiscence Current visit: Yes Status: Acute (2) Atherosclerosis of [place] artery of both lower extremities Current visit: Yes Status: Acute (3) CAD (coronary artery disease) Current visit: No Status: Chronic (4) Ischemic cardiomyopathy Current visit: No Status: Chronic (5) Obstructive sleep apnea Current visit: No Status: Chronic (6) Diabetes Current visit: No Status: Chronic (7) Mixed hyperlipidemia Current visit: Yes Status: Acute - Assessment and Plan 07/24/17 Surgical wound dehiscence Atherosclerosis of [place] artery of both lower extremities CAD (coronary artery disease) Ischemic cardiomyopathy Obstructive sleep apnea Diabetes Mixed hyperlipidemia Assessment and Plan Wound debridement carries low cardiac risk. Okay to proceed with plan per ortho. - Patient has been stable from cardiac standpoint. PAD recently improved due to LE stents placed 07/16/17. Continue Aspirin and Brilinta. - Echo report from Doreen lemus pending - Continue LifeVest for unknown EF. - Continue Entresto, Coreg Thank you for allowing us to participate in the care of this patient. 07/25/17 Echo report shows EF 61%, Life Vest removed - NPO for surgical debridement today - Patient assessed independent of Dr. Stubbs, findings discussed with him and together we agreed upon plan of care 07/26/17 EKG: SR with 1st degree AV block 07/29/17 Stable from cardiac standpoint 07/30/17 SCr/ BUN up, Stop Entresto, hold Metformin 07/31/17 BUN 37/ SCr 2.1 today - Wait and monitor HR and lab Hospital Course Summary Disclaimer: The visit summary below is not to be considered part of the above Progress Note. Hospital Course: 07/24/17 Admission Admit patient to inpatient status under the care of Dr. Hernandez. Consult with Dr. Slade for further wound management. Planning for debridement and possible placement of wound VAC tomorrow. Start Vancomycin per protocol for wound coverage. Continue levofloxacin, changing to 750mg IV daily. PICC line study reveals that line placement is within the Azygos vein. Spoke with PICC line team. We will replace PICC line for better placement. Obtain CBC, CMP, blood culture, venous lactate, magnesium, urinalysis analysis, uric acid & CRP on admit. Monitor Accu-Cheks Given patient's history of diabetes. Will continue on home regimen of Levemir 40 units twice a day and NovoLog 20 units with meals. Patient to be nothing by mouth after midnight for scheduled procedure. Consult with Dr. Stubbs for further cardiac evaluation and recommendations. We are awaiting the echocardiogram report that was done outpatient last week as this will direct ongoing guidance regarding LifeVest. SCDs to bilateral lower extremity for DVT prophylaxis. We did discuss advanced directives and at this time. Patient does wish to be a do not resuscitate. Will discuss further orders and plan of care with attending, Dr. Hernandez. At time of discharge medical care will return to primary care provider, Dr Luis E Martinez in [place], [place]. 07/25 Planning for surgical debridement of Left foot wound today by Dr Slade Patient did receive Entresto today given recent vascular stenting of the left leg on 07/16 On vancomycin and IV Levaquin for antimicrobial coverage Will continue to monitor Accu-Cheks Will continue on home regimen of Levemir 40 units twice a day and NovoLog 20 units with meals. Spoke with [facility] radiology dept. They received report last night and will fax it today to [facility] as requested. Patient currently wearing left vest. SCDs to bilateral lower extremity for DVT prophylaxis. 07/26/17 Status post surgical debridement of necrotic tissue and removal of fourth and fifth metatarsal heads yesterday by Dr. Slade. Awaiting path and culture. Wound vac placed yesterday. CM making arrangements for outpatient wound vac. Continue vancomycin and IV Levaquin for antimicrobial coverage. DC IVF's which were started in surgery. Pain is controlled. Will consult PT/OT to help functional status. 07/[address] Surgical culture positive for group B strep. Nocturnal hypoglycemia-decrease Levemir dose while hospitalized, continue current NovoLog and metformin dosages. Patient describes urinary frequency without dysuria, probable BPH-post void residual obese checked by bladder scan. If unremarkable we will initiate Flomax on trial basis. Adequate pain control. 07/28 Continue vancomycin and IV Levaquin for antimicrobial coverage. Status post surgical debridement of necrotic tissue and removal of fourth and fifth metatarsal heads 07/[address] Slade. Wound vac. Awaiting path. Surgical culture positive for group B strep/Staph aureus. Will continue current abx until cx are final given hx of past culture results. Needs to reassess CXR given malposition of PICC on prior films. Recurrent hypoglycemia- both long and short-acting insulin adjusted yesterday. Suspect lowering due to infection more controlled. Patient describes urinary frequency without dysuria, probable BPH. Order additional bladder scan, straight cath. We may need to place delgado. Flomax started yesterday. D/W pt that it will take a few days for effect. HF- pt has been consistently tachycardic. BP is has been adequate. Will up Coreg dosing to help control HR. Continue Entresto, Brilinta. Cardiology following. May need to add diuretics, but hesitant to do so until he is voiding better. Adequate pain control. Continue frequent labs for monitoring. 07/29 Currently on vancomycin and IV Levaquin for antimicrobial coverage. Wound vac change today. Path shows osteomyelitis. Surgical culture positive for group B strep/Staph aureus. Coreg was increased yesterday d/t tachycardia. Pulse still lower 100's. Cardiology following. White count (12.1) and creatinine (1.7) both up today 07/30 Currently on vancomycin for antimicrobial coverage. Add clinda for increased strep coverage. Sensitivities requested on strep. White count increased today 12.1-->17.1. Creatinine 1.3-->1.7-->1.9. IVF's added to improve renal function. Add colchicine for R ankle pain possibly r/t gout. Discussed w/ Dr. Slade. If pain isn't improved over the next 1-2 days, ortho will do joint aspiration to r/ o septic joint vs gout vs other. (Dr Slade will be out of town, but ZENY Cramer can do aspiration.) Uric acid is WNL. Will hold off on DC to SNU at this time give the increase in his WBC and creatinine and new c/o ankle pain. 07/31 Currently on vancomycin for antimicrobial coverage. Dosing adjusted by pharm based on renal fx. Day # 2 of Clindamycin. White count improved today 17.1-->13.1. Creatinine continues to climb 1.9-->2.1. IVF's added yesterday. Hgb dropped a point from yesterday - likely dilutional. Colchicine added yesterday for gout w/ improvement in pain. AC insulin halved this am d/t low BS this am. Long acting insulin continued as ordered. Patient still hoping to go to [facility] at [facility] upon dismissal if this is an option. <Caden Stubbs - Last Filed: 08/02/17 14:20> Exam Vital signs: Temperature 97.6 F 08/02/17 12:00 Pulse Rate 96 08/02/17 12:00 Respiratory Rate 16 08/02/17 12:00 Blood Pressure 118/65 08/02/17 12:00 Pulse Oximetry 96 08/02/17 12:00 Inpatient Medications: Generic Name Dose Route Start Last Admin Trade Name Freq PRN Reason Stop Dose Admin Acetaminophen 650 mg 07/24/17 12:30 Tylenol PO Q5H PRN Discomfort Hydrocodone Bitart/Acetaminophen 1 - 2 tab 07/24/17 14:45 07/30/17 11:17 Bombay 5/325 PO 1 tab Q6H PRN Administration Pain Ascorbic Acid 1,000 mg 07/25/17 09:00 08/02/17 08:45 Vitamin C PO 1,000 mg DAILY [facility] Administration Aspirin 81 mg 07/25/17 09:00 08/02/17 08:45 Asa PO 81 mg DAILY [facility] Administration Bisacodyl 10 mg 07/24/17 12:30 Dulcolax RECTALLY DAILY PRN Constipation Carvedilol 12.5 mg 07/28/17 17:30 08/02/17 08:45 Coreg PO 12.5 mg BIDWM ARE[facility] Administration Citalopram Hydrobromide 20 mg 07/25/17 09:00 08/02/17 08:45 Celexa PO 20 mg DAILY [facility] Administration Clindamycin HCl 300 mg 07/30/17 13:00 08/02/17 12:21 Cleocin PO 300 mg QID [facility] Administration Enoxaparin Sodium 30 mg 07/31/17 09:00 08/02/17 08:44 Lovenox SQ 30 mg DAILY [facility] Administration Glucose 37.5 gm 08/01/17 16:20 08/01/17 16:35 Glutose 15 PO 37.5 gm PRN PRN Administration Hypoglycemia Sodium Chloride 1,000 mls @ 100 mls/hr 07/30/17 20:45 08/02/17 14:06 Normal Saline IV 100 mls/hr .Q10H [facility] Administration Vancomycin HCl 1,250 mg/ 250 mls @ 250 mls/hr 07/31/17 21:00 08/01/17 21:15 Sodium Chloride IV Infused Q24H [facility] Infusion Insulin Aspart 1 - 5 unit 07/30/17 15:08 07/30/17 20:53 Novolog SQ 2 unit SS PRN Administration Hyperglycemia Protocol Insulin Aspart 10 unit 08/01/17 17:30 08/02/17 12:19 Novolog SQ 10 unit TIDWM [facility] Administration Insulin Detemir 20 unit 08/01/17 21:00 08/02/17 08:44 Levemir SQ 20 unit BID ARE[facility] Administration Lactobacillus Acidophilus 1 cap 07/25/17 09:00 08/02/17 08:45 Culturelle PO 1 cap DAILY [facility] Administration Latanoprost 1 drops 07/24/17 21:00 08/01/17 20:15 Xalatan RIGHT EYE 1 drops HS [facility] Administration Magnesium Hydroxide 30 ml 07/24/17 12:30 Mom PO DAILY PRN Constipation Magnesium Oxide 400 mg 07/25/17 09:00 08/02/17 08:45 Magox PO 400 mg DAILY [facility] Administration Multivitamins/Minerals 1 tab 07/25/17 09:00 08/02/17 08:45 Therapeutic - M PO 1 tab DAILY [facility] Administration Nitroglycerin 0.4 mg 07/24/17 14:45 Nitrostat SL Q5MIN3 PRN Angina Nystatin 1 applic 07/30/17 15:00 08/02/17 08:44 Mycostatin TP 1 applic TID ARE[facility] Administration Ondansetron HCl 4 mg 07/24/17 12:29 07/26/17 08:19 Zofran IVP 4 mg Q6H PRN Administration Nausea Sodium Chloride 500 ml 07/24/17 16:30 07/30/17 06:24 Normal Saline IV 500 ml PRN PRN Administration Sodium Chloride 10 ml 07/30/17 13:31 07/30/17 12:39 Iv Flush IV 10 ml PRN PRN Administration Flushing Tamsulosin HCl 0.4 mg 07/27/17 21:00 08/01/17 20:15 Flomax PO 0.4 mg HS ARE[facility] Administration Ticagrelor 90 mg 07/25/17 09:00 08/02/17 08:45 Brilinta PO 90 mg BID ARE[facility] Administration Discontinued Medications Generic Name Dose Route Start Last Admin Trade Name Ansonq PRN Reason Stop Dose Admin Alteplase, Recombinant 2 mg 07/29/17 13:05 07/29/17 13:26 Cathflo Activase IV 07/29/17 13:06 2 mg O ONE Administration Carvedilol 6.25 mg 07/24/17 17:30 07/28/17 09:16 Coreg PO 6.25 mg BIDWM [facility] Administration Carvedilol 6.25 mg 07/28/17 11:11 07/28/17 12:46 Coreg PO 07/28/17 11:12 6.25 mg NOW ONE Administration Carvedilol 12.5 mg 07/28/17 11:11 Coreg PO BIDWM [facility] Colchicine 0.6 mg 07/30/17 11:15 07/31/17 09:23 Colcrys PO 0.6 mg BID ARE[facility] Administration Enoxaparin Sodium 40 mg 07/26/17 12:30 07/30/17 08:52 Lovenox SQ 40 mg DAILY [facility] Administration Furosemide 40 mg 08/02/17 11:23 08/02/17 12:19 Lasix 40 Mg/4 Ml IVP 08/02/17 11:24 40 mg O ONE Administration Levofloxacin/Dextrose 750 mg in 150 mls @ 100 mls/hr 07/24/17 14:45 07/28/17 17:36 Levaquin Premix IV Infused Q24H [facility] Infusion Vancomycin HCl 2,000 mg/ 500 mls @ 250 mls/hr 07/24/17 18:00 07/24/17 21:00 Sodium Chloride IV 07/24/17 19:59 Infused O ONE Infusion Vancomycin HCl 1,500 mg/ 500 mls @ 250 mls/hr 07/25/17 06:00 07/29/17 10:27 Sodium Chloride IV Infused Q12H [facility] Infusion Lactated Ringer's 1,000 mls @ 50 mls/hr 07/25/17 14:15 07/26/17 11:05 Lactated Ringers IV Infused .Q20H [facility] Infusion Vancomycin HCl 2,000 mg/ 500 mls @ 250 mls/hr 07/30/17 06:00 07/31/17 06:30 Sodium Chloride IV Not Given Q24H [facility] Levofloxacin/Dextrose 750 mg in 150 mls @ 100 mls/hr 07/30/17 14:00 Levaquin Premix IV Q48H [facility] Sodium Chloride 1,000 mls @ 150 mls/hr 07/30/17 11:30 07/30/17 20:45 Normal Saline IV 07/30/17 18:09 Infused .Q6H40M [facility] Infusion Insulin Aspart 20 unit 07/24/17 17:30 07/27/17 12:33 Novolog SQ 20 unit TIDWM [facility] Administration Insulin Aspart 16 unit 07/27/17 17:30 08/01/17 12:29 Novolog SQ 16 unit TIDWM [facility] Administration Insulin Aspart 8 unit 07/31/17 09:22 07/31/17 09:29 Novolog SQ 07/31/17 09:23 8 unit O ONE Administration Insulin Aspart 8 unit 07/31/17 12:47 07/31/17 12:51 Novolog SQ 07/31/17 12:48 8 unit O ONE Administration Insulin Aspart 4 unit 07/31/17 18:23 07/31/17 18:34 Novolog SQ 07/31/17 18:24 4 unit O ONE Administration Insulin Detemir 40 unit 07/24/17 21:00 07/27/17 09:15 Levemir SQ 40 unit BID [facility] Administration Insulin Detemir 10 unit 07/27/17 21:00 Levemir SQ 07/27/17 21:01 HS ONE Insulin Detemir 10 unit 07/26/17 21:00 07/26/17 22:07 Levemir SQ 07/26/17 21:01 10 unit HS ONE Administration Insulin Detemir 36 unit 07/27/17 21:00 07/31/17 09:29 Levemir SQ 36 unit BID [facility] Administration Insulin Detemir 20 unit 07/28/17 20:21 07/28/17 20:54 Levemir SQ 07/28/17 20:22 20 unit ONE TIME ONE Administration Insulin Detemir 32 unit 07/31/17 15:12 Levemir SQ BID [facility] Insulin Detemir 25 unit 07/31/17 21:00 08/01/17 09:27 Levemir SQ 25 unit BID [facility] Administration Metformin HCl 500 mg 07/25/17 08:00 07/29/17 08:18 Glucophage PO 500 mg WB [facility] Administration Miscellaneous Medication 6 ml 07/25/17 16:00 07/25/17 16:00 Bupiv 0.25% 30ml/Lido 1% 30ml Mix ID 07/25/17 16:01 6 ml O ONE Administration Morphine Sulfate 0 mg 07/25/17 16:19 07/25/17 16:22 Morphine Sulfate Vial IVP 5 mg Q10M PRN Administration Pharmacy Consult 1 each 08/02/17 12:24 Pharmacy Consult - Fall Risk XX 08/02/17 12:25 ONE TIME ONE Sacubitril/Valsartan 1 tab 07/24/17 21:00 07/29/17 20:56 Entresto 49/51mg PO 1 tab BID [facility] Administration Vancomycin HCl 1 each 07/24/17 14:44 07/24/17 16:15 Pharmacy Consult - Vancomycin MC 07/24/17 14:45 Not Given O ONE Results 08/02/17 04:11 08/02/17 04:11 CBC 08/02/17 Range/Units 04:11 WBC 11.4 H (4.5-11.0) T/MM3 RBC 2.84 L (4.50-5.90) M/MM3 Hgb 9.0 L (13.5-17.5) GM/DL Hct 28.2 L (41-53) % Plt Count 219 (130-400) T/MM3 Neut # (Auto) 9.2 H (1.8-7.7) T/MM3 Lymph # (Auto) 0.7 L (1-4.8) T/MM3 [place] # (Auto) 0.8 (0-0.8) T/MM3 Eos # (Auto) 0.7 H (0-0.5) T/MM3 Baso # (Auto) 0.0 (0-0.2) T/MM3 Comprehensive Metabolic Panel 08/02/17 Range/Units 04:11 Sodium 141 (134-144) MEQ/L Potassium 4.4 (3.6-5) MEQ/L Chloride 110 H (98-107) MEQ/L Carbon Dioxide 22 (22-30) MEQ/L BUN 31.0 H (9-20) MG/DL Creatinine 2.2 H (0.8-1.5) mg/dL Glucose 144 H (75-110) MG/DL Calcium 8.4 (8.4-10.2) MG/DL Albumin 2.8 L (3.5-5.0) g/dL Intake and Output 08/01/17 08/02/17 08/02/17 22:59 06:59 14:59 Intake Total 1985 901.667 / 901.667 803.333 / 803.333 Output Total 250 / 250 425 / 425 450 / 450 Balance 1736 / 1736 476.667 / 476.667 353.333 / 353.333 Intake: IV 1660 / 1660 901.667 / 901.667 683.333 / 683.333 Ns 1,000 ml @ 100 mls/hr IV . 1410 / 1410 901.667 / 901.667 683.333 / 683.333 Q10H [facility] Rx#:[id number] Vancomycin 1,250 mg In NS 250ml 250 / 250 250 ml @ 250 mls/hr IV Q24H [facility] Rx#:[id number] Oral 326 / 326 120 / 120 Output: Urine 250 / 250 425 / 425 450 / 450 Wound Drainage 0 / 0 Left Lateral Foot 0 / 0 Other: Urine Appearance Clear Clear Clear Urine Color Yellow Yellow Yellow Urine Odor Normal Stool Color Brown Brown Brown Stool Consistency Formed Soft Size of Bowel Movement Smear Large Moderate # Voids 1 1 # Incontinent Voids 1 1 # Bowel Movements 1 # Incontinent Bowel Movements 1 1 Weight 112.1 kg Patient Weight 08/03/17 06:59 Weight 112.1 kg Assessment and Plan - Assessment and Plan (1) Diabetes Current visit: No Status: Chronic (2) Obstructive sleep apnea Current visit: No Status: Chronic (3) CAD (coronary artery disease) Current visit: No Status: Chronic (4) Ischemic cardiomyopathy Current visit: No Status: Chronic (5) Surgical wound dehiscence Current visit: Yes Status: Acute (6) Atherosclerosis of [place] artery of both lower extremities Current visit: Yes Status: Acute (7) Mixed hyperlipidemia Current visit: Yes Status: Acute - Attestation Attestation Narrative: 08/02/17 14:20 Recommendation After examining the patient I agree with the above assessment. I am involved in the formulation of the patient's plan of care. Hospital Course Summary Disclaimer: The visit summary below is not to be considered part of the above Progress Note.
[2017-07-31] MEDS ORDERED: INSULIN DETEMIR 100unit/ml INJECTION SQ SCH (15:12)
--- NOTE | 2017-07-31 16:02 | Ultrasound Report ---
Indication: renal failure PROCEDURE: US renal BI: Encounter: Initial Comparison: None Technique: Grayscale and color Doppler sonographic imaging of both kidneys was performed. FINDINGS: Both kidneys are present with normal cortical thickness and echogenicity. No evidence for collecting system dilatation, contour deforming mass, nephrolithiasis, or abnormal perinephric fluid collection. The right kidney measures 12.8 cm in length, and the left kidney measures 12.7 cm in length. IMPRESSION: Normal renal sonogram. .
[2017-07-31] MEDS: TAMSULOSIN 0.4 MG CAPSULE PO SCH (20:28)
[2017-07-31] MEDS: VANCOMYCIN 1,250 MG in NS 250 ML IV SCH (20:28)
[2017-07-31] MEDS: LATANOPROST 0.005% EYE DROPS 2.5ml RIGHT EYE SCH (20:28)
[2017-08-01] MEDS: NS 1,000 ML IV SCH ×3 (04:19→16:05)
--- NOTE | 2017-08-01 08:47 | Orthopedic Progress Note ---
Date: Date: 08/01/17 Time: 08 Subjective/Severity of Illness: Patient is laying in bed, states he has been up ambulating this morning. States his right ankle is hog tender, but overall pain has significantly improved from two days ago once started on colchicine. Denies any complaints/concerns with left foot. He would like to go to swing bed at [facility] soon. Exam - Constitutional Vital Signs: Temperature 96.1 F L 08/01/17 07:17 Pulse Rate 99 08/01/17 08:11 Respiratory Rate 16 08/01/17 07:17 Blood Pressure 134/69 08/01/17 07:17 Pulse Oximetry 96 08/01/17 07:17 General: cooperative, no acute distress, well developed Nutritional Appearance: well nourished Orientation: oriented x3, alert - RLE General: edema (+1) Postoperative Appearance: extremity compartments are soft and nontender, neurovascullary intact to extremities Neurological: no deficits, normal to light touch Vascular: dorsalis pedis pulse within normal limits - LLE General: edema (+2) Postoperative Appearance: extremity compartments are soft and nontender, neurovascullary intact to extremities - Respiratory Respiratory Exam: non-labored - Cardiac Cardiovascular exam: pedal pulses intact - Wound Left Foot Type of Wound/Ulcer: Amputation Wound Dressing: Negative Pressure Dressing Wound Drainage Amount: Small Wound Drainage Description: Sanguineous Left Lateral Foot Wound Drainage Amount: Moderate Wound Drainage Description: Serosanguineous - Labs Result Diagrams: 08/01/17 03:53 08/01/17 03:53 Abnormal lab results 08/01/17 08/01/17 Range/Units 03:53 03:53 WBC 11.7 H (4.5-11.0) T/MM3 RBC 2.84 L (4.50-5.90) M/MM3 Hgb 9.1 L (13.5-17.5) GM/DL Hct 28.2 L (41-53) % Neut % (Auto) 81.5 H (33-66) % Lymph % (Auto) 6.2 L (23-45) % Eos % (Auto) 4.6 H (0-4) % Neut # (Auto) 9.6 H (1.8-7.7) T/MM3 Lymph # (Auto) 0.7 L (1-4.8) T/MM3 [place] # (Auto) 0.9 H (0-0.8) T/MM3 Chloride 109 H (98-107) MEQ/L BUN 36.0 H (9-20) MG/DL Creatinine 2.2 H (0.8-1.5) mg/dL Calcium 8.2 L (8.4-10.2) MG/DL H & H 07/24/17 07/25/17 07/26/17 Range/Units 12:48 04:15 05:35 Hgb 11.0 L 11.0 L 11.3 L (13.5-17.5) GM/DL Hct 34.3 L 33.8 L 35.3 L (41-53) % 07/27/17 07/29/17 07/30/17 Range/Units 04:39 04:18 03:40 Hgb 10.9 L 10.2 L 10.2 L (13.5-17.5) GM/DL Hct 33.8 L 31.2 L 31.6 L (41-53) % 07/31/17 08/01/17 Range/Units 05:27 03:53 Hgb 9.2 L 9.1 L (13.5-17.5) GM/DL Hct 28.2 L 28.2 L (41-53) % Orthopedic Assessment and Plan (1) Surgical wound dehiscence Status: Acute Assessment and Plan: Will continue veraflow wound vac management until able to transfer to swing bed. Medically managed by hospitalist group. Case Management still working on placement for swing bed at [facility]. Hospital Course Summary Disclaimer: The visit summary below is not to be considered part of the above Progress Note. Hospital Course: 07/24/17 Admission Admit patient to inpatient status under the care of Dr. Hernandez. Consult with Dr. Slade for further wound management. Planning for debridement and possible placement of wound VAC tomorrow. Start Vancomycin per protocol for wound coverage. Continue levofloxacin, changing to 750mg IV daily. PICC line study reveals that line placement is within the Azygos vein. Spoke with PICC line team. We will replace PICC line for better placement. Obtain CBC, CMP, blood culture, venous lactate, magnesium, urinalysis analysis, uric acid & CRP on admit. Monitor Accu-Cheks Given patient's history of diabetes. Will continue on home regimen of Levemir 40 units twice a day and NovoLog 20 units with meals. Patient to be nothing by mouth after midnight for scheduled procedure. Consult with Dr. Stubbs for further cardiac evaluation and recommendations. We are awaiting the echocardiogram report that was done outpatient last week as this will direct ongoing guidance regarding LifeVest. SCDs to bilateral lower extremity for DVT prophylaxis. We did discuss advanced directives and at this time. Patient does wish to be a do not resuscitate. Will discuss further orders and plan of care with attending, Dr. Hernandez. At time of discharge medical care will return to primary care provider, Dr Luis E Martinez in [place], [place]. 07/25 Planning for surgical debridement of Left foot wound today by Dr Slade Patient did receive Entresto today given recent vascular stenting of the left leg on 07/16 On vancomycin and IV Levaquin for antimicrobial coverage Will continue to monitor Accu-Cheks Will continue on home regimen of Levemir 40 units twice a day and NovoLog 20 units with meals. Spoke with [facility] radiology dept. They received report last night and will fax it today to [facility] as requested. Patient currently wearing left vest. SCDs to bilateral lower extremity for DVT prophylaxis. 07/26/17 Status post surgical debridement of necrotic tissue and removal of fourth and fifth metatarsal heads yesterday by Dr. Slade. Awaiting path and culture. Wound vac placed yesterday. CM making arrangements for outpatient wound vac. Continue vancomycin and IV Levaquin for antimicrobial coverage. DC IVF's which were started in surgery. Pain is controlled. Will consult PT/OT to help functional status. 07/[address]. Surgical culture positive for group B strep. Nocturnal hypoglycemia-decrease Levemir dose while hospitalized, continue current NovoLog and metformin dosages. Patient describes urinary frequency without dysuria, probable BPH-post void residual obese checked by bladder scan. If unremarkable we will initiate Flomax on trial basis. Adequate pain control. 07/28 Continue vancomycin and IV Levaquin for antimicrobial coverage. Status post surgical debridement of necrotic tissue and removal of fourth and fifth metatarsal heads 07/[address] Slade. Wound vac. Awaiting path. Surgical culture positive for group B strep/Staph aureus. Will continue current abx until cx are final given hx of past culture results. Needs to reassess CXR given malposition of PICC on prior films. Recurrent hypoglycemia- both long and short-acting insulin adjusted yesterday. Suspect lowering due to infection more controlled. Patient describes urinary frequency without dysuria, probable BPH. Order additional bladder scan, straight cath. We may need to place delgado. Flomax started yesterday. D/W pt that it will take a few days for effect. HF- pt has been consistently tachycardic. BP is has been adequate. Will up Coreg dosing to help control HR. Continue Entresto, Brilinta. Cardiology following. May need to add diuretics, but hesitant to do so until he is voiding better. Adequate pain control. Continue frequent labs for monitoring. 07/29 Currently on vancomycin and IV Levaquin for antimicrobial coverage. Wound vac change today. Path shows osteomyelitis. Surgical culture positive for group B strep/Staph aureus. Coreg was increased yesterday d/t tachycardia. Pulse still lower 100's. Cardiology following. White count (12.1) and creatinine (1.7) both up today 07/30 Currently on vancomycin for antimicrobial coverage. Add clinda for increased strep coverage. Sensitivities requested on strep. White count increased today 12.1-->17.1. Creatinine 1.3-->1.7-->1.9. IVF's added to improve renal function. Add colchicine for R ankle pain possibly r/t gout. Discussed w/ Dr. Slade. If pain isn't improved over the next 1-2 days, ortho will do joint aspiration to r/ o septic joint vs gout vs other. (Dr Slade will be out of town, but ZENY Cramer can do aspiration.) Uric acid is WNL. Will hold off on DC to SNU at this time give the increase in his WBC and creatinine and new c/o ankle pain. 07/31 Currently on vancomycin for antimicrobial coverage. Dosing adjusted by pharm based on renal fx. Day # 2 of Clindamycin. White count improved today 17.1-->13.1. Creatinine continues to climb 1.9-->2.1. IVF's added yesterday. Hgb dropped a point from yesterday - likely dilutional. Colchicine added yesterday for gout w/ improvement in pain. AC insulin halved this am d/t low BS this am. Long acting insulin decreased due to low-normal fasting glucose. Patient still hoping to go to Swing Bed at [facility] upon dismissal if this is an option.
[2017-08-01] MEDS: MULTI-VITAMIN + MINERAL TABLET PO SCH (08:51)
[2017-08-01] MEDS: MAGNESIUM OXIDE 400 MG TABLET PO SCH (08:52)
[2017-08-01] MEDS: CITALOPRAM 20 MG TABLET PO SCH (08:52)
[2017-08-01] MEDS: ENOXAPARIN 30 MG/0.3 ML INJECTION SQ SCH (08:52)
[2017-08-01] MEDS: CLINDAMYCIN 300 MG CAPSULE PO SCH ×4 (08:52→20:15)
[2017-08-01] MEDS: LACTOBACILLUS (15B cfu) CAPSULE PO SCH (08:52)
[2017-08-01] MEDS: CARVEDILOL 12.5 MG TABLET PO SCH ×2 (08:52→17:38)
[2017-08-01] MEDS: TICAGRELOR 90 MG TABLET PO SCH ×2 (08:52→20:15)
[2017-08-01] MEDS: ASCORBIC ACID 500 MG TABLET PO SCH (08:52)
[2017-08-01] MEDS: NYSTATIN OINTMENT 15gm TP SCH ×3 (08:53→20:15)
[2017-08-01] MEDS: INSULIN ASPART 100unit/ml INJECTION SQ SCH ×3 (09:21→17:37)
[2017-08-01] MEDS: INSULIN DETEMIR 100unit/ml INJECTION SQ SCH ×2 (09:27→20:15)
[2017-08-01] MEDS: ASPIRIN 81 MG CHEWABLE TABLET PO SCH (09:27)
--- NOTE | 2017-08-01 11:57 | Progress Note ---
- Date 08/01/17 Subjective: Mr. Dobson was seen reported minimal discomfort in his right ankle again today. He was able to ambulate/transfer from bed to chair without difficulty. He denies pain in his left foot. He denied dyspnea, chest pain, palpitations, nausea, or vomiting. He continues to urinate frequently reporting about hourly voiding without dysuria. Objective Vital signs: Temperature 96.1 F L 08/01/17 11:26 Pulse Rate 102 H 08/01/17 11:26 Respiratory Rate 14 08/01/17 11:26 Blood Pressure 122/67 08/01/17 11:26 Pulse Oximetry 98 -RA 08/01/17 11:26 I/O 3245/1426 NAD, alert Respirations nonlabored, good airflow, breath sounds clear anteriorly Regular rhythm, S1-S2 Abdomen soft, nontender, bowel sounds present Minimal tenderness on palpation over the right medial malleolus Rhythm: Normal Sinus Rhythm, Sinus Tachycardia Height/Weight/BMI: Height 1.73 m Weight 110.3 kg Body Mass Index 35.1 Results - Labs CBC & Chem 7: 08/01/17 03:53 08/01/17 03:53 Labs: accuchecks 62-83-101 Assessment and Plan (1) Surgical wound dehiscence Current visit: Yes Status: Acute Assessment and Plan: Impression Left surgical wound dehiscence -- 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 Osteomyelitis - L foot, group B strep, possible MRSA Cardiomyopathy - improved, no longer requiring LifeVest (HFrEF, 20%) Type II diabetes - Insulin requiring, A1C 7.3 Possible gout flare - 07/30/17 Coronary artery disease Peripheral vascular disease Hypertension Chronic Kidney Disease Stage II Acute kidney injury-07/30/17-RLL Depression Hearing deficit Obesity with BMI 35.1 Probable BPH -07/27/17 Plan Currently on vancomycin-day 9, for antimicrobial coverage. Dosing adjusted by pharm based on renal fx. Day 3 Clindamycin. Leukocytosis resolved. Creatinine up a little further, reassess vancomycin trough in the morning. Right ankle pain has subsided, colchicine discontinued yesterday due to renal insufficiency. Recurrent hypoglycemia yesterday-insulins reduced significantly. Continue to monitor closely. - Physician Narrative Narrative: Date: 08/01/17 Time: 1157 Hospital Course Summary Disclaimer: The visit summary below is not to be considered part of the above Progress Note. Hospital Course: 07/24/17 Admission Admit patient to inpatient status under the care of Dr. Hernandez. Consult with Dr. Slade for further wound management. Planning for debridement and possible placement of wound VAC tomorrow. Start Vancomycin per protocol for wound coverage. Continue levofloxacin, changing to 750mg IV daily. PICC line study reveals that line placement is within the Azygos vein. Spoke with PICC line team. We will replace PICC line for better placement. Obtain CBC, CMP, blood culture, venous lactate, magnesium, urinalysis analysis, uric acid & CRP on admit. Monitor Accu-Cheks Given patient's history of diabetes. Will continue on home regimen of Levemir 40 units twice a day and NovoLog 20 units with meals. Patient to be nothing by mouth after midnight for scheduled procedure. Consult with Dr. Stubbs for further cardiac evaluation and recommendations. We are awaiting the echocardiogram report that was done outpatient last week as this will direct ongoing guidance regarding LifeVest. SCDs to bilateral lower extremity for DVT prophylaxis. We did discuss advanced directives and at this time. Patient does wish to be a do not resuscitate. Will discuss further orders and plan of care with attending, Dr. Hernandez. At time of discharge medical care will return to primary care provider, Dr Luis E Martinez in [place], [place]. 07/25 Planning for surgical debridement of Left foot wound today by Dr Slade Patient did receive Entresto today given recent vascular stenting of the left leg on 07/16 On vancomycin and IV Levaquin for antimicrobial coverage Will continue to monitor Accu-Cheks Will continue on home regimen of Levemir 40 units twice a day and NovoLog 20 units with meals. Spoke with [facility] radiology dept. They received report last night and will fax it today to [facility] as requested. Patient currently wearing left vest. SCDs to bilateral lower extremity for DVT prophylaxis. 07/26/17 Status post surgical debridement of necrotic tissue and removal of fourth and fifth metatarsal heads yesterday by Dr. Slade. Awaiting path and culture. Wound vac placed yesterday. CM making arrangements for outpatient wound vac. Continue vancomycin and IV Levaquin for antimicrobial coverage. DC IVF's which were started in surgery. Pain is controlled. Will consult PT/OT to help functional status. 07/[address] Surgical culture positive for group B strep. Nocturnal hypoglycemia-decrease Levemir dose while hospitalized, continue current NovoLog and metformin dosages. Patient describes urinary frequency without dysuria, probable BPH-post void residual obese checked by bladder scan. If unremarkable we will initiate Flomax on trial basis. Adequate pain control. 07/28 Continue vancomycin and IV Levaquin for antimicrobial coverage. Status post surgical debridement of necrotic tissue and removal of fourth and fifth metatarsal heads 07/[address] Slade. Wound vac. Awaiting path. Surgical culture positive for group B strep/Staph aureus. Will continue current abx until cx are final given hx of past culture results. Needs to reassess CXR given malposition of PICC on prior films. Recurrent hypoglycemia- both long and short-acting insulin adjusted yesterday. Suspect lowering due to infection more controlled. Patient describes urinary frequency without dysuria, probable BPH. Order additional bladder scan, straight cath. We may need to place delgado. Flomax started yesterday. D/W pt that it will take a few days for effect. HF- pt has been consistently tachycardic. BP is has been adequate. Will up Coreg dosing to help control HR. Continue Entresto, Brilinta. Cardiology following. May need to add diuretics, but hesitant to do so until he is voiding better. Adequate pain control. Continue frequent labs for monitoring. 07/29 Currently on vancomycin and IV Levaquin for antimicrobial coverage. Wound vac change today. Path shows osteomyelitis. Surgical culture positive for group B strep/Staph aureus. Coreg was increased yesterday d/t tachycardia. Pulse still lower 100's. Cardiology following. White count (12.1) and creatinine (1.7) both up today 07/30 Currently on vancomycin for antimicrobial coverage. Add clinda for increased strep coverage. Sensitivities requested on strep. White count increased today 12.1-->17.1. Creatinine 1.3-->1.7-->1.9. IVF's added to improve renal function. Add colchicine for R ankle pain possibly r/t gout. Discussed w/ Dr. Slade. If pain isn't improved over the next 1-2 days, ortho will do joint aspiration to r/ o septic joint vs gout vs other. (Dr Slade will be out of town, but H[facility] Zerger , [place] can do aspiration.) Uric acid is WNL. Will hold off on DC to SNU at this time give the increase in his WBC and creatinine and new c/o ankle pain. 07/31 Currently on vancomycin for antimicrobial coverage. Dosing adjusted by pharm based on renal fx. Day # 2 of Clindamycin. White count improved today 17.1-->13.1. Creatinine continues to climb 1.9-->2.1. IVF's added yesterday. Hgb dropped a point from yesterday - likely dilutional. Colchicine added yesterday for gout w/ improvement in pain--> discontinue due to worsening renal function. AC insulin halved this am d/t low BS this am. Long acting insulin decreased due to low-normal fasting glucose. Renal sonogram normal. Patient still hoping to go to Swing Bed at [facility] upon dismissal if this is an option. 08/01 Currently on vancomycin-day 9, for antimicrobial coverage. Dosing adjusted by pharm based on renal fx. Day 3 Clindamycin. Leukocytosis resolved. Creatinine up a little further, reassess vancomycin trough in the morning. Right ankle pain has subsided, colchicine discontinued yesterday due to renal insufficiency. Recurrent hypoglycemia yesterday-insulins reduced significantly. Continue to monitor closely.
[2017-08-01] MEDS ORDERED: GLUCOSE ORAL GEL 40% 37.5gm PO PRN (16:20)
[2017-08-01] MEDS: VANCOMYCIN 1,250 MG in NS 250 ML IV SCH (20:14)
[2017-08-01] MEDS: TAMSULOSIN 0.4 MG CAPSULE PO SCH (20:15)
[2017-08-01] MEDS: LATANOPROST 0.005% EYE DROPS 2.5ml RIGHT EYE SCH (20:15)
[2017-08-02] MEDS: NS 1,000 ML IV SCH ×3 (03:33→22:02)
[2017-08-02] MEDS: ENOXAPARIN 30 MG/0.3 ML INJECTION SQ SCH (08:44)
[2017-08-02] MEDS: INSULIN DETEMIR 100unit/ml INJECTION SQ SCH ×2 (08:44→20:43)
[2017-08-02] MEDS: INSULIN ASPART 100unit/ml INJECTION SQ SCH ×3 (08:44→17:45)
[2017-08-02] MEDS: NYSTATIN OINTMENT 15gm TP SCH ×3 (08:44→20:43)
[2017-08-02] MEDS: CARVEDILOL 12.5 MG TABLET PO SCH ×2 (08:45→17:50)
[2017-08-02] MEDS: MAGNESIUM OXIDE 400 MG TABLET PO SCH (08:45)
[2017-08-02] MEDS: ASPIRIN 81 MG CHEWABLE TABLET PO SCH (08:45)
[2017-08-02] MEDS: ASCORBIC ACID 500 MG TABLET PO SCH (08:45)
[2017-08-02] MEDS: CITALOPRAM 20 MG TABLET PO SCH (08:45)
[2017-08-02] MEDS: LACTOBACILLUS (15B cfu) CAPSULE PO SCH (08:45)
[2017-08-02] MEDS: CLINDAMYCIN 300 MG CAPSULE PO SCH ×4 (08:45→20:42)
[2017-08-02] MEDS: MULTI-VITAMIN + MINERAL TABLET PO SCH (08:45)
[2017-08-02] MEDS: TICAGRELOR 90 MG TABLET PO SCH ×2 (08:45→20:42)
--- NOTE | 2017-08-02 11:13 | Progress Note ---
- Date 08/02/17 Subjective: Mr. oDbson is seen while resting in bed, preparing to get up with therapy. He reports that he is feeling much better today and denies any new complaints or concerns. He does report that he had some generalized chest tightness last night but resolved with use of his CPAP during the night. He denies any chest pain or tightness now. No shortness of breath, abdominal pain, nausea, vomiting or dysuria. His appetite is stable and bowels are moving. His wound vac was changed to his left foot this morning and continues to be monitored by wound care. Labs today revealed down trending of WBC (11.4) and slight decrease in hemoglobin (9.0). He denies any dizziness, lightheadedness or near syncope. BMP revealed SCr stable at 2.2 and decrease in BUN at 31. Urinary output is good. Significant low blood sugars yesterday and insulin dosages adjusted with improvement today. Discussed with case management who reports patient has been accepted to [place] and expected to discharge on 08/05/17 to [place] and will be transferred by his daughter. He does not plan to start hyperbaric treatment until after his discharge from [facility] in [place]. Objective Vital signs: Temperature 96.9 F 08/02/17 07:55 Pulse Rate 100 08/02/17 07:55 Respiratory Rate 18 08/02/17 07:55 Blood Pressure 142/70 H 08/02/17 07:55 Pulse Oximetry 97 08/02/17 07:55 Rhythm: Normal Sinus Rhythm Height/Weight/BMI: Height 5 ft 8 in Weight 247 lb 2.211 oz Body Mass Index 35.1 Comments: Patient resting in bed, awake and breathing easily on room air. - Constitutional Present: no acute distress, well nourished, well developed, morbidly obese, cooperative - Routine HEENT Exam Head: Present: normocephalic, atraumatic Eye: Present: PERRL. Absent: conjunctival icterus ENT: Present: mucous membranes moist - Routine Respiratory Exam Absent: accessory muscle use, dyspnea, respiratory distress Comments: Decreased breath sounds with crackles on right as compared to left. Rare dry cough on exam without respiratory distress or conversational dyspnea. Breathing easily on room air. - Routine Cardiovascular Exam Present: RRR, S1, S2 - Routine Abdominal Exam Present: soft, normoactive bowel sounds, non distended, non tender - Routine Extremities Exam Present: edema (2+), full ROM, pulses intact Comments: Wound vac in place to left lateral foot. - Routine Back/Spine/Pelvis Exam Back/Spine: Present: full ROM. Absent: vertebral tenderness Comments: Generalized weakness noted and requires assistance when sitting forward and getting up. - Routine Musculoskeletal Exam Musculoskeletal: Present: moving extremities well - Routine Skin Exam Present: dry, warm. Absent: jaundice Comments: Afebrile. - Routine Neurological Exam Present: alert, oriented X3, moving all extremities, hearing grossly intact, normal speech - Routine Lymphatic Exam Lymphatic: Absent: lymphedema - Routine Psychiatric Exam Present: normal affect, cooperative Results - Labs CBC & Chem 7: 08/02/17 04:11 08/02/17 04:11 Microbiology Results: Microbiology 07/25/17 15:57 Foot, Left Gram Stain - Final 07/25/17 15:57 Foot, Left Surgical Culture - Final Strep agalactiae - (Group B) Staphylococcus aureus, MRSA Coag negative Staphylococcus 07/24/17 12:48 Peripheral/Iv Start Blood Culture - Final No Growth After 5 Days 07/24/17 12:55 Peripheral/Iv Start Blood Culture - Final No Growth After 5 Days Assessment and Plan (1) Surgical wound dehiscence Current visit: Yes Status: Acute Assessment and Plan: Impression Left surgical wound dehiscence -- 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 Osteomyelitis - L foot, group B strep, possible MRSA Cardiomyopathy - improved, no longer requiring LifeVest (HFrEF, 20%) Type II diabetes - Insulin requiring, A1C 7.3 Possible gout flare - 07/30/17 Coronary artery disease Peripheral vascular disease Hypertension Chronic Kidney Disease Stage II Acute kidney injury-07/30/17-RLL Depression Hearing deficit Obesity with BMI 35.1 Probable BPH -07/27/17 Plan - 08/02/17 CM arranged for discharge to [facility] on 08/05/17 for continued care. Patient to do hyperbaric treatment following discharge from [facility]. Wound vac displaced during the night and was replaced this morning by wound care. Continue to monitor closely. Continue current treatment including vancomycin-day 10, as well as Clindamycin - day 4, for antimicrobial coverage. Dosing adjusted by pharm based on renal fx. Leukocytosis improving (WBC 11.4). Continue to monitor closely. Patient remains afebrile. SCr stable at 2.2 with BUN improving. Urinary output stable. Weight up 17 pounds since admission with 2+ edema. Will given Lasix 40mg IV and recheck SCr at 1999. Hypoglycemia on 08/01/17 - improved with decrease in insulin dosages (Novolog decreased from 16 units TID to 10 units TID; Levemir decreased from 25 units BID to 20 units BID). Continue to monitor blood sugars closely, adjusting insulin as indicated. Encourage oral intake. Sliding scale insulin as indicated. Recheck labs in AM to monitor blood counts, electrolytes and renal function. DVT Prophylaxis: SCD's, Lovenox Resuscitation Status: Do Not Resuscitate - Time spent with patient Time with patient PN: 30 minutes - Physician Narrative Physician: Renee Real MD Narrative: Date: 08/02/17 Time: 1414 I have independently evaluated and examined this patient. I reviewed the chart, the patient's history, and the [employer]/PA's documented findings as above. We discussed and formulated the assessment and plan as above with additions as below: Mr. Cardona was seen earlier this afternoon at which time he reported no dyspnea , nausea, or pain. He is ambulating on his right leg without difficulty. He described ongoing urinary frequency. Telemetry strips reviewed-atrial fibrillation with adequate rate control or low- grade tachycardia NAD, alert, hearing aids in today Respirations nonlabored, good airflow, breath sounds clear No erythema at wound VAC margins; +2 edema lower extremities Creatinine stable compared to yesterday, blood sugars stable today with insulin at 50% usual home doses. Continue to monitor renal function, vancomycin level to be assessed prior to dose tomorrow. Hospital Course Summary Disclaimer: The visit summary below is not to be considered part of the above Progress Note. Hospital Course: 07/24/17 Admission Admit patient to inpatient status under the care of Dr. Hernandez. Consult with Dr. Slade for further wound management. Planning for debridement and possible placement of wound VAC tomorrow. Start Vancomycin per protocol for wound coverage. Continue levofloxacin, changing to 750mg IV daily. PICC line study reveals that line placement is within the Azygos vein. Spoke with PICC line team. We will replace PICC line for better placement. Obtain CBC, CMP, blood culture, venous lactate, magnesium, urinalysis analysis, uric acid & CRP on admit. Monitor Accu-Cheks Given patient's history of diabetes. Will continue on home regimen of Levemir 40 units twice a day and NovoLog 20 units with meals. Patient to be nothing by mouth after midnight for scheduled procedure. Consult with Dr. Stubbs for further cardiac evaluation and recommendations. We are awaiting the echocardiogram report that was done outpatient last week as this will direct ongoing guidance regarding LifeVest. SCDs to bilateral lower extremity for DVT prophylaxis. We did discuss advanced directives and at this time. Patient does wish to be a do not resuscitate. Will discuss further orders and plan of care with attending, Dr. Hernandez. At time of discharge medical care will return to primary care provider, Dr Luis E Martinez in [place], [place]. 07/25 Planning for surgical debridement of Left foot wound today by Dr Slade Patient did receive Entresto today given recent vascular stenting of the left leg on 07/16 On vancomycin and IV Levaquin for antimicrobial coverage Will continue to monitor Accu-Cheks Will continue on home regimen of Levemir 40 units twice a day and NovoLog 20 units with meals. Spoke with [facility] radiology dept. They received report last night and will fax it today to [facility] as requested. Patient currently wearing left vest. SCDs to bilateral lower extremity for DVT prophylaxis. 07/26 Status post surgical debridement of necrotic tissue and removal of fourth and fifth metatarsal heads yesterday by Dr. Slade. Awaiting path and culture. Wound vac placed yesterday. CM making arrangements for outpatient wound vac. Continue vancomycin and IV Levaquin for antimicrobial coverage. DC IVF's which were started in surgery. Pain is controlled. Will consult PT/OT to help functional status. 07/[address]. Surgical culture positive for group B strep. Nocturnal hypoglycemia-decrease Levemir dose while hospitalized, continue current NovoLog and metformin dosages. Patient describes urinary frequency without dysuria, probable BPH-post void residual obese checked by bladder scan. If unremarkable we will initiate Flomax on trial basis. Adequate pain control. 07/28 Continue vancomycin and IV Levaquin for antimicrobial coverage. Status post surgical debridement of necrotic tissue and removal of fourth and fifth metatarsal heads 07/[address] Slade. Wound vac. Awaiting path. Surgical culture positive for group B strep/Staph aureus. Will continue current abx until cx are final given hx of past culture results. Needs to reassess CXR given malposition of PICC on prior films. Recurrent hypoglycemia- both long and short-acting insulin adjusted yesterday. Suspect lowering due to infection more controlled. Patient describes urinary frequency without dysuria, probable BPH. Order additional bladder scan, straight cath. We may need to place delgado. Flomax started yesterday. D/W pt that it will take a few days for effect. HF- pt has been consistently tachycardic. BP is has been adequate. Will up Coreg dosing to help control HR. Continue Entresto, Brilinta. Cardiology following. May need to add diuretics, but hesitant to do so until he is voiding better. Adequate pain control. Continue frequent labs for monitoring. 07/29 Currently on vancomycin and IV Levaquin for antimicrobial coverage. Wound vac change today. Path shows osteomyelitis. Surgical culture positive for group B strep/Staph aureus. Coreg was increased yesterday d/t tachycardia. Pulse still lower 100's. Cardiology following. White count (12.1) and creatinine (1.7) both up today 07/30 Currently on vancomycin for antimicrobial coverage. Add clinda for increased strep coverage. Sensitivities requested on strep. White count increased today 12.1-->17.1. Creatinine 1.3-->1.7-->1.9. IVF's added to improve renal function. Add colchicine for R ankle pain possibly r/t gout. Discussed w/ Dr. Slade. If pain isn't improved over the next 1-2 days, ortho will do joint aspiration to r/ o septic joint vs gout vs other. (Dr Slade will be out of town, but ZENY Cramer can do aspiration.) Uric acid is WNL. Will hold off on DC to SNU at this time give the increase in his WBC and creatinine and new c/o ankle pain. 07/31 Currently on vancomycin for antimicrobial coverage. Dosing adjusted by pharm based on renal fx. Day # 2 of Clindamycin. White count improved today 17.1-->13.1. Creatinine continues to climb 1.9-->2.1. IVF's added yesterday. Hgb dropped a point from yesterday - likely dilutional. Colchicine added yesterday for gout w/ improvement in pain--> discontinue due to worsening renal function. AC insulin halved this am d/t low BS this am. Long acting insulin decreased due to low-normal fasting glucose. Renal sonogram normal. Patient still hoping to go to [facility] at [facility] upon dismissal if this is an option. 08/01 Currently on vancomycin-day 9, for antimicrobial coverage. Dosing adjusted by pharm based on renal fx. Day 3 Clindamycin. Leukocytosis resolved. Creatinine up a little further, reassess vancomycin trough in the morning. Right ankle pain has subsided, colchicine discontinued yesterday due to renal insufficiency. Recurrent hypoglycemia yesterday-insulins reduced significantly. Continue to monitor closely. 08/02 CM arranged for discharge to [facility] on 08/05/17 for continued care. Patient to do hyperbaric treatment following discharge from [facility]. Wound vac displaced during the night and was replaced this morning by wound care. Continue to monitor closely. Continue current treatment including vancomycin-day 10, as well as Clindamycin - day 4, for antimicrobial coverage. Dosing adjusted by pharm based on renal fx. Leukocytosis improving (WBC 11.4). Continue to monitor closely. Patient remains afebrile. SCr stable at 2.2 with BUN improving. Urinary output stable. Weight up 17 pounds since admission with 2+ edema. Will given Lasix 40mg IV and recheck SCr at 1999. Hypoglycemia on 08/01/17 - improved with decrease in insulin dosages (Novolog decreased from 16 units TID to 10 units TID; Levemir decreased from 25 units BID to 20 units BID). Continue to monitor blood sugars closely, adjusting insulin as indicated. Encourage oral intake. Sliding scale insulin as indicated. Recheck labs in AM to monitor blood counts, electrolytes and renal function.
[2017-08-02] MEDS ORDERED: FUROSEMIDE 40 MG/4 ML INJECTION IVP ONE (11:23)
[2017-08-02] MEDS ORDERED: FALL RISK - PHARMACY CONSULT XX ONE (12:24)
--- NOTE | 2017-08-02 12:49 | Wound Care Progress Note ---
Wound Management - Patient Status Premedicated Prior to Dressing Change: No - Wound Left Lateral Foot Wound Type: Diabetic Foot Ulcer Wound Present on Admission?: Yes Length: 1.6 Width: 2.6 Depth: 1.5 Tunneling Location (o'clock): 3 (0.8) Wound Bed Appearance: [place], [place], [place] Wound Appearance: Macerated Tunneling: Yes (3 oclock 0.8cm) Undermining: No Drainage Description: Sanguineous Drainage Amount: Moderate Drainage Odor: No Odor Dressing Status: Changed Packing Type: Woundvac Sponge Number of Packing Pieces Removed?: 1 Number of Packing Pieces Placed?: 1 Primary Dressing: Transparent Drape Secondary Dressing: Trac Pad Dressing Change Date: 08/02/17 Dressing Change Time: 12:48 Dressing Change Patient Tolerance: Tolerated Well (Pt changed from an instill vac to a regular vac.) Microbiology: Microbiology 07/25/17 15:57 Foot, Left Gram Stain - Final 07/25/17 15:57 Foot, Left Surgical Culture - Final Strep agalactiae - (Group B) Staphylococcus aureus, MRSA Coag negative Staphylococcus
[2017-08-02] MEDS: LATANOPROST 0.005% EYE DROPS 2.5ml RIGHT EYE SCH (20:41)
[2017-08-02] MEDS: TAMSULOSIN 0.4 MG CAPSULE PO SCH (20:42)
[2017-08-02] MEDS: VANCOMYCIN 1,250 MG in NS 250 ML IV SCH (20:44)
[2017-08-02] MEDS: INSULIN ASPART 100unit/ml INJECTION SQ PRN (21:32)
[2017-08-03] MEDS: NS 1,000 ML IV SCH ×5 (00:41→23:00)
--- NOTE | 2017-08-03 06:53 | Orthopedic Progress Note ---
Date: Date: 08/02/17 Time: 1030 Subjective/Severity of Illness: Mr. Dobson is resting in bed this morning. He denies any right ankle pain and has been able to ambulate on it. His wound vac malfunctioned early this morning , dressing was removed and gauze dressing in placed. Pretty RN with wound clinic with me at bedside to replace wound vac dressing. He denies any pain in his left foot. Denies any concerns otherwise. Case Management states patient refused OT yesterday. Exam - Constitutional Vital Signs: Temperature 97.5 F 08/03/17 04:00 Pulse Rate 103 H 08/03/17 04:00 Respiratory Rate 16 08/03/17 04:00 Blood Pressure 150/74 H 08/03/17 04:00 Pulse Oximetry 96 08/03/17 04:00 General: cooperative, no acute distress, well developed Nutritional Appearance: well nourished Orientation: oriented x3, alert - RLE Postoperative Appearance: extremity compartments are soft and nontender, neurovascullary intact to extremities Skin: no rashes or lesions noted, dry skin - LLE General: edema (+2) Postoperative Appearance: extremity compartments are soft and nontender, neurovascullary intact to extremities Vascular: dorsalis pedis pulse within normal limits - Respiratory Respiratory Exam: non-labored - Cardiac Cardiovascular exam: pedal pulses intact - Wound Left Foot Type of Wound/Ulcer: Amputation Wound Dressing: Negative Pressure Dressing Wound Drainage Amount: Small Wound Drainage Description: Sanguineous Wound Drainage Odor: No Odor Wound Size: > than 1 squre cm Wound Bed Appearance: [place] Periwound area: Macerated Left Lateral Foot Wound Drainage Amount: Moderate Wound Drainage Description: Sanguineous Wound Drainage Odor: No Odor Wound Bed Appearance: [place], [place], [place] Wound Comments: Debridement of 25% of wound with curette. wound bed soft, macerated. - Labs Result Diagrams: 08/03/17 04:48 08/03/17 04:48 Abnormal lab results 08/03/17 08/03/17 Range/Units 04:48 04:48 RBC 2.90 L (4.50-5.90) M/MM3 Hgb 9.2 L (13.5-17.5) GM/DL Hct 28.4 L (41-53) % Neut % (Auto) 79.8 H (33-66) % Lymph % (Auto) 7.9 L (23-45) % Eos % (Auto) 5.7 H (0-4) % Neut # (Auto) 8.2 H (1.8-7.7) T/MM3 Lymph # (Auto) 0.8 L (1-4.8) T/MM3 Eos # (Auto) 0.6 H (0-0.5) T/MM3 Chloride 109 H (98-107) MEQ/L BUN 28.0 H (9-20) MG/DL Creatinine 1.9 H D (0.8-1.5) mg/dL Glucose 112 H (75-110) MG/DL Calculated Osmolality 282 H (261-280) MOSM/KG H & H 07/24/17 07/25/17 07/26/17 Range/Units 12:48 04:15 05:35 Hgb 11.0 L 11.0 L 11.3 L (13.5-17.5) GM/DL Hct 34.3 L 33.8 L 35.3 L (41-53) % 07/27/17 07/29/17 07/30/17 Range/Units 04:39 04:18 03:40 Hgb 10.9 L 10.2 L 10.2 L (13.5-17.5) GM/DL Hct 33.8 L 31.2 L 31.6 L (41-53) % 07/31/17 08/01/17 08/02/17 Range/Units 05:27 03:53 04:11 Hgb 9.2 L 9.1 L 9.0 L (13.5-17.5) GM/DL Hct 28.2 L 28.2 L 28.2 L (41-53) % 08/03/17 Range/Units 04:48 Hgb 9.2 L (13.5-17.5) GM/DL Hct 28.4 L (41-53) % Orthopedic Assessment and Plan (1) Surgical wound dehiscence Status: Acute Assessment and Plan: Unfortunately wound has not improved with Veraflow therapy. Changed to traditional wound vac. Patient wound benefit from HBO daily at Wound clinic, however patient lives 50 min away and transportation not available. Case Management continues to work on SNU placement for wound vac and IV antibiotics. Medically managed by hospitalist group. Hospital Course Summary Disclaimer: The visit summary below is not to be considered part of the above Progress Note. Hospital Course: 07/24/17 Admission Admit patient to inpatient status under the care of Dr. Hernandez. Consult with Dr. Slade for further wound management. Planning for debridement and possible placement of wound VAC tomorrow. Start Vancomycin per protocol for wound coverage. Continue levofloxacin, changing to 750mg IV daily. PICC line study reveals that line placement is within the Azygos vein. Spoke with PICC line team. We will replace PICC line for better placement. Obtain CBC, CMP, blood culture, venous lactate, magnesium, urinalysis analysis, uric acid & CRP on admit. Monitor Accu-Cheks Given patient's history of diabetes. Will continue on home regimen of Levemir 40 units twice a day and NovoLog 20 units with meals. Patient to be nothing by mouth after midnight for scheduled procedure. Consult with Dr. Stubbs for further cardiac evaluation and recommendations. We are awaiting the echocardiogram report that was done outpatient last week as this will direct ongoing guidance regarding LifeVest. SCDs to bilateral lower extremity for DVT prophylaxis. We did discuss advanced directives and at this time. Patient does wish to be a do not resuscitate. Will discuss further orders and plan of care with attending, Dr. Hernandez. At time of discharge medical care will return to primary care provider, Dr Luis E Martinez in [place], [place]. 07/25 Planning for surgical debridement of Left foot wound today by Dr Slade Patient did receive Entresto today given recent vascular stenting of the left leg on 07/16 On vancomycin and IV Levaquin for antimicrobial coverage Will continue to monitor Accu-Cheks Will continue on home regimen of Levemir 40 units twice a day and NovoLog 20 units with meals. Spoke with [facility] radiology dept. They received report last night and will fax it today to [facility] [place] as [place]. Patient currently wearing left vest. SCDs to bilateral lower extremity for DVT prophylaxis. 07/26 Status post surgical debridement of necrotic tissue and removal of fourth and fifth metatarsal heads yesterday by Dr. Slade. Awaiting path and culture. Wound vac placed yesterday. CM making arrangements for outpatient wound vac. Continue vancomycin and IV Levaquin for antimicrobial coverage. DC IVF's which were started in surgery. Pain is controlled. Will consult PT/OT to help functional status. 07/[address]. Surgical culture positive for group B strep. Nocturnal hypoglycemia-decrease Levemir dose while hospitalized, continue current NovoLog and metformin dosages. Patient describes urinary frequency without dysuria, probable BPH-post void residual obese checked by bladder scan. If unremarkable we will initiate Flomax on trial basis. Adequate pain control. 07/28 Continue vancomycin and IV Levaquin for antimicrobial coverage. Status post surgical debridement of necrotic tissue and removal of fourth and fifth metatarsal heads 07/[address] Slade. Wound vac. Awaiting path. Surgical culture positive for group B strep/Staph aureus. Will continue current abx until cx are final given hx of past culture results. Needs to reassess CXR given malposition of PICC on prior films. Recurrent hypoglycemia- both long and short-acting insulin adjusted yesterday. Suspect lowering due to infection more controlled. Patient describes urinary frequency without dysuria, probable BPH. Order additional bladder scan, straight cath. We may need to place delgado. Flomax started yesterday. D/W pt that it will take a few days for effect. HF- pt has been consistently tachycardic. BP is has been adequate. Will up Coreg dosing to help control HR. Continue Entresto, Brilinta. Cardiology following. May need to add diuretics, but hesitant to do so until he is voiding better. Adequate pain control. Continue frequent labs for monitoring. 07/29 Currently on vancomycin and IV Levaquin for antimicrobial coverage. Wound vac change today. Path shows osteomyelitis. Surgical culture positive for group B strep/Staph aureus. Coreg was increased yesterday d/t tachycardia. Pulse still lower 100's. Cardiology following. White count (12.1) and creatinine (1.7) both up today 07/30 Currently on vancomycin for antimicrobial coverage. Add clinda for increased strep coverage. Sensitivities requested on strep. White count increased today 12.1-->17.1. Creatinine 1.3-->1.7-->1.9. IVF's added to improve renal function. Add colchicine for R ankle pain possibly r/t gout. Discussed w/ Dr. Slade. If pain isn't improved over the next 1-2 days, ortho will do joint aspiration to r/ o septic joint vs gout vs other. (Dr Slade will be out of town, but ZENY Cramer can do aspiration.) Uric acid is WNL. Will hold off on DC to SNU at this time give the increase in his WBC and creatinine and new c/o ankle pain. 07/31 Currently on vancomycin for antimicrobial coverage. Dosing adjusted by pharm based on renal fx. Day # 2 of Clindamycin. White count improved today 17.1-->13.1. Creatinine continues to climb 1.9-->2.1. IVF's added yesterday. Hgb dropped a point from yesterday - likely dilutional. Colchicine added yesterday for gout w/ improvement in pain--> discontinue due to worsening renal function. AC insulin halved this am d/t low BS this am. Long acting insulin decreased due to low-normal fasting glucose. Renal sonogram normal. Patient still hoping to go to Swing Bed at [facility] upon dismissal if this is an option. 08/01 Currently on vancomycin-day 9, for antimicrobial coverage. Dosing adjusted by pharm based on renal fx. Day 3 Clindamycin. Leukocytosis resolved. Creatinine up a little further, reassess vancomycin trough in the morning. Right ankle pain has subsided, colchicine discontinued yesterday due to renal insufficiency. Recurrent hypoglycemia yesterday-insulins reduced significantly. Continue to monitor closely. 08/02 CM arranged for discharge to [facility] on 08/05/17 for continued care. Patient to do hyperbaric treatment following discharge from [facility]. Wound vac displaced during the night and was replaced this morning by wound care. Continue to monitor closely. Continue current treatment including vancomycin-day 10, as well as Clindamycin - day 4, for antimicrobial coverage. Dosing adjusted by pharm based on renal fx. Leukocytosis improving (WBC 11.4). Continue to monitor closely. Patient remains afebrile. SCr stable at 2.2 with BUN improving. Urinary output stable. Weight up 17 pounds since admission with 2+ edema. Will given Lasix 40mg IV and recheck SCr at 1999. Hypoglycemia on 08/01/17 - improved with decrease in insulin dosages (Novolog decreased from 16 units TID to 10 units TID; Levemir decreased from 25 units BID to 20 units BID). Continue to monitor blood sugars closely, adjusting insulin as indicated. Encourage oral intake. Sliding scale insulin as indicated. Recheck labs in AM to monitor blood counts, electrolytes and renal function.
[2017-08-03] MEDS: MAGNESIUM OXIDE 400 MG TABLET PO SCH (08:47)
[2017-08-03] MEDS: CITALOPRAM 20 MG TABLET PO SCH (08:47)
[2017-08-03] MEDS: ASCORBIC ACID 500 MG TABLET PO SCH (08:47)
[2017-08-03] MEDS: TICAGRELOR 90 MG TABLET PO SCH ×2 (08:47→20:17)
[2017-08-03] MEDS: LACTOBACILLUS (15B cfu) CAPSULE PO SCH (08:47)
[2017-08-03] MEDS: MULTI-VITAMIN + MINERAL TABLET PO SCH (08:47)
[2017-08-03] MEDS: ENOXAPARIN 30 MG/0.3 ML INJECTION SQ SCH (08:47)
[2017-08-03] MEDS: ASPIRIN 81 MG CHEWABLE TABLET PO SCH (08:47)
[2017-08-03] MEDS: CARVEDILOL 12.5 MG TABLET PO SCH ×2 (08:47→17:39)
[2017-08-03] MEDS: INSULIN DETEMIR 100unit/ml INJECTION SQ SCH ×2 (08:48→20:18)
[2017-08-03] MEDS: INSULIN ASPART 100unit/ml INJECTION SQ SCH ×3 (08:48→17:39)
[2017-08-03] MEDS: NYSTATIN OINTMENT 15gm TP SCH ×3 (08:49→20:25)
[2017-08-03] MEDS: CLINDAMYCIN 300 MG CAPSULE PO SCH ×4 (08:49→20:17)
--- NOTE | 2017-08-03 13:21 | Progress Note ---
- Date 08/03/17 Subjective: Sitting up in chair. In good spirits. Ready to go to rehab on Saturday. No new issues. Objective Vital signs: Temperature 97.5 F 08/03/17 11:16 Pulse Rate 98 08/03/17 11:16 Respiratory Rate 18 08/03/17 11:16 Blood Pressure 140/74 H 08/03/17 11:16 Pulse Oximetry 98 08/03/17 11:16 Rhythm: Normal Sinus Rhythm Height/Weight/BMI: Height 5 ft 8 in Weight 111.1 kg Body Mass Index 35.1 - Constitutional Present: no acute distress - Routine Respiratory Exam Present: CTA bilaterally - Routine Cardiovascular Exam Present: RRR - Routine Abdominal Exam Present: soft, normoactive bowel sounds, non distended, non tender - Routine Extremities Exam Present: no edema - Routine Skin Exam Comments: wound vac in place with surgical shoe on left foot - Routine Neurological Exam Present: alert, oriented X3, CN II-XII intact - Routine Psychiatric Exam Present: normal affect Results - Labs CBC & Chem 7: 08/03/17 04:48 08/03/17 04:48 Microbiology Results: Microbiology 07/25/17 15:57 Foot, Left Gram Stain - Final 07/25/17 15:57 Foot, Left Surgical Culture - Final Strep agalactiae - (Group B) Staphylococcus aureus, MRSA Coag negative Staphylococcus 07/24/17 12:48 Peripheral/Iv Start Blood Culture - Final No Growth After 5 Days 07/24/17 12:55 Peripheral/Iv Start Blood Culture - Final No Growth After 5 Days Assessment and Plan (1) Surgical wound dehiscence Current visit: Yes Status: Acute Assessment and Plan: Impression Left surgical wound dehiscence -- 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 Osteomyelitis - L foot, group B strep, possible MRSA Cardiomyopathy - improved, no longer requiring LifeVest (HFrEF, 20%) Type II diabetes - Insulin requiring, A1C 7.3 Possible gout flare - 07/30/17 Coronary artery disease Peripheral vascular disease Hypertension Chronic Kidney Disease Stage II Acute kidney injury-07/30/17-RLL Depression Hearing deficit Obesity with BMI 35.1 Probable BPH -07/27/17 Plan - 08/03/17 CM arranged for discharge to [facility] on 08/05/17 for continued care. Patient to do hyperbaric treatment following discharge from [facility]. Wound vac in place per surgery Continue current treatment including vancomycin-day 11, as well as Clindamycin - day 5, for antimicrobial coverage. Dosing adjusted by pharm based on renal fx. Vanco level this evening planned Leukocytosis resolved today. Patient remains afebrile. SCr trended down overnight after 40 of IV lasix yesterday - monitor creatinine and vanco level, may need more diuresis Hypoglycemia on 08/01/17 - improved with decrease in insulin dosages (Novolog decreased from 16 units TID to 10 units TID; Levemir decreased from 25 units BID to 20 units BID). Continue to monitor blood sugars closely, adjusting insulin as indicated. Encourage oral intake. Sliding scale insulin as indicated. Recheck labs in AM to monitor blood counts, electrolytes and renal function. - Physician Narrative Narrative: Date: 08/03/17 Time: 1314 Hospital Course Summary Disclaimer: The visit summary below is not to be considered part of the above Progress Note. Hospital Course: 07/24/17 Admission Admit patient to inpatient status under the care of Dr. Hernandez. Consult with Dr. Slade for further wound management. Planning for debridement and possible placement of wound VAC tomorrow. Start Vancomycin per protocol for wound coverage. Continue levofloxacin, changing to 750mg IV daily. PICC line study reveals that line placement is within the Azygos vein. Spoke with PICC line team. We will replace PICC line for better placement. Obtain CBC, CMP, blood culture, venous lactate, magnesium, urinalysis analysis, uric acid & CRP on admit. Monitor Accu-Cheks Given patient's history of diabetes. Will continue on home regimen of Levemir 40 units twice a day and NovoLog 20 units with meals. Patient to be nothing by mouth after midnight for scheduled procedure. Consult with Dr. Stubbs for further cardiac evaluation and recommendations. We are awaiting the echocardiogram report that was done outpatient last week as this will direct ongoing guidance regarding LifeVest. SCDs to bilateral lower extremity for DVT prophylaxis. We did discuss advanced directives and at this time. Patient does wish to be a do not resuscitate. Will discuss further orders and plan of care with attending, Dr. Hernandez. At time of discharge medical care will return to primary care provider, Dr Luis E Martinez in [place], [place]. 07/25 Planning for surgical debridement of Left foot wound today by Dr Slade Patient did receive Entresto today given recent vascular stenting of the left leg on 07/16 On vancomycin and IV Levaquin for antimicrobial coverage Will continue to monitor Accu-Cheks Will continue on home regimen of Levemir 40 units twice a day and NovoLog 20 units with meals. Spoke with [facility] radiology dept. They received report last night and will fax it today [place] [facility] [place]. Patient currently wearing left vest. SCDs to bilateral lower extremity for DVT prophylaxis. 07/26 Status post surgical debridement of necrotic tissue and removal of fourth and fifth metatarsal heads yesterday by Dr. Slade. Awaiting path and culture. Wound vac placed yesterday. CM making arrangements for outpatient wound vac. Continue vancomycin and IV Levaquin for antimicrobial coverage. DC IVF's which were started in surgery. Pain is controlled. Will consult PT/OT to help functional status. 07/[address] Surgical culture positive for group B strep. Nocturnal hypoglycemia-decrease Levemir dose while hospitalized, continue current NovoLog and metformin dosages. Patient describes urinary frequency without dysuria, probable BPH-post void residual obese checked by bladder scan. If unremarkable we will initiate Flomax on trial basis. Adequate pain control. 07/28 Continue vancomycin and IV Levaquin for antimicrobial coverage. Status post surgical debridement of necrotic tissue and removal of fourth and fifth metatarsal heads 07/[address] Slade. Wound vac. Awaiting path. Surgical culture positive for group B strep/Staph aureus. Will continue current abx until cx are final given hx of past culture results. Needs to reassess CXR given malposition of PICC on prior films. Recurrent hypoglycemia- both long and short-acting insulin adjusted yesterday. Suspect lowering due to infection more controlled. Patient describes urinary frequency without dysuria, probable BPH. Order additional bladder scan, straight cath. We may need to place delgado. Flomax started yesterday. D/W pt that it will take a few days for effect. HF- pt has been consistently tachycardic. BP is has been adequate. Will up Coreg dosing to help control HR. Continue Entresto, Brilinta. Cardiology following. May need to add diuretics, but hesitant to do so until he is voiding better. Adequate pain control. Continue frequent labs for monitoring. 07/29 Currently on vancomycin and IV Levaquin for antimicrobial coverage. Wound vac change today. Path shows osteomyelitis. Surgical culture positive for group B strep/Staph aureus. Coreg was increased yesterday d/t tachycardia. Pulse still lower 100's. Cardiology following. White count (12.1) and creatinine (1.7) both up today 07/30 Currently on vancomycin for antimicrobial coverage. Add clinda for increased strep coverage. Sensitivities requested on strep. White count increased today 12.1-->17.1. Creatinine 1.3-->1.7-->1.9. IVF's added to improve renal function. Add colchicine for R ankle pain possibly r/t gout. Discussed w/ Dr. Slade. If pain isn't improved over the next 1-2 days, ortho will do joint aspiration to r/ o septic joint vs gout vs other. (Dr Slade will be out of town, but ZENY Cramer can do aspiration.) Uric acid is WNL. Will hold off on DC to SNU at this time give the increase in his WBC and creatinine and new c/o ankle pain. 07/31 Currently on vancomycin for antimicrobial coverage. Dosing adjusted by pharm based on renal fx. Day # 2 of Clindamycin. White count improved today 17.1-->13.1. Creatinine continues to climb 1.9-->2.1. IVF's added yesterday. Hgb dropped a point from yesterday - likely dilutional. Colchicine added yesterday for gout w/ improvement in pain--> discontinue due to worsening renal function. AC insulin halved this am d/t low BS this am. Long acting insulin decreased due to low-normal fasting glucose. Renal sonogram normal. Patient still hoping to go to Swing Bed at [facility] upon dismissal if this is an option. 08/01 Currently on vancomycin-day 9, for antimicrobial coverage. Dosing adjusted by pharm based on renal fx. Day 3 Clindamycin. Leukocytosis resolved. Creatinine up a little further, reassess vancomycin trough in the morning. Right ankle pain has subsided, colchicine discontinued yesterday due to renal insufficiency. Recurrent hypoglycemia yesterday-insulins reduced significantly. Continue to monitor closely. 08/02 CM arranged for discharge to [facility] on 08/05/17 for continued care. Patient to do hyperbaric treatment following discharge from [facility]. Wound vac displaced during the night and was replaced this morning by wound care. Continue to monitor closely. Continue current treatment including vancomycin-day 10, as well as Clindamycin - day 4, for antimicrobial coverage. Dosing adjusted by pharm based on renal fx. Leukocytosis improving (WBC 11.4). Continue to monitor closely. Patient remains afebrile. SCr stable at 2.2 with BUN improving. Urinary output stable. Weight up 17 pounds since admission with 2+ edema. Will given Lasix 40mg IV and recheck SCr at 1999. Hypoglycemia on 08/01/17 - improved with decrease in insulin dosages (Novolog decreased from 16 units TID to 10 units TID; Levemir decreased from 25 units BID to 20 units BID). Continue to monitor blood sugars closely, adjusting insulin as indicated. Encourage oral intake. Sliding scale insulin as indicated. Recheck labs in AM to monitor blood counts, electrolytes and renal function. 08/03 CM arranged for discharge to [facility] on 08/05/17 for continued care. Patient to do hyperbaric treatment following discharge from [facility]. Wound vac in place per surgery Continue current treatment including vancomycin-day 11, as well as Clindamycin - day 5, for antimicrobial coverage. Dosing adjusted by pharm based on renal fx. Vanco level this evening planned Leukocytosis resolved today. Patient remains afebrile. SCr trended down overnight after 40 of IV lasix yesterday - monitor creatinine and vanco level, may need more diuresis Hypoglycemia on 08/01/17 - improved with decrease in insulin dosages (Novolog decreased from 16 units TID to 10 units TID; Levemir decreased from 25 units BID to 20 units BID). Continue to monitor blood sugars closely, adjusting insulin as indicated. Encourage oral intake. Sliding scale insulin as indicated. Recheck labs in AM to monitor blood counts, electrolytes and renal function.
[2017-08-03] MEDS: TAMSULOSIN 0.4 MG CAPSULE PO SCH (20:17)
[2017-08-03] MEDS: LATANOPROST 0.005% EYE DROPS 2.5ml RIGHT EYE SCH (20:25)
[2017-08-03] MEDS: VANCOMYCIN 1,250 MG in NS 250 ML IV SCH (20:26)
[2017-08-04] MEDS ORDERED: INSULIN DETEMIR 100unit/ml INJECTION SQ SCH ×2 (06:28→21:00)
[2017-08-04] MEDS: NS 1,000 ML IV SCH (07:32)
--- NOTE | 2017-08-04 07:36 | Pharmacy Consult-Antibiotics ---
Pharmacy Consult-Vancomycin - Laboratory Information WBC 10.0 T/MM3 (4.5-11.0) 08/04/17 04:00 BUN 28.0 MG/DL (9-20) H 08/04/17 03:59 Creatinine 1.9 mg/dL (0.8-1.5) H D 08/04/17 03:59 Procalcitonin < 0.05 NG/ML 07/24/17 12:48 Vancomycin Trough 20.65 ug/mL (15-20) H 08/03/17 19:58 - Consult Information VANCOMYCIN CONSULT: Vancomycin Trough = 20.65 mcg/ml. Today's SCr = 1.9 mg/dl. Will give Vancomycin 1,000 mg IV q24hrs. Will continue to monitor and make adjustments accordingly. Thank you.
[2017-08-04] MEDS: ENOXAPARIN 30 MG/0.3 ML INJECTION SQ SCH (08:19)
[2017-08-04] MEDS: CARVEDILOL 12.5 MG TABLET PO SCH ×2 (08:19→17:33)
[2017-08-04] MEDS: ASCORBIC ACID 500 MG TABLET PO SCH (08:23)
[2017-08-04] MEDS: MAGNESIUM OXIDE 400 MG TABLET PO SCH (08:23)
[2017-08-04] MEDS: CLINDAMYCIN 300 MG CAPSULE PO SCH ×4 (08:23→21:08)
[2017-08-04] MEDS: MULTI-VITAMIN + MINERAL TABLET PO SCH (08:23)
[2017-08-04] MEDS: LACTOBACILLUS (15B cfu) CAPSULE PO SCH (08:23)
[2017-08-04] MEDS: ASPIRIN 81 MG CHEWABLE TABLET PO SCH (08:23)
[2017-08-04] MEDS: CITALOPRAM 20 MG TABLET PO SCH (08:23)
[2017-08-04] MEDS: TICAGRELOR 90 MG TABLET PO SCH ×2 (08:23→21:08)
--- NOTE | 2017-08-04 10:27 | Progress Note ---
- Date 08/04/17 Subjective: Eating breakfast in bed. Had a low blood sugar of 53 this morning fasting. Was symptomatic, but feeling better with food. No other new problems. Objective Vital signs: Temperature 96.9 F 08/04/17 08:29 Pulse Rate 105 H 08/04/17 08:29 Respiratory Rate 18 08/04/17 08:29 Blood Pressure 148/91 H 08/04/17 08:29 Pulse Oximetry 97 08/04/17 08:29 Rhythm: Normal Sinus Rhythm Height/Weight/BMI: Height 5 ft 8 in Weight 111.1 kg Body Mass Index 35.1 - Constitutional Present: no acute distress - Routine Respiratory Exam Present: CTA bilaterally - Routine Cardiovascular Exam Present: RRR - Routine Abdominal Exam Present: soft, normoactive bowel sounds, non distended, non tender - Routine Extremities Exam Present: no edema - Routine Skin Exam Comments: wound vac in place on left foot - Routine Neurological Exam Present: alert, oriented X3, CN II-XII intact Results - Labs CBC & Chem 7: 08/04/17 04:00 08/04/17 03:59 Microbiology Results: Microbiology 07/25/17 15:57 Foot, Left Gram Stain - Final 07/25/17 15:57 Foot, Left Surgical Culture - Final Strep agalactiae - (Group B) Staphylococcus aureus, MRSA Coag negative Staphylococcus 07/24/17 12:48 Peripheral/Iv Start Blood Culture - Final No Growth After 5 Days 07/24/17 12:55 Peripheral/Iv Start Blood Culture - Final No Growth After 5 Days Assessment and Plan (1) Surgical wound dehiscence Current visit: Yes Status: Acute Assessment and Plan: Impression Left surgical wound dehiscence -- 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 Osteomyelitis - L foot, group B strep, possible MRSA Cardiomyopathy - improved, no longer requiring LifeVest (HFrEF, 20%) Type II diabetes - Insulin requiring, A1C 7.3 Possible gout flare - 07/30/17 Coronary artery disease Peripheral vascular disease Hypertension Chronic Kidney Disease Stage II Acute kidney injury-07/30/17-RLL Depression Hearing deficit Obesity with BMI 35.1 Probable BPH -07/27/17 Plan - 08/04/17 CM arranged for discharge to [facility] on 08/05/17 for continued care. Patient to do hyperbaric treatment following discharge from [facility]. Wound vac in place per surgery Continue current treatment including vancomycin-day 12, as well as Clindamycin - day 6, for antimicrobial coverage. Dosing adjusted by pharm based on renal fx. Vanco level 20 last night. Has PICC for ATBX. SCr trended down overnight after 40 of IV lasix 08/02- stopped IVF. May need more diuresis. Baseline creatinine is 1. Hypoglycemia- insulin has been decreased to novolog 10 TID WM an levemir 15 BID. Change to levemir 15 units QHS and novolog 5 TIDWM and increase from there. - Physician Narrative Narrative: Date: 08/04/17 Time: 1010 Hospital Course Summary Disclaimer: The visit summary below is not to be considered part of the above Progress Note. Hospital Course: 07/24/17 Admission Admit patient to inpatient status under the care of Dr. Hernandez. Consult with Dr. Slade for further wound management. Planning for debridement and possible placement of wound VAC tomorrow. Start Vancomycin per protocol for wound coverage. Continue levofloxacin, changing to 750mg IV daily. PICC line study reveals that line placement is within the Azygos vein. Spoke with PICC line team. We will replace PICC line for better placement. Obtain CBC, CMP, blood culture, venous lactate, magnesium, urinalysis analysis, uric acid & CRP on admit. Monitor Accu-Cheks Given patient's history of diabetes. Will continue on home regimen of Levemir 40 units twice a day and NovoLog 20 units with meals. Patient to be nothing by mouth after midnight for scheduled procedure. Consult with Dr. Stubbs for further cardiac evaluation and recommendations. We are awaiting the echocardiogram report that was done outpatient last week as this will direct ongoing guidance regarding LifeVest. SCDs to bilateral lower extremity for DVT prophylaxis. We did discuss advanced directives and at this time. Patient does wish to be a do not resuscitate. Will discuss further orders and plan of care with attending, Dr. Hernandez. At time of discharge medical care will return to primary care provider, Dr Luis E Martinze in [place], [place]. 07/25 Planning for surgical debridement of Left foot wound today by Dr Slade Patient did receive Entresto today given recent vascular stenting of the left leg on 07/16 On vancomycin and IV Levaquin for antimicrobial coverage Will continue to monitor Accu-Cheks Will continue on home regimen of Levemir 40 units twice a day and NovoLog 20 units with meals. Spoke with [facility] radiology dept. They received report last night and will fax it today to [facility] as requested. Patient currently wearing left vest. SCDs to bilateral lower extremity for DVT prophylaxis. 07/26 Status post surgical debridement of necrotic tissue and removal of fourth and fifth metatarsal heads yesterday by Dr. Slade. Awaiting path and culture. Wound vac placed yesterday. CM making arrangements for outpatient wound vac. Continue vancomycin and IV Levaquin for antimicrobial coverage. DC IVF's which were started in surgery. Pain is controlled. Will consult PT/OT to help functional status. 07/[address] Surgical culture positive for group B strep. Nocturnal hypoglycemia-decrease Levemir dose while hospitalized, continue current NovoLog and metformin dosages. Patient describes urinary frequency without dysuria, probable BPH-post void residual obese checked by bladder scan. If unremarkable we will initiate Flomax on trial basis. Adequate pain control. 07/28 Continue vancomycin and IV Levaquin for antimicrobial coverage. Status post surgical debridement of necrotic tissue and removal of fourth and fifth metatarsal heads 07/[address] Slade. Wound vac. Awaiting path. Surgical culture positive for group B strep/Staph aureus. Will continue current abx until cx are final given hx of past culture results. Needs to reassess CXR given malposition of PICC on prior films. Recurrent hypoglycemia- both long and short-acting insulin adjusted yesterday. Suspect lowering due to infection more controlled. Patient describes urinary frequency without dysuria, probable BPH. Order additional bladder scan, straight cath. We may need to place delgado. Flomax started yesterday. D/W pt that it will take a few days for effect. HF- pt has been consistently tachycardic. BP is has been adequate. Will up Coreg dosing to help control HR. Continue Entresto, Brilinta. Cardiology following. May need to add diuretics, but hesitant to do so until he is voiding better. Adequate pain control. Continue frequent labs for monitoring. 07/29 Currently on vancomycin and IV Levaquin for antimicrobial coverage. Wound vac change today. Path shows osteomyelitis. Surgical culture positive for group B strep/Staph aureus. Coreg was increased yesterday d/t tachycardia. Pulse still lower 100's. Cardiology following. White count (12.1) and creatinine (1.7) both up today 07/30 Currently on vancomycin for antimicrobial coverage. Add clinda for increased strep coverage. Sensitivities requested on strep. White count increased today 12.1-->17.1. Creatinine 1.3-->1.7-->1.9. IVF's added to improve renal function. Add colchicine for R ankle pain possibly r/t gout. Discussed w/ Dr. Slade. If pain isn't improved over the next 1-2 days, ortho will do joint aspiration to r/ o septic joint vs gout vs other. (Dr Slade will be out of town, but ZENY Cramer can do aspiration.) Uric acid is WNL. Will hold off on DC to SNU at this time give the increase in his WBC and creatinine and new c/o ankle pain. 07/31 Currently on vancomycin for antimicrobial coverage. Dosing adjusted by pharm based on renal fx. Day # 2 of Clindamycin. White count improved today 17.1-->13.1. Creatinine continues to climb 1.9-->2.1. IVF's added yesterday. Hgb dropped a point from yesterday - likely dilutional. Colchicine added yesterday for gout w/ improvement in pain--> discontinue due to worsening renal function. AC insulin halved this am d/t low BS this am. Long acting insulin decreased due to low-normal fasting glucose. Renal sonogram normal. Patient still hoping to go to [facility] at [facility] upon dismissal if this is an option. 08/01 Currently on vancomycin-day 9, for antimicrobial coverage. Dosing adjusted by pharm based on renal fx. Day 3 Clindamycin. Leukocytosis resolved. Creatinine up a little further, reassess vancomycin trough in the morning. Right ankle pain has subsided, colchicine discontinued yesterday due to renal insufficiency. Recurrent hypoglycemia yesterday-insulins reduced significantly. Continue to monitor closely. 08/02 CM arranged for discharge to [facility] on 08/05/17 for continued care. Patient to do hyperbaric treatment following discharge from [facility]. Wound vac displaced during the night and was replaced this morning by wound care. Continue to monitor closely. Continue current treatment including vancomycin-day 10, as well as Clindamycin - day 4, for antimicrobial coverage. Dosing adjusted by pharm based on renal fx. Leukocytosis improving (WBC 11.4). Continue to monitor closely. Patient remains afebrile. SCr stable at 2.2 with BUN improving. Urinary output stable. Weight up 17 pounds since admission with 2+ edema. Will given Lasix 40mg IV and recheck SCr at 1999. Hypoglycemia on 08/01/17 - improved with decrease in insulin dosages (Novolog decreased from 16 units TID to 10 units TID; Levemir decreased from 25 units BID to 20 units BID). Continue to monitor blood sugars closely, adjusting insulin as indicated. Encourage oral intake. Sliding scale insulin as indicated. Recheck labs in AM to monitor blood counts, electrolytes and renal function. 324 CM arranged for discharge to [facility] on 08/05/17 for continued care. Patient to do hyperbaric treatment following discharge from [facility]. Wound vac in place per surgery Continue current treatment including vancomycin-day 11, as well as Clindamycin - day 5, for antimicrobial coverage. Dosing adjusted by pharm based on renal fx. Vanco level this evening planned Leukocytosis resolved today. Patient remains afebrile. SCr trended down overnight after 40 of IV lasix yesterday - monitor creatinine and vanco level, may need more diuresis Hypoglycemia on 08/01/17 - improved with decrease in insulin dosages (Novolog decreased from 16 units TID to 10 units TID; Levemir decreased from 25 units BID to 20 units BID). Continue to monitor blood sugars closely, adjusting insulin as indicated. Encourage oral intake. Sliding scale insulin as indicated. Recheck labs in AM to monitor blood counts, electrolytes and renal function. 3/25 CM arranged for discharge to [facility] on 08/05/17 for continued care. Patient to do hyperbaric treatment following discharge from [facility]. Wound vac in place per surgery Continue current treatment including vancomycin-day 12, as well as Clindamycin - day 6, for antimicrobial coverage. Dosing adjusted by pharm based on renal fx. Vanco level 20 last night. Has PICC for ATBX. SCr trended down overnight after 40 of IV lasix 3/23- stopped IVF. May need more diuresis. Baseline creatinine is 1. Hypoglycemia- insulin has been decreased to novolog 10 TID WM an levemir 15 BID. Change to levemir 15 units QHS and novolog 5 TIDWM and increase from there.
[2017-08-04] MEDS: NYSTATIN OINTMENT 15gm TP SCH ×3 (10:34→21:10)
[2017-08-04] MEDS: INSULIN ASPART 100unit/ml INJECTION SQ SCH ×2 (12:33→17:55)
[2017-08-04] MEDS ORDERED: INSULIN ASPART 100unit/ml INJECTION SQ SCH (15:00)
[2017-08-04] MEDS: SALINE FLUSH 10ml SYRINGE IV PRN (15:23)
[2017-08-04] MEDS: INSULIN ASPART 100unit/ml INJECTION SQ PRN (15:23)
[2017-08-04] MEDS: TAMSULOSIN 0.4 MG CAPSULE PO SCH (21:08)
[2017-08-04] MEDS: LATANOPROST 0.005% EYE DROPS 2.5ml RIGHT EYE SCH (21:08)
[2017-08-05 07:42] VITALS: BP 146/78; PULSE 106; RESP 16; TEMP 96.7; O2SAT 95
[2017-08-05] MEDS: ENOXAPARIN 30 MG/0.3 ML INJECTION SQ SCH (08:53)
[2017-08-05] MEDS: INSULIN ASPART 100unit/ml INJECTION SQ SCH ×2 (08:54→12:47)
[2017-08-05] MEDS: SALINE FLUSH 10ml SYRINGE IV PRN (08:55)
[2017-08-05] MEDS: ASPIRIN 81 MG CHEWABLE TABLET PO SCH (08:56)
[2017-08-05] MEDS: CARVEDILOL 12.5 MG TABLET PO SCH (08:56)
[2017-08-05] MEDS: MAGNESIUM OXIDE 400 MG TABLET PO SCH (08:56)
[2017-08-05] MEDS: ASCORBIC ACID 500 MG TABLET PO SCH (08:56)
[2017-08-05] MEDS: CITALOPRAM 20 MG TABLET PO SCH (08:57)
[2017-08-05] MEDS: MULTI-VITAMIN + MINERAL TABLET PO SCH (08:57)
[2017-08-05] MEDS: TICAGRELOR 90 MG TABLET PO SCH (08:57)
[2017-08-05] MEDS: LACTOBACILLUS (15B cfu) CAPSULE PO SCH (08:57)
[2017-08-05] MEDS: INSULIN ASPART 100unit/ml INJECTION SQ PRN (11:19)
[2017-08-05] MEDS: NYSTATIN OINTMENT 15gm TP SCH (11:21)
[2017-08-05] MEDS: CLINDAMYCIN 300 MG CAPSULE PO SCH ×2 (11:21→12:47)
--- NOTE | 2017-08-05 11:22 | Discharge Summary ---
Discharge Information Date of admission: 07/24/17 11:58 Anticipated date of discharge: 08/05/17 Attending Physician: Renee Real MD Primary care physician: Luis E Martinez DO Consults: Consulting Provider: Nuno Slade Consulting Provider: Caden Stubbs - Discharge Diagnosis (1) Surgical wound dehiscence Status: Acute Left surgical wound dehiscence -- 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 Osteomyelitis - L foot, group B strep, possible MRSA Cardiomyopathy - improved, no longer requiring LifeVest (HFrEF, 20%-->61%) Type II diabetes - Insulin requiring, A1C 7.3 Possible gout flare - 07/30/17 Coronary artery disease Peripheral vascular disease Hypertension Chronic Kidney Disease Stage II Acute kidney injury-07/30/17 Depression Hearing deficit Obesity with BMI 35.1 Probable BPH -07/27/17 - Procedures Procedures: DATE OF PROCEDURE 07/25/2017 PREOPERATIVE DIAGNOSIS 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 POSTOPERATIVE DIAGNOSIS 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 PROCEDURE Surgical debridement with bone biopsy, left foot surgical wound. SURGEON Nuno Slade MD - Laboratory Labs: 08/05/17 04:08 08/05/17 04:08 - Microbiology Microbiology 07/25/17 15:57 Foot, Left Gram Stain - Final 07/25/17 15:57 Foot, Left Surgical Culture - Final Strep agalactiae - (Group B) Staphylococcus aureus, MRSA Coag negative Staphylococcus 07/24/17 12:48 Peripheral/Iv Start Blood Culture - Final No Growth After 5 Days 07/24/17 12:55 Peripheral/Iv Start Blood Culture - Final No Growth After 5 Days - Radiology Radiology: Date of Exam: 07/31/17 Indication: renal failure PROCEDURE: US renal BI: FINDINGS: Both kidneys are present with normal cortical thickness and echogenicity. No evidence for collecting system dilatation, contour deforming mass, nephrolithiasis, or abnormal perinephric fluid collection. The right kidney measures 12.8 cm in length, and the left kidney measures 12.7 cm in length. IMPRESSION: Normal renal sonogram. Date of Exam: 07/28/17 Indication: PICC positioning PROCEDURE: XR chest 1V: Findings: Left PICC line in place with the tip projecting over the lower SVC at the cavoatrial junction. Lung martinez are clear. No pleural effusion or pneumothorax. Heart size and mediastinal contours are within normal limits. Impression: Left PICC line appears appropriately positioned. History of Present Illness HPI: Patient is a pleasant 67-year-old male who has been undergoing outpatient wound care following amputation of left 4th and 5th toes on June [address] Slade. Since that time he has had difficulty with wound healing since June. He does have known coronary artery disease and did have 2 stents placed in left lower extremity in July by Dr. Stubbs. He feels that since that time, his wound has been healing better. Today he was seen in the outpatient setting by Dr. Slade, He recommended admission for further debridement and potentially placement of a wound VAC. The hospitalist services accepted patient for direct admission under the care of Dr. Hernandez for further workup and management of his medical comorbidities. Patient has been wearing a LifeVest due to his significant cardiomyopathy. He did have an echocardiogram last week on 07/18 in [place], however, no Radiology report has been received. Patient is eager and hopeful to be able to remove the LifeVest. He is under the cardiac care of Dr. Stubbs. He has been receiving outpatient IV Levaquin for treatment of Left toe culture and sensitivity from 07/03 reveling Stenotrophomonas Maltophilia. Objective Vital signs: Temperature 96.7 F L 08/05/17 07:37 Pulse Rate 106 H 08/05/17 08:24 Respiratory Rate 16 08/05/17 07:37 Blood Pressure 146/78 H 08/05/17 07:37 Pulse Oximetry 95 08/05/17 07:37 Rhythm: Normal Sinus Rhythm Height/Weight/BMI: Height 1.73 m Weight 110.5 kg Body Mass Index 35.1 - Constitutional Present: no acute distress, well nourished, well developed - Routine HEENT Exam Head: Present: normocephalic, atraumatic - Routine Respiratory Exam Present: CTA bilaterally. Absent: wheezes - Routine Cardiovascular Exam Present: no murmur, tachycardia (mild) - Routine Abdominal Exam Present: soft, non distended, non tender - Routine Extremities Exam Present: edema (left foot, wound VAC in place. No significant erythema is noted surrounding the wound.), normal capillary refill - Routine Skin Exam Present: dry, warm - Routine Neurological Exam Present: alert, oriented X3 - Routine Lymphatic Exam Lymphatic: Absent: adenopathy - Routine Psychiatric Exam Present: normal affect, cooperative Hospital Course This is a general summary of the patient's hospital course. For more details refer to the complete medical record. Hospital course: 07/24/17 Admission Admit patient to inpatient status under the care of Dr. Hernandez. Consult with Dr. Slade for further wound management. Planning for debridement and possible placement of wound VAC tomorrow. Start Vancomycin per protocol for wound coverage. Continue levofloxacin, changing to 750mg IV daily. PICC line study reveals that line placement is within the Azygos vein. Spoke with PICC line team. We will replace PICC line for better placement. Obtain CBC, CMP, blood culture, venous lactate, magnesium, urinalysis analysis, uric acid & CRP on admit. Monitor Accu-Cheks Given patient's history of diabetes. Will continue on home regimen of Levemir 40 units twice a day and NovoLog 20 units with meals. Patient to be nothing by mouth after midnight for scheduled procedure. Consult with Dr. Stubbs for further cardiac evaluation and recommendations. We are awaiting the echocardiogram report that was done outpatient last week as this will direct ongoing guidance regarding LifeVest. SCDs to bilateral lower extremity for DVT prophylaxis. We did discuss advanced directives and at this time. Patient does wish to be a do not resuscitate. Will discuss further orders and plan of care with attending, Dr. Hernandez. At time of discharge medical care will return to primary care provider, Dr Luis E Martinez in [place], [place]. 07/25 Planning for surgical debridement of Left foot wound today by Dr Slade Patient did receive Entresto today given recent vascular stenting of the left leg on 07/16 On vancomycin and IV Levaquin for antimicrobial coverage Will continue to monitor Accu-Cheks Will continue on home regimen of Levemir 40 units twice a day and NovoLog 20 units with meals. Spoke with [facility] radiology dept. They received report last night and will fax it today to [facility] [place] as requested. Patient currently wearing left vest. SCDs to bilateral lower extremity for DVT prophylaxis. 07/26 Status post surgical debridement of necrotic tissue and removal of fourth and fifth metatarsal heads yesterday by Dr. Slade. Awaiting path and culture. Wound vac placed yesterday. CM making arrangements for outpatient wound vac. Continue vancomycin and IV Levaquin for antimicrobial coverage. DC IVF's which were started in surgery. Pain is controlled. Will consult PT/OT to help functional status. 07/[address] Surgical culture positive for group B strep. Nocturnal hypoglycemia-decrease Levemir dose while hospitalized, continue current NovoLog and metformin dosages. Patient describes urinary frequency without dysuria, probable BPH-post void residual obese checked by bladder scan. If unremarkable we will initiate Flomax on trial basis. Adequate pain control. 07/28 Continue vancomycin and IV Levaquin for antimicrobial coverage. Status post surgical debridement of necrotic tissue and removal of fourth and fifth metatarsal heads 07/[address] Slade. Wound vac. Awaiting path. Surgical culture positive for group B strep/Staph aureus. Will continue current abx until cx are final given hx of past culture results. Needs to reassess CXR given malposition of PICC on prior films. Recurrent hypoglycemia- both long and short-acting insulin adjusted yesterday. Suspect lowering due to infection more controlled. Patient describes urinary frequency without dysuria, probable BPH. Order additional bladder scan, straight cath. We may need to place delgado. Flomax started yesterday. D/W pt that it will take a few days for effect. HF- pt has been consistently tachycardic. BP is has been adequate. Will up Coreg dosing to help control HR. Continue Entresto, Brilinta. Cardiology following. May need to add diuretics, but hesitant to do so until he is voiding better. Adequate pain control. 07/29 Currently on vancomycin and IV Levaquin for antimicrobial coverage. Wound vac change today. Path shows osteomyelitis. Surgical culture positive for group B strep/Staph aureus. Coreg was increased yesterday d/t tachycardia. Pulse still lower 100's. Cardiology following. White count (12.1) and creatinine (1.7) both up today 07/30 Currently on vancomycin for antimicrobial coverage. Add clinda for increased strep coverage. Sensitivities requested on strep. Levaquin discontinued since no GNRs identified in surgical culture. White count increased today 12.1-->17.1. Creatinine 1.3-->1.7-->1.9. IVF's added to improve renal function. Add colchicine for R ankle pain possibly r/t gout. Discussed w/ Dr. Slade. If pain isn't improved over the next 1-2 days, ortho will do joint aspiration to r/ o septic joint vs gout vs other. Uric acid is WNL. Will hold off on DC to SNU at this time give the increase in his WBC and creatinine and new c/o ankle pain. 07/31 Currently on vancomycin for antimicrobial coverage. Dosing adjusted by pharm based on renal fx. Day # 2 of Clindamycin. White count improved today 17.1-->13.1. Creatinine continues to climb 1.9-->2.1. IVF's added yesterday. Hgb dropped a point from yesterday - likely dilutional. Colchicine added yesterday for gout w/ improvement in pain--> discontinue due to worsening renal function. AC insulin halved this am d/t low BS this am. Long acting insulin decreased due to low-normal fasting glucose. Renal sonogram normal. 08/01 Currently on vancomycin-day 9, for antimicrobial coverage. Dosing adjusted by pharm based on renal fx. Day 3 Clindamycin. Leukocytosis resolved. Creatinine up a little further, reassess vancomycin trough in the morning. Right ankle pain has subsided, colchicine discontinued yesterday due to renal insufficiency. Recurrent hypoglycemia yesterday-insulins reduced significantly. Continue to monitor closely. 08/02 CM arranged for discharge to [facility] on 08/05/17 for continued care. Patient to do hyperbaric treatment following discharge from [facility]. Continue current treatment including vancomycin-day 10, as well as Clindamycin - day 4, for antimicrobial coverage. Dosing adjusted by pharm based on renal fx. Leukocytosis improving (WBC 11.4). Continue to monitor closely. SCr stable at 2.2 with BUN improving. Urinary output stable. Weight up 17 pounds since admission with 2+ edema. Will given Lasix 40mg IV and recheck SCr at 1999. Hypoglycemia on 08/01/17 - improved with decrease in insulin dosages (Novolog decreased from 16 units TID to 10 units TID; Levemir decreased from 25 units BID to 20 units BID). Continue to monitor blood sugars closely, adjusting insulin as indicated. Encourage oral intake. Sliding scale insulin as indicated. 08/[address] per surgery Continue current treatment including vancomycin-day 11, as well as Clindamycin - day 5, for antimicrobial coverage. Dosing adjusted by pharm based on renal fx. Vanco level this evening planned SCr trended down overnight after 40 of IV lasix yesterday - monitor creatinine and vanco level, may need more diuresis Continue to monitor blood sugars closely, adjusting insulin as indicated. Encourage oral intake. Sliding scale insulin as indicated. 08/04 CM arranged for discharge to [facility] on 08/05/17 for continued care. Patient to do hyperbaric treatment following discharge from [facility]. Continue current treatment including vancomycin-day 12, as well as Clindamycin - day 6, for antimicrobial coverage. Dosing adjusted by pharm based on renal fx. Vanco level 20 last night. Has PICC for ATBX. Hypoglycemia- insulin has been decreased to novolog 10 TID WM an levemir 15 BID. Change to levemir 15 units QHS and novolog 5 TIDWM and increase from there. 08/[address] Maggy Bedoya, accepting physician. Patient to be transferred to [facility] today to swing bed for continued IV antibiotics. He should be on vancomycin for a total of 6 weeks. Clindamycin for [address] Barron. Today is day #13 of vancomycin and day #7 of clindamycin. Has PICC for antibiotics He is scheduled for follow-up with Dr. Slade in the wound clinic on August 07 at noon. He will also be scheduled to follow-up with Dr. Barron (infectious disease ) as well. Will need to continue to follow his kidney function, as well as his hemoglobin and white count. Insulin needs have decreased with his renal insufficiency. Insulin has been decreased as indicated in yesterday's note. Time spent with patient: discharge greater than 30 minutes Resuscitation Status: Do Not Resuscitate Discharge Plan - Discharge Disposition Discharge Date: 08/05/17 Disposition: 61 To Any Swing Bed *Condition: Stable Reason For Visit (Visit label in EMR): L foot Surgical Wound - Discharge Medications *Discharge Medications: New Carvedilol [Coreg] 12.5 mg PO BIDWM tab Clindamycin [Cleocin] 300 mg PO QID cap Enoxaparin Sodium [Lovenox] 30 mg SQ DAILY syringe Glucose Oral Gel 40% [Glutose 15] 37.5 gm PO PRN PRN tube PRN Reason: Hypoglycemia Insulin Aspart [NovoLOG] 1 - 5 unit SQ SS PRN vial PRN Reason: Hyperglycemia Insulin Detemir [Levemir] 15 unit SQ HS vial Nystatin Ointment [Mycostatin] 1 applicatio TP TID tube Tamsulosin [Flomax] 0.4 mg PO HS cap Insulin Aspart [NovoLOG] 5 unit SQ TIDWM vial Vancomycin [Vancocin] 1,000 mg IV Q24H vial Continue Latanoprost 1 drop BOTH EYES HS #0 bottle Aspirin Chewable [ASA] 81 mg PO DAILY Nitroglycerin [Nitrostat] 0.4 mg SL Q5MIN3 PRN #25 tab PRN Reason: Angina Ticagrelor [Brilinta] 90 mg PO BID #60 tab Ascorbic Acid [Vitamin C] 1,000 mg PO DAILY Hydrocodone/APAP 5/325 [[place] 5/325] 1 - 2 tab PO Q6H PRN PRN Reason: Pain Lactobacillus Acidophilus [Probiotic] 1 each PO DAILY Magnesium Oxide [Magnesium] 400 mg PO DAILY Multivitamin [One Daily] 1 tab PO DAILY Citalopram [Celexa] 20 mg PO DAILY Discontinued Allopurinol [Zyloprim] 100 mg PO DAILY Carvedilol 6.25 mg PO BIDWM SACUBITRIL/VALSARTAN 49/51mg [ENTRESTO 49/51mg] 1 tab PO BID Insulin Detemir [Levemir] 40 units SQ BID Insulin Aspart [NovoLOG] 20 units SQ TIDWM Allopurinol [Zyloprim] 300 mg PO DAILY Levofloxacin [Levaquin] 500 mg PO DAILY Colchicine [Colcrys] 0.6 mg PO PRN PRN PRN Reason: Gout Pain Metformin [Glucophage] 500 mg PO DAILY - Discharge Packet/Instructions *Diet: Consistent carbohydrate 2000-calorie *Activity: As tolerated with wound VAC in place. *Pain Management/Treatment: per MAR *Wound Care: Per Dr. Slade's instructions *Expected Signs/Symptoms: n/a *Notify Physician if: you develop fever or significant pain *During Business Hours Contact: Nurse at [facility] *After Business Hours Contact: Nurse at [facility] *Pending Lab/Results: No Pending Lab - Referrals/Follow Up *Referrals/Follow Up: Maria M Barron MD [Physician] - 08/14/17 11:00 am () Nuno Slade MD [Physician] - 08/07/17 12:00 pm (in [facility]) - Patient Handouts Patient Handouts: Debridement (DC), Wound Healing and Your Diet (DC), Wound Dehiscence (DC), Negative Pressure Wound Therapy (DC), [facility] General Instructions - Dismissal Complete Discharge Instructions are:: Complete Physician Narrative - Narrative Physician: Renee Real MD Attestation Narrative: Date: 08/05/17 Time: 1500 I have independently evaluated and examined this patient. I reviewed the chart, the patient's history, and the CUSTOMER SUPPORT EXECUTIVE/PA's documented findings as above. We discussed and formulated the assessment and plan as above with additions as below: Mr. Dobson had no particular concerns today and is anxious to discharge and transition to swing bed at [facility]. He denied ankle or foot pain. NAD, alert; no erythema surrounding surgical margin/wound VAC left foot. Regular cardiac rhythm-telemetry strips reviewed revealing consistent sinus rhythm. Fasting blood sugar 173 this morning following further modifications in insulin yesterday; creatinine stable at 1.9. Stable for discharge. Last vancomycin trough was prior to dose 08/03 at which time dose was decreased to 1 g every 24 hours. Next trough scheduled prior to dose on 08/07. Anticipate antibiotics for 6 weeks total; follow-up with infectious disease can be coordinated in the wound care clinic if needed.
--- NOTE | 2017-08-05 11:59 | Extended Care Facility Orders ---
<TitoKarla L - Last Filed: 08/05/17 11:57> Admission Orders Admit to:: Swing Bed-Non [place] Allergies/Adverse Reactions: Allergies Kyaisdh-Pvp-Faw Reductase Inhibitor Adverse Reaction (Severe, Verified 07/24/17 12:28) Muscle Pain Admitting Diagnosis: L foot Surgical Wound Admitting Physician: Renee Real MD Attending Physician: Renee Real MD Code Status: Do Not Resuscitate Anticiapted Length of Stay: 30 days or less Rehab Potential: fair Rehab Prognosis: fair Diet: 07/26/17 Breakfast Consistent Carbohydrate Diet [DIET] Calorie Level: 1999 Wound/Incision Care: per Dr. Slade May use Facility Protocol or Standing Orders: Yes May have flu vaccine: Yes Evaluations/Treatment: PT, OT - Additional Information In Event of Arrest: Do Not Start CPR Referrals: Maria M Barron MD [Physician] - 08/14/17 11:00 am () Nuno Slade MD [Physician] - 08/07/17 12:00 pm (in [facility]) <Renee Real - Last Filed: 08/05/17 15:06> Admission Orders Admitting Diagnosis: L foot Surgical Wound Admitting Physician: Renee Real MD Attending Physician: Renee Real MD Code Status: Do Not Resuscitate Diet: 07/26/17 Breakfast Consistent Carbohydrate Diet [DIET] Calorie Level: 1999 Senior Care Certification: I certify that SNF services are required to be given on an Inpatient basis because of the patients need for nursing home care on a continuing basis for the condition(s) for which he/she received inpatient hospital services prior to his/her transfer to the SNF. SNF inpatient care is necessary for the following reasons - Additional Information Additional Orders: accuchecks fasting and 2 hr PC
--- NOTE | 2017-08-05 13:50 | Orthopedic Progress Note ---
Date: Date: 08/05/17 Time: 1345 Subjective/Severity of Illness: Patient is resting this morning, denies any pain or concerns. Planning to discharge to [facility] today. Exam - Constitutional Vital Signs: Temperature 96.7 F L 08/05/17 07:37 Pulse Rate 106 H 08/05/17 08:24 Respiratory Rate 16 08/05/17 07:37 Blood Pressure 146/78 H 08/05/17 07:37 Pulse Oximetry 95 08/05/17 07:37 General: cooperative, no acute distress, well developed Nutritional Appearance: well nourished Orientation: oriented x3, alert - RLE General: normal to inspection Postoperative Appearance: extremity compartments are soft and nontender, neurovascullary intact to extremities Vascular: dorsalis pedis pulse within normal limits - LLE General: edema Postoperative Appearance: extremity compartments are soft and nontender, neurovascullary intact to extremities Skin: other (wound vac in place over 4th and 5th amputation wound sites. ) - Respiratory Respiratory Exam: non-labored - Cardiac Cardiovascular exam: pedal pulses intact - Wound Left Foot Type of Wound/Ulcer: Amputation Wound Dressing: Negative Pressure Dressing Wound Drainage Description: Sanguineous - Labs Result Diagrams: 08/05/17 04:08 08/05/17 04:08 Abnormal lab results 08/05/17 08/05/17 Range/Units 04:08 04:08 RBC 2.82 L (4.50-5.90) M/MM3 Hgb 8.9 L (13.5-17.5) GM/DL Hct 27.8 L (41-53) % Neut % (Auto) 82.0 H (33-66) % Lymph % (Auto) 7.2 L (23-45) % Eos % (Auto) 4.5 H (0-4) % Neut # (Auto) 8.7 H (1.8-7.7) T/MM3 Lymph # (Auto) 0.8 L (1-4.8) T/MM3 BUN 29.0 H (9-20) MG/DL Creatinine 1.9 H (0.8-1.5) mg/dL Glucose 190 H (75-110) MG/DL Calculated Osmolality 282 H (261-280) MOSM/KG H & H 07/24/17 07/25/17 07/26/17 Range/Units 12:48 04:15 05:35 Hgb 11.0 L 11.0 L 11.3 L (13.5-17.5) GM/DL Hct 34.3 L 33.8 L 35.3 L (41-53) % 07/27/17 07/29/17 07/30/17 Range/Units 04:39 04:18 03:40 Hgb 10.9 L 10.2 L 10.2 L (13.5-17.5) GM/DL Hct 33.8 L 31.2 L 31.6 L (41-53) % 07/31/17 08/01/17 08/02/17 Range/Units 05:27 03:53 04:11 Hgb 9.2 L 9.1 L 9.0 L (13.5-17.5) GM/DL Hct 28.2 L 28.2 L 28.2 L (41-53) % 08/03/17 08/04/17 08/05/17 Range/Units 04:48 04:00 04:08 Hgb 9.2 L 9.0 L 8.9 L (13.5-17.5) GM/DL Hct 28.4 L 27.5 L 27.8 L (41-53) % Orthopedic Assessment and Plan (1) Surgical wound dehiscence Status: Acute Assessment and Plan: Planned discharge to [facility] today for wound vac management and IV antibiotics. Follow up scheduled with Dr. Slade 08/07/17 Medically managed by hospitalist group. Hospital Course Summary Disclaimer: The visit summary below is not to be considered part of the above Progress Note. Hospital Course: 07/24/17 Admission Admit patient to inpatient status under the care of Dr. Hernandez. Consult with Dr. Slade for further wound management. Planning for debridement and possible placement of wound VAC tomorrow. Start Vancomycin per protocol for wound coverage. Continue levofloxacin, changing to 750mg IV daily. PICC line study reveals that line placement is within the Azygos vein. Spoke with PICC line team. We will replace PICC line for better placement. Obtain CBC, CMP, blood culture, venous lactate, magnesium, urinalysis analysis, uric acid & CRP on admit. Monitor Accu-Cheks Given patient's history of diabetes. Will continue on home regimen of Levemir 40 units twice a day and NovoLog 20 units with meals. Patient to be nothing by mouth after midnight for scheduled procedure. Consult with Dr. Stubbs for further cardiac evaluation and recommendations. We are awaiting the echocardiogram report that was done outpatient last week as this will direct ongoing guidance regarding LifeVest. SCDs to bilateral lower extremity for DVT prophylaxis. We did discuss advanced directives and at this time. Patient does wish to be a do not resuscitate. Will discuss further orders and plan of care with attending, Dr. Hernandez. At time of discharge medical care will return to primary care provider, Dr Luis E Martinez in [place], [place]. 07/25 Planning for surgical debridement of Left foot wound today by Dr Slade Patient did receive Entresto today given recent vascular stenting of the left leg on 07/16 On vancomycin and IV Levaquin for antimicrobial coverage Will continue to monitor Accu-Cheks Will continue on home regimen of Levemir 40 units twice a day and NovoLog 20 units with meals. Spoke with [facility] radiology dept. They received report last night and will fax it today to [facility] as requested. Patient currently wearing left vest. SCDs to bilateral lower extremity for DVT prophylaxis. 07/26 Status post surgical debridement of necrotic tissue and removal of fourth and fifth metatarsal heads yesterday by Dr. Slade. Awaiting path and culture. Wound vac placed yesterday. CM making arrangements for outpatient wound vac. Continue vancomycin and IV Levaquin for antimicrobial coverage. DC IVF's which were started in surgery. Pain is controlled. Will consult PT/OT to help functional status. 07/[address]. Surgical culture positive for group B strep. Nocturnal hypoglycemia-decrease Levemir dose while hospitalized, continue current NovoLog and metformin dosages. Patient describes urinary frequency without dysuria, probable BPH-post void residual obese checked by bladder scan. If unremarkable we will initiate Flomax on trial basis. Adequate pain control. 07/28 Continue vancomycin and IV Levaquin for antimicrobial coverage. Status post surgical debridement of necrotic tissue and removal of fourth and fifth metatarsal heads 07/[address] Slade. Wound vac. Awaiting path. Surgical culture positive for group B strep/Staph aureus. Will continue current abx until cx are final given hx of past culture results. Needs to reassess CXR given malposition of PICC on prior films. Recurrent hypoglycemia- both long and short-acting insulin adjusted yesterday. Suspect lowering due to infection more controlled. Patient describes urinary frequency without dysuria, probable BPH. Order additional bladder scan, straight cath. We may need to place delgado. Flomax started yesterday. D/W pt that it will take a few days for effect. HF- pt has been consistently tachycardic. BP is has been adequate. Will up Coreg dosing to help control HR. Continue Entresto, Brilinta. Cardiology following. May need to add diuretics, but hesitant to do so until he is voiding better. Adequate pain control. Continue frequent labs for monitoring. 07/29 Currently on vancomycin and IV Levaquin for antimicrobial coverage. Wound vac change today. Path shows osteomyelitis. Surgical culture positive for group B strep/Staph aureus. Coreg was increased yesterday d/t tachycardia. Pulse still lower 100's. Cardiology following. White count (12.1) and creatinine (1.7) both up today 07/30 Currently on vancomycin for antimicrobial coverage. Add clinda for increased strep coverage. Sensitivities requested on strep. White count increased today 12.1-->17.1. Creatinine 1.3-->1.7-->1.9. IVF's added to improve renal function. Add colchicine for R ankle pain possibly r/t gout. Discussed w/ Dr. Slade. If pain isn't improved over the next 1-2 days, ortho will do joint aspiration to r/ o septic joint vs gout vs other. (Dr Slade will be out of town, but ZENY Cramer can do aspiration.) Uric acid is WNL. Will hold off on DC to SNU at this time give the increase in his WBC and creatinine and new c/o ankle pain. 07/31 Currently on vancomycin for antimicrobial coverage. Dosing adjusted by pharm based on renal fx. Day # 2 of Clindamycin. White count improved today 17.1-->13.1. Creatinine continues to climb 1.9-->2.1. IVF's added yesterday. Hgb dropped a point from yesterday - likely dilutional. Colchicine added yesterday for gout w/ improvement in pain--> discontinue due to worsening renal function. AC insulin halved this am d/t low BS this am. Long acting insulin decreased due to low-normal fasting glucose. Renal sonogram normal. Patient still hoping to go to Swing Bed at [facility] upon dismissal if this is an option. 08/01 Currently on vancomycin-day 9, for antimicrobial coverage. Dosing adjusted by pharm based on renal fx. Day 3 Clindamycin. Leukocytosis resolved. Creatinine up a little further, reassess vancomycin trough in the morning. Right ankle pain has subsided, colchicine discontinued yesterday due to renal insufficiency. Recurrent hypoglycemia yesterday-insulins reduced significantly. Continue to monitor closely. 08/02 CM arranged for discharge to [facility] on 08/05/17 for continued care. Patient to do hyperbaric treatment following discharge from [facility]. Wound vac displaced during the night and was replaced this morning by wound care. Continue to monitor closely. Continue current treatment including vancomycin-day 10, as well as Clindamycin - day 4, for antimicrobial coverage. Dosing adjusted by pharm based on renal fx. Leukocytosis improving (WBC 11.4). Continue to monitor closely. Patient remains afebrile. SCr stable at 2.2 with BUN improving. Urinary output stable. Weight up 17 pounds since admission with 2+ edema. Will given Lasix 40mg IV and recheck SCr at 1999. Hypoglycemia on 08/01/17 - improved with decrease in insulin dosages (Novolog decreased from 16 units TID to 10 units TID; Levemir decreased from 25 units BID to 20 units BID). Continue to monitor blood sugars closely, adjusting insulin as indicated. Encourage oral intake. Sliding scale insulin as indicated. Recheck labs in AM to monitor blood counts, electrolytes and renal function. 08/03 CM arranged for discharge to [facility] on 08/05/17 for continued care. Patient to do hyperbaric treatment following discharge from [facility]. Wound vac in place per surgery Continue current treatment including vancomycin-day 11, as well as Clindamycin - day 5, for antimicrobial coverage. Dosing adjusted by pharm based on renal fx. Vanco level this evening planned Leukocytosis resolved today. Patient remains afebrile. SCr trended down overnight after 40 of IV lasix yesterday - monitor creatinine and vanco level, may need more diuresis Hypoglycemia on 08/01/17 - improved with decrease in insulin dosages (Novolog decreased from 16 units TID to 10 units TID; Levemir decreased from 25 units BID to 20 units BID). Continue to monitor blood sugars closely, adjusting insulin as indicated. Encourage oral intake. Sliding scale insulin as indicated. Recheck labs in AM to monitor blood counts, electrolytes and renal function. 08/04 CM arranged for discharge to [facility] on 08/05/17 for continued care. Patient to do hyperbaric treatment following discharge from [facility]. Wound vac in place per surgery Continue current treatment including vancomycin-day 12, as well as Clindamycin - day 6, for antimicrobial coverage. Dosing adjusted by pharm based on renal fx. Vanco level 20 last night. Has PICC for ATBX. SCr trended down overnight after 40 of IV lasix 08/02- stopped IVF. May need more diuresis. Baseline creatinine is 1. Hypoglycemia- insulin has been decreased to novolog 10 TID WM an levemir 15 BID. Change to levemir 15 units QHS and novolog 5 TIDWM and increase from there. 08/[address] Maggy Bedoya, accepting physician. Patient to be transferred to [facility] today to swing bed for continued IV antibiotics. He should be on vancomycin for a total of 6 weeks. Clindamycin for [address] Barron. Today is day #13 of vancomycin and day #7 of clindamycin. Has PICC for antibiotics He is scheduled for follow-up with Dr. Slade in the wound clinic on August 07 at noon. He will also be scheduled to follow-up with Dr. Barron (infectious disease ) as well. Will need to continue to follow his kidney function, as well as his hemoglobin and white count. Insulin needs have decreased with his renal insufficiency. Insulin has been decreased as indicated in yesterday's note.
--- NOTE | 2017-08-05 16:02 | Wound Care Progress Note ---
Wound Center Progress Note: Dr Slade had been in earlier today and had removed wound vac drsing to assess wound. At this time wound RN in to replace wound vac. Periwound skin preped and covered with clear occlusive drsg. Black foam placed to wound then all foam covered with clear occlusive drsg. Sensor trak applied and good suction obtained. NPWT set at 150mm pressure. Pt will return to Wound clinic on 08/[address] Slade.
== END 2017-08-05 15:35 | disposition swing bed (61) | DRG 240 ==
LOC: SUATTDRO 11:58 → SRG 11:58
PROVIDERS: ADMIT Hospitalist; ATTEND Internal Medicine